=== PATIENT | female | born 1955 | race Caucasian/White ===

== ENCOUNTER 2019-11-25 10:41 | Outpatient (CLI) | payer MEDICARE, SELFPAY ==
--- NOTE | ~2019-11-25 | MR_ITS ---
EXAMINATION: MR lumbar spine wo/w con EXAM DATE: 11/25/2019 12:30 INDICATION: Lumbar fusion hardware. Spinal stenosis, neurogenic claudication. Low back pain. TECHNIQUE: Multi-sequential, multiplanar MR images of the lumbar spine were obtained without contrast . Sagittal T1, T2, T2 fat saturation images. Axial T2 weighted images. Axial T1 weighted sequence. Patient was then injected with 17 mL Multihance intravenous contrast and reimaged. Postcontrast axi al and sagittal T1-weighted fat saturation sequences were obtained. There are no prior studies for co mparison. FINDINGS: There is posterior fusion L2-S1, interbody fusion L5-S1. Moderate to severe disc disease L2 -3, moderate at L1-2, L3-4 and L4-5. Mid lumbar laminectomies. The vertebral bodies are aligned in th e AP dimension. The conus medullaris terminates at the L1/2 level and has normal signal intensity and morphology. There is enhancement in the laminectomy beds. Level by level evaluation: T12-L1: There is a mild diffuse disc bulge. Facet arthropathy: Mild to moderate. Neural foraminal stenosis: No stenosis. Central canal stenosis: Mild. L1-L2: There is a mild to moderate diffuse disc bulge asymmetric to the left Facet arthropathy: Moderate. Neural foraminal stenosis: Mild to moderate left, mild right. Central canal stenosis: Mild to moderate. L2-L3: There is a mild diffuse disc bulge. Facet arthropathy: Poorly visualized. Neural foraminal stenosis: Probably mild bilateral. Central canal stenosis: No stenosis. L3-L4: There is a mild to moderate diffuse disc bulge. Facet arthropathy: Poorly visualized. Neural foraminal stenosis: Probably mild to moderate bilateral. Central canal stenosis: No stenosis. L4-L5: There is a mild diffuse disc bulge. Facet arthropathy: Poorly visualized. Neural foraminal stenosis: Moderate to severe right, mild to moderate left. Central canal stenosis: No stenosis. L5-S1: This level is fused. Facet arthropathy: Mild to moderate. Neural foraminal stenosis: Probably moderate left, mild right. Central canal stenosis: Mild. IMPRESSION: 1. L2-S1 fusion hardware. 2. Disc disease most advanced L2-3. 3. Right L4-5 neural foramina most narrowed on exam. Reviewed, dictated and finalized at location A. 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
[2019-11-25 11:21] LABS: Estimated Glomerular Filt Rate 55
== END 2019-11-25 10:42 | disposition home or self-care (01) ==
LOC: ANHIMG 10:51
PROVIDERS: PCP Internal Medicine; Visit Provider Neurological Surgery
DX: M48.062 Spinal stenosis, lumbar region with neurogenic claudication (principal); Z98.1 Arthrodesis status; M51.36 Other intervertebral disc degeneration, lumbar region
CPT/HCPCS: 36415; 72158; A9577

== ENCOUNTER 2020-01-14 09:23 | Outpatient (CLI) | payer MEDICARE, SELFPAY ==
[2020-01-14 09:58] LABS: Hematocrit 38.7 % (37.0-47.0); Hemoglobin 12.6 g/dL (12.0-15.0)
[2020-01-14 10:16] LABS: Alanine Aminotransferase 58 U/L (4-35); Albumin Level 4.4 g/dL (3.5-5.1); Alkaline Phosphatase 125 U/L (38-126); Aspartate Amino Transferase 59 U/L (14-36); Bilirubin,Total 0.4 mg/dL (0.2-1.3); Blood Urea Nitrogen 19 mg/dL (7-17); Carbon Dioxide 28 mmol/L (22-30); Chloride 106 mmol/L (98-107); Cholesterol 151 mg/dL (0-200); Estimated Glomerular Filt Rate > 60; Glucose 99 mg/dL (65-105); HDL Direct 58 mg/dL; Sodium 143 mmol/L (137-145); Triglycerides 109 mg/dL (<150)
[2020-01-14 10:26] LABS: LDL Cholesterol Direct 71 mg/dL
[2020-01-14 10:52] LABS: Vitamin D 25 Hydroxy 61.8 ng/mL
[2020-01-14 11:08] LABS: Potassium 4.3 mmol/L (3.4-5.0)
== END 2020-01-14 09:24 | disposition home or self-care (01) ==
PROVIDERS: PCP Internal Medicine; Visit Provider Internal Medicine
DX: E78.5 Hyperlipidemia, unspecified (principal); E55.9 Vitamin D deficiency, unspecified; I10 Essential (primary) hypertension; D64.9 Anemia, unspecified; Z79.899 Other long term (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
CPT/HCPCS: 36415; 80053; 80061; 82306; 85014; 85018

== ENCOUNTER 2020-07-20 07:26 | Outpatient (CLI) | payer MEDICARE, SELFPAY ==
[2020-07-20 08:34] LABS: Alanine Aminotransferase 32 U/L (4-35); Alkaline Phosphatase 99 U/L (38-126); Anion Gap 6 mmol/L (8-16); Aspartate Amino Transferase 49 U/L (14-36); Bilirubin,Total 0.6 mg/dL (0.2-1.3); Blood Urea Nitrogen 17 mg/dL (7-17); Calcium 8.8 mg/dL (8.4-10.2); Carbon Dioxide 30 mmol/L (22-30); Chloride 107 mmol/L (98-107); Cholesterol 136 mg/dL (0-200); Estimated Glomerular Filt Rate > 60; Glucose 101 mg/dL (65-105); HDL Direct 41 mg/dL; Potassium 4.1 mmol/L (3.4-5.0); Sodium 143 mmol/L (137-145); Triglycerides 121 mg/dL (<150)
[2020-07-20 08:45] LABS: LDL Cholesterol Direct 70 mg/dL
[2020-07-20 09:51] LABS: Vitamin D 25 Hydroxy 50.2 ng/mL
== END 2020-07-20 07:27 | disposition home or self-care (01) ==
PROVIDERS: PCP Internal Medicine; Visit Provider Internal Medicine
DX: E55.9 Vitamin D deficiency, unspecified (principal); I10 Essential (primary) hypertension; Z79.899 Other long term (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; E78.5 Hyperlipidemia, unspecified
CPT/HCPCS: 36415; 80053; 80061; 82306

== ENCOUNTER 2021-04-26 09:38 | Outpatient (CLI) | payer MEDICARE, SELFPAY ==
--- NOTE | ~2021-04-26 | MR_ITS ---
EXAMINATION: MR thoracic spine wo con DATE: 04/26/2021 11:36 INDICATION: Thoracic back pain. TECHNIQUE: Magnetic resonance imaging (MRI) of the thoracic spine was performed without intravenous c ontrast. Sagittal localizer T1-weighted FSE of the cervical spine was obtained. Thoracic spine sequen jacquelyn included sagittal T2-weighted FSE, sagittal T1-weighted FSE, sagittal STIR FSE, and axial T2-weig hted FSE. COMPARISON: Chest 2 views 10/16/2018 FINDINGS: There is 9 degrees dextrocurvature of thoracic spine. There is kyphosis of thoracic spine. There are changes of anterior fusion procedure in cervical spine and posterior fusion procedure in sally mbar spine. There is mild chronic anterior wedging of T5, T6, T7, T8, and T9 vertebral bodies. There is moderately decreased disc height at T3-T4, mildly decreased disc height at T4-T5, and severely dec reased disc height from T5-T6 through T12-L1 with endplate remodeling. The discs are bulging from T2- T3 through T12-L1 with mild central canal stenosis. There is multilevel facet joint osteoarthritis, s evere at most levels. There is multilevel mild neural foraminal stenosis bilaterally. On the right, t here is moderate neural foraminal stenosis at T3-T4, T4-T5, T5-T6, and T11-T12. On the left, there is moderate neural foraminal stenosis at T10-T11 and T11-T12. The spinal cord signal intensity is garnt l. IMPRESSION: 1. Severe thoracic spondylosis. Reviewed, dictated and finalized at location A.
[2021-04-26 12:49] LABS: Alanine Aminotransferase 79 U/L (4-35); Albumin Level 4.5 g/dL (3.5-5.1); Alkaline Phosphatase 98 U/L (38-126); Anion Gap 7 mmol/L (8-16); Aspartate Amino Transferase 71 U/L (14-36); Bilirubin,Total 0.6 mg/dL (0.2-1.3); Blood Urea Nitrogen 19 mg/dL (7-17); Calcium 9.5 mg/dL (8.4-10.2); Carbon Dioxide 29 mmol/L (22-30); Chloride 105 mmol/L (98-107); Cholesterol 153 mg/dL (0-200); Estimated Glomerular Filt Rate > 60; Glucose 95 mg/dL (65-110); HDL Direct 59 mg/dL; Potassium 4.6 mmol/L (3.4-5.0); Sodium 141 mmol/L (137-145); Triglycerides 113 mg/dL (<150); Uric Acid 5.2 mg/dL (2.5-7.5)
[2021-04-26 13:00] LABS: LDL Cholesterol Direct 61 mg/dL
[2021-04-26 13:44] LABS: Vitamin B12 > 1000.0 pg/mL (239-931)
[2021-04-26 13:59] LABS: Vitamin D 25 Hydroxy 61.5 ng/mL
== END 2021-04-26 09:39 | disposition home or self-care (01) ==
PROVIDERS: PCP Internal Medicine
DX: F32.9 Major depressive disorder, single episode, unspecified (principal); Z13.21 Encounter for screening for nutritional disorder; G47.00 Insomnia, unspecified; E55.9 Vitamin D deficiency, unspecified; E78.5 Hyperlipidemia, unspecified; M47.24 Other spondylosis with radiculopathy, thoracic region; M10.9 Gout, unspecified
CPT/HCPCS: 36415; 72146; 80053; 80061; 82306; 82607; 84443; 84550

== ENCOUNTER 2021-05-01 12:19 | Outpatient (CLI) | payer MEDICARE, SELFPAY ==
[2021-05-01 12:46] LABS: Add Urine Microscopic? YES; Appearance Urine Cloudy (Clear); Bacteria Urine Trace /hpf; Bilirubin Urine Negative (Negative); Blood Urine Negative (Negative); Color Urine Yellow (Yellow); Glucose Urine UA Negative (Negative); Ketones Urine Negative (Negative); Leukocyte Esterase Ur 3+ LEU/UL (Negative); Mucus Urine Rare /lpf; Nitrate Urine Positive (Negative); Protein Urine Negative (Negative); RBC Urine 0-2 /hpf (0-2); Specific Grav Ur 1.018 (1.001-1.035); Squamous Epithelial Cell Urine Rare /hpf (Few); Urobilinogen Urine Negative mg/dL (<2.0); WBC Urine >75 /hpf
== END 2021-05-01 12:20 | disposition home or self-care (01) ==
LOC: ANHLAB 12:22
PROVIDERS: PCP Internal Medicine; Visit Provider Nurse Practitioner
DX: R39.9 Unspecified symptoms and signs involving the genitourinary system (principal)
CPT/HCPCS: 81001; 87077; 87086; 87088; 87186

== ENCOUNTER 2021-06-20 14:23 | Outpatient (CLI) | payer MEDICARE, SELFPAY ==
[2021-06-20 15:14] LABS: Alanine Aminotransferase 36 U/L (4-35); Albumin Level 4.6 g/dL (3.5-5.1); Alkaline Phosphatase 109 U/L (38-126); Aspartate Amino Transferase 58 U/L (14-36); Bilirubin,Total 0.7 mg/dL (0.2-1.3)
== END 2021-06-20 14:24 | disposition home or self-care (01) ==
PROVIDERS: PCP Internal Medicine
DX: R79.89 Other specified abnormal findings of blood chemistry (principal)
CPT/HCPCS: 36415; 80076

== ENCOUNTER 2021-11-06 13:46 | Outpatient (CLI) | payer MEDICARE, SELFPAY ==
[2021-11-06 15:15] LABS: Add Urine Microscopic? NO; Appearance Urine Clear (Clear); Bilirubin Urine Negative (Negative); Blood Urine Negative (Negative); Color Urine Straw (Yellow); Glucose Urine UA Negative (Negative); Ketones Urine Negative (Negative); Leukocyte Esterase Ur Negative LEU/UL (Negative); Nitrate Urine Negative (Negative); Protein Urine Negative (Negative); Specific Grav Ur 1.006 (1.001-1.035); Urobilinogen Urine Negative mg/dL (<2.0)
[2021-11-06 15:17] LABS: Alanine Aminotransferase 41 U/L (4-35); Albumin Level 4.3 g/dL (3.5-5.1); Alkaline Phosphatase 116 U/L (38-126); Anion Gap 7 mmol/L (8-16); Aspartate Amino Transferase 61 U/L (14-36); Bilirubin,Total 0.6 mg/dL (0.2-1.3); Blood Urea Nitrogen 12 mg/dL (7-17); Calcium 9.5 mg/dL (8.4-10.2); Carbon Dioxide 30 mmol/L (22-30); Chloride 104 mmol/L (98-107); Cholesterol 169 mg/dL (0-200); Estimated Glomerular Filt Rate > 60; Glucose 96 mg/dL (65-110); HDL Direct 52 mg/dL; Sodium 141 mmol/L (137-145); Triglycerides 128 mg/dL (<150)
[2021-11-06 15:27] LABS: LDL Cholesterol Direct 80 mg/dL
== END 2021-11-06 13:47 | disposition home or self-care (01) ==
LOC: ANHWCLAB 13:48
PROVIDERS: PCP Internal Medicine; Visit Provider Nurse Practitioner
DX: E78.5 Hyperlipidemia, unspecified (principal); R79.89 Other specified abnormal findings of blood chemistry; R30.0 Dysuria
CPT/HCPCS: 36415; 80053; 80061; 81003; 82248

== ENCOUNTER 2022-02-27 09:14 | Outpatient (CLI) | payer MEDICARE, SELFPAY ==
[2022-02-27 13:30] LABS: Alanine Aminotransferase 24 U/L (6-35); Albumin Level 3.9 g/dL (3.5-5.1); Alkaline Phosphatase 121 U/L (38-126); Anion Gap 7 mmol/L (8-16); Aspartate Amino Transferase 63 U/L (14-36); Basophils Percent Auto 0.5 % (0.2-1.2); Bilirubin,Total 0.5 mg/dL (0.2-1.3); Blood Urea Nitrogen 19 mg/dL (7-17); CRP 2.5 mg/dL (<1.0); Calcium 8.8 mg/dL (8.4-10.2); Carbon Dioxide 29 mmol/L (22-30); Chloride 107 mmol/L (98-107); Eosinophils Absolute Auto 0.3 K/mm3 (0-0.3); Eosinophils Percent Auto 4.9 % (0-4.4); Estimated Glomerular Filt Rate > 60; Glucose 88 mg/dL (65-110); Hematocrit 38.9 % (37.0-47.0); Hemoglobin 12.3 g/dL (12.0-15.0); Immature Granulocyte Absolute 0.01 K/mm3 (0.00-0.031); Immature Granulocyte Percent A 0.2 % (0-0.5); Immature Platelet Fraction Pct 4.3 % (0.9-11.2); Lymphocytes Absolute Auto 1.75 K/mm3 (0.9-3.2); Lymphocytes Percent Auto 27.9 % (18.3-44.2); Mean Corpuscular HGB Conc 31.6 g/dl (32-36); Mean Corpuscular Hemoglobin 29.9 pg (26-34); Mean Corpuscular Volume 94.4 fl (80-100); Mean Platelet Volume 13.9 fl (7.4-10.4); Monocytes Absolute Auto 0.5 K/mm3 (0.1-0.6); Monocytes Percent Auto 7.5 % (2.6-8.5); Neutrophils Absolute Auto 3.7 K/mm3 (1.3-6.7); Platelet Count Result 205 k/mm3 (150-375); Potassium 4.3 mmol/L (3.4-5.0); Red Blood Count 4.12 M/mm3 (4.2-5.4); Red Cell Distribution Width 13.4 % (11.5-14.5); Sodium 143 mmol/L (137-145); White Blood Count 6.3 K/mm3 (4.5-10.0)
[2022-02-27 13:38] LABS: Parathyroid Intact 67.5 pg/mL (7.5-53.5)
[2022-02-27 14:11] LABS: Rheumatoid Factor < 8.6 IU/ML (<12)
[2022-02-27 15:41] LABS: Erythrocyte Sedimentation Rate 73 mm/hr (0-20)
[2022-03-05 07:22] LABS: Anti Nuclear Antibody Pattern Nuclear, Speckled
[2022-03-11 13:59] LABS: Cyclic Citrullinated Peptide <16
== END 2022-02-27 09:15 | disposition home or self-care (01) ==
PROVIDERS: PCP Internal Medicine
DX: M79.10 Myalgia, unspecified site (principal); M25.50 Pain in unspecified joint; R53.83 Other fatigue; G89.4 Chronic pain syndrome
CPT/HCPCS: 36415; 80053; 83970; 85025; 85055; 85652; 86038; 86039; 86140; 86430

== ENCOUNTER 2022-04-04 12:51 | Outpatient (CLI) | payer MEDICARE, SELFPAY ==
[2022-04-04 13:40] LABS: Calcium 8.5 mg/dL (8.4-10.2)
[2022-04-04 14:06] LABS: Vitamin D 25 Hydroxy 64.9 ng/mL
== END 2022-04-04 12:52 | disposition home or self-care (01) ==
LOC: ANHLAB 12:58
PROVIDERS: PCP Internal Medicine
DX: E34.9 Endocrine disorder, unspecified (principal)
CPT/HCPCS: 36415; 82306; 82310; 83970

== ENCOUNTER 2022-05-02 10:53 | Outpatient (CLI) | payer MEDICARE, SELFPAY ==
--- NOTE | ~2022-05-02 | XR_ITS ---
XR sacroiliac joints min 3V DATE: 05/02/2022 11:29 INDICATION: Low back pain. History of fusions 3 years ago. TECHNIQUE: AP and bilateral oblique views COMPARISON: None FINDINGS: The sacroiliac joints are intact, without evidence of fracture, dislocation, erosive change or ankylosis. Extensive postsurgical changes of the lumbar spine including laminectomy, pedicle screws and rods pro viding posterior fusion and anterior surgical fusion at L5-S1. IMPRESSION: Unremarkable sacroiliac joints Extensive postoperative changes of the lumbosacral spine Reviewed, dictated and finalized at Location A. Reviewed, dictated and finalized at location B.
--- NOTE | ~2022-05-02 | XR_ITS ---
XR hand LT min 3V DATE: 05/02/2022 11:29 INDICATION: Polyarthralgia TECHNIQUE: 3 views COMPARISON: None FINDINGS: There is narrowing at the radiocarpal joint. There is osteoarthritic change at the first ca rpometacarpal and multiple interphalangeal joints. No fracture or dislocation, periosteal reaction or bone destruction or erosive change. No chondrocalc inosis. IMPRESSION: Polyarticular osteoarthritis Reviewed, dictated and finalized at location B.
--- NOTE | ~2022-05-02 | XR_ITS ---
XR foot LT min 3V DATE: 05/02/2022 11:29 INDICATION: Polyarthralgia TECHNIQUE: 4 views COMPARISON: None FINDINGS: Mild plantar calcaneal enthesopathy without erosive change or periostitis. Partially incorporated os tibiale externum. Mild osteoarthritis at the first metatarsophalangeal joint. No fracture, dislocation, periosteal reaction or bone destruction. IMPRESSION: Mild plantar calcaneal enthesopathy Mild osteoarthrosis at first metatarsophalangeal Reviewed, dictated and finalized at location B.
--- NOTE | ~2022-05-02 | XR_ITS ---
XR hand RT min 3V DATE: 05/02/2022 11:29 INDICATION: Polyarthralgia TECHNIQUE: 3 views COMPARISON: None FINDINGS: No fracture or dislocation, periosteal reaction or bone destruction. There is osteoarthritis at the first carpometacarpal, first metacarpophalangeal and more prominently at multiple interphalangeal joints. No erosive change. No chondrocalcinosis. IMPRESSION: Polyarticular osteoarthritis Reviewed, dictated and finalized at location B.
--- NOTE | ~2022-05-02 | XR_ITS ---
XR foot RT min 3V DATE: 05/02/2022 11:29 INDICATION: Polyarthralgia TECHNIQUE: 4 views COMPARISON: None FINDINGS: Mild to moderate plantar calcaneal enthesopathy. There is some calcification at the distal Achilles tendon. There is severe osteoarthritic change at the first metatarsophalangeal joint with particularly promin ent dorsal spurring. Osteoarthritic changes are noted at the tarsometatarsal joints. No fracture, dislocation, periosteal reaction or bone destruction or erosive change is noted. IMPRESSION: Severe hypertrophic osteoarthritic change at the first metatarsophalangeal joint with par ticularly prominent dorsal spurring Osteophytic change at the tarsometatarsal joints Plantar calcaneal enthesopathy and distal Achilles tendon calcification Reviewed, dictated and finalized at location B. IMPRESSION: Severe hypertrophic osteoarthritic change at the first metatarsopha langeal joint with particularly prominent dorsal spurring Osteophytic change at the tarsometatarsal joints Plantar calcaneal enthesopathy and distal Achilles tendon calcification
== END 2022-05-02 10:54 | disposition home or self-care (01) ==
LOC: ANHIMG 10:59
PROVIDERS: PCP Internal Medicine
DX: M19.90 Unspecified osteoarthritis, unspecified site (principal); M54.50 Low back pain, unspecified; Z98.1 Arthrodesis status; M77.32 Calcaneal spur, left foot; M77.31 Calcaneal spur, right foot; M19.041 Primary osteoarthritis, right hand; M19.042 Primary osteoarthritis, left hand
CPT/HCPCS: 72202; 73130; 73630

== ENCOUNTER 2022-05-22 12:51 | Outpatient (CLI) | payer MEDICARE, SELFPAY ==
--- NOTE | ~2022-05-22 | XR_ITS ---
EXAM: XR shoulder RT min 2V DATE: 05/22/2022 13:15 HISTORY: ACUTE PAIN OF RIGHT SHOULDER, NKI, pain x10D . COMPARISON: None available. FINDINGS: Normal mineralization. No fracture or dislocation. No lytic or blastic lesion. Moderate os teophytosis at the AC joint and glenohumeral joint. No erosion or periosteal change. Visualized lung parenchyma is clear. IMPRESSION: No acute osseous finding in the right shoulder. Reviewed, dictated and finalized at location K.
== END 2022-05-22 12:52 | disposition home or self-care (01) ==
LOC: ANHIMG 12:55
PROVIDERS: PCP Internal Medicine; Visit Provider Internal Medicine
DX: M25.511 Pain in right shoulder (principal)
CPT/HCPCS: 73030

== ENCOUNTER 2022-07-31 09:31 | Outpatient (CLI) | payer MEDICARE, SELFPAY ==
--- NOTE | ~2022-07-31 | CT_ITS ---
EXAMINATION: CT lumbar spine wo con DATE: 07/31/2022 10:06 INDICATION: Right leg weakness. TECHNIQUE: Computed tomography (CT) of the lumbar spine was performed without intravenous contrast. A utomated exposure control and iterative reconstruction technique were employed. The dose-length produ ct was 1160.15 mGy-cm. COMPARISON: Lumbar spine MRI 11/25/2019 FINDINGS: There is 11 degrees levoscoliosis of thoracolumbar spine. There is 3 mm retrolisthesis of L 2 on L3 and L3 on L4. There is mild chronic anterior wedging of T11-L2 vertebral bodies. There are ch anges of anterior fusion procedure at L5-S1 with interbody device. There are changes of posterior fus ion procedure from L2 to S1 and the iliac bones with pedicle screws. There is severely decreased disc height from T10-T11 through L1-L2 with endplate remodeling. There is severely decreased disc height at L2-L3 with interbody fusion. There is moderately decreased disc height at L3-L4 and L4-L5. The fol lowing disc levels are specifically discussed: L1-L2: The disc is bulging. There is severe bilateral facet joint osteoarthritis. There is mild right and moderate left neural foraminal stenosis. There is mild central canal stenosis. L2-L3: The disc does not extend beyond the endplate margin. There is moderate bilateral facet joint h ypertrophy. There is mild bilateral neural foraminal stenosis. There is mild central canal stenosis w ith posterior decompression. L3-L4: The disc is bulging. There is moderate bilateral facet joint hypertrophy. There is mild bilate ral neural foraminal stenosis. There is mild central canal stenosis with posterior decompression. L4-L5: The disc is bulging. There is moderate bilateral facet joint hypertrophy. There is mild bilate ral neural foraminal stenosis. There is mild central canal stenosis with posterior decompression. L5-S1: There is moderate bilateral facet joint hypertrophy. There is mild bilateral neural foraminal stenosis. There is no central canal stenosis. IMPRESSION: 1. Severe thoracic and lumbar spondylosis. 2. Anterior fusion procedure at L5-S1 and posterior fusion procedure from L2 to S1 and the iliac bone s. Reviewed, dictated and finalized at location A. CAL CSR IMPRESSION: 1. Severe thoracic and lumbar spondylosis. 2. Anterior fusion procedure at L5-S1 and posterior fusion procedure from L2 to S1 and the iliac bones.
--- NOTE | ~2022-07-31 | US_ITS ---
EXAMINATION: US abdomen limited DATE: 07/31/2022 10:18 INDICATION: ELEVATED AST TECHNIQUE: Multiple grayscale and Doppler ultrasound images of limited portions of the abdomen were o btained. COMPARISON: MRI MRCP 03/17/2019. FINDINGS: Exam mildly limited by body habitus and views of the liver that were limited to intercostal windows. The visualized portions of the pancreas are normal. The liver is normal with normal echogen icity and echotexture. No surface nodularity. Normal hepatopetal flow in the main portal vein. Status post cholecystectomy. The common bile duct measures 4 mm. IMPRESSION: Normal limited abdominal ultrasound findings. Reviewed, dictated and finalized at location K. P SHOOTER
== END 2022-07-31 09:32 | disposition home or self-care (01) ==
PROVIDERS: PCP Internal Medicine
DX: R29.898 Other symptoms and signs involving the musculoskeletal system (principal); M47.894 Other spondylosis, thoracic region; M47.26 Other spondylosis with radiculopathy, lumbar region; Z98.1 Arthrodesis status
CPT/HCPCS: 72131; 76705

== ENCOUNTER 2022-08-20 15:13 | Outpatient (CLI) | payer MEDICARE, SELFPAY ==
--- NOTE | ~2022-08-20 | DEXA_ITS ---
Bone Density Report Name: KARYN ROSS Age: 67 Sex: Female Ethnicity: White Date of : 1955 Indication: postmenopausal; screening for osteoporosis; height loss; asthma or emphysema; hysterectomy; Referring Provider: YURI, YUDI Study: Bone densitometry was performed. Exam Date: August 20, 2022 Accession number: [id number] Bone Density: Region BMD T-score Z-score Classification Femoral Neck (Left) 0.722 -1.1 0.6 Osteopenia Total Hip (Left) 0.979 0.3 1.8 Normal Femoral Neck (Right) 0.706 -1.3 0.5 Osteopenia Total Hip (Right) 0.972 0.2 1.7 Normal Total Hip Mean 0.975 0.3 1.8 Normal World Health Organization criteria for BMD impression classify patients as: Normal (T-score at or above -1.0), Osteopenia (T-score between -1.0 and -2.5), or Osteoporosis (T-score at or below -2.5). 10-year Fracture Risk(1): Major Osteoporotic Fracture 8.5% Hip Fracture 1.0% Reported Risk Factors: [place] (), Neck BMD=0.706, BMI=37.6 (1) FRAX(R) Version 3.08. Fracture probability calculated for an untreated patient. Fracture probability may be lower if the patient has received treatment. Clinical Information Provided by Patient: Has used the following medications: Vitamin D, Calcium Has the following medical conditions: Asthma or Emphysema, Hysterectomy Patient maximum height was 62 Menopause Age: 48 Drinks caffeinated beverages Onset of menses at age 11 Number of children 2 Impression: The patient has low bone mass, based on the Right Femoral Neck T-score. The patient has an estimated ten-year risk of hip fracture of 1% and an estimated ten-year risk of major fracture of 8.5%, based on the WHO FRAX algorithm. Discussion: BONE DENSITY IS LOW AT ONE OR MORE SKELETAL SITES. This patient's lowest T-score is low at one or more skeletal sites. It meets the World Health Organization's (WHO) criteria for ?low bone mass? (T-score between -1.0 and -2.5). The patient's 10-year risk of fracture as calculated by FRAX is less than the threshold where pharmacological therapy is recommended by the National Osteoporosis Foundation (NOF). However, all treatment decisions require clinical judgment and consideration of individual patient factors, including patient preferences, comorbidities, previous drug use, risk factors not captured in the FRAX model (e.g., frailty, falls, vitamin D deficiency, increased bone turnover, interval significant decline in bone density) and possible under or overestimation of fracture risk by FRAX. The patient should follow a healthful lifestyle (good nutrition with adequate calcium and vitamin D, and appropriate weight-bearing exercise). Follow-Up: Consider repeating this study in 2 to 3 years to reassess this patient's status, or sooner if there is some new clinical indication
== END 2022-08-20 15:14 | disposition home or self-care (01) ==
LOC: ANHIMG 15:13
PROVIDERS: PCP Internal Medicine; Visit Provider Internal Medicine
DX: Z78.0 Asymptomatic menopausal state (principal); M85.852 Other specified disorders of bone density and structure, left thigh; M85.851 Other specified disorders of bone density and structure, right thigh
CPT/HCPCS: 77080

== ENCOUNTER 2022-11-12 14:47 | Outpatient (CLI) | payer MEDICARE, SELFPAY ==
--- NOTE | ~2022-11-12 | MM_ITS ---
EXAMINATION: MM screening edgar BI w angelo HISTORY: Screening mammogram TECHNIQUE: Craniocaudal and mediolateral oblique 3-D tomosynthesis images were obtained and synthetic 2-D images were generated. CAD analysis was submitted and interpreted. COMPARISON: No prior mammogram is available for comparison at this institution. BREAST PARENCHYMAL COMPOSITION: The breasts are heterogeneously dense, which may obscure small masses . FINDINGS: Scattered bilateral benign calcifications. There is no evidence of suspicious mass, calcifi cation, or architectural distortion to suggest malignancy in either breast. IMPRESSION: 1. No mammographic evidence of malignancy. 2. Recommend routine screening mammography in one year. BI-RADS Category 2: Benign finding(s). Reviewed, dictated and finalized at location A. APPLICATION SUPPORT SPECIALIST
== END 2022-11-12 14:48 | disposition home or self-care (01) ==
LOC: ANHIMG 14:48
PROVIDERS: PCP Internal Medicine; Visit Provider Internal Medicine
DX: Z12.31 Encounter for screening mammogram for malignant neoplasm of breast (principal)
CPT/HCPCS: 77063; 77067

== ENCOUNTER 2023-05-08 11:52 | Outpatient (CLI) | payer MEDICARE, SELFPAY ==
--- NOTE | ~2023-05-08 | XR_ITS ---
EXAMINATION: XR hip LT min 3V w AP pelvis INDICATION: Postlaminectomy syndrome TECHNIQUE: AP view the pelvis and two views of the left hip are obtained. COMPARISON: 05/02/2022 FINDINGS: There are changes of laminectomy and lumbosacral fusion. There is moderate osteoarthritis o f the hips. Bone alignment is normal. There is no fracture. IMPRESSION: 1. Moderate osteoarthritis of the hips. Reviewed, dictated and finalized at location L.
--- NOTE | ~2023-05-08 | XR_ITS ---
EXAM: XR lumbar spine 2-3V DATE: 05/08/2023 12:29 HISTORY: HX OF FALLING;POSTLAMINECTOMY SYNDROME . COMPARISON: CT L-spine 07/31/2022. FINDINGS: Exaggerated lumbar lordosis and thoracic kyphosis. Extensive posterior fusion hardware spa nning L1-S1. Multilevel severe disc space narrowing, marginal osteophytosis including large bridging osteophytes, and vacuum phenomenon at all levels in the lower thoracic spine. Aortic calcifications w ithout evident aneurysm. Anterior fusion hardware at L4-5. Bone graft material overlying the posterio r elements. Cholecystectomy clips. IMPRESSION: Uncomplicated appearing lumbar fusion hardware. No lumbar fracture or traumatic malalignm ent. No dynamic listhesis. Reviewed, dictated and finalized at location K. IMPRESSION: Uncomplicated appearing lumbar fusion hardware. No lumbar fracture or traumatic malalignment. No dynamic listhesis.
== END 2023-05-08 11:53 | disposition home or self-care (01) ==
PROVIDERS: PCP Internal Medicine
DX: Z91.81 History of falling (principal); M99.61 Osseous and subluxation stenosis of intervertebral foramina of cervical region; R10.32 Left lower quadrant pain; Z98.1 Arthrodesis status; M16.12 Unilateral primary osteoarthritis, left hip
CPT/HCPCS: 72100; 73502

== ENCOUNTER 2023-07-11 13:28 | Outpatient (CLI) | payer MEDICARE, SELFPAY ==
--- NOTE | ~2023-07-11 | XR_ITS ---
XR chest 2V DATE: 07/11/2023 13:50 INDICATION: Sjogren's syndrome. Shortness of breath. TECHNIQUE: PA and lateral views COMPARISON: 10/16/2018 2 view chest FINDINGS: Normal heart size. Aortic arch calcification. No hilar or mediastinal enlargement. There is mild elevation of the right leaf of the diaphragm. No pulmonary infiltrate or consolidation, pleural effusion or pulmonary vascular congestion or pneumothorax is detected. Mild dextroscoliosis of the thoracic spine. Degenerative spurring of the thoracic spine. Status post lower anterior cervical spine surgical fusion. Status post lumbar spine posterior surgical fusion. Status post cholecystectomy. Osteopenia. IMPRESSION: No active cardiopulmonary disease or significant change since 10/16/2018 Reviewed, dictated and finalized at location B. IMPRESSION: No active cardiopulmonary disease or significant change since 2018
== END 2023-07-11 13:29 | disposition home or self-care (01) ==
PROVIDERS: PCP Internal Medicine
DX: M35.00 Sjogren syndrome, unspecified (principal)
CPT/HCPCS: 71046

== ENCOUNTER 2023-07-24 13:26 | Outpatient (CLI) | payer MEDICARE, SELFPAY ==
--- NOTE | 2023-07-24 17:05 | WPDPFTINT ---
PFT Procedure Performed PFT Procedure Performed Plethysmography (Lung Vol) Diffusing Cap (DLCO) Flow Vol Loop Spirometry w/o Bronchodil PFT Interpretation This is a pulmonary function test with spirometry, plethysmography and diffusing capacity. The test was performed and results interpreted in accordance with the 2019 and 2005 ATS/ERS Task Force guidelines respectively using the Global Lung Function Initiative-2012 reference equations. Patient demonstrated good effort and cooperation. Reproducibility criteria were met. The quality of the spirometry maneuver was Grade A. Findings: Spirometry: The contour the inspiratory and expiratory flow tracing are normal. The FVC is 1.97 L, 80% predicted. The FEV1 is 1.51 L, 79% predicted. The FEV1: FVC ratio 77%. Plethysmography: The total lung capacity is 3.32 L, 75% predicted. The functional residual capacity is 0.87 L, 35% predicted. The residual volume is 0.85 L, 43% predicted. Diffusing capacity: The diffusing capacity unadjusted for hemoglobin and carboxyhemoglobin is 10.3, 54% predicted. The diffusing capacity adjusted for alveolar volume is 3.44, 77% predicted. Impression: There is a mild restrictive ventilatory abnormality. The spirometry is normal without evidence of an obstructive abnormality. The diffusing capacity unadjusted for hemoglobin and carboxyhemoglobin is moderately decreased and normalizes when adjusted for alveolar volume. There are no prior studies for comparison
== END 2023-07-24 13:27 | disposition home or self-care (01) ==
LOC: ANHPFT 13:27
PROVIDERS: PCP Internal Medicine
DX: M35.00 Sjogren syndrome, unspecified (principal); R94.2 Abnormal results of pulmonary function studies
CPT/HCPCS: 94060; 94726; 94729

== ENCOUNTER 2024-01-12 13:04 | Outpatient (CLI) | payer MEDICARE, SELFPAY ==
--- NOTE | ~2024-01-12 | MM_ITS ---
EXAMINATION: MM screening edgar BI w angelo HISTORY: Screening mammogram TECHNIQUE: Craniocaudal and mediolateral oblique 3-D tomosynthesis images were obtained and synthetic 2-D images were generated. CAD analysis was submitted and interpreted. COMPARISON: November 12, 2022 bilateral screening mammogram BREAST PARENCHYMAL COMPOSITION: The breasts are heterogeneously dense, which may obscure small masses . FINDINGS: Focal asymmetry is suggested in the lower anterior lateral right breast on MLO view; diagno stic right mammogram is recommended, with ultrasound if required. Otherwise there is no evidence of suspicious mass, calcification, or architectural distortion to sugg est malignancy in either breast. There has been no other suspicious interval change. IMPRESSION: 1. Asymmetry, lower anterior lateral right breast on screening MLO view 2. Diagnostic right mammogram is recommended, with ultrasound if required BI-RADS Category 0: Incomplete: Needs additional imaging evaluation. Reviewed, dictated and finalized at location A.
== END 2024-01-12 13:05 | disposition home or self-care (01) ==
LOC: ANHIMG 13:06
PROVIDERS: PCP Internal Medicine; Visit Provider Internal Medicine
DX: Z12.31 Encounter for screening mammogram for malignant neoplasm of breast (principal); R92.8 Other abnormal and inconclusive findings on diagnostic imaging of breast
CPT/HCPCS: 77063; 77067

== ENCOUNTER 2024-01-26 12:55 | Outpatient (CLI) | payer MEDICARE, SELFPAY ==
--- NOTE | ~2024-01-26 | MMUS_ITS ---
EXAMINATION: MM diagnostic edgar RT w angelo, US breast RT limited HISTORY: Mammographic asymmetry reported in the lower right breast on screening January 12, 2024 MLO vi ew TECHNIQUE: Additional 3-D tomosynthesis images of the right breast were performed and synthetic 2-D i mages were generated. CAD analysis was submitted and interpreted. High resolution lower outer and low er inner quadrant right breast ultrasound was performed. COMPARISON: January 10, 2024 and November 12, 2022 bilateral screening mammogram examination FINDINGS: MAMMOGRAPHIC FINDINGS: No suspicious mass or architectural distortion is evident on these supplemental views of the right br east. ULTRASOUND: No suspicious mass or shadowing, cyst or other significant abnormality is detected. IMPRESSION: 1. No mammographic or sonographic evidence of malignancy is detected 2. Routine annual mammographic screening is recommended BI-RADS Category 1: Negative Reviewed, dictated and finalized at location B. IMPRESSION: 1. No mammographic or sonographic evidence of malignancy is detected 2. Routine annual mammographic screening is recommended BI-RADS Category 1: Negative
== END 2024-01-26 12:56 | disposition home or self-care (01) ==
LOC: ANHIMG 12:57
PROVIDERS: PCP Internal Medicine; Visit Provider Internal Medicine
DX: R92.8 Other abnormal and inconclusive findings on diagnostic imaging of breast (principal)
CPT/HCPCS: 76642; 77061; 77065; G0279

== ENCOUNTER 2024-04-30 12:55 | Outpatient (CLI) | payer MEDICARE, SELFPAY ==
--- NOTE | 2024-04-30 | ECHO_ITS ---
Patient Info Name: Edna Linton Age: 69 years : 1955 Gender: Female Ht: 60 in Wt: 187 lbs BSA: 1.94 m2 HR: 72 bpm BP: 180 / 95 mmHg Heart Rhythm: Sinus Rhythm Technical Quality: Good Exam Date: 04/30/2024 1:22 PM Exam Location: Echo Lab Patient Status: Outpatient Admit Date: 04/30/2024 Staff Ordering Physician: Thor*Rishi MD Lean Leader: Gracie Weems RDCS Attending Provider: NormaRishi MD Referring Physician: Paul WILBURN; Exam Type: CA echo doppler color flow Study Info Indications R06.02 - Shortness of breath R60.9 - Edema, unspecified Complete two-dimensional, color flow and Doppler transthoracic echocardiogram is performed. Summary 1. Complete two-dimensional, color flow and Doppler transthoracic echocardiogram is performed. 2. Normal left ventricular size and systolic contractility with grade 1 diastolic noncompliance. 3. Modestly dilated left atrium. 4. Very small amount of tricuspid regurgitation, estimated RV systolic pressure is normal. Left Ventricle Left ventricular chamber dimension is normal. Left ventricular systolic function is normal, estimated at 50-55%. The left ventricular diastolic function is grade I diastolic dysfunction. Right Ventricle Right ventricular chamber dimension is normal. Left Atria Left atrial chamber dimension is mildly enlarged. Right Atria Right atrial chamber dimension is normal. Aortic Valve The aortic valve is normal. Pulmonic Valve The pulmonic valve is normal. Mitral Valve The mitral valve has normal leaflets. Tricuspid Valve The tricuspid valve leaflets are normal. There is mild tricuspid valve regurgitation. No pulmonary hypertension, estimated pulmonary arterial systolic pressure is 34 mmHg. Pericardium/Pleural The pericardium appears normal. Aorta The aortic root size at the sinus of Valsalva is normal. Left Ventricular Outflow Tract Name Value Normal LVOT 2D LVOT Diameter 2.0 cm LVOT Doppler LVOT Peak Gradient 4 mmHg LVOT Mean Gradient 2 mmHg LVOT VTI 23 cm LVOT VTI/AV VTI Ratio 0.8 LVOT Stroke Volume 70 ml LVOT CO 4.8 l/min LVOT CI 2.5 l/min/m2 Pulmonic Valve Name Value Normal RVOT Doppler RVOT Peak Gradient 2 mmHg PV Doppler PV Peak Gradient 3 mmHg Mitral Valve Name Value Normal MV Doppler MV Decel Randolph 549 cm/s2 MV PHT
== END 2024-04-30 12:56 | disposition home or self-care (01) ==
LOC: ANHCARD 12:58
PROVIDERS: PCP Internal Medicine; Visit Provider Internal Medicine Interventional Cardiology
DX: R60.9 Edema, unspecified (principal)
CPT/HCPCS: 93306

== ENCOUNTER 2024-09-07 15:32 | Outpatient (CLI) | payer MEDICARE, SELFPAY ==
--- NOTE | ~2024-09-07 | CT_ITS ---
EXAMINATION: CT cervical spine wo con DATE: 09/07/2024 16:30 INDICATION: Cervical radiculopathy. TECHNIQUE: Computed tomography (CT) of the cervical spine was performed without intravenous contrast. Automated exposure control and iterative reconstruction technique were employed. The dose-length pro duct was 474.86 mGy-cm. COMPARISON: None FINDINGS: There is 4 degrees levocurvature of cervical spine. There are changes of anterior fusion pr ocedure from C4 to C6 with healed interbody bone graft. There is an anterior plate with screws at C5- C6. Vertebral body heights are normal. There is mildly decreased disc height at C3-C4. The following disc levels are specifically discussed: C2-C3: There is mild bilateral uncovertebral joint osteoarthritis. There is severe bilateral facet kaur int osteoarthritis. There is mild bilateral neural foraminal stenosis. There is no central canal sten osis. C3-C4: There is severe right and mild left uncovertebral joint osteoarthritis. There is severe bilate ral facet joint osteoarthritis. There is mild bilateral neural foraminal stenosis. There is mild cent ral canal stenosis. C4-C5: There is mild bilateral uncovertebral joint hypertrophy. There is ankylosis of the facet joint s with mild hypertrophy. There is mild bilateral neural foraminal stenosis. There is no central canal stenosis. C5-C6: There is moderate bilateral uncovertebral joint hypertrophy. There is ankylosis of the facet j oints with moderate hypertrophy. There is moderate right and mild left neural foraminal stenosis. The re is no central canal stenosis. C6-C7: There is no uncovertebral joint osteoarthritis. There is ankylosis of the facet joints with se john hypertrophy. There is moderate right and mild left neural foraminal stenosis. There is no centra l canal stenosis. C7-T1: There is no uncovertebral joint osteoarthritis. There is severe bilateral facet joint osteoart hritis. There is mild bilateral neural foraminal stenosis. There is no central canal stenosis. IMPRESSION: 1. Anterior fusion procedure from C4 to C6. 2. Moderate cervical spondylosis. Reviewed, dictated and finalized at location A. 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
--- NOTE | ~2024-09-07 | XR_ITS ---
EXAMINATION: XR chest 2V 09/07/2024 16:22 INDICATION: Mild intermittent asthma. PROCEDURE: 2 view chest COMPARISON: 07/11/2023 FINDINGS: The lungs are clear. Shallow inspiration with crowding of the pulmonary vessels. The cardio mediastinal silhouette is within normal limits. There are no pleural effusions. There is no pneumot horax suspected. 3 there is evidence for fusion of the right lumbar spine, partially visualized. IMPRESSION: 1: NO ACUTE CARDIOPULMONARY DISEASE. Reviewed, dictated and finalized at location B. 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
== END 2024-09-07 15:33 | disposition home or self-care (01) ==
PROVIDERS: PCP Internal Medicine
DX: J45.20 Mild intermittent asthma, uncomplicated (principal); M54.12 Radiculopathy, cervical region; M96.1 Postlaminectomy syndrome, not elsewhere classified; M47.892 Other spondylosis, cervical region; Z98.1 Arthrodesis status
CPT/HCPCS: 71046; 72125

== ENCOUNTER 2024-09-24 14:46 | Outpatient (CLI) | payer MEDICARE, SELFPAY | END 2024-09-24 14:47 | disposition home or self-care (01) | PROVIDERS: PCP Internal Medicine | DX: J45.20 Mild intermittent asthma, uncomplicated (principal) | CPT/HCPCS: 94375; 94618; 94726; 94729 ==

== ENCOUNTER 2025-01-10 11:05 | Outpatient (CLI) | payer MEDICARE, SELFPAY ==
--- NOTE | ~2025-01-10 | US_ITS ---
Renal-Bladder ultrasound Clinical History: Chronic kidney disease Technique: Real-time sonographic imaging of the kidneys and urinary bladder was performed. Findings: The right kidney measures 11.1 cm in length and the left kidney measures 11.0 cm. There is no hydronephrosis or renal calculus identified. Renal cortical echogenicity is within normal limits. No renal mass lesion is identified. The urinary bladder is moderately distended at the time of this exam. No intraluminal echoes are iden tified. No abnormal wall thickening is seen. Impression: Unremarkable ultrasound of the kidneys and urinary bladder. Reviewed, dictated and finalized at location M. Impression: Unremarkable ultrasound of the kidneys and urinary bladder.
== END 2025-01-10 11:06 | disposition home or self-care (01) ==
LOC: MICIMG 11:06
PROVIDERS: PCP Internal Medicine; Visit Provider Internal Medicine Nephrology
DX: N18.9 Chronic kidney disease, unspecified (principal)
CPT/HCPCS: 76775

== ENCOUNTER 2025-01-12 12:14 | Outpatient (CLI) | payer MEDICARE, SELFPAY ==
--- NOTE | ~2025-01-12 | DEXA_ITS ---
Bone Density Report Name: KARYN ROSS Age: 69 Sex: Female Ethnicity: White Date of : 1955 Indication: postmenopausal; screening for osteoporosis; height loss; asthma or emphysema; hysterectomy; Referring Provider: YURI, YUDI Study: Bone densitometry was performed. Exam Date: January 12, 2025 Accession number: [id number] Bone Density: Region BMD T-score Z-score Classification Femoral Neck (Left) 0.725 -1.1 0.8 Osteopenia Total Hip (Left) 1.013 0.6 2.2 Normal Femoral Neck (Right) 0.633 -1.9 0.0 Osteopenia Total Hip (Right) 0.964 0.2 1.8 Normal Total Hip Mean 0.988 0.4 2.0 Normal World Health Organization criteria for BMD impression classify patients as: Normal (T-score at or above -1.0), Osteopenia (T-score between -1.0 and -2.5), or Osteoporosis (T-score at or below -2.5). 10-year Fracture Risk(1): Major Osteoporotic Fracture 11% Hip Fracture 2.1% Reported Risk Factors: [place] (), Neck BMD=0.633, BMI=36.0 (1) FRAX(R) Version 3.08. Fracture probability calculated for an untreated patient. Fracture probability may be lower if the patient has received treatment. Previous Exams: Region Exam Age BMD T-score BMD Change BMD Change Date g/cm2 vs Baseline vs Previous Total Hip(Left) 01/12/2025 69 1.013 0.6 0.034 (3.5%)* 0.034 (3.5%)* 08/20/2022 67 0.979 0.3 Total Hip(Right) 01/12/2025 69 0.964 0.2 -0.008 (-0.8%) -0.008 (-0.8%) 08/20/2022 67 0.972 0.2 *Denotes significance at 95% confidence level, LSC for Total Hip = 0.027 g/cm2 Clinical Information Provided by Patient: Has used the following medications: Vitamin D, Calcium Has the following medical conditions: Asthma or Emphysema, Hysterectomy Patient maximum height was 62 Menopause Age: 48 Drinks caffeinated beverages Onset of menses at age 11 Number of children 2 Impression: The patient has low bone mass, based on the Right Femoral Neck T-score. The patient has an estimated ten-year risk of hip fracture of 2.1% and an estimated ten-year risk of major fracture of 11%, based on the WHO FRAX algorithm. No significant bone loss was observed. Discussion: BONE DENSITY IS LOW AT ONE OR MORE SKELETAL SITES. This patient's lowest T-score is low at one or more skeletal sites. It meets the World Health Organization's (WHO) criteria for ?low bone mass? (T-score between -1.0 and -2.5). The patient's 10-year risk of fracture as calculated by FRAX is less than the threshold where pharmacological therapy is recommended by the National Osteoporosis Foundation (NOF). However, all treatment decisions require clinical judgment and consideration of individual patient factors, including patient preferences, comorbidities, previous drug use, risk factors not captured in the FRAX model (e.g., frailty, falls, vitamin D deficiency, increased bone turnover, interval significant decline in bone density) and possible under or overestimation of fracture risk by FRAX. The patient should follow a healthful lifestyle (good nutrition with adequate calcium and vitamin D, and appropriate weight-bearing exercise). Follow-Up: Consider repeating this study in 2 to 3 years to reassess this patient's status, or sooner if there is some new clinical indication. Reported by: MARIA ALEJANDRA on 01/12/2025 12:47:00 PM. Reviewed, dictated and finalized at location A.
--- OUTSIDE RECORDS SUMMARY | 2025-01-12 13:53 | XMS_ITS ---
Author Organization [facility] Address [address] [place] [address] [place] [id number] Care Team Providers Care Mica Patcher Name Role Phone Nawaf HANDY, Wilbert Unavailable Unavailable Johanny Snyder Unavailable [phone] Allergies Allergen (clinical drug ingredient) Drug/Non Drug Allergy documented on EMR Reaction Allergy Type Onset Date Status sucralfate Carafate Swelling Drug Allergy Active hydromorphone Dilaudid hives Drug Allergy Act jeff etodolac Lodine anaphylaxis Drug Allergy Activ e nitroprusside Nipride RTU rash Drug Allergy A ctive morphine Morphine hives Drug Allergy Active vancomycin Vancomycin hives Drug Allergy Activ e REASON FOR VISIT meds Medications Medication SIG (Take, Route, Frequency, Duration) Notes Start Date End Date Status Imiquimod 5 % External for 56 Days Active Narcan 4 MG/0.1ML as directed Nasally for 1 days 08/11/2024 Active Sertraline HCl 50 MG Oral for 90 Days Active traZODone HCl 150 MG Oral for 90 Days Active oxyCODONE HCl 5 MG 1 tablet Oral every 6 hrs for 30 days 09/09/2024 Active Lisinopril 20 MG Oral for 100 Days Active Gabapentin 600 MG Oral for 100 Days Active Metoprolol Succinate 100 MG 1 capsule Or ally Once a day for 30 day(s) 05/03/2024 Active Sodium Fluoride 5000 PPM 1.1 % Dental for 24 Days Active Furosemide 40 MG Oral for 100 Days Active Azelastine HCl 137 MCG/SPRAY Nasal for 100 Days Active Ezetimibe 10 MG Oral for 100 Days Active Albuterol Sulfate HFA 108 (9 0 Base) MCG/ACT Inhalation for 100 Days Active Rosuvastatin Calcium 20 MG Oral for 100 Days Active Pantoprazole Sodium 40 MG Oral for 100 Days Active Hydroxychloroquine Sulfate 2 00 MG Oral for 100 Days Active Baclofen 10 MG 1 tablet as needed Oral three times a day for 30 days Active Trelegy Ellipta 200-62.5-25 MCG/ACT Inhalation for 90 Days Activ e Montelukast Sodium 10 MG Oral for 100 Days Active Vital Signs Blood pressure systolic 130 mm Hg 12/09/19 25 Blood pressure diastolic 73 mm Hg 025 Heart Rate 63 /min 12/08/2024 Height 4ft 11in in 12/08/2024 Weight 187 lbs 12/08/2024 BMI 37.77 kg/m2 12/08/2024 Height-cm 149.86 cm 12/08/2024 Weight-kg 84.82 kg 12/08/2024 Encounters Encounter Location Date Provider Diagnosis [facility] [id number] [facility] [address] [place] [address] 12/08/2024 Johanny Snyder Sacroiliitis, not elsewhere classified M46.1 ; Lumbar pain M54.50 ; Left shoulder pain M25.512 ; Post laminectomy syndrome M96.1 ; Other long-term (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 Z79.899 ; Spondylosis without myelopathy or radiculopathy, lumbar region M47.816 ; Thoracic spondylosis M47.814 ; Lumbar spondylosis M47.816 ; Cervicalgia M54.2 ; Cervical spondylosis M47.812 ; Cervical radiculopathy M54.12 ; COPD (chronic obstructive pulmonary disease) J44.9 ; Hypertension I10 ; Sacroiliac joint dysfunction of right side M53.3 ; Sacroiliac joint dysfunction of both sides M53.3 and Sacroiliitis M46.1 Assessments Encounter Date Diagnosis (ICD Code) Assessment Notes Treatment Notes Treatment Clinical Notes Section Notes 12/08/2024 Sacroiliitis, not elsewhere classified (ICD-10 - M46.1) 12/08/2024 Lumbar pain (ICD-10 - M54.50) 12/08/2024 Left shoulder pain (ICD-10 - M25.512) 12/08/2024 Post laminectomy syndrome (ICD-10 - M96.1) 12/08/2024 Other emt intermediate (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 (ICD-10 - Z79.899) 12/08/2024 Spondylosis without myelopathy or radiculopathy, lumbar region (ICD-10 - M47.816) 12/08/2024 Thoracic spondylosis (ICD-10 - M47.814) 12/08/2024 Lumbar spondylosis (ICD-10 - M47.816) 12/08/2024 Cervicalgia (ICD-10 - M54.2) 12/08/2024 Cervical spondylosis (ICD-10 - M47.812) 12/08/2024 Cervical radiculopathy (ICD-10 - M54.12) 12/08/2024 COPD (chronic obstructive pulmonary disease) (ICD-10 - J44.9) 12/08/2024 Hypertension (ICD-10 - I10) 12/08/2024 Sacroiliac joint dysfunction of right side (ICD-10 - M53.3) 12/08/2024 Sacroiliac joint dysfunction of both sides (ICD-10 - M53.3) 12/08/2024 Sacroiliitis (ICD-10 - M46.1) 12/08/2024 Other Body Mass Index : Care Instructions material was published, High Blood Pressure: Care Instructions material was published Plan Of Treatment Medication Medication Name Sig Start Date Stop Date Notes Baclofen 10 MG 1 tablet as needed O ral three times a day for 30 days Treatment Notes Assessment Notes Other Body Mass Index: Car e Instructions material was published, High Blood Pressure: Care Instructions material was published Next Appt Details Provider Name:Jordy Alvarez, 12/23 10:15:00 AM, [id number] [place] [address], [address] [place] [address], [phone], Progress Notes * Edna LINTON MDOB: [birth year] (69 yo F)Acc No.[id number]:12/08/2024 Progress Notes Patient: Jerri Edna ARCE Appointment Provider: Jerri Snyder NP :[id number] A ge:69 Y S ex:Female Supervising Provider:Owen Bojorquez MD Date:12/08/2024 Address:[address] [place], [place] [phone] Subjective: * Chief Complaints: * 1 . Meds. * HPI: * Established Patient: Established Patient Questionnaire: 1 . Are you currently taking a Blood Thinner Medication? N o 2 . Do you have an allergy to I.V. Contrast or Shellfish? N o 3 . List any changes to medical history. (eg; Falls, Test, Scans, Blood Work, and Hospitalizations) B lood Work 4 . Have you been exposed to anyone with COVID in the last 2 weeks? N o 5 . Have you been exposed to anyone with the FLU in the last 72 hours? N o 6 . What is your Pain Level today? (1-10, Scroll and select one) 8 7 . Where is your pain located? L ow Back,Right Glute 8 . After your last visit, what Percentage of improvement did you experience? 0 9 . Are you doing Physical Therapy, Chiropractic, or Massage Therapy? N o 1 0. Are you doing an at home Exercise Program? Y es 1 1. What activities or positions increase your Pain? (Scroll to select one or multiple) S tanding,Walking,Chores 1 2. What activities or positions decrease your Pain? (Scroll to select one or multiple) S tanding,Walking 1 3. How would you describe your Pain? (Scroll to select one or multiple) S tabbing,Burning 1 4. Are you having difficulty sleeping? Y es 1 5. When was the last time you had your blood drawn? (Please enter your best estimate) M arch 2024 1 6. When was your last Mammogram? (Please put N/A if you are male, for Females please put the best Estimate or Never. ) O n file 1 7. When was your last Colonoscopy? (Please put the best Estimate or Never. ) O n file 1 8. Do you need any refills on your medications today? Y es 1 9. Please list ALL changes to Medications or Allergies? L isinopril to 10mg hydroxychlorothiazide to 25mg 2 0. Are you Diabetic? N o 2 1. Do you suffer from Constipation? Y es * ROS: G eneral/Constitutional: Denies Change in appetite, Chills, Fatigue, Fever or Lightheadedness. ENT: Denies Tinnitus or Dysphagia. Ophthalmologic: Denies Blurred vision or change in vision. Neurological: denies gait abnormality, balance difficulty, dizziness, or loss of strength Psychological: denies depressed mood or change in mood Skin: denies skin rash . * Medical History: H ypertension, Asthma, GERD, MMD, Hyperlipidemia, Asthma, Sjogren's syndrome, Edema legs, Anemic, AMBIKA, Insomnia. * Surgical History: C ervical fusion 02/2015, Lumbar Fusion 03/2015, Cataract , hysterectomy , cholecystectomy . * Family History: F ather: , diagnosed with Essential hypertension. M other: , diagnosed with Essential hypertension. * Social History: * Established Patient: S moking D o you smoke? N o Form Scores C ESD-R PMQ-R GPCOG Date 1 10/11/2023 C ESD-R Score 2 C ESD-R Risk L ow Risk (0 - 16) P MQ-R Score 2 1 P MQ-R Risk L ow Risk (0 - 34) G PCOG Score 9 G PCOG Risk N o Risk (9) C ESD-R PMQ-R GPCOG Testing Interval L ow Risk (every 6 months) C ESD-R PMQ-R GPCOG Next Test Due 0 02/08/2025 S OAPP Date 0 12/08/2024 S OAPP-R Score 1 S OAPP-R Risk L ow Risk (0 -9) S OAPP-R Testing Interval L ow Risk (every 6 months) C OMM Date 0 12/08/2024 C OMM Score 0 C OMM Risk N egative (< 9) W e have evaluated the patient using PMQ-R, CESD-R and GPCOG assessments. Based on data collected from the PMQ-R, we are evaluating the risk for abuse, misuse and diversion. Furthermore, we are screening the patient for depression using the CESD-R assessment. Lastly, we are utilizing GPCOG to ensure that the current treatment plan is not impairing cognition. Per assessments today the patient has low risk for depression, low risk for opioid misuse, abuse, and no cognitive impairment. She is low risk per testing today. * Medications: T aking Imiquimod 5 % Cream External , Taking traZODone HCl 150 MG Tablet Oral , Taking Hydroxychloroquine Sulfate 200 MG Tablet Oral , Taking Montelukast Sodium 10 MG Tablet Oral , Taking Trelegy Ellipta 200-62.5-25 MCG/ACT Aerosol Powder Breath Activated Inhalation , Taking Pantoprazole Sodium 40 MG Tablet Delayed Release Oral , Taking Rosuvastatin Calcium 20 MG Tablet Oral , Taking Ezetimibe 10 MG Tablet Oral , Taking Azelastine HCl 137 MCG/SPRAY Solution Nasal , Taking Albuterol Sulfate HFA 108 (90 Base) MCG/ACT Aerosol Solution Inhalation , Taking Furosemide 40 MG Tablet Oral , Taking Gabapentin 600 MG Tablet Oral , Taking Lisinopril 20 MG Tablet Oral , Taking Sodium Fluoride 5000 PPM 1.1 % Paste Dental , Taking Metoprolol Succinate 100 MG Capsule ER 24 Hour Sprinkle 1 capsule Orally Once a day , Taking Baclofen 10 MG Tablet 1 tablet as needed Oral three times a day , Taking Narcan 4 MG/0.1ML Liquid as directed Nasally , Taking oxyCODONE HCl 5 MG Tablet 1 tablet Oral every 6 hrs , Taking Sertraline HCl 50 MG Tablet Oral , Medication List reviewed and reconciled with the patient * Allergies: D ilaudid: hives, Carafate: Swelling, Morphine: hives, Vancomycin: hives, Nipride RTU: rash, Lodine: anaphylaxis. Objective: * Vitals: H t: 4ft 11in, Wt:187lbs, BP:130/73mm Hg, Pain scale:81-10, HR:63/min, BMI:37.77Index, Ht-cm: 149.86 cm, Wt-k.82 kg, Body Surface Area: 1.88. Assessment: * Assessment: 1. S acroiliitis, not elsewhere classified - M46.1 (Primary) 2 . L umbar pain - M54.50 3 . L eft shoulder pain - M25.512 4 . P ost laminectomy syndrome - M96.1 5 . O ther long-term (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 - Z79.899 6. S pondylosis without myelopathy or radiculopathy, lumbar region - M47.816? 7. T horacic spondylosis - M47.814 8 . L umbar spondylosis - M47.816 9 . C ervicalgia - M54.2 1 0. C ervical spondylosis - M47.812 1 1. C ervical radiculopathy - M54.12 1 2. C OPD (chronic obstructive pulmonary disease) - J44.9 1 3. H ypertension - I10 ? 1 4. S acroiliac joint dysfunction of right side - M53.3 1 5. S acroiliac joint dysfunction of both sides - M53.3 1 6. S acroiliitis - M46.1 ? Plan: * Treatment: 2. O thers Notes: Body Mass Index: Care Instructions material was published, High Blood Pressure: Care Instructions material was published * Billing Information: * Visit Code: * Procedure Codes: * Electronic signature of Melodie Bojorquez MD on 01/12/2025 at 01:53 PM CDT Sign off status: Pending * Appointment Provider: Jerri Snyder NP Date: 0 12/08/2024 Generated for Printing/Rapp IT Up/GoTableranOctoplusitting on: 0 01/12/2025 01:53 PM CDT History and Physical Notes * HPI (History of Present Illness) Category Sub-Category Detail Notes Category Not es *Established Patient Established Patient Questionnaire: 1. Are you currently taking a Blood Thinner Medication?: No 2. Do you have an allergy to I.V. Contrast or Shellfish?: No 3. List any changes to medic al history. (eg; Falls, Test, Scans, Blood Work, and Hospitalizations): Blood Work 4. Have you been exposed to anyone with COVID in the last 2 weeks?: No 5. Have you been exposed to anyone with the FLU in the last 72 hours?: No 6. What is your Pain Level t ginny? (1-10, Scroll and select one): 8 7. Where is your pain locate d?: Low Back,Right Glute 8. After your last visit, wh at Percentage of improvement did you experience?: 0 9. Are you doing Physical Th erapy, Chiropractic, or Massage Therapy?: No 10. Are you doing an at home Exercise Program?: Yes 11. What activities or posit ions increase your Pain? (Scroll to select one or multiple): Standing,Walking,Chores 12. What activities or posit ions decrease your Pain? (Scroll to select one or multiple): Standing,Walking 13. How would you describe y our Pain? (Scroll to select one or multiple): Stabbing,Burning 14. Are you having difficult y sleeping?: Yes 15. When was the last time y ou had your blood drawn? (Please enter your best estimate): November 2024 16. When was your last Mammo gram? (Please put N/A if you are male, for Females please put the best Estimate or Never. ): On file 17. When was your last Colon oscopy? (Please put the best Estimate or Never. ): On file 18. Do you need any refills on your medications today?: Yes 19. Please list ALL changes to Medications or Allergies?: Lisinopril to 10mg hydroxychlorothiazide to 25mg 20. Are you Diabetic?: No 21. Do you suffer from Const ipation?: Yes
--- OUTSIDE RECORDS SUMMARY | 2025-01-12 13:54 | XMS_ITS ---
Author Organization [facility] Address [address] [place], [place] [id number] Care Team Providers Care Form Tamper Operator Name Role Phone Amado Cutler Primary Care Provider UnavailPadmini Helm Unavailable [phone] NERY HANDY, OLAYINKA Unavailable Unavailable Nola Barclay Unavailable [phone] ALLERGIES Allergen (clinical drug ingredient) Drug/Non Drug Allergy documented on EMR Reaction Allergy Type Onset Date Status morphine morphine Unknown Drug Allergy Active phenytoin Dilantin Unknown Drug Allergy Active RESULTS Component Value Reference Range Notes Complement C4, Serum Reviewed date:05/28/2024 11:08:37 AM Interpretation: Performing Lab:[facility], [address] [place] [address], Phone - [phone], Director - [facility] Notes/Report: Complement C4, Serum 33 12-38 mg/dL CBC With Differential/Platel et Reviewed date:05/28/2024 11:08:37 AM Interpretation: Performing Lab:[facility], [address] [facility], Phone - [phone], Director - PhDRicjackson [facility] Notes/Report: WBC 7.4 3.4-10.8 x10E3/uL RBC 3.67 3.77-5.28 x10E6/uL Hemoglobin 11.2 11.1-15.9 g/dL Hematocrit 34.9 34.0-46.6 % MCV 95 79-97 fL MCH 30.5 26.6-33.0 pg MCHC 32.1 31.5-35.7 g/dL RDW 12.7 11.7-15.4 % Platelets 198 150-450 x10E3/uL Neutrophils 61 Not Estab. % Lymphs 28 Not Estab. % Monocytes 7 Not Estab. % Eos 4 Not Estab. % Basos 0 Not Estab. % Immature Cells Neutrophils (Absolute) 4.5 1.4-7.0 x10E3/uL Lymphs (Absolute) 2.1 0.7-3.1 x10E3/uL Monocytes(Absolute) 0.5 0.1-0.9 x10E3/uL Eos (Absolute) 0.3 0.0-0.4 x10E3/uL Baso (Absolute) 0.0 0.0-0.2 x10E3/uL Immature Granulocytes 0 Not Estab. % Immature Grans (Abs) 0.0 0.0-0.1 x10E3/uL NRBC Hematology Comments: Complement C3, Serum Reviewed date:05/28/2024 11:08:37 AM Interpretation: Performing Lab:[facility], [address] [facility], Phone - [phone], Director - [facility] Notes/Report: Complement C3, Serum 169 82-167 mg/dL SPEPW/Interpretation w/refle x Reviewed date:05/28/2024 11:08:37 AM Interpretation: Performing Lab:[facility], [address] [facility], Phone - [phone], Director - [facility] Notes/Report: Protein, Total 6.6 6.0-8.5 g/dL Albumin 3.6 2.9-4.4 g/dL Pbzwe-6-Otaqqgov 0.2 0.0-0.4 g/dL Svkgt-4-Ipynjlfo 0.9 0.4-1.0 g/dL Beta Globulin 1.0 0.7-1.3 g/dL Gamma Globulin 0.9 0.4-1.8 g/dL M-Herminio Not Observed Not Observed g/dL Globulin, Total 3.0 2.2-3.9 g/dL A/G Ratio 1.2 0.7-1.7 Please note: Protein electrophoresis scan will follow via computer, mail, or radio operator delivery. Interpretation(See Below) The SPE pattern appears unremarkable. Evidence of monoclonal protein is not apparent. PDF . PDF Report Reviewed date:05/28/2024 11:08:37 AM Interpretation: Performing Lab:[facility], [address] [facility], [place], Phone - [phone], Director - [place] Notes/Report: PDF Report1 [facility] REASON FOR VISIT 11 mo f/u MEDICATIONS Medication SIG (Take, Route, Frequency, Duration) Notes Start Date End Date Status Remeron SolTab 45 mg 1 tab(s) orally onc e a day (at bedtime) Active Epi pen Active traZODone 150 mg as directed orally Active rosuvastatin 20 mg 1 tab(s) orally once a day Active Hydroxychloroquine Sulfate 2 00 mg 1 tab(s) orally twice a day Active Vitamin B-12 500 mcg 1 tab(s) orally onc e a day Active oxyCODONE 5 mg 1 tab(s) orally ever y 6 hours Active Bentyl Active vitamin E 400 intl units 1 cap(s) orally once a day Active colestipol 1 g 2 tab(s) orally 2 times a day Active HYDROcodone Active Letairis 10 mg 1 tab(s) orally once a day Active mirtazapine 45 mg 1 tab(s) orally once a day (at bedtime) Active Azelastine HCI Activ e gabapentin 600 mg 1 tab(s) orally 3 times a day Active albuterol Inhaler Ac tive Vitamin D3 Active Xolair Active loratadine 10 mg 1 tab(s) orally once a day Active Pepcid 40 mg 1 tab(s) orally once a day (at bedtime) Active baclofen 10 mg 1 tab(s) orally 3 times a day Active lisinopril 20 mg 1 tab(s) orally once a day Active Zetia 10 mg 1 tab(s) orally once a day Active pantoprazole 40 mg 1 tab(s) orally once a day Active montelukast 10 mg 1 tab(s) orally once a day Active calcium citrate 250 mg elemental calcium 1 tab(s) orally 2 times a day Active melatonin 5 mg 1 cap(s) orally once a day (at bedtime) Active Vitamin B6 100 mg 1 tab(s) orally once a day Active Trelegy Ellipta 200 mcg-62.5 mcg-25 mcg/inh 1 puff(s) inhaled once a day Active azelastine nasal Act jeff Metoprolol Succinate ER 100 mg 1 tab(s) orally once a day for 30 day(s) Active furosemide 20 mg 1 tab(s) orally once a day Active amLODIPine 5 mg 1 tab(s) orally once a day for 30 day(s) Active VITAL SIGNS BMI 37.56 kg/m2 05/26/2024 Blood pressure systolic 98 mm Hg 05/26/20 24 Blood pressure diastolic 62 mm Hg 024 Heart Rate 72 /min 05/26/2024 Height 59 in 05/26/2024 Weight 186 lbs 05/26/2024 Encounters Encounter Location Date Provider Diagnosis [facility] [address] [place], [place] [id number] 05/26/2024 Nola Barclay Sjogren's syndrome, with unspecified organ involvement M35.00 and Other skilled nursing (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 Z79.899 ASSESSMENTS Encounter Date Diagnosis Assessment Notes Treatment Notes Treatment Clinical Notes 05/26/2024 Sjogren's syndrome, with unspecified organ involvement (ICD-10 - M35.00) 05/26/2024 Other skilled nursing (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 (ICD-10 - Z79.899) PLAN OF TREATMENT Medication Medication Name Sig Start Date Stop Date Notes Remeron SolTab 45 mg 1 tab(s) orally onc e a day (at bedtime) Epi pen traZODone 150 mg as directed orally rosuvastatin 20 mg 1 tab(s) orally once a day Hydroxychloroquine Sulfate 200 mg 1 tab( s) orally twice a day Vitamin B-12 500 mcg 1 tab(s) orally onc e a day oxyCODONE 5 mg 1 tab(s) orally ever y 6 hours Bentyl vitamin E 400 intl units 1 cap(s) orally once a day colestipol 1 g 2 tab(s) orally 2 ti mes a day Azelastine HCI gabapentin 600 mg 1 tab(s) orally 3 ti mes a day Vitamin D3 loratadine 10 mg 1 tab(s) orally once a day Pepcid 40 mg 1 tab(s) orally once a day (at bedtime) Next Appt Details Follow Up: 6 Months, Reason: Provider Name:Nola martinez, 11/22/2025 11:40:00 AM, [address], [place], [place], [id number], Progress Notes * Examination Category Sub-Category Detail Notes Rheumatology Thoracic Spine: kyphosis, scolio sis General Constitutional: No acute distres s HEENT: PERRLA, Neck supple, Normal sclerae and conjunctivae Abdomen: soft, no organomegal y or masses /Rectal: not done Skin: No cutaneous lesions . No subcutaneous nodules noted in the 4 extremities Neurological: No focal neurologica l findings Heme/Lymphatic: No cervical, axillar y, or inguinal adenopathy Psych: Alert, oriented x 3, Normal affect Musculoskeletal: Normal strength. No muscle atrophy Joint Exam Shoulders No swelling. No tenderness. NROM. Elbows No swelling. No tend erness. NROM. Wrists No swelling. No tend erness. NROM. Hips No tenderness, grant l ROM, no instability or deformity Knees No swelling, no tend erness, NROM. No instability or deformity Ankles No swelling, no tend erness, NROM., No instability or deformity. All MCPs No swelling, no tend erness, no deformity unless noted below. All PIPs No swelling, no tend erness, no deformity unless noted below. All DIPs No swelling, no tend erness, no deformity unless noted below. All MTPs No swelling, no tend erness, NROM, no deformity unless noted below. History and Physical Notes * HPI (History of Present Illness) Category Sub-Category Detail Notes Rheumatology Joint pain dry eyes dry mouth rash Back pain Family History of Rheumatic Disease labs positive UMBERTO with ti ter of:1:80 negative RF Physical Examination Category Sub-Category Detail Notes MDHAQ Summary Function (0-10):: 5 Pain (0-10):: 6.5 Patient Global Assessment of Disease Activity (0 -10):: 5 RAPID3 Score (0-30):: 16.5 Physician Global Assessment of Disease Activity (0-10):: 2 Prognosis Good w/tx Erosive Damage No
--- OUTSIDE RECORDS SUMMARY | 2025-01-12 13:54 | XMS_ITS | Clinical Summary ---
Author Organization [facility] Address [address] [place] [address] Care Team Providers Care Software Development Coordinator Name Role Phone Amado Cutler MD Primary Care Provider [phone] Allergies Active Allergy Reactions Criticality Noted Date Comments Adhesive Tape-Silicones Rash,Blisters High Erythromycin Nausea only Low Etodolac Anaphylaxis High 12/07/2017 Hydromorphone Rash Medium 12/07/2017 Midazolam Nausea only Low Morphine Itching,Rash,Hives Medium 11/25/2016 Neomycin Other (See comments),Edema,Visio n changes Medium Mycin eye drops - eyes swell shut Nipride Blisters,Redness High Other Anaphylaxis,Hives High 10/17/2018 dilaudid, hives, lodine, anaphylaxis, nipride rash, mycin eye drops, swelling Polymyxin B Other (See comments),Edema,Visio n changes Medium Mycin eye drops - eyes swell shut Sulfamethoxazole-Trimet hoprim Hives,Rash High 10/17/2018 Vancomycin Other (See comments) Low Red Man Syndrome Medications ezetimibe (ZETIA) 10 mg tabletIndicati ons:hyperlipid emia Take 1 tablet (10 mg total) by mouth nightly Active famotidine (PEPCID) 40 mg tabletIndicati ons:gastroesop hageal reflux disease Take 1 tablet (40 mg total) by mouth every morning 06/27/20 14 Active mirtazapine (REMERON) 45 mg tabletIndicati ons:Fibromyalg ia Take 1 tablet (45 mg total) by mouth nightly 01/28/20 17 Active colestipol (COLESTID) 1 gram tabletIndicati ons:Irritable Bowel Syndrome Take 1 tablet (1 g total) by mouth 3 (three) times a day as needed 1 gram AM Active gabapentin (NEURONTIN) 600 mg tabletIndicati ons:Fibromyalg ia Take 2 tablets (1,200 mg total) by mouth nightly 06/27/20 14 Active cholecalcifero l (VITAMIN D-3) 2,000 unit tabletIndicati ons:Prevention of Vitamin D Deficiency Take 1 tablet (2,000 Units total) by mouth every morning 11/26/19 17 Active dicyclomine (BENTYL) 10 mg capsuleIndicat ions:Irritable Bowel Syndrome Take 1 capsule (10 mg total) by mouth 3 (three) times a day as needed Active cyclobenzaprin e (FLEXERIL) 10 mg tabletIndicati ons:Fibromyalg ia Take 1 tablet (10 mg total) by mouth 3 (three) times a day as needed Active albuterol HFA (PROVENTIL HFA,VENTOLIN HFA,PROAIR HFA) 90 mcg/actuation inhaler Inhale 2 puffs every 6 (six) hours as needed for wheezing Active chlordiazePOXI DE (LIBRIUM) 5 mg capsuleIndicat ions:anxiety Take 1 capsule (5 mg total) by mouth daily as needed for anxiety 1-2 tabs daily as needed for anxiety Active docusate sodium (COLACE) 100 mg capsuleIndicat ions:constipat ion Take 1 capsule (100 mg total) by mouth 2 (two) times a day Active acetaminophen 500 mg capsule Take 2 capsules (1,000 mg total) by mouth every 6 (six) hours. 30 tablet 10/12/19 19 Active aspirin-calciu m carbonate 81 mg-300 mg calcium(777 mg) tablet Take 81 mg by mouth. 10/17/19 19 Active cetirizine (ZyrTEC) 10 mg tablet Take 1 tablet (10 mg total) by mouth 10/27/[address] (VOLTAREN) 75 mg EC tablet 2 (two) times a day 09/06/20 18 Active montelukast (SINGULAIR) 10 mg tablet 10/16/19 19 Active HYDROcodone-ac etaminophen (NORCO) 5-325 mg per tabletIndicati ons:Pain Take 2 tablets by mouth every 4 (four) hours as needed for pain 120 tablet 01/13/20 19 Active Additional Information Patient not taking.Reported on 12/15/2024 amitriptyline (ELAVIL) 10 mg tablet 02/03/20 19 Active tiZANidine (ZANAFLEX) 4 mg tablet TAKE 1/2 TO 1 TABLET THREE TIMES A DAY NEEDED 0 04/14/20 19 Active gabapentin (NEURONTIN) 400 mg capsule Take 1 capsule (400 mg total) by mouth 3 (three) times a day 90 capsule 11 11/12/19 20 Active Additional Information Patient not taking.Reported on 12/15/2024 baclofen (LIORESAL) 10 mg tablet Take 1 tablet (10 mg total) by mouth 3 (three) times a day as needed 10/16/[address] (PROTONIX) 40 mg EC tablet Take 1 tablet (40 mg total) by mouth daily 07/01/20 23 Active calcium citrate (CALCITRATE) 950 mg (200 mg of elemental calcium) tablet daily Active Trelegy Ellipta 200-62.5-25 mcg inhaler daily 07/01/20 22 Active hydroxychloroq uine (PLAQUENIL) 200 mg tablet Take 1 tablet (200 mg total) by mouth 2 (two) times a day Active loratadine (CLARITIN) 10 mg tablet Take 1 tablet (10 mg total) by mouth daily Active omalizumab (Xolair) 150 mg injection as directed subcutaneously every 4 weeks 10/24/19 23 Active azelastine (ASTELIN) 137 mcg (0.1 %) nasal spray Administer 1 spray into affected nostril(s) 2 (two) times a day 01/02/20 24 Active furosemide (LASIX) 40 mg tablet 01/02/20 24 Active EPINEPHrine 0.15 mg/0.15 mL auto-injector Inject 0.15 mg into the muscle as instructed daily as needed Active fluoride, sodium, 1.1 % paste see administration instructions. 12/08/19 24 Active pyridoxine (VITAMIN B-6) 100 mg tablet Take 1 tablet (100 mg total) by mouth daily Active traZODone (DESYREL) 150 mg tablet 12/09/19 24 Active oxyCODONE (ROXICODONE) 5 mg immediate release tablet 01/15/20 24 Active rosuvastatin (CRESTOR) 20 mg tablet 12/09/19 24 Active lisinopriL (PRINIVIL,ZEST RIL) 10 mg tablet 11/25/19 25 Active hydroCHLOROthi azide (HYDRODIURIL) 25 mg tablet Take 1 tablet (25 mg total) by mouth automatic pilot mechanic before breakfast 11/25/19 25 Active metoprolol XL (TOPROL-XL) 100 mg 24 hr tablet 11/25/19 25 Active gabapentin (NEURONTIN) 300 mg capsule Take 1 capsule (300 mg total) by mouth 2 (two) times a day as needed Active sertraline (ZOLOFT) 50 mg tablet Take 1 tablet (50 mg total) by mouth daily 11/25/19 25 Active fluticasone propion-salmet Pablo (ADVAIR DISKUS) 500-50 mcg/dose diskus inhaler Inhale 1 puff 2 (two) times a day Rinse mouth with water after use. Do not swallow. Active multivit-min/f olic acid/vit K1 (MULTI FOR HER 50 PLUS ORAL) Take by mouth Active lidocaine-ment hol 4-1 % adhesive patch,medicate d Apply topically Acti ve cyanocobalamin (Vitamin B-12) 1,000 mcg tabletIndicati ons:Prevention of Vitamin B12 Deficiency Take 1 tablet (1,000 mcg total) by mouth daily Active melatonin 5 mg tablet Active ferrous sulfate 325 mg (65 mg of elemental iron) tablet Take 1 tablet (325 mg total) by mouth daily Active nitroglycerin (NITROSTAT) 0.4 mg SL tablet DISSOLVE 1 TABLET UNDER THE TONGUE EVERY 5 MINUTES NEEDED FOR CHEST PAIN FOR UP TO 3 DOSES 11/30/19 25 Active metoprolol XL (TOPROL-XL) 50 mg extended release tablet 11/25/19 24 025 Discontin ued(Patie nt Reported) lisinopriL (PRINIVIL,ZEST RIL) 20 mg tablet 12/09/19 24 025 Discontin ued(Patie nt Reported) Active Problems Problem Noted Date Diagnosed Date AMBIKA (obstructive sleep apnea) 01/28/2024 Assessment & Plan (12/15/2024 10:26 AM CDT): Patient continue to wear her CPAP at auto titrating range 5-15 cm water pressure while sleeping. Her DME is [facility]. Assessment & Plan (08/06/2024 11:22 AM CASING CLEANER): The patient will resume CPAP therapy when she is able due to facial pain after tooth extraction. The patient's CPAP set at auto titrating range of 5-15 cm water pressure while sleeping. Her DME is [facility]. Assessment & Plan (01/28/2024 10:38 AM CDT): Due to continued symptoms, the patient will continue with CPAP at 5-15 cm water pressure. Denied need for supplies. DME is [facility] Recurrent acute serous otitis media of left ear 10/24/2023 Assessment & Plan (10/24/2023 9:56 AM CASING CLEANER): The patient was recently treated with 7 days of Levaquin for the otitis media and she still has symptoms in the left ear and bilateral fluid behind the TMs. I will give her 7 days of Omnicef. Sjogren's syndrome 10/24/2023 Assessment & Plan (12/15/2024 10:26 AM CDT): The patient continues with Plaquenil. Assessment & Plan (08/06/2024 11:22 AM CASING CLEANER): The patient continues with Plaquenil. I have ordered a PFT and a chest x-ray. The patient does complete this at [facility]. I did ask the patient to call back into the office when she completes the PFT to make sure we get the results. The patient verbalized understanding. Assessment & Plan (01/28/2024 10:37 AM CDT): The patient continues with Plaquenil. We will obtain a chest x-ray and pulmonary function test in 1 year, testing will need ordered at next visit Assessment & Plan (10/24/2023 9:56 AM CASING CLEANER): She continues on Plaquenil. 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 The patient continue with albuterol as needed up to 4 times a day for shortness. Assessment & Plan (08/06/2024 11:21 AM CASING CLEANER): Patient will continue with Trelegy one inhalation once a day. The patient will continue with albuterol as needed up to 4 times a day for shortness of breath. The patient is also receiving Xolair injections Assessment & Plan (01/28/2024 10:39 AM CDT): Due to continued symptoms, the patient will continue with Trelegy. The patient is on Xolair injections. The patient will continue with albuterol on a p.r.n. basis and up to 4 times a day as needed for symptom control. The patient will continue to follow with . Recent PFTs suggest restriction and the DLCO is 54 and the dL/VA corrected to 77. Assessment & Plan (10/24/2023 9:56 AM CASING CLEANER): The patient follows with Dr. Aguilera. She continues on Trelegy 1 puff daily, Xolair injections and albuterol p.r.n.. I will request that she sign a release so that we can get her chest x-ray and PFTs for review. Anemia 10/16/2018 Cough in adult 10/16/2018 UTI symptoms 10/16/2018 Sinus tachycardia 10/09/2018 Shock 10/09/2018 Acute blood loss anemia 10/09/2018 Acute pulmonary insufficiency 10/09/2018 Hypertension 10/09/2018 GERD (gastroesophageal reflux disease) 9 Assessment & Plan (12/15/2024 10:25 AM CDT): The patient continues to follow with Dr. Up. Assessment & Plan (08/06/2024 11:21 AM CASING CLEANER): The patient continues to follow with Dr. Up. Assessment & Plan (01/28/2024 10:37 AM CDT): The patient will continue to follow with GI and continue Protonix Depression 10/09/2018 Anxiety 10/09/2018 Hyperlipidemia 10/09/2018 Thrombocytopenia 10/09/2018 Acute pain 10/09/2018 Chronic pain 10/09/2018 Opioid dependence 10/09/2018 Irritable bowel syndrome with diarrhea 9 Spinal stenosis of lumbar re gion with neurogenic claudication 09/18/2018 Overview (09/18/2018): Added automatically from request for surgery [id number] Diverticulosis of intestine without bleeding 04/2018 Scoliosis of thoracolumbar spine 01/20/2018 Back pain 12/03/2017 History of esophageal stricture 10/17/2017 Palpitation 12/16/2016 Resolved Problems Problem Noted Date Diagnosed Date Resolved Date Snoring 10/24/2023 01/28/2024 Assessment & Plan (10/24/2023 9:55 AM CASING CLEANER): The patient has snoring and daytime hypersomnia and per her request, I will order a home sleep test. Encounters Date Type Department Care Team Description 12/15/2024 10:00 AM CDT Office Visit [facility] Pulmonology [address] [place] [phone] Terri Salamanca, LOVE Mild intermittent asthma without complication (Primary Dx); AMBIKA (obstructive sleep apnea); Sjogren's syndrome, with unspecified organ involvement; Gastroesophageal reflux disease with esophagitis without hemorrhage 10/25/2024 Orders Only [facility] [address] [facility] [address] [place] [phone] Provider, MD John from Last 3 Months Immunizations Immunization Administration Dates Next Due Influenza, Trivalent, High D ose, Split, Preservative Free, Intramuscular 07/05/2018 Influenza, Unspecified 06/22/2019 Pneumococcal Polysaccharide PPV23 06/01/2014 Pneumococcal, Unspecified 06/01/2014 Tdap 03/21/2017,06/19/2013 Tetanus Toxoid, Unspecified 06/19/2013 Tetanus toxoid, adsorbed 06/19/2013 ZOSTER LIVE 02/21/2014 Surgical History Surgery Date Site/Laterality Comments ARTHRODESIS Arthrodesis Cervical - (Added by TW Conv) [place] ARTHRD ANT INTERBODY MIN DSC LUMBAR Lumbar Vertebral Fusion - (Added by TW Conv) [place] CHOLECYSTECTOMY Cholecystectomy - (Added by TW Conv) [place] NEUROPLASTY &/TRANSPOS MEDIAN NRV CARPAL TUNNE Neuroplasty Decompression Median Nerve At Carpal Tunnel - (Added by TW Conv) TOTAL ABDOMINAL HYSTERECTOMY Radical Total Abdominal Hysterectomy - (Added by TW Conv) LUMBAR FUSION 2014, 2015 CERVICAL FUSION 09/22/2014 - 09/21/2015 CHOLECYSTECTOMY 20 years ago CENTRAL LINE PLACEMENT > 5 YEARS 10/07/2018 N/A Medical History Medical History Date Comments Personal history of other di seases of the respiratory system History of asthma - (Added b y TW Conv) Personal history of other me ntal and behavioral disorders History of depression - (Add ed by TW Conv) Personal history of other di seases of the circulatory system History of hypertension - (A dded by TW Conv) Hypertension Hyperlipemia Pulmonary edema flash pulmonary edema Asthma Cataract GERD (gastroesophageal reflux disease) AMBIKA (obstructive sleep apnea) 01/28/2024 Family History Medical History Relation Name Comments Heart disease Other 1 Family history of cardiac disorder - (Added by TW Conv) Hypertension Other 2 Family history of hypertension - (Added by TW Conv) Relation Name Status Comments Other 1 Other 2 Social History Tobacco Use Types Packs/Day Years Used Date Smoking Tobacco: Never Smokeless Tobacco: Never Tobacco Cessation:Counseling Given: Not Answered Alcohol Use Standard Drinks/Week Comments No 0 (1 standard drink = 0.6 oz pur e alcohol) Comments No Sex and Gender Information Value Date Recorded Sex Assigned at Not on file Legal Sex Female 7:47 PM CASING CLEANER Gender Identity Not on file Sexual Orientation Not on file Obstetrics History Last Filed Vital Signs Vital Sign Reading Time Taken Comments Blood Pressure 97/52 12/15/2024 10:02 AM CDT Pulse 54 12/15/2024 10:02 AM CDT Temperature 36.4 C (97.5 F) 08/06/2024 10:50 AM CASING CLEANER Respiratory Rate 18 12/15/2024 10:02 AM CDT Oxygen Saturation 94% 12/15/2024 10:02 AM CDT Inhaled Oxygen Concentration - - Weight 82.1 kg (181 lb) 12/15/2024 10:02 AM CDT Height 149.9 cm (4' 11 ) 12/15/2024 10:02 AM CDT Body Mass Index 36.56 12/15/2024 10:02 AM CDT Plan of Treatment Health Maintenance Due Date Last Done Comments Albumin Creatinine Ratio, Urine 1953 Colon Cancer Screening-Colonoscopy 1953 Depression Screening 1953 Fall Risk Assessment 1953 Hemoglobin A1C 1953 Hepatitis C Screening 1953 eGFR 1953 Dilated Eye Exam 1953 Foot Exam 1953 Hepatitis B Screening 1971 Zoster Vaccine (1 of 2) 04/18/2014 02/21/2014 Pneumococcal vaccine 65+ (2 of 2 - PCV) 06/01/2015 06/01/2014, 06/01/2014, 06/01/2014 Well Visit 65+ 2018 Breast Cancer Screening-Mammogram 05/13/2018 017, 05/13/2017 Covid-19 Vaccine (5 - 2023-2 5 season) 2024 06/25/2024, 07/04/2021, 12/10/2020, Additional history exists Osteoporosis Screening-Bone Density Scan 08/20/2024 08/20/2022 Lipid Panel 11/25/2025 11/25/2024, 0811/2023, 04/26/2021, Additional history exists DTaP/Tdap/Td Vaccine (4 - Td or Tdap) 03/21/2027 03/21/2017, 06/19/2013, 06/19/2013 Influenza Vaccine Completed 07/02/2024, , 06/22/2019, Additional history exists Medical Devices Implanted Type Area Production Machine Shop Supervisor Device Identifier Shelf Expiration Date Model / Serial / Lot [employer] Inc [id number] - [id number] - [id number] Implanted:Qty: 1 on 10/08/2018 by Aaron Marie MD at [facility] Bone N/A: Spine Lumbar [employer] Inc 07/20/2023 [id number] / [id number] / Nuvasive Regenerate Spine Tech [id number] Base Od5 Mm L20 Mm Variable Angle [place] Spinal Titanium Nonsterile - [id number] Implanted:Qty: 3 on 10/08/2018 by Aaron Marie MD at [facility] Screw N/A: Spine Lumbar Nuvasive Creative Spine Tech [id number] / / Core Link [id number] [place] 5.5mm 40mm Spine Pedicle Screw Bone 5500 Series - [id number] Implanted:Qty: 2 on 10/08/2018 by Aaron Marie MD at [facility] N/A: Spine Lumbar Core Link [id number] / / Core Link [id number] [place] 7.5mm 40mm Spine Pedicle Screw Bone 5500 Series - [id number] Implanted:Qty: 6 on 10/08/2018 by Aaron Marie MD at [facility] N/A: Spine Lumbar Core Link [id number] / / 8.5x40mm Screw Implanted:Qty: 1 on 10/08/2018 by Aaron Marie MD at [facility] N/A: Spine Lumbar Core Link 8.5x90 Mm Screw Implanted:Qty: 2 on 10/08/2018 by Aaron Marie MD at [facility] N/A: Spine Lumbar Core Link 9.5x50 Mm Screw Implanted:Qty: 1 on 10/08/2018 by Aaron Marie MD at [facility] N/A: Spine Lumbar Core Link Medtronic Sofamor Danek [id number] Infuse 18mm 26mm Absorbable Sponge Sterile Water Syringe Needle - [id number] Implanted:Qty: 1 on 10/08/2018 by Aaron Marie MD at [facility] N/A: Spine Lumbar Medtronic Sofamor Danek 02/20/2019 [id number] / / [id number] Base Ji Cage 6 X38 X28, 25 Degree Implanted:Qty: 1 on 10/08/2018 by Aaron Marie MD at [facility] N/A: Spine Lumbar Nuvasive Inc Ac[employer] Inc [id number] - [id number] - [id number] Implanted:Qty: 1 on 10/08/2018 by Aaron Marie MD at [facility] N/A: Spine Lumbar [employer] Inc 08/12/2023 [id number] / [id number] / Spinal Graft Tech [id number] Magnifuse 10x2.5cm Posterolateral Graft Bone Demineralized Bone - [id number] - [id number] Implanted:Qty: 1 on 10/08/2018 by Aaron Marie MD at [facility] N/A: Spine Lumbar Spinal Graft Tech 11/24/2019 [id number] / [id number] / Spinal Graft Tech [id number] Magnifuse 10x2.5cm Posterolateral Graft Bone Demineralized Bone - [id number] - [id number] Implanted:Qty: 1 on 10/08/2018 by Aaron Marie MD at [facility] N/A: Spine Lumbar Spinal Graft Tech 11/12/2019 [id number] / [id number] / [facility] [id number] Actifuse Abx Resorbable; Scaffold; Osteostimulative; Granule 1-2 - [id number] Implanted:Qty: 2 on 10/08/2018 by Aaron Marie MD at [facility] N/A: Spine Lumbar [facility] [id number] / / Core Link [id number] [place] 5.5mm 400mm Line Straight Hexagonal [place] Spinal Cocr 5500 - [id number] Implanted:Qty: 1 on 10/08/2018 by Aaron Marie MD at [facility] N/A: Spine Lumbar Core Link [id number] / / Core Link [id number] [place] Screw Set 5500 Series - [id number] Implanted:Qty: 12 on 10/08/2018 by Aaron Marie MD at [facility] N/A: Spine Lumbar Core Link [id number] / / [place] [address] [facility] MEDICARE [facility] Address: [address] [address] [place] [id number] [place] [address] [facility] MEDICARE [facility] Address: [address] [address] [place] [address] [facility] [place] [address] [facility] MEDICARE [facility] Address: [address] [address] [place] [address] [facility] MEDICARE [facility] Address: [address] [address] [place] [address] Advance Directives For more information, please contact: [phone] * Full Code (Latest Code Status on File) Date Activated Date Inactivated Comments 10/08/2018 9:20 PM 10/14/2018 12:48 AM * Full Code Date Activated Date Inactivated Comments 10/07/2018 7:46 AM 10/07/2018 1:58 PM Care Teams Software Development Coordinator Relationship Specialty Start Date End Date Amado Cutler MD [address] [address] PCP - General Internal Medicine 01/28/24
--- OUTSIDE RECORDS SUMMARY | 2025-01-12 13:54 | XMS_ITS | Patient Health Record ---
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 Name Role Phone Wilbert Mccracken MD Unavailable Unavailable Daniela Bojorquez Unavailable [phone] Jordy Alvarez Unavailable [phone] Kymberly Tsang PA-C Unavailable Johanny Snyder Unavailable [phone] Owen Bojorquez Unavailable [phone] Allergies Allergen (clinical drug ingredient) Drug/Non Drug Allergy documented on EMR Reaction Allergy Type Onset Date Status sucralfate Carafate Swelling Drug Allergy Active hydromorphone Dilaudid hives Drug Allergy Act jeff etodolac Lodine anaphylaxis Drug Allergy Activ e nitroprusside Nipride RTU rash Drug Allergy A ctive morphine Morphine hives Drug Allergy Active vancomycin Vancomycin hives Drug Allergy Activ e Results Component Value Reference Range Notes X ray : Spines, lumbar 4 vie ws Reviewed date:08/11/2024 02:44:20 PM Interpretation: Performing Lab: Notes/Report: X ray : Spines, cervical 4 v iews Reviewed date:08/11/2024 02:45:01 PM Interpretation: Performing Lab: Notes/Report: X ray : Thoracic spine 2 vie ws Reviewed date:08/11/2024 02:44:03 PM Interpretation: Performing Lab: Notes/Report: [facility] Reviewed date:07/17/2024 06:21:39 PM Interpretation: Performing Lab:[facility] (CLIA#: [id number]), [address] [place] [address], Director - Nola K JeterMD Notes/Report: Analyzed at [facility] (CLIA#: [id number]) - [address] [place] [address] - Senior Clinical Sas Programmer: Nola Grady These tests were developed and their performance characteristics determined by [facility]. They have not been cleared or approved by the [place] Food and Drug Administration. Certifying Vegetable Buncher: Ajith Serna (Remote [id number]) Gabapentin Ur CMP >500 >=5 mcg/mL COMPLIANT: Test result is consistent and expected with prescribed drug. Baclofen Ur CMP 05024 >=500 ng/mL COMPLIANT: T est result is consistent and expected with prescribed drug. Trazodone Ur CMP 801 >=100 ng/mL COMPLIANT: Test result is consistent and expected with prescribed drug. Oxycodone Ur CMP 2443 >=100 ng/mL COMPLIANT: Test result is consistent and expected with prescribed drug. BioDetect EXPECTED Test result is consistent with routinely analyzed human urine. 6MAM Ur Ql Cfm <10 >=10 ng/mL NONE DETECTED Amphetamines Ur Ql Cfm <100 >=100 ng/mL NONE DETECTED Benzodiaz Ur Ql Cfm <50 >=50 ng/mL NONE DET ECTED Buprenorphine Ur Ql Cfm <1 >=1 ng/mL NONE DETECTED BZE Ur Ql Cfm <50 >=50 ng/mL NONE DETECTED Fentanyl+Norfentanyl Ur Ql Cfm <5 >=5 ng/mL NONE DETECTED Gabapentin Ur Ql >=5 >=5 mcg/mL POSITIVE Gabapentin Ur Cfm-mCnc >500 >=5 mcg/mL POSIT JEFF Carisoprodol+Meprob Ur Ql Scn <200 >=200 ng/mL NONE DETECTED Methadone Ur Ql Cfm <200 >=200 ng/mL NONE DET ECTED Meperidine Ur Ql Cfm <100 >=100 ng/mL NONE DE TECTED Opiates Ur Ql Cfm >=100 >=100 ng/mL POSITIVE Oxymorphone Ur Cfm-mCnc 656 >=100 ng/mL POSI TIVE Noroxycodone Ur Cfm-mCnc 1076 >=100 ng/mL POS ITIVE Oxycodone Ur Cfm-mCnc 710 >=100 ng/mL POSITI VE Pregabalin(Lyrica) Ur Ql Cfm <5 >=5 mcg/mL NONE DETECTED Tramadol Ur Ql Cfm <100 >=100 ng/mL NONE DETE CTED Creat Ur-mCnc 99.7 20 - 370 mg/dL NORMAL Creatinine and pH are performed for specimen validity and not diagnostic purposes. pH Ur 5.28 4.5 - 9.0 NORMAL Creatinine and pH are performed for specimen validity and not diagnostic purposes. Alcohol Metabolites Ur Ql Cfm <200 >=200 ng/mL NONE DETECTED Ethyl sulfate Ur Cfm-mCnc <200 >=200 ng/mL NO NE DETECTED Baclofen Ur Ql Cfm >=500 >=500 ng/mL POSITIVE Baclofen Ur-mCnc 06313 >=500 ng/mL POSITIVE Trazodone Ur Ql >=100 >=100 ng/mL POSITIVE m-CPP Ur Cfm-mCnc 355 >=100 ng/mL POSITIVE Trazodone Ur-mCnc 446 >=100 ng/mL POSITIVE Synthetic Stimulants Ur Ql Cfm <1 >=1 ng/mL NONE DETECTED LOCKSTITCH BINDER Not Otherwise Specified Ur Ql Cfm <1 >=1 ng/mL NONE DETECTED Synthetic Cannabinoids Ur Ql Cfm <1 >=1 ng/m L NONE DETECTED Hallucinogens/Dissociatives Ur Ql Cfm <1 >=1 ng/mL NONE DETECTED Entomology Professor Benzodiazepines Ur Ql Cfm <1 >=1 ng/mL NONE DETECTED Entomology Professor Opioids Ur Ql Cfm <1 >=1 ng/mL N ONE DETECTED THC Ur Ql Scn <20 >=20 ng/mL NONE DETECTED X ray : Shoulder, left Reviewed date:05/03/2024 12:17:27 PM Interpretation: Performing Lab: Notes/Report: Reason For Referral No Information Medications Medication SIG (Take, Route, Frequency, Duration) Notes Start Date End Date Status Trelegy Ellipta 200-62.5-25 MCG/ACT Inhalation for 90 Days Active Narcan 4 MG/0.1ML as directed Nasally for 1 days 08/11/2024 Active Metoprolol Succinate 100 MG 1 capsule Or ally Once a day for 30 day(s) 05/03/2024 Active Rosuvastatin Calcium 20 MG Oral for 100 Days Active oxyCODONE HCl 5 MG 1 tablet Oral every 6 hrs for 30 days Do not fill 12/25/24 12/08/2024 Active Pantoprazole Sodium 40 MG Oral for 100 Days Active Sertraline HCl 50 MG Oral for 90 Days Active Azelastine HCl 137 MCG/SPRAY Nasal for 100 Days Active Ezetimibe 10 MG Oral for 100 Days Active Baclofen 10 MG 1 tablet as needed Oral three times a day for 30 days Active Furosemide 40 MG Oral for 100 Days Active Albuterol Sulfate HFA 108 (90 Base) MCG/ACT Inhalation for 100 Days Active traZODone HCl 150 MG Oral for 90 Days Active Lisinopril 20 MG Oral for 100 Days Active Imiquimod 5 % External for 56 Days Active Gabapentin 600 MG Oral for 100 Days Active Montelukast Sodium 10 MG Oral for 100 Days Active Hydroxychloroquine Sulfate 200 MG Oral for 100 Days Active Sodium Fluoride 5000 PPM 1.1 % Dental for 24 Days Active Problems Problem Type SNOMED Code ICD Code Onset Dates Problem Status W/U Status Risk Notes Problem Solitary sacroiliitis (886009917) Sacroiliitis, not elsewhere classified (M46.1) Active confirmed Problem 152738877 Spondylosis without myelopathy or radiculopathy, lumbar region (M47.816) Active confirmed Problem Cervicalgia (13409445) Cervicalgia (M54.2) Active confirmed Problem Long-term current use of drug therapy (764730431) Other skilled nursing (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 (Z79.899) Active confirmed Problem Cervical spondylosis (976494227) Cervical spondylosis (M47.812) Active confirmed Problem 645025370 Lumbar spondylosis (M47.816) Active confirmed Problem 114771600 Thoracic spondylosis (M47.814) Active confirmed Problem Lumbar pain (826497574) Lumbar pain (M54.50) Active confirmed Problem 99883297 Sacroiliitis (M46.1) Active confirmed Problem Cervical radiculopathy (85068061) Cervical radiculopathy (M54.12) Active confirmed Problem Post-laminectomy syndrome (46471492) Post laminectomy syndrome (M96.1) Active confirmed Problem Hypertension (34132045) Hypertension (I10) 12/22/19 20 Active confirmed Problem 133463465 Sacroiliac joint dysfunction of right side (M53.3) Active confirmed Problem Left shoulder pain (4368007678) Left shoulder pain (M25.512) Active confirmed Problem COPD - Chronic obstructive pulmonary disease (24463110) COPD (chronic obstructive pulmonary disease) (J44.9) Active confirmed Problem Somatic dysfunction of bilateral sacroiliac joints (finding) (4255329741787826 2) Sacroiliac joint dysfunction of both sides (M53.3) Active confirmed Vital Signs Heart Rate 71 /min 01/05/2025 Height-cm 149.86 cm 01/05/2025 Blood pressure diastolic 64 mm Hg 01/05/2025 Weight-kg 84.82 kg 01/05/2025 Height 4ft 11in in 01/05/2025 Blood pressure systolic 104 mm Hg 01/05/2025 Weight 187 lbs 01/05/2025 BMI 37.77 kg/m2 01/05/2025 Encounters Encounter Location Date Provider Diagnosis [facility] [address] [place] [address] [address] [place] [address] 02/04/2024 Johanny Snyder [facility] [address] [place] [address] [address] [place] [address] 03/02/2024 Daniela Bojorquez [facility] [address] [place] [address] [address] [place] [address] 04/05/2024 Johanny Snyder [facility] [address] [place] [address] [address] [place] [address] 12/08/2024 Johanny Snyder Sacroiliitis, not elsewhere classified M46.1 ; Lumbar pain M54.50 ; Left shoulder pain M25.512 ; Post laminectomy syndrome M96.1 ; Other yacht hand (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 Z79.899 ; Spondylosis without myelopathy or radiculopathy, lumbar region M47.816 ; Thoracic spondylosis M47.814 ; Lumbar spondylosis M47.816 ; Cervicalgia M54.2 ; Cervical spondylosis M47.812 ; Cervical radiculopathy M54.12 ; COPD (chronic obstructive pulmonary disease) J44.9 ; Hypertension I10 ; Sacroiliac joint dysfunction of right side M53.3 ; Sacroiliac joint dysfunction of both sides M53.3 and Sacroiliitis M46.1 [facility] [address] [place] [address] [address] [place] [address] 01/05/2025 Jordy Alvarez Sacroiliitis, not elsewhere classified M46.1 ; Lumbar pain M54.50 ; Left shoulder pain M25.512 ; Post laminectomy syndrome M96.1 ; Other yacht hand (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 Z79.899 ; Spondylosis without myelopathy or radiculopathy, lumbar region M47.816 ; Thoracic spondylosis M47.814 ; Lumbar spondylosis M47.816 ; Cervicalgia M54.2 ; Cervical spondylosis M47.812 ; Cervical radiculopathy M54.12 ; COPD (chronic obstructive pulmonary disease) J44.9 ; Hypertension I10 ; Sacroiliac joint dysfunction of right side M53.3 ; Sacroiliac joint dysfunction of both sides M53.3 and Sacroiliitis M46.1 [facility] [address] [place] [address] [address] [place] [address] 05/03/2024 Johanny Claudio Left shoulder pain M25.512 ; Sacroiliitis, not elsewhere classified M46.1 ; 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.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 and Lumbar pain M54.50 [facility] [address] [place] [address] [address] [place] [address] 06/02/2024 Kymberly Jctall Sacroiliitis, not elsewhere classified M46.1 ; Post laminectomy syndrome M96.1 ; Lumbar pain M54.50 ; Left shoulder pain M25.512 and Other skilled nursing (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 Z79.899 [facility] [address] [place] [address] [address] [place] [address] 06/30/2024 Kymberly Marstall Sacroiliitis, not elsewhere classified M46.1 ; Lumbar pain M54.50 ; Left shoulder pain M25.512 ; Post laminectomy syndrome M96.1 and Other yacht hand (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 Z79.899 [facility] [address] [place] [address] [address] [place] [address] 07/07/2024 Jordy Alvarez Thoracic spondylosis M47.814 ; Thoracic spine pain M54.6 ; Lumbar spondylosis M47.816 and Lumbar pain M54.50 [facility] [address] [place] [address] [address] [place] [address] 07/14/2024 Jordy Alvarez Sacroiliitis, not elsewhere classified M46.1 [facility] [address] [place] [address] [address] [place] [address] 08/11/2024 Kymberly Tsang Post laminectomy syndrome M96.1 ; Cervicalgia M54.2 ; Sacroiliitis, not elsewhere classified M46.1 ; Lumbar pain M54.50 ; Left shoulder pain M25.512 ; Other skilled nursing (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 Z79.899 ; Spondylosis without myelopathy or radiculopathy, lumbar region M47.816 ; Thoracic spondylosis M47.814 ; Lumbar spondylosis M47.816 ; Cervical spondylosis M47.812 and Screening for substance abuse Z13.89 [facility] [address] [place] [address] 09/09/2024 Daniela Bojorquez Cervical radiculopathy M54.12 [facility] [address] [place] [address] [address] [place] [address] 10/06/2024 Jordy Alvarez Sacroiliac joint dysfunction of right side M53.3 and Sacroiliitis M46.1 [facility] [address] [place] [address] [address] [place] [address] 11/17/2024 Johanny Claudio Lumbar pain M54.50 ; Sacroiliac joint dysfunction of right side M53.3 ; Post laminectomy syndrome M96.1 ; Other skilled nursing (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 Z79.899 ; Spondylosis without myelopathy or radiculopathy, lumbar region M47.816 and Lumbar spondylosis M47.816 [facility] [address] [place] [address] [address] [place] [address] 05/03/2024 Daniela Bojorquez [facility] [address] [place] [address] 06/02/2024 Jordy Alvarez [facility] [address] [place] [address] [address] [place] [address] 06/30/2024 Jordy Alvarez [facility] [address] [place] [address] [address] [place] [address] 08/11/2024 Jordy Alvarez [facility] [address] [place] [address] [address] [place] [address] 08/30/2024 Kymberly Tsang [facility] [address] [place] [address] [address] [place] [address] 09/09/2024 Daniela Bojorquez [facility] [address] [place], [place] [address] 10/06/2024 Jordy Alvarez [facility] [address] [place], [place] [address] 11/17/2024 Jordy Alvarez [facility] [address] [place] [address] 12/08/2024 Owen Bojorquez Assessments Encounter Date Diagnosis (ICD Code) Assessment Notes Treatment Notes Treatment Clinical Notes Section Notes 05/03/2024 Sacroiliitis, not elsewhere classified (ICD-10 - M46.1) 05/03/2024 Left shoulder pain (ICD-10 - M25.512) 06/02/2024 Sacroiliitis, not elsewhere classified (ICD-10 - M46.1) 06/02/2024 Post laminectomy syndrome (ICD-10 - M96.1) oxycodone rx sent to supervising physician for renewal 06/30/2024 Sacroiliitis, not elsewhere classified (ICD-10 - M46.1) Prescription for controlled substance sent to supervising physician for renewal 07/07/2024 Thoracic spine pain (ICD-10 - M54.6) After discussing the benefit and risk/complication including but not limited bleeding, infection, nerve damage, allergic reaction, spinal fluid leak, paralysis, and of Thoracic & Lumbar Radiofrequency Ablation of the medial branch nerve of bilateral T11 , T12 and L1 levels for T12-L1 and L1-2 facet jointswere discussed with the patient who verbalized understanding and agrees to proceed today , the procedure was performed without any events, patient tolerated the procedure . Patient will be followed as scheduled. -There is severe pain unresponsive to at least six months of conservative medical management. (e.g., pharmacological therapy, physical therapy, exercise). -The patient has pain that is non-radicular, suggesting facet Joint origin supported by physical exam and radiographic evaluation. -No prior spinal fusion at the vertebral level being treated. -Pain is exacerbated by extension and rotation. -Clinical findings and imaging studies suggest no other obvious cause of the pain (e.g., infection, tumor, fracture) and patient has no contraindications for the procedure. -Patient had 2 sets of diagnostic (with local anesthetic only) median branch nerve blocks that provided 80% of pain relief for the durations of the agent used. -Patient will continue with active rehabilitation program, home exercise program, or functional sikhism program. -Policy guidelines regarding number and frequency of the procedure are obeyed. This patient is currently having severe, debilitating pain that necessitates urgent treatment. The patient is highly symptomatic (Tier 3a CMS guidelines). Pain symptoms are interfering with dally activity and quality of life. Treatment options are limited. This procedure was performed based on the following criteria: -The procedure Is considered minimally Invasive. -The procedure requires very limited resources to perform, including limited use of any additional PPE. -The procedure will likely prevent this patient from seeking care at the hospital emergency room or other urgent care facility. This procedure is being performed due to medical necessity and to avoid further visits to the hospital or ER. This injection is being performed after evaluation and minimization of the risk involved in order to avoid unnecessary ER visits and hospital stays as well as to minimize escalations of opiate medications. 07/14/2024 Sacroiliitis, not elsewhere classified (ICD-10 - M46.1) After discussing the benefit and risk/complication including but not limited bleeding, infection, nerve damage, allergic reaction, spinal fluid leak, paralysis, and of right SI joint injection under fluoroscopic guidance were discussed with the patient who verbalized understanding and agrees to proceed today , the procedure was performed without any events, patient tolerated the procedure . Patient will be followed as scheduled. There is severe pain unresponsive to at least six months of conservative medical management. (e.g., pharmacological therapy, physical therapy, exercise). -The patient has pain that is non-radicular, suggesting facet Joint origin supported by physical exam and radiographic evaluation. -No prior spinal fusion at the vertebral level being treated. -Pain is exacerbated by extension and rotation. -Clinical findings and imaging studies suggest no other obvious cause of the pain (e.g., infection, tumor, fracture) and patient has no contraindications for the procedure. -Patient will continue with active rehabilitation program, home exercise program, or functional sikhism program. -Policy guidelines regarding number and frequency of the procedure are obeyed. This patient is currently having severe, debilitating pain that necessitates urgent treatment. The patient is highly symptomatic (Tier 3a CMS guidelines). Pain symptoms are interfering with dally activity and quality of life. Treatment options are limited. This procedure was performed based on the following criteria: -The procedure Is considered minimally Invasive. -The procedure requires very limited resources to perform, including limited use of any additional PPE. The procedure will likely prevent this patient from seeking care at the hospital emergency room or other urgent care facility. This procedure is being performed due to medical necessity and to avoid further visits to the hospital or ER. This injection is being performed after evaluation and minimization of the risk involved in order to avoid unnecessary ER visits and hospital stays as well as to minimize escalations of opiate medications. 07/07/2024 Thoracic spondylosis (ICD-10 - M47.814) After discussing the benefit and risk/complication including but not limited bleeding, infection, nerve damage, allergic reaction, spinal fluid leak, paralysis, and of Thoracic & Lumbar Radiofrequency Ablation of the medial branch nerve of bilateral T11 , T12 and L1 levels for T12-L1 and L1-2 facet jointswere discussed with the patient who verbalized understanding and agrees to proceed today , the procedure was performed without any events, patient tolerated the procedure . Patient will be followed as scheduled. -There is severe pain unresponsive to at least six months of conservative medical management. (e.g., pharmacological therapy, physical therapy, exercise). -The patient has pain that is non-radicular, suggesting facet Joint origin supported by physical exam and radiographic evaluation. -No prior spinal fusion at the vertebral level being treated. -Pain is exacerbated by extension and rotation. -Clinical findings and imaging studies suggest no other obvious cause of the pain (e.g., infection, tumor, fracture) and patient has no contraindications for the procedure. -Patient had 2 sets of diagnostic (with local anesthetic only) median branch nerve blocks that provided 80% of pain relief for the durations of the agent used. -Patient will continue with active rehabilitation program, home exercise program, or functional sikhism program. -Policy guidelines regarding number and frequency of the procedure are obeyed. This patient is currently having severe, debilitating pain that necessitates urgent treatment. The patient is highly symptomatic (Tier 3a CMS guidelines). Pain symptoms are interfering with dally activity and quality of life. Treatment options are limited. This procedure was performed based on the following criteria: -The procedure Is considered minimally Invasive. -The procedure requires very limited resources to perform, including limited use of any additional PPE. -The procedure will likely prevent this patient from seeking care at the hospital emergency room or other urgent care facility. This procedure is being performed due to medical necessity and to avoid further visits to the hospital or ER. This injection is being performed after evaluation and minimization of the risk involved in order to avoid unnecessary ER visits and hospital stays as well as to minimize escalations of opiate medications. 08/11/2024 Cervicalgia (ICD-10 - M54.2) 09/09/2024 Cervical radiculopathy (ICD-10 - M54.12) 10/06/2024 Sacroiliitis (ICD-10 - M46.1) Medication refilled without change Right SI joint intra-articular steroid injection today. 10/06/2024 Sacroiliac joint dysfunction of right side (ICD-10 - M53.3) Medication refilled without change Right SI joint intra-articular steroid injection today. 08/11/2024 Post laminectomy syndrome (ICD-10 - M96.1) Prescription for controlled substance sent to supervising physician for renewal CT w/o contrast faxed to [facility]. r/u with Dr Bojorquez to discuss CT cervical spine. 4v cervical spine: forward head carriage. anterior cervical fusion. loss of disc height/fusion C4/5. 2v thoracic: kyphosis. clips RUQ. no tumor or mass. advanced spondylosis. levoscoliosis thoracolumbar spine. 4v lumbar: extensive posterior hardware L2-S1, anterior L5/S1. extensive spondylosis, endplate changes above fusion, wedging T11, L1,L2. retrolisthesis L2 on L3, L3 on L4. no tumor, mass or fracture. 11/17/2024 Sacroiliac joint dysfunction of right side (ICD-10 - M53.3) Refill for controlled substance sent to supervising physician to be filled Discussed repeating R SIJ when needed (01/04/25 and after) Discussed can repeat TPI and MFR as needed Continue home stretching and at home exercise program as tolerated Follow-up in one month for med check, sooner if needed 12/08/2024 Sacroiliitis, not elsewhere classified (ICD-10 - M46.1) 11/17/2024 Lumbar pain (ICD-10 - M54.50) 01/05/2025 Sacroiliitis, not elsewhere classified (ICD-10 - M46.1) After discussing the benefit and risk/complication including but not limited bleeding, infection, nerve damage, allergic reaction, spinal fluid leak, paralysis, and of right SI joint intra-articular steroid injection under fluoroscopic guidancewere discussed with the patient who verbalized understanding and agrees to proceed today , the procedure was performed without any events, patient tolerated the procedure . Patient will be followed as scheduled. There is severe pain unresponsive to at least six months of conservative medical management. (e.g., ph armacological therapy, physical therapy, exercise). -The patient has pain that is non-radicular, suggesting facet Joint origin supported by physical exam and radiographic evaluation. -No prior spinal fusion at the vertebral level being treated. -Pain is exacerbated by extension and rotation. -Clinical findings and imaging studies suggest no other obvious cause of the pain (e.g., infection, tumor, fracture) and patient has no contraindications for the procedure. -Patient will continue with active rehabilitation program, home exercise program, or functional sikhism program. -Policy guidelines regarding number and frequency of the procedure are obeyed. This patient is currently having severe, debilitating pain that necessitates urgent treatment. The patient is highly symptomatic (Tier 3a CMS guidelines). Pain symptoms are interfering with dally activity and quality of life. Treatment options are limited. This procedure was performed based on the following criteria: -The procedure Is considered minimally Invasive. -The procedure requires very limited resources to perform, including limited use of any additional PPE. The procedure will likely prevent this patient from seeking care at the hospital emergency room or other urgent care facility. This procedure is being performed due to medical necessity and to avoid further visits to the hospital or ER. This injection is being performed after evaluation and minimization of the risk involved in order to avoid unnecessary ER visits and hospital stays as well as to minimize escalations of opiate medications. 01/05/2025 Lumbar pain (ICD-10 - M54.50) After discussing the benefit and risk/complication including but not limited bleeding, infection, nerve damage, allergic reaction, spinal fluid leak, paralysis, and of right SI joint intra-articular steroid injection under fluoroscopic guidancewere discussed with the patient who verbalized understanding and agrees to proceed today , the procedure was performed without any events, patient tolerated the procedure . Patient will be followed as scheduled. There is severe pain unresponsive to at least six months of conservative medical management. (e.g., ph armacological therapy, physical therapy, exercise). -The patient has pain that is non-radicular, suggesting facet Joint origin supported by physical exam and radiographic evaluation. -No prior spinal fusion at the vertebral level being treated. -Pain is exacerbated by extension and rotation. -Clinical findings and imaging studies suggest no other obvious cause of the pain (e.g., infection, tumor, fracture) and patient has no contraindications for the procedure. -Patient will continue with active rehabilitation program, home exercise program, or functional sikhism program. -Policy guidelines regarding number and frequency of the procedure are obeyed. This patient is currently having severe, debilitating pain that necessitates urgent treatment. The patient is highly symptomatic (Tier 3a CMS guidelines). Pain symptoms are interfering with dally activity and quality of life. Treatment options are limited. This procedure was performed based on the following criteria: -The procedure Is considered minimally Invasive. -The procedure requires very limited resources to perform, including limited use of any additional PPE. The procedure will likely prevent this patient from seeking care at the hospital emergency room or other urgent care facility. This procedure is being performed due to medical necessity and to avoid further visits to the hospital or ER. This injection is being performed after evaluation and minimization of the risk involved in order to avoid unnecessary ER visits and hospital stays as well as to minimize escalations of opiate medications. 11/17/2024 Post laminectomy syndrome (ICD-10 - M96.1) 12/08/2024 Lumbar pain (ICD-10 - M54.50) 07/07/2024 Lumbar spondylosis (ICD-10 - M47.816) After discussing the benefit and risk/complication including but not limited bleeding, infection, nerve damage, allergic reaction, spinal fluid leak, paralysis, and of Thoracic & Lumbar Radiofrequency Ablation of the medial branch nerve of bilateral T11 , T12 and L1 levels for T12-L1 and L1-2 facet jointswere discussed with the patient who verbalized understanding and agrees to proceed today , the procedure was performed without any events, patient tolerated the procedure . Patient will be followed as scheduled. -There is severe pain unresponsive to at least six months of conservative medical management. (e.g., pharmacological therapy, physical therapy, exercise). -The patient has pain that is non-radicular, suggesting facet Joint origin supported by physical exam and radiographic evaluation. -No prior spinal fusion at the vertebral level being treated. -Pain is exacerbated by extension and rotation. -Clinical findings and imaging studies suggest no other obvious cause of the pain (e.g., infection, tumor, fracture) and patient has no contraindications for the procedure. -Patient had 2 sets of diagnostic (with local anesthetic only) median branch nerve blocks that provided 80% of pain relief for the durations of the agent used. -Patient will continue with active rehabilitation program, home exercise program, or functional sikhism program. -Policy guidelines regarding number and frequency of the procedure are obeyed. This patient is currently having severe, debilitating pain that necessitates urgent treatment. The patient is highly symptomatic (Tier 3a CMS guidelines). Pain symptoms are interfering with dally activity and quality of life. Treatment options are limited. This procedure was performed based on the following criteria: -The procedure Is considered minimally Invasive. -The procedure requires very limited resources to perform, including limited use of any additional PPE. -The procedure will likely prevent this patient from seeking care at the hospital emergency room or other urgent care facility. This procedure is being performed due to medical necessity and to avoid further visits to the hospital or ER. This injection is being performed after evaluation and minimization of the risk involved in order to avoid unnecessary ER visits and hospital stays as well as to minimize escalations of opiate medications. 08/11/2024 Sacroiliitis, not elsewhere classified (ICD-10 - M46.1) 06/30/2024 Lumbar pain (ICD-10 - M54.50) 06/02/2024 Lumbar pain (ICD-10 - M54.50) 05/03/2024 custodial (current) use of opiate analgesic (ICD-10 - Z79.891) 05/03/2024 Lumbar pain (ICD-10 - M54.50) 06/02/2024 Left shoulder pain (ICD-10 - M25.512) 06/30/2024 Left shoulder pain (ICD-10 - M25.512) 08/11/2024 Lumbar pain (ICD-10 - M54.50) 07/07/2024 Lumbar pain (ICD-10 - M54.50) After discussing the benefit and risk/complication including but not limited bleeding, infection, nerve damage, allergic reaction, spinal fluid leak, paralysis, and of Thoracic & Lumbar Radiofrequency Ablation of the medial branch nerve of bilateral T11 , T12 and L1 levels for T12-L1 and L1-2 facet jointswere discussed with the patient who verbalized understanding and agrees to proceed today , the procedure was performed without any events, patient tolerated the procedure . Patient will be followed as scheduled. -There is severe pain unresponsive to at least six months of conservative medical management. (e.g., pharmacological therapy, physical therapy, exercise). -The patient has pain that is non-radicular, suggesting facet Joint origin supported by physical exam and radiographic evaluation. -No prior spinal fusion at the vertebral level being treated. -Pain is exacerbated by extension and rotation. -Clinical findings and imaging studies suggest no other obvious cause of the pain (e.g., infection, tumor, fracture) and patient has no contraindications for the procedure. -Patient had 2 sets of diagnostic (with local anesthetic only) median branch nerve blocks that provided 80% of pain relief for the durations of the agent used. -Patient will continue with active rehabilitation program, home exercise program, or functional sikhism program. -Policy guidelines regarding number and frequency of the procedure are obeyed. This patient is currently having severe, debilitating pain that necessitates urgent treatment. The patient is highly symptomatic (Tier 3a CMS guidelines). Pain symptoms are interfering with dally activity and quality of life. Treatment options are limited. This procedure was performed based on the following criteria: -The procedure Is considered minimally Invasive. -The procedure requires very limited resources to perform, including limited use of any additional PPE. -The procedure will likely prevent this patient from seeking care at the hospital emergency room or other urgent care facility. This procedure is being performed due to medical necessity and to avoid further visits to the hospital or ER. This injection is being performed after evaluation and minimization of the risk involved in order to avoid unnecessary ER visits and hospital stays as well as to minimize escalations of opiate medications. 11/17/2024 Other skilled nursing (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 (ICD-10 - Z79.899) 12/08/2024 Left shoulder pain (ICD-10 - M25.512) 01/05/2025 Left shoulder pain (ICD-10 - M25.512) After discussing the benefit and risk/complication including but not limited bleeding, infection, nerve damage, allergic reaction, spinal fluid leak, paralysis, and of right SI joint intra-articular steroid injection under fluoroscopic guidancewere discussed with the patient who verbalized understanding and agrees to proceed today , the procedure was performed without any events, patient tolerated the procedure . Patient will be followed as scheduled. There is severe pain unresponsive to at least six months of conservative medical management. (e.g., ph armacological therapy, physical therapy, exercise). -The patient has pain that is non-radicular, suggesting facet Joint origin supported by physical exam and radiographic evaluation. -No prior spinal fusion at the vertebral level being treated. -Pain is exacerbated by extension and rotation. -Clinical findings and imaging studies suggest no other obvious cause of the pain (e.g., infection, tumor, fracture) and patient has no contraindications for the procedure. -Patient will continue with active rehabilitation program, home exercise program, or functional sikhism program. -Policy guidelines regarding number and frequency of the procedure are obeyed. This patient is currently having severe, debilitating pain that necessitates urgent treatment. The patient is highly symptomatic (Tier 3a CMS guidelines). Pain symptoms are interfering with dally activity and quality of life. Treatment options are limited. This procedure was performed based on the following criteria: -The procedure Is considered minimally Invasive. -The procedure requires very limited resources to perform, including limited use of any additional PPE. The procedure will likely prevent this patient from seeking care at the hospital emergency room or other urgent care facility. This procedure is being performed due to medical necessity and to avoid further visits to the hospital or ER. This injection is being performed after evaluation and minimization of the risk involved in order to avoid unnecessary ER visits and hospital stays as well as to minimize escalations of opiate medications. 01/05/2025 Post laminectomy syndrome (ICD-10 - M96.1) After discussing the benefit and risk/complication including but not limited bleeding, infection, nerve damage, allergic reaction, spinal fluid leak, paralysis, and of right SI joint intra-articular steroid injection under fluoroscopic guidancewere discussed with the patient who verbalized understanding and agrees to proceed today , the procedure was performed without any events, patient tolerated the procedure . Patient will be followed as scheduled. There is severe pain unresponsive to at least six months of conservative medical management. (e.g., ph armacological therapy, physical therapy, exercise). -The patient has pain that is non-radicular, suggesting facet Joint origin supported by physical exam and radiographic evaluation. -No prior spinal fusion at the vertebral level being treated. -Pain is exacerbated by extension and rotation. -Clinical findings and imaging studies suggest no other obvious cause of the pain (e.g., infection, tumor, fracture) and patient has no contraindications for the procedure. -Patient will continue with active rehabilitation program, home exercise program, or functional sikhism program. -Policy guidelines regarding number and frequency of the procedure are obeyed. This patient is currently having severe, debilitating pain that necessitates urgent treatment. The patient is highly symptomatic (Tier 3a CMS guidelines). Pain symptoms are interfering with dally activity and quality of life. Treatment options are limited. This procedure was performed based on the following criteria: -The procedure Is considered minimally Invasive. -The procedure requires very limited resources to perform, including limited use of any additional PPE. The procedure will likely prevent this patient from seeking care at the hospital emergency room or other urgent care facility. This procedure is being performed due to medical necessity and to avoid further visits to the hospital or ER. This injection is being performed after evaluation and minimization of the risk involved in order to avoid unnecessary ER visits and hospital stays as well as to minimize escalations of opiate medications. 12/08/2024 Post laminectomy syndrome (ICD-10 - M96.1) 08/11/2024 Left shoulder pain (ICD-10 - M25.512) 11/17/2024 Spondylosis without myelopathy or radiculopathy, lumbar region (ICD-10 - M47.816) 06/30/2024 Post laminectomy syndrome (ICD-10 - M96.1) 06/02/2024 Other yacht hand (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 (ICD-10 - Z79.899) 06/30/2024 Other yacht hand (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 (ICD-10 - Z79.899) 11/17/2024 Lumbar spondylosis (ICD-10 - M47.816) 08/11/2024 Other skilled nursing (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 (ICD-10 - Z79.899) 12/08/2024 Other yacht hand (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 (ICD-10 - Z79.899) 01/05/2025 Other skilled nursing (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 (ICD-10 - Z79.899) After discussing the benefit and risk/complication including but not limited bleeding, infection, nerve damage, allergic reaction, spinal fluid leak, paralysis, and of right SI joint intra-articular steroid injection under fluoroscopic guidancewere discussed with the patient who verbalized understanding and agrees to proceed today , the procedure was performed without any events, patient tolerated the procedure . Patient will be followed as scheduled. There is severe pain unresponsive to at least six months of conservative medical management. (e.g., ph armacological therapy, physical therapy, exercise). -The patient has pain that is non-radicular, suggesting facet Joint origin supported by physical exam and radiographic evaluation. -No prior spinal fusion at the vertebral level being treated. -Pain is exacerbated by extension and rotation. -Clinical findings and imaging studies suggest no other obvious cause of the pain (e.g., infection, tumor, fracture) and patient has no contraindications for the procedure. -Patient will continue with active rehabilitation program, home exercise program, or functional sikhism program. -Policy guidelines regarding number and frequency of the procedure are obeyed. This patient is currently having severe, debilitating pain that necessitates urgent treatment. The patient is highly symptomatic (Tier 3a CMS guidelines). Pain symptoms are interfering with dally activity and quality of life. Treatment options are limited. This procedure was performed based on the following criteria: -The procedure Is considered minimally Invasive. -The procedure requires very limited resources to perform, including limited use of any additional PPE. The procedure will likely prevent this patient from seeking care at the hospital emergency room or other urgent care facility. This procedure is being performed due to medical necessity and to avoid further visits to the hospital or ER. This injection is being performed after evaluation and minimization of the risk involved in order to avoid unnecessary ER visits and hospital stays as well as to minimize escalations of opiate medications. 01/05/2025 Spondylosis without myelopathy or radiculopathy, lumbar region (ICD-10 - M47.816) After discussing the benefit and risk/complication including but not limited bleeding, infection, nerve damage, allergic reaction, spinal fluid leak, paralysis, and of right SI joint intra-articular steroid injection under fluoroscopic guidancewere discussed with the patient who verbalized understanding and agrees to proceed today , the procedure was performed without any events, patient tolerated the procedure . Patient will be followed as scheduled. There is severe pain unresponsive to at least six months of conservative medical management. (e.g., ph armacological therapy, physical therapy, exercise). -The patient has pain that is non-radicular, suggesting facet Joint origin supported by physical exam and radiographic evaluation. -No prior spinal fusion at the vertebral level being treated. -Pain is exacerbated by extension and rotation. -Clinical findings and imaging studies suggest no other obvious cause of the pain (e.g., infection, tumor, fracture) and patient has no contraindications for the procedure. -Patient will continue with active rehabilitation program, home exercise program, or functional sikhism program. -Policy guidelines regarding number and frequency of the procedure are obeyed. This patient is currently having severe, debilitating pain that necessitates urgent treatment. The patient is highly symptomatic (Tier 3a CMS guidelines). Pain symptoms are interfering with dally activity and quality of life. Treatment options are limited. This procedure was performed based on the following criteria: -The procedure Is considered minimally Invasive. -The procedure requires very limited resources to perform, including limited use of any additional PPE. The procedure will likely prevent this patient from seeking care at the hospital emergency room or other urgent care facility. This procedure is being performed due to medical necessity and to avoid further visits to the hospital or ER. This injection is being performed after evaluation and minimization of the risk involved in order to avoid unnecessary ER visits and hospital stays as well as to minimize escalations of opiate medications. 12/08/2024 Spondylosis without myelopathy or radiculopathy, lumbar region (ICD-10 - M47.816) 08/11/2024 Spondylosis without myelopathy or radiculopathy, lumbar region (ICD-10 - M47.816) 08/11/2024 Thoracic spondylosis (ICD-10 - M47.814) 12/08/2024 Thoracic spondylosis (ICD-10 - M47.814) 01/05/2025 Thoracic spondylosis (ICD-10 - M47.814) After discussing the benefit and risk/complication including but not limited bleeding, infection, nerve damage, allergic reaction, spinal fluid leak, paralysis, and of right SI joint intra-articular steroid injection under fluoroscopic guidancewere discussed with the patient who verbalized understanding and agrees to proceed today , the procedure was performed without any events, patient tolerated the procedure . Patient will be followed as scheduled. There is severe pain unresponsive to at least six months of conservative medical management. (e.g., armacological therapy, physical therapy, exercise). -The patient has pain that is non-radicular, suggesting facet Joint origin supported by physical exam and radiographic evaluation. -No prior spinal fusion at the vertebral level being treated. -Pain is exacerbated by extension and rotation. -Clinical findings and imaging studies suggest no other obvious cause of the pain (e.g., infection, tumor, fracture) and patient has no contraindications for the procedure. -Patient will continue with active rehabilitation program, home exercise program, or functional sikhism program. -Policy guidelines regarding number and frequency of the procedure are obeyed. This patient is currently having severe, debilitating pain that necessitates urgent treatment. The patient is highly symptomatic (Tier 3a CMS guidelines). Pain symptoms are interfering with dally activity and quality of life. Treatment options are limited. This procedure was performed based on the following criteria: -The procedure Is considered minimally Invasive. -The procedure requires very limited resources to perform, including limited use of any additional PPE. The procedure will likely prevent this patient from seeking care at the hospital emergency room or other urgent care facility. This procedure is being performed due to medical necessity and to avoid further visits to the hospital or ER. This injection is being performed after evaluation and minimization of the risk involved in order to avoid unnecessary ER visits and hospital stays as well as to minimize escalations of opiate medications. 01/05/2025 Lumbar spondylosis (ICD-10 - M47.816) After discussing the benefit and risk/complication including but not limited bleeding, infection, nerve damage, allergic reaction, spinal fluid leak, paralysis, and of right SI joint intra-articular steroid injection under fluoroscopic guidancewere discussed with the patient who verbalized understanding and agrees to proceed today , the procedure was performed without any events, patient tolerated the procedure . Patient will be followed as scheduled. There is severe pain unresponsive to at least six months of conservative medical management. (e.g., armacological therapy, physical therapy, exercise). -The patient has pain that is non-radicular, suggesting facet Joint origin supported by physical exam and radiographic evaluation. -No prior spinal fusion at the vertebral level being treated. -Pain is exacerbated by extension and rotation. -Clinical findings and imaging studies suggest no other obvious cause of the pain (e.g., infection, tumor, fracture) and patient has no contraindications for the procedure. -Patient will continue with active rehabilitation program, home exercise program, or functional sikhism program. -Policy guidelines regarding number and frequency of the procedure are obeyed. This patient is currently having severe, debilitating pain that necessitates urgent treatment. The patient is highly symptomatic (Tier 3a CMS guidelines). Pain symptoms are interfering with dally activity and quality of life. Treatment options are limited. This procedure was performed based on the following criteria: -The procedure Is considered minimally Invasive. -The procedure requires very limited resources to perform, including limited use of any additional PPE. The procedure will likely prevent this patient from seeking care at the hospital emergency room or other urgent care facility. This procedure is being performed due to medical necessity and to avoid further visits to the hospital or ER. This injection is being performed after evaluation and minimization of the risk involved in order to avoid unnecessary ER visits and hospital stays as well as to minimize escalations of opiate medications. 12/08/2024 Lumbar spondylosis (ICD-10 - M47.816) 08/11/2024 Lumbar spondylosis (ICD-10 - M47.816) 08/11/2024 Cervical spondylosis (ICD-10 - M47.812) 12/08/2024 Cervicalgia (ICD-10 - M54.2) 01/05/2025 Cervicalgia (ICD-10 - M54.2) After discussing the benefit and risk/complication including but not limited bleeding, infection, nerve damage, allergic reaction, spinal fluid leak, paralysis, and of right SI joint intra-articular steroid injection under fluoroscopic guidancewere discussed with the patient who verbalized understanding and agrees to proceed today , the procedure was performed without any events, patient tolerated the procedure . Patient will be followed as scheduled. There is severe pain unresponsive to at least six months of conservative medical management. (e.g., ph armacological therapy, physical therapy, exercise). -The patient has pain that is non-radicular, suggesting facet Joint origin supported by physical exam and radiographic evaluation. -No prior spinal fusion at the vertebral level being treated. -Pain is exacerbated by extension and rotation. -Clinical findings and imaging studies suggest no other obvious cause of the pain (e.g., infection, tumor, fracture) and patient has no contraindications for the procedure. -Patient will continue with active rehabilitation program, home exercise program, or functional sikhism program. -Policy guidelines regarding number and frequency of the procedure are obeyed. This patient is currently having severe, debilitating pain that necessitates urgent treatment. The patient is highly symptomatic (Tier 3a CMS guidelines). Pain symptoms are interfering with dally activity and quality of life. Treatment options are limited. This procedure was performed based on the following criteria: -The procedure Is considered minimally Invasive. -The procedure requires very limited resources to perform, including limited use of any additional PPE. The procedure will likely prevent this patient from seeking care at the hospital emergency room or other urgent care facility. This procedure is being performed due to medical necessity and to avoid further visits to the hospital or ER. This injection is being performed after evaluation and minimization of the risk involved in order to avoid unnecessary ER visits and hospital stays as well as to minimize escalations of opiate medications. 01/05/2025 Cervical spondylosis (ICD-10 - M47.812) After discussing the benefit and risk/complication including but not limited bleeding, infection, nerve damage, allergic reaction, spinal fluid leak, paralysis, and of right SI joint intra-articular steroid injection under fluoroscopic guidancewere discussed with the patient who verbalized understanding and agrees to proceed today , the procedure was performed without any events, patient tolerated the procedure . Patient will be followed as scheduled. There is severe pain unresponsive to at least six months of conservative medical management. (e.g., ph armacological therapy, physical therapy, exercise). -The patient has pain that is non-radicular, suggesting facet Joint origin supported by physical exam and radiographic evaluation. -No prior spinal fusion at the vertebral level being treated. -Pain is exacerbated by extension and rotation. -Clinical findings and imaging studies suggest no other obvious cause of the pain (e.g., infection, tumor, fracture) and patient has no contraindications for the procedure. -Patient will continue with active rehabilitation program, home exercise program, or functional sikhism program. -Policy guidelines regarding number and frequency of the procedure are obeyed. This patient is currently having severe, debilitating pain that necessitates urgent treatment. The patient is highly symptomatic (Tier 3a CMS guidelines). Pain symptoms are interfering with dally activity and quality of life. Treatment options are limited. This procedure was performed based on the following criteria: -The procedure Is considered minimally Invasive. -The procedure requires very limited resources to perform, including limited use of any additional PPE. The procedure will likely prevent this patient from seeking care at the hospital emergency room or other urgent care facility. This procedure is being performed due to medical necessity and to avoid further visits to the hospital or ER. This injection is being performed after evaluation and minimization of the risk involved in order to avoid unnecessary ER visits and hospital stays as well as to minimize escalations of opiate medications. 12/08/2024 Cervical spondylosis (ICD-10 - M47.812) 08/11/2024 Screening for substance abuse (ICD-10 - Z13.89) 12/08/2024 Cervical radiculopathy (ICD-10 - M54.12) 01/05/2025 Cervical radiculopathy (ICD-10 - M54.12) After discussing the benefit and risk/complication including but not limited bleeding, infection, nerve damage, allergic reaction, spinal fluid leak, paralysis, and of right SI joint intra-articular steroid injection under fluoroscopic guidancewere discussed with the patient who verbalized understanding and agrees to proceed today , the procedure was performed without any events, patient tolerated the procedure . Patient will be followed as scheduled. There is severe pain unresponsive to at least six months of conservative medical management. (e.g., ph armacological therapy, physical therapy, exercise). -The patient has pain that is non-radicular, suggesting facet Joint origin supported by physical exam and radiographic evaluation. -No prior spinal fusion at the vertebral level being treated. -Pain is exacerbated by extension and rotation. -Clinical findings and imaging studies suggest no other obvious cause of the pain (e.g., infection, tumor, fracture) and patient has no contraindications for the procedure. -Patient will continue with active rehabilitation program, home exercise program, or functional sikhism program. -Policy guidelines regarding number and frequency of the procedure are obeyed. This patient is currently having severe, debilitating pain that necessitates urgent treatment. The patient is highly symptomatic (Tier 3a CMS guidelines). Pain symptoms are interfering with dally activity and quality of life. Treatment options are limited. This procedure was performed based on the following criteria: -The procedure Is considered minimally Invasive. -The procedure requires very limited resources to perform, including limited use of any additional PPE. The procedure will likely prevent this patient from seeking care at the hospital emergency room or other urgent care facility. This procedure is being performed due to medical necessity and to avoid further visits to the hospital or ER. This injection is being performed after evaluation and minimization of the risk involved in order to avoid unnecessary ER visits and hospital stays as well as to minimize escalations of opiate medications. 01/05/2025 COPD (chronic obstructive pulmonary disease) (ICD-10 - J44.9) After discussing the benefit and risk/complication including but not limited bleeding, infection, nerve damage, allergic reaction, spinal fluid leak, paralysis, and of right SI joint intra-articular steroid injection under fluoroscopic guidancewere discussed with the patient who verbalized understanding and agrees to proceed today , the procedure was performed without any events, patient tolerated the procedure . Patient will be followed as scheduled. There is severe pain unresponsive to at least six months of conservative medical management. (e.g., ph armacological therapy, physical therapy, exercise). -The patient has pain that is non-radicular, suggesting facet Joint origin supported by physical exam and radiographic evaluation. -No prior spinal fusion at the vertebral level being treated. -Pain is exacerbated by extension and rotation. -Clinical findings and imaging studies suggest no other obvious cause of the pain (e.g., infection, tumor, fracture) and patient has no contraindications for the procedure. -Patient will continue with active rehabilitation program, home exercise program, or functional sikhism program. -Policy guidelines regarding number and frequency of the procedure are obeyed. This patient is currently having severe, debilitating pain that necessitates urgent treatment. The patient is highly symptomatic (Tier 3a CMS guidelines). Pain symptoms are interfering with dally activity and quality of life. Treatment options are limited. This procedure was performed based on the following criteria: -The procedure Is considered minimally Invasive. -The procedure requires very limited resources to perform, including limited use of any additional PPE. The procedure will likely prevent this patient from seeking care at the hospital emergency room or other urgent care facility. This procedure is being performed due to medical necessity and to avoid further visits to the hospital or ER. This injection is being performed after evaluation and minimization of the risk involved in order to avoid unnecessary ER visits and hospital stays as well as to minimize escalations of opiate medications. 12/08/2024 COPD (chronic obstructive pulmonary disease) (ICD-10 - J44.9) 12/08/2024 Hypertension (ICD-10 - I10) 01/05/2025 Hypertension (ICD-10 - I10) After discussing the benefit and risk/complication including but not limited bleeding, infection, nerve damage, allergic reaction, spinal fluid leak, paralysis, and of right SI joint intra-articular steroid injection under fluoroscopic guidancewere discussed with the patient who verbalized understanding and agrees to proceed today , the procedure was performed without any events, patient tolerated the procedure . Patient will be followed as scheduled. There is severe pain unresponsive to at least six months of conservative medical management. (e.g., ph armacological therapy, physical therapy, exercise). -The patient has pain that is non-radicular, suggesting facet Joint origin supported by physical exam and radiographic evaluation. -No prior spinal fusion at the vertebral level being treated. -Pain is exacerbated by extension and rotation. -Clinical findings and imaging studies suggest no other obvious cause of the pain (e.g., infection, tumor, fracture) and patient has no contraindications for the procedure. -Patient will continue with active rehabilitation program, home exercise program, or functional sikhism program. -Policy guidelines regarding number and frequency of the procedure are obeyed. This patient is currently having severe, debilitating pain that necessitates urgent treatment. The patient is highly symptomatic (Tier 3a CMS guidelines). Pain symptoms are interfering with dally activity and quality of life. Treatment options are limited. This procedure was performed based on the following criteria: -The procedure Is considered minimally Invasive. -The procedure requires very limited resources to perform, including limited use of any additional PPE. The procedure will likely prevent this patient from seeking care at the hospital emergency room or other urgent care facility. This procedure is being performed due to medical necessity and to avoid further visits to the hospital or ER. This injection is being performed after evaluation and minimization of the risk involved in order to avoid unnecessary ER visits and hospital stays as well as to minimize escalations of opiate medications. 01/05/2025 Sacroiliac joint dysfunction of right side (ICD-10 - M53.3) After discussing the benefit and risk/complication including but not limited bleeding, infection, nerve damage, allergic reaction, spinal fluid leak, paralysis, and of right SI joint intra-articular steroid injection under fluoroscopic guidancewere discussed with the patient who verbalized understanding and agrees to proceed today , the procedure was performed without any events, patient tolerated the procedure . Patient will be followed as scheduled. There is severe pain unresponsive to at least six months of conservative medical management. (e.g., ph armacological therapy, physical therapy, exercise). -The patient has pain that is non-radicular, suggesting facet Joint origin supported by physical exam and radiographic evaluation. -No prior spinal fusion at the vertebral level being treated. -Pain is exacerbated by extension and rotation. -Clinical findings and imaging studies suggest no other obvious cause of the pain (e.g., infection, tumor, fracture) and patient has no contraindications for the procedure. -Patient will continue with active rehabilitation program, home exercise program, or functional sikhism program. -Policy guidelines regarding number and frequency of the procedure are obeyed. This patient is currently having severe, debilitating pain that necessitates urgent treatment. The patient is highly symptomatic (Tier 3a CMS guidelines). Pain symptoms are interfering with dally activity and quality of life. Treatment options are limited. This procedure was performed based on the following criteria: -The procedure Is considered minimally Invasive. -The procedure requires very limited resources to perform, including limited use of any additional PPE. The procedure will likely prevent this patient from seeking care at the hospital emergency room or other urgent care facility. This procedure is being performed due to medical necessity and to avoid further visits to the hospital or ER. This injection is being performed after evaluation and minimization of the risk involved in order to avoid unnecessary ER visits and hospital stays as well as to minimize escalations of opiate medications. 12/08/2024 Sacroiliac joint dysfunction of right side (ICD-10 - M53.3) 12/08/2024 Sacroiliac joint dysfunction of both sides (ICD-10 - M53.3) 01/05/2025 Sacroiliac joint dysfunction of both sides (ICD-10 - M53.3) After discussing the benefit and risk/complication including but not limited bleeding, infection, nerve damage, allergic reaction, spinal fluid leak, paralysis, and of right SI joint intra-articular steroid injection under fluoroscopic guidancewere discussed with the patient who verbalized understanding and agrees to proceed today , the procedure was performed without any events, patient tolerated the procedure . Patient will be followed as scheduled. There is severe pain unresponsive to at least six months of conservative medical management. (e.g., ph armacological therapy, physical therapy, exercise). -The patient has pain that is non-radicular, suggesting facet Joint origin supported by physical exam and radiographic evaluation. -No prior spinal fusion at the vertebral level being treated. -Pain is exacerbated by extension and rotation. -Clinical findings and imaging studies suggest no other obvious cause of the pain (e.g., infection, tumor, fracture) and patient has no contraindications for the procedure. -Patient will continue with active rehabilitation program, home exercise program, or functional sikhism program. -Policy guidelines regarding number and frequency of the procedure are obeyed. This patient is currently having severe, debilitating pain that necessitates urgent treatment. The patient is highly symptomatic (Tier 3a CMS guidelines). Pain symptoms are interfering with dally activity and quality of life. Treatment options are limited. This procedure was performed based on the following criteria: -The procedure Is considered minimally Invasive. -The procedure requires very limited resources to perform, including limited use of any additional PPE. The procedure will likely prevent this patient from seeking care at the hospital emergency room or other urgent care facility. This procedure is being performed due to medical necessity and to avoid further visits to the hospital or ER. This injection is being performed after evaluation and minimization of the risk involved in order to avoid unnecessary ER visits and hospital stays as well as to minimize escalations of opiate medications. 01/05/2025 Sacroiliitis (ICD-10 - M46.1) After discussing the benefit and risk/complication including but not limited bleeding, infection, nerve damage, allergic reaction, spinal fluid leak, paralysis, and of right SI joint intra-articular steroid injection under fluoroscopic guidancewere discussed with the patient who verbalized understanding and agrees to proceed today , the procedure was performed without any events, patient tolerated the procedure . Patient will be followed as scheduled. There is severe pain unresponsive to at least six months of conservative medical management. (e.g., ph armacological therapy, physical therapy, exercise). -The patient has pain that is non-radicular, suggesting facet Joint origin supported by physical exam and radiographic evaluation. -No prior spinal fusion at the vertebral level being treated. -Pain is exacerbated by extension and rotation. -Clinical findings and imaging studies suggest no other obvious cause of the pain (e.g., infection, tumor, fracture) and patient has no contraindications for the procedure. -Patient will continue with active rehabilitation program, home exercise program, or functional sikhism program. -Policy guidelines regarding number and frequency of the procedure are obeyed. This patient is currently having severe, debilitating pain that necessitates urgent treatment. The patient is highly symptomatic (Tier 3a CMS guidelines). Pain symptoms are interfering with dally activity and quality of life. Treatment options are limited. This procedure was performed based on the following criteria: -The procedure Is considered minimally Invasive. -The procedure requires very limited resources to perform, including limited use of any additional PPE. The procedure will likely prevent this patient from seeking care at the hospital emergency room or other urgent care facility. This procedure is being performed due to medical necessity and to avoid further visits to the hospital or ER. This injection is being performed after evaluation and minimization of the risk involved in order to avoid unnecessary ER visits and hospital stays as well as to minimize escalations of opiate medications. 12/08/2024 Sacroiliitis (ICD-10 - M46.1) 12/08/2024 Other Body Mass Index : Care Instructions material was published, High Blood Pressure: Care Instructions material was published 01/05/2025 Other Body Mass Index : Care Instructions material was published After discussing the benefit and risk/complication including but not limited bleeding, infection, nerve damage, allergic reaction, spinal fluid leak, paralysis, and of right SI joint intra-articular steroid injection under fluoroscopic guidancewere discussed with the patient who verbalized understanding and agrees to proceed today , the procedure was performed without any events, patient tolerated the procedure . Patient will be followed as scheduled. There is severe pain unresponsive to at least six months of conservative medical management. (e.g., ph armacological therapy, physical therapy, exercise). -The patient has pain that is non-radicular, suggesting facet Joint origin supported by physical exam and radiographic evaluation. -No prior spinal fusion at the vertebral level being treated. -Pain is exacerbated by extension and rotation. -Clinical findings and imaging studies suggest no other obvious cause of the pain (e.g., infection, tumor, fracture) and patient has no contraindications for the procedure. -Patient will continue with active rehabilitation program, home exercise program, or functional sikhism program. -Policy guidelines regarding number and frequency of the procedure are obeyed. This patient is currently having severe, debilitating pain that necessitates urgent treatment. The patient is highly symptomatic (Tier 3a CMS guidelines). Pain symptoms are interfering with dally activity and quality of life. Treatment options are limited. This procedure was performed based on the following criteria: -The procedure Is considered minimally Invasive. -The procedure requires very limited resources to perform, including limited use of any additional PPE. The procedure will likely prevent this patient from seeking care at the hospital emergency room or other urgent care facility. This procedure is being performed due to medical necessity and to avoid further visits to the hospital or ER. This injection is being performed after evaluation and minimization of the risk involved in order to avoid unnecessary ER visits and hospital stays as well as to minimize escalations of opiate medications. 05/03/2024 Other Body Mass Index: Care Instructions material was published, High Blood Pressure: Care Instructions material was published 3 view left shoulder x-rays are reviewed there are no obvious tumors metastases or fractures seen. There is some minimal degenerative narrowing of the left acromioclavicular joint. There appears to be a a possible dislocation at the glenohumeral joint. This could represent possible labral tear. Recommendation for left shoulder MRI scan. Reviewed (Owen Bojorquez MD). 06/02/2024 Other Body Mass Index : Care Instructions material was published 06/30/2024 Other Body Mass Index : Care Instructions material was published, High Blood Pressure: Care Instructions material was published 07/07/2024 Other Body Mass Index : Care Instructions material was published After discussing the benefit and risk/complication including but not limited bleeding, infection, nerve damage, allergic reaction, spinal fluid leak, paralysis, and of Thoracic & Lumbar Radiofrequency Ablation of the medial branch nerve of bilateral T11 , T12 and L1 levels for T12-L1 and L1-2 facet jointswere discussed with the patient who verbalized understanding and agrees to proceed today , the procedure was performed without any events, patient tolerated the procedure . Patient will be followed as scheduled. -There is severe pain unresponsive to at least six months of conservative medical management. (e.g., pharmacological therapy, physical therapy, exercise). -The patient has pain that is non-radicular, suggesting facet Joint origin supported by physical exam and radiographic evaluation. -No prior spinal fusion at the vertebral level being treated. -Pain is exacerbated by extension and rotation. -Clinical findings and imaging studies suggest no other obvious cause of the pain (e.g., infection, tumor, fracture) and patient has no contraindications for the procedure. -Patient had 2 sets of diagnostic (with local anesthetic only) median branch nerve blocks that provided 80% of pain relief for the durations of the agent used. -Patient will continue with active rehabilitation program, home exercise program, or functional sikhism program. -Policy guidelines regarding number and frequency of the procedure are obeyed. This patient is currently having severe, debilitating pain that necessitates urgent treatment. The patient is highly symptomatic (Tier 3a CMS guidelines). Pain symptoms are interfering with dally activity and quality of life. Treatment options are limited. This procedure was performed based on the following criteria: -The procedure Is considered minimally Invasive. -The procedure requires very limited resources to perform, including limited use of any additional PPE. -The procedure will likely prevent this patient from seeking care at the hospital emergency room or other urgent care facility. This procedure is being performed due to medical necessity and to avoid further visits to the hospital or ER. This injection is being performed after evaluation and minimization of the risk involved in order to avoid unnecessary ER visits and hospital stays as well as to minimize escalations of opiate medications. 07/14/2024 Other Body Mass Index : Care Instructions material was published, High Blood Pressure: Care Instructions material was published After discussing the benefit and risk/complication including but not limited bleeding, infection, nerve damage, allergic reaction, spinal fluid leak, paralysis, and of right SI joint injection under fluoroscopic guidance were discussed with the patient who verbalized understanding and agrees to proceed today , the procedure was performed without any events, patient tolerated the procedure . Patient will be followed as scheduled. There is severe pain unresponsive to at least six months of conservative medical management. (e.g., pharmacological therapy, physical therapy, exercise). -The patient has pain that is non-radicular, suggesting facet Joint origin supported by physical exam and radiographic evaluation. -No prior spinal fusion at the vertebral level being treated. -Pain is exacerbated by extension and rotation. -Clinical findings and imaging studies suggest no other obvious cause of the pain (e.g., infection, tumor, fracture) and patient has no contraindications for the procedure. -Patient will continue with active rehabilitation program, home exercise program, or functional sikhism program. -Policy guidelines regarding number and frequency of the procedure are obeyed. This patient is currently having severe, debilitating pain that necessitates urgent treatment. The patient is highly symptomatic (Tier 3a CMS guidelines). Pain symptoms are interfering with dally activity and quality of life. Treatment options are limited. This procedure was performed based on the following criteria: -The procedure Is considered minimally Invasive. -The procedure requires very limited resources to perform, including limited use of any additional PPE. The procedure will likely prevent this patient from seeking care at the hospital emergency room or other urgent care facility. This procedure is being performed due to medical necessity and to avoid further visits to the hospital or ER. This injection is being performed after evaluation and minimization of the risk involved in order to avoid unnecessary ER visits and hospital stays as well as to minimize escalations of opiate medications. 08/11/2024 Other Body Mass Index : Care Instructions material was published 09/09/2024 Other Body Mass Index : Care Instructions material was published 10/06/2024 Other Body Mass Index : Care Instructions material was published, High Blood Pressure: Care Instructions material was published Medication refilled without change Right SI joint intra-articular steroid injection today. 11/17/2024 Other High Blood Pressure: Care Instructions material was published, Body Mass Index: Care Instructions material was published Plan Of Treatment Pending Test Test Name Order Date EtS (Alcohol Metabolite) - Urine 024 QMP Plus D/L - Urine 07/14/2024 Synthetic Stimulants 07/14/2024 Entomology Professor Benzodiazepines 07/14/2024 Synthetic Cannabinoids 07/14/2024 Entomology Professor Opioids 07/14/2024 Hallucinogens/Dissociatives 07/14/2024 LOCKSTITCH BINDER Other 07/14/2024 Marijuana - Urine 07/14/2024 PainComp Medication Compliance - Urine 1 [employer]egis Required Information 07/14/2024 Next Appt Details Provider Name:Jordy Alvarez 12/23 10:15:00 AM, [address] [place] [address], [address], [address], Insurance Providers Payer Name Payer Address Payer Phone Subscriber Number Group Number Insured Name Patient Relationship to Insured Coverage Start Date Coverage End Date [facility] [address] [address] [place] [address] [id number] Edna Linton Self - patient is the insured Medications Administered Medication Instructions Date of Administration Dosage Notes Cerv / Thor Interlaminar Epidural 09/09/2024 C7-T1 OZ Cerv / Thor Radiofreq Ablation 1st Level 07/07/2024 BILATERAL T11 ,12,L1 MBNB RFA Lumbar Radiofreq Ablation 1st Level 07/07/2024 Sacroiliac Joint Injection 07/14/2024 RIGHT SIJ Sacroiliac Joint Injection 10/06/2024 RIGHT SIJ Sacroiliac Joint Injection 01/05/2025 RIGHT SIJ Medical (General) History Medical History History ICD Code hypertension Asthma GERD MMD hyperlipidemia Asthma Sjogren's syndrome edema legs anemic AMBIKA insomnia Surgical History Surgery Date(Month/Year) Cervical fusion 02/2015 Lumbar Fusion 03/2015 Cataract hysterectomy cholecystectomy Hospitalization History Reason Date(Month/Year) no hospitalization since last visit
--- OUTSIDE RECORDS SUMMARY | 2025-01-12 13:54 | XMS_ITS | Referral Summary ---
Author Organization [facility] Address [address] [place] [address] Care Team Providers Care Edging Supervisor Name Role Phone Amado Cutler MD Primary Care Provider [phone] Encounters Date Type Department Care Team Description 12/15/2024 10:00 AM CDT Office Visit [facility] Pulmonology [address] [place] [address] [address] [place] [phone] Terri Salamanca NP Mild intermittent asthma without complication (Primary Dx); AMBIKA (obstructive sleep apnea); Sjogren's syndrome, with unspecified organ involvement; Gastroesophageal reflux disease with esophagitis without hemorrhage 10/25/2024 Orders Only [facility] Pulmonology [address] [place] [address] [address] [place] [phone] Provider, MD John from Last 3 Months Allergies Active Allergy Reactions Criticality Noted Date [...] 1 tablet (25 mg total) by mouth 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 Assessment & Plan (08/06/2024 11:22 AM OPTICAL STORE MANAGER): The patient will resume CPAP therapy when [...] 10/24/2023 Assessment & Plan (10/24/2023 9:56 AM OPTICAL STORE MANAGER): The patient was recently treated with 7 days of Levaquin for the otitis media and she still has symptoms in the left ear and bilateral fluid behind the TMs. I will give her 7 days of Omnicef. Sjogren's syndrome 10/24/2023 Assessment & Plan (12/15/2024 10:26 AM CDT): The patient continues with Plaquenil. Assessment & Plan (08/06/2024 11:22 AM OPTICAL STORE MANAGER): The patient continues with Plaquenil. I have ordered a PFT and a chest x-ray. The patient does complete this at [facility]. I did ask the patient to call [...] visit Assessment & Plan (10/24/2023 9:56 AM OPTICAL STORE MANAGER): She continues on Plaquenil. Chronic diarrhea of unknown origin 07/16/2021 Chronic low back pain 07/16/2021 Diabetes mellitus 07/16/2021 Dyslipidemia 07/16/2021 Encounter for screening mamm ogram for malignant neoplasm of breast 07/16/2021 Hx of migraines 07/16/2021 On jail drug therapy 07/16/2021 Pulse irregularity 07/16/2021 Pure [...] shortness. Assessment & Plan (08/06/2024 11:21 AM OPTICAL STORE MANAGER): Patient will continue with Trelegy one inhalation [...] 77. Assessment & Plan (10/24/2023 9:56 AM OPTICAL STORE MANAGER): The patient follows with Dr. Aguilera. She [...] Up. Assessment & Plan (08/06/2024 11:21 AM OPTICAL STORE MANAGER): The patient continues to follow with Dr. [...] (09/18/2018): Added automatically from request for surgery [id number] Diverticulosis of intestine without bleeding 04/2018 Scoliosis of thoracolumbar spine 01/20/2018 Back pain 12/03/2017 History of esophageal stricture 10/17/2017 Palpitation 12/16/2016 Resolved Problems Problem Noted Date Diagnosed Date Resolved Date Snoring 10/24/2023 01/28/2024 Assessment & Plan (10/24/2023 9:55 AM OPTICAL STORE MANAGER): The patient has snoring and daytime hypersomnia and per her request, I will order a home sleep test. Immunizations Immunization Administration Dates Next Due Influenza, Trivalent, High D ose, Split, Preservative Free, Intramuscular 07/05/2018 Influenza, Unspecified 06/22/2019 Pneumococcal Polysaccharide PPV23 06/01/2014 Pneumococcal, Unspecified 06/01/2014 Tdap 03/21/2017,06/19/2013 Tetanus Toxoid, Unspecified 06/19/2013 Tetanus toxoid, adsorbed 06/19/2013 ZOSTER LIVE 02/21/2014 Social History Tobacco Use Types Packs/Day Years Used Date Smoking Tobacco: Never Smokeless Tobacco: Never Tobacco Cessation:Counseling Given: Not Answered Alcohol Use Standard Drinks/Week Comments No 0 (1 standard drink = 0.6 oz pur e alcohol) Comments No Sex and Gender Information Value Date Recorded Sex Assigned at Not on file Legal Sex Female 7:47 PM OPTICAL STORE MANAGER Gender Identity Not on file Sexual Orientation Not on file Last Filed Vital Signs Vital Sign Reading Time Taken Comments Blood Pressure 97/52 12/15/2024 10:02 AM CDT Pulse 54 12/15/2024 10:02 AM CDT Temperature 36.4 C (97.5 F) 08/06/2024 10:50 AM OPTICAL STORE MANAGER Respiratory Rate 18 12/15/2024 10:02 AM CDT Oxygen Saturation 94% 12/15/2024 10:02 AM CDT Inhaled Oxygen Concentration - - Weight 82.1 kg (181 lb) 12/15/2024 10:02 AM CDT Height 149.9 cm (4' 11 ) 12/15/2024 10:02 AM CDT Body Mass Index 36.56 12/15/2024 10:02 AM CDT Plan of Treatment Not on file Medical Devices Implanted Type Area Bridges And Buildings Supervisor Device Identifier Shelf Expiration Date Model / Serial / Lot [employer] [id number] - [id number] - [id number] Implanted:Qty: 1 on 10/08/2018 by Aaron aMrie MD at [facility] Bone N/A: Spine Lumbar [employer] 07/20/2023 [id number] / [id number] / Nuvasive Creative Spine Tech [id number] Base Od5 Mm L20 Mm Variable Angle [place] Spinal Titanium Nonsterile - [id number] Implanted:Qty: 3 on 10/08/2018 by Aaron Marie MD at [facility] Screw N/A: Spine Lumbar Nuvasive [employer] Spine [employer] [id number] / / Core Link [id number] [place] 5.5mm 40mm Spine Pedicle Screw Bone 5500 Series - [id number] Implanted:Qty: 2 on 10/08/2018 by Aaron Marie MD at [facility] N/A: Spine Lumbar Core Link [id number] / / Core Link [id number] [place] 7.5mm 40mm Spine Pedicle Screw Bone 5500 Series - [id number] Implanted:Qty: 6 on 10/08/2018 by Aaron Marie MD at [facility] N/A: Spine Lumbar Core Link [id number] / / 8.5x40mm Screw Implanted:Qty: 1 on 10/08/2018 by Aaron Marie MD at [facility] N/A: Spine Lumbar Core Link 8.5x90 Mm Screw Implanted:Qty: 2 on 10/08/2018 by Aaron Marie MD at [facility] N/A: Spine Lumbar Core Link 9.5x50 Mm Screw Implanted:Qty: 1 on 10/08/2018 by Aaron Marie MD at [facility] N/A: Spine Lumbar Core Link Medtronic Sofamor [place] [id number] Infuse 18mm 26mm Absorbable Sponge Sterile Water Syringe Needle - [id number] Implanted:Qty: 1 on 10/08/2018 by Aaron Marie MD at [facility] N/A: Spine Lumbar Medtronic Sofamor [place]k 02/20/2019 [id number] / / [id number] Base Ji Cage 6 X38 X28, 25 Degree Implanted:Qty: 1 on 10/08/2018 by Aaron Marie MD at [facility] N/A: Spine Lumbar Nuvasive Inc Ac[employer] Inc [id number] - [id number] - [id number] Implanted:Qty: 1 on 10/08/2018 by Aaron Marie MD at [facility] N/A: Spine Lumbar [employer] 08/12/2023 [id number] / [id number] / Spinal Graft Tech [id number] Magnifuse 10x2.5cm Posterolateral Graft Bone Demineralized Bone - [id number] - [id number] Implanted:Qty: 1 on 10/08/2018 by Aaron Marie MD at [facility] N/A: Spine Lumbar Spinal Graft Tech 11/24/2019 [id number] / [id number] / Spinal Graft Tech [id number] Magnifuse 10x2.5cm Posterolateral Graft Bone Demineralized Bone - [id number] - [id number] Implanted:Qty: 1 on 10/08/2018 by Aaron Marie MD at [facility] N/A: Spine Lumbar Spinal Graft Tech 11/12/2019 [id number] / [id number] / [facility] [id number] Actifuse Abx Resorbable; Scaffold; Osteostimulative; Granule 1-2 - [id number] Implanted:Qty: 2 on 10/08/2018 by Aaron Marie MD at [facility] N/A: Spine Lumbar [facility] [id number] / / Core Link [id number] [place] 5.5mm 400mm Line Straight Hexagonal [place] Spinal Cocr 5500 - [id number] Implanted:Qty: 1 on 10/08/2018 by Aaron Marie MD at [facility] N/A: Spine Lumbar Core Link [id number] / / Core Link [id number] [place] Screw Set 5500 Series - [id number] Implanted:Qty: 12 on 10/08/2018 by Aaron Marie MD at [facility] N/A: Spine Lumbar Core Link [id number] / / Insurance [facility] MEDICARE ADVANTAGE MEDICARE ADVANTAGE [address] MEDICARE ADVANTAGE Advance Directives For more information, please contact: [phone] * Full Code (Latest Code Status on File) Date Activated Date Inactivated Comments 10/08/2018 9:20 PM 10/14/2018 12:48 AM * Full Code Date Activated Date Inactivated Comments 10/07/2018 7:46 AM 10/07/2018 1:58 PM Care Teams Edging Supervisor Relationship Specialty Start Date End Date Amado Cutler MD [address] [address] PCP - General Internal Medicine 01/28/24
--- OUTSIDE RECORDS SUMMARY | 2025-01-12 13:54 | XMS_ITS ---
Author Organization [facility] Address [address] [place] [address] [place] [id number] Care Team Providers Care Telegraph And Teletype Operator Name Role Phone Nawaf HANDY, Wilbert Todd Unavailable Jordy Alvarez Unavailable [phone] Allergies Allergen (clinical drug ingredient) Drug/Non Drug Allergy documented on EMR Reaction Allergy Type Onset Date Status sucralfate Carafate Swelling Drug Allergy Active hydromorphone Dilaudid hives Drug Allergy Act jeff etodolac Lodine anaphylaxis Drug Allergy Activ e nitroprusside Nipride RTU rash Drug Allergy A ctive morphine Morphine hives Drug Allergy Active vancomycin Vancomycin hives Drug Allergy Activ e REASON FOR VISIT R SIJ Medications Medication SIG (Take, Route, Frequency, Duration) Notes Start Date End Date Status Narcan 4 MG/0.1ML as directed Nasally for 1 days 08/11/2024 Active Metoprolol Succinate 100 MG 1 capsule Or ally Once a day for 30 day(s) 05/03/2024 Active oxyCODONE HCl 5 MG 1 tablet Oral every 6 hrs for 30 days Do not fill 12/25/24 12/08/2024 Active Sertraline HCl 50 MG Oral for 90 Days Active Baclofen 10 MG 1 tablet as needed Oral three times a day for 30 days Active Furosemide 40 MG Oral for 100 Days Active Albuterol Sulfate HFA 108 (90 Base) MCG/ACT Inhalation for 100 Days Active Lisinopril 20 MG Oral for 100 Days Active Gabapentin 600 MG Oral for 100 Days Active Sodium Fluoride 5000 PPM 1.1 % Dental for 24 Days Active Trelegy Ellipta 200-62.5-25 MCG/ACT Inhalation for 90 Days Active Rosuvastatin Calcium 20 MG Oral for 100 Days Active Pantoprazole Sodium 40 MG Oral for 100 Days Active Azelastine HCl 137 MCG/SPRAY Nasal for 100 Days Active Ezetimibe 10 MG Oral for 100 Days Active traZODone HCl 150 MG Oral for 90 Days Active Imiquimod 5 % External for 56 Days Active Montelukast Sodium 10 MG Oral for 100 Days Active Hydroxychloroquine Sulfate 200 MG Oral for 100 Days Active Vital Signs Blood pressure systolic 104 mm Hg 01/06/20 25 Blood pressure diastolic 64 mm Hg 025 Heart Rate 71 /min 01/05/2025 Height 4ft 11in in 01/05/2025 Weight 187 lbs 01/05/2025 BMI 37.77 kg/m2 01/05/2025 Height-cm 149.86 cm 01/05/2025 Weight-kg 84.82 kg 01/05/2025 Encounters Encounter Location Date Provider Diagnosis [facility] [address] [facility] [address] [place] [address] 01/05/2025 Jordy Alvarez Sacroiliitis, not elsewhere classified M46.1 ; Lumbar pain M54.50 ; Left shoulder pain M25.512 ; Post laminectomy syndrome M96.1 ; Other half-way (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 Z79.899 ; Spondylosis without [...] Treatment Notes Treatment Clinical Notes Section Notes 01/05/2025 Sacroiliitis, not elsewhere classified (ICD-10 - [...] rehabilitation program, home exercise program, or functional lutheran program. -Policy guidelines regarding number and frequency [...] rehabilitation program, home exercise program, or functional lutheran program. -Policy guidelines regarding number and frequency [...] to minimize escalations of opiate medications. 01/05/2025 Left shoulder pain (ICD-10 - M25.512) [...] rehabilitation program, home exercise program, or functional lutheran program. -Policy guidelines regarding number and frequency [...] rehabilitation program, home exercise program, or functional lutheran program. -Policy guidelines regarding number and frequency [...] to minimize escalations of opiate medications. 01/05/2025 Other bed worker (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 (ICD-10 - Z79.899) After [...] rehabilitation program, home exercise program, or functional lutheran program. -Policy guidelines regarding number and frequency [...] rehabilitation program, home exercise program, or functional lutheran program. -Policy guidelines regarding number and frequency [...] to minimize escalations of opiate medications. 01/05/2025 Thoracic spondylosis (ICD-10 - M47.814) After [...] rehabilitation program, home exercise program, or functional lutheran program. -Policy guidelines regarding number and frequency [...] rehabilitation program, home exercise program, or functional lutheran program. -Policy guidelines regarding number and frequency [...] to minimize escalations of opiate medications. 01/05/2025 Cervicalgia (ICD-10 - M54.2) After discussing [...] rehabilitation program, home exercise program, or functional lutheran program. -Policy guidelines regarding number and frequency [...] rehabilitation program, home exercise program, or functional lutheran program. -Policy guidelines regarding number and frequency [...] minimize escalations of opiate medications. 01/05/2025 Cervical radiculopathy (ICD-10 - M54.12) After [...] rehabilitation program, home exercise program, or functional lutheran program. -Policy guidelines regarding number and frequency [...] rehabilitation program, home exercise program, or functional lutheran program. -Policy guidelines regarding number and frequency [...] to minimize escalations of opiate medications. 01/05/2025 Hypertension (ICD-10 - I10) After discussing [...] rehabilitation program, home exercise program, or functional lutheran program. -Policy guidelines regarding number and frequency [...] rehabilitation program, home exercise program, or functional lutheran program. -Policy guidelines regarding number and frequency [...] opiate medications. 01/05/2025 Sacroiliac joint dysfunction of both sides [...] rehabilitation program, home exercise program, or functional lutheran program. -Policy guidelines regarding number and frequency [...] rehabilitation program, home exercise program, or functional lutheran program. -Policy guidelines regarding number and frequency [...] to minimize escalations of opiate medications. 01/05/2025 Other Body Mass Index: Care Instructions material was published After discussing [...] rehabilitation program, home exercise program, or functional lutheran program. -Policy guidelines regarding number and frequency [...] as to minimize escalations of opiate medications. Plan Of Treatment Treatment Notes Assessment Notes Other Body Mass Index: Car e Instructions material was published Next Appt Details Provider Name:Jordy Alvarez 12/23 10:15:00 AM, [address] [place] [address], [address], [address], Medications Administered Medication Instructions Date of Administration Dosage Notes Sacroiliac Joint Injection 01/05/2025 RIGHT SIJ Progress Notes * Edna LINTON MDOB: [birth year] (69 yo F)Acc No.[id number]:01/05/2025 Patient: Jerri Edna ARCE Provider: Angelo Alvarez MD :1955 A ge:69 Y S ex:Female Date:01/05/2025 Address:[address] [place] [address] [facility] Subjective: * Chief Complaints: * 1 . R SIJ. * HPI: * Established Patient: Patient is here for interventional treatment as scheduled. Patient rates current pain VAS 8/10 , pain is impairing ADLs , which has limited response to conservative treatment including medication/therapy/exercise P atient is not taking blood thinner Patient denies allergic history of IVP dye/ shellfish Patient denies antibiotics use. Established Patient Questionnaire: 1 . Are you currently taking a Blood Thinner Medication? N o 2 . Do you have an allergy to I.V. Contrast or Shellfish? N o 3 . List any changes to medical history. (eg; Falls, Test, Scans, Blood Work, and Hospitalizations) N one 4 . Have you been exposed to anyone with COVID in the last 2 weeks? N o 5 . Have you been exposed to anyone with the FLU in the last 72 hours? N o 6 . What is your Pain Level today? (1-10, Scroll and select one) 8 7 . Where is your pain located? L eft Glute,Right Glute 8 . After your last visit, [...] (Scroll to select one or multiple) S itting 1 3. How would you describe your Pain? (Scroll to select one or multiple) S tabbing,Burning 1 4. Are you having difficulty sleeping? Y es 1 5. When was the last time you had your blood drawn? (Please enter your best estimate) M arch 1 6. When was your last Mammogram? (Please put N/A if you are male, for Females please put the best Estimate or Never. ) 2 024 1 7. When was your last Colonoscopy? (Please put the best Estimate or Never. ) O n file 1 8. Do you need any refills on your medications today? Y es 1 9. Please list ALL changes to Medications or Allergies? N one 2 0. Are you Diabetic? N o 2 1. Do you suffer from Constipation? Y es Procedure Consent I nformed Consent obtained on 0 01/05/2025 * ROS: G eneral/Constitutional: Denies Change appetite. Denies Chills. Denies Fatigue. Denies Fever. Denies Lightheadedness. ENT: Denies Tinnitus. Denies Dysphagia. Ophthalmologic: Denies Blurred vision. * Medical History: H ypertension, Asthma, GERD, MMD, Hyperlipidemia, Asthma, Sjogren's syndrome, Edema legs, Anemic, AMBIKA, Insomnia. * Surgical History: C ervical fusion 02/2015, Lumbar Fusion 03/2015, Cataract , hysterectomy , cholecystectomy . * Social History: * Established Patient: S [...] capsule Orally Once a day , Taking Narcan 4 MG/0.1ML Liquid as directed Nasally , Taking Sertraline HCl 50 MG Tablet Oral , Taking oxyCODONE HCl 5 MG Tablet 1 tablet Oral every 6 hrs , Notes to Pharmacist: Do not fill 12/25/24, Taking Baclofen 10 MG Tablet 1 tablet as needed Oral three times a day , Medication List reviewed and reconciled with the patient * Allergies: D ilaudid: hives, Carafate: Swelling, Morphine: hives, Vancomycin: hives, Nipride RTU: rash, Lodine: anaphylaxis. Objective: * Vitals: H t: 4ft 11in, Wt:187lbs, BP:104/64mm Hg, Pain scale:81-10, HR:71/min, BMI:37.77Index, Ht-cm: 149.86 cm, Wt-k.82 kg, Body Surface Area: 1.88. * Examination: G eneral Examination: P atient is alert and oriented to time, place, and person. No appeal distress. Vital signs are stable. Patient is afebrile. Respiration is nonlabored. No slurred speech, sitting comfortably on the chair, obesity, well-healed surgical scar tissue in the low back, difficulty transfer, difficulty lying on prone position, SI joint tenderness, James test positive , thigh thrust test positive , SI compression test positive, Gaenslen test positive on right , straight leg raising test negative bilaterally. Assessment: * Assessment: 1. S acroiliitis, not elsewhere classified - M46.1 (Primary) 2 . L umbar pain - M54.50 3 . L eft shoulder pain - M25.512 4 . P ost laminectomy syndrome - M96.1 5 . O ther bed worker (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 - Z79.899 6. S [...] 1 6. S acroiliitis - M46.1 ? After discussing the benefit and risk/complication including [...] rehabilitation program, home exercise program, or functional lutheran program. -Policy guidelines regarding number and frequency [...] as to minimize escalations of opiate medications. Plan: * Treatment: * Procedures: R ight Sacroiliac Joint intra-articular steroid Injection with Fluoroscopy A fter obtaining informed consent, the patient was positioned prone. The operative site was then prepped and draped in the standard sterile fashion using chloraprep. Using fluoroscopy in AP view, the right sacroiliac joint was identified. Then, using slight medial tilt, the anterior and posterior joint line was aligned. The inferior joint space was identified as the target. The skin overlying the target was anesthetized with 1% lidocaine through a 25 G needle. Then, using coaxial views, a 25G 3.5 inch spinal needle was advanced toward the target and walked into the joint space. After negative aspiration of blood, a total solution of 2 ml 0.25% PF bupivacaine and 1 ml PF 40mg/ml Depo-Medrol was injected incrementally with intermittent negative aspiration The needle was then restyletted and removed. The patient tolerated the procedure well without any immediate complication.? The back was cleansed and a band-aid was placed over the puncture site. The patient was returned to the supine without difficulty. Post Procedure Note: Patient tolerated procedure well Discharge Order: May discharge patient when stable Discharge Status: Patient discharged with responsible adult. * Therapeutic Injections: Sacroiliac Joint Injection given by Jordy Alvarez MD * Procedure Codes: 2 7096 INJECT SACROILIAC JOINT * Billing Information: * Visit Code: * Procedure Codes: 66322 INJECT SACROILIAC JOINT. * Electronic signature of Jordy Alvarez MD on 01/12/2025 at 01:54 PM CDT Sign off status: Pending * Provider: Angelo Alvarez MD Date: 01/05/2025 Generated for Sage carlos/Andrez/Adamitting on: 01/12/2025 01:54 PM CDT History and Physical Notes * HPI (History of Present Illness) Category Sub-Category Detail Notes Category Not es *Established Patient Established Patient Questionnaire: 1. Are you currently taking a Blood Thinner Medication?: No 2. Do you have an allergy to I.V. Contra st or Shellfish?: No 3. List any changes to medic al history. (eg; Falls, Test, Scans, Blood Work, and Hospitalizations): None 4. Have you been exposed to anyone with COVID in the last 2 weeks?: No 5. Have you been exposed to anyone with the FLU in the last 72 hours?: No 6. What is your Pain Level today? (1-10, Scroll and select one): 8 7. Where is your pain located?: Left Glu te,Right Glute 8. After your last visit, wh at Percentage of improvement did you experience?: 0 9. Are you doing Physical Therapy, Chiro practic, or Massage Therapy?: No 10. Are you doing an at home Exercise Pr ogram?: Yes 11. What activities or posit ions increase your Pain? (Scroll to select one or multiple): Standing,Walking,Chores 12. What activities or posit ions decrease your Pain? (Scroll to select one or multiple): Sitting 13. How would you describe y our Pain? (Scroll to select one or multiple): Stabbing,Burning 14. Are you having difficulty sleeping?: Yes 15. When was the last time y ou had your blood drawn? (Please enter your best estimate): November 16. When was your last Mammo gram? (Please put N/A if you are male, for Females please put the best Estimate or Never. ): 2023 17. When was your last Colon oscopy? (Please put the best Estimate or Never. ): On file 18. Do you need any refills on your medi cations today?: Yes 19. Please list ALL changes to Medicatio ns or Allergies?: None 20. Are you Diabetic?: No 21. Do you suffer from Constipation?: Ye s Procedure Consent Informed Consent obtained on: 01/05/2025 Examination Category Sub-Category Detail Notes Category Not es General Examination Patient is alert and oriented to time, place, and person. No appeal distress. Vital signs are stable. Patient is afebrile. Respiration is nonlabored. No slurred speech, sitting comfortably on the chair, obesity, well-healed surgical scar tissue in the low back, difficulty transfer, difficulty lying on prone position, SI joint tenderness, James test positive , thigh thrust test positive , SI compression test positive, Gaenslen test positive on right , straight leg raising test negative bilaterally
--- OUTSIDE RECORDS SUMMARY | 2025-01-12 13:55 | XMS_ITS ---
Author Organization [facility] Address [address] [place], [place] [address] Care Team Providers Care It Lead Name Role Phone Amado Cutler Primary Care Provider UnavailPadmini Helm Unavailable [phone] OLAYINKA GABRIEL MD Unavailable Unavailable Nola Barclay Unavailable [phone] ALLERGIES Allergen (clinical drug ingredient) Drug/Non Drug Allergy documented on EMR Reaction Allergy Type Onset Date Status morphine morphine Unknown Drug Allergy Active phenytoin Dilantin Unknown Drug Allergy Active REASON FOR VISIT 6 mo f/u MEDICATIONS Medication SIG (Take, Route, Frequency, Duration) Notes Start Date End Date Status traZODone 150 mg as directed orally Active ferrous sulfate 325 mg 1 tab(s) orally o nce a day Active Protonix Active Singulair 10 mg 1 tab(s) orally once a day Active ezetimibe 10 mg 1 tab(s) orally once a day Active baclofen 10 mg 1 tab(s) orally 3 times a day Active lidocaine patches Ac tive melatonin 5 mg 1 cap(s) orally once a day (at bedtime) Active Vitamin D3 Active Vitamin B12 1000 mcg 1 tab(s) orally onc e a day Active oxyCODONE 5 mg 1 tab(s) orally ever y 6 hours Active albuterol Inhaler Ac tive lisinopril 10 mg 1 tab(s) orally once a day Active Docusate Sodium (obsolete) Active Calcium /Vitamin D A ctive azelastine nasal Act jeff Metoprolol Succinate ER 100 mg 1 tab(s) orally once a day Active rosuvastatin 20 mg 1 tab(s) orally once a day Active multivitamin Active hydroCHLOROthiazide 25 mg 1 tab(s) orall y once a day Active gabapentin 600 mg 1 tab(s) orally 3 times a day Active hydroxychloroquine 200 mg 1 tab(s) orall y 2 times a day Active Advair HFA Active loratadine 10 mg 1 tab(s) orally once a day Active VITAL SIGNS BMI 36.15 kg/m2 12/28/2024 Blood pressure systolic 107 mm Hg 12/29/19 25 Blood pressure diastolic 58 mm Hg 025 Heart Rate 68 /min 12/28/2024 Height 59 in 12/28/2024 Weight 179 lbs 12/28/2024 Encounters Encounter Location Date Provider Diagnosis [facility] [address] [facility], [address] [place], [place] [id number] 12/28/2024 Nola Barclay Sjogren's syndrome, with unspecified organ involvement M35.00 ASSESSMENTS Encounter Date Diagnosis Assessment Notes Treatment Notes Treatment Clinical Notes 12/28/2024 Sjogren's syndrome, with unspecified organ involvement (ICD-10 - M35.00) PLAN OF TREATMENT Medication Medication Name Sig Start Date Stop Date Notes traZODone 150 mg as directed orally ferrous sulfate 325 mg 1 tab(s) orally once a day Protonix Singulair 10 mg 1 tab(s) orally once a day ezetimibe 10 mg 1 tab(s) orally once a day baclofen 10 mg 1 tab(s) orally 3 ti mes a day lidocaine patches Vitamin D3 Vitamin B12 1000 mcg 1 tab(s) orally once a day oxyCODONE 5 mg 1 tab(s) orally ever y 6 hours lisinopril 10 mg 1 tab(s) orally once a day Docusate Sodium (obsolete) Calcium /Vitamin D Metoprolol Succinate ER 100 mg 1 tab(s) orally once a day rosuvastatin 20 mg 1 tab(s) orally once a day hydroCHLOROthiazide 25 mg 1 tab(s) orally once a day gabapentin 600 mg 1 tab(s) orally 3 ti mes a day hydroxychloroquine 200 mg 1 tab(s) orall y 2 times a day Next Appt Details Follow Up: 6 Months, Reason: Provider Name:Nola martinez, 11/22/2025 11:40:00 AM, [address] [facility], [address], [place], [place], [id number], Progress Notes * Examination Category Sub-Category Detail [...] Sub-Category Detail Notes MDHAQ Summary Function (0-10):: PATIENT DID NO T COMPLETE Pain (0-10):: PATIENT DID NOT COMPLETE Patient Global Assessment of Disease Activity (0-10):: PATIENT DID NOT COMPLETE RAPID3 Score (0-30):: COULD NOT SCORE PATIENT DID NOT COMPLETE ALL CATEGORIES Physician Global Assessment of Disease Activity (0-10):: 2 Prognosis Good w/tx Erosive Damage No
--- OUTSIDE RECORDS SUMMARY | 2025-01-12 13:55 | XMS_ITS | Encounter Summary ---
Author Organization [facility] Address [address] [place] [address] Care Team Providers Care School Photographs Detailer Name Role Phone Rishi Miller MD Unavailable Nicolette Nunez MD Unavailable Amado Cutler MD Primary Care Provider [phone] Encounter Details Date Type Department Care Team (Latest Contact Info) Description 01/07/2025 Results Follow-Up [facility] [place] [address] [place] [address] [address] [place] [address] [place] [address] [place] [address] [address] [place] [address] CORONAVIRUS (COVID-19) INFLUENZA A & B ANTIGEN IA PANEL, STREP A RAPID, CULTURE STREP A Social History Tobacco Use Types Packs/Day Years Used Date Smoking Tobacco: Never Smokeless Tobacco: Never Comments:counseled by Dr Amanda jones Alcohol Use Standard Drinks/Week Comments Not Currently 0 (1 standard drink = 0.6 oz pur e alcohol) Occasionally PHQ-2 Answer Date Recorded Patient Health Questionnaire-2 Score 0 11/24/2024 Comments No Sex and Gender Information Value Date Recorded Sex Assigned at Female 11/19/2024 1:20 PM [employer] Legal Sex Female 9:43 PM CDT Gender Identity Female 11/19/2024 1:20 PM [employer] Sexual Orientation Not on file 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 [place] [address] documented as of this encounter Visit Diagnoses Not on filedocumented in this encounter Additional Health Concerns Infection Onset Date Last Indicated Resolved Time Respiratory Rule-Out 01/07/2025 01/07/2025 025 11:20 AM CDT Assessment Noted Time PHQ-9 Depression Total Score: 2 11/25/19 25 2:42 PM [employer] documented as of this encounter Care Teams School Photographs Detailer Relationship Specialty Start Date End Date Amado Cutler MD [address] [address] PCP - General INTERNAL MEDICINE 05/20/22 Rishi Miller MD [address] [place] [address] [place] [employer] CARDIOVASCULAR DISEASE 02/21/16 Nicolette Nunez MD [address] [address] [place] [address] [employer] CARDIOVASCULAR DISEASE 01/21/17 documented as of this encounter
--- OUTSIDE RECORDS SUMMARY | 2025-01-12 13:55 | XMS_ITS | Encounter Summary ---
Author Organization [facility] Address [address] [place] [address] Care Team Providers Care Dish Technician Name Role Phone Rishi Miller MD Unavailable Nicolette Nunez MD Unavailable Amado Cutler MD Primary Care Provider [phone] Reason for Visit * Reason Onset Date Comments Medication Problem 01/10/2025 Encounter Details Date Type Department Care Team (Late st Contact Info) Description 01/10/2025 Telephone [facility]pecialty Care - [place] [address] [address] [place] [address] [place] [address] [place] [address] [address] [place], [place] [id number] Medication Problem Social History Tobacco Use Types Packs/Day Years [...] Sex Assigned at Female 11/19/2024 1:20 PM SMASH HAND Legal Sex Female 9:43 PM CDT Gender Identity Female 11/19/2024 1:20 PM SMASH HAND Sexual Orientation Not on file 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 documented in this encounter Plan of Treatment Upcoming Encounters Date Type Department Care Team (Late st Contact Info) Description 02/28/2025 2:20 PM CDT Office Visit [facility]ty Care [place] [address] [address] [place] [address] Amado Cutler MD [address] [place] [address] 06/07/2025 1:45 PM CDT Office Visit [facility], [facility] [place] [address] [place] [address] Rishi Miller MD [facility] [place] [address] [place], [place] [id number] documented as of this encounter Visit Diagnoses Not on filedocumented in this encounter Additional Health Concerns Assessment Noted Time PHQ-9 Depression Total Score: 2 11/25/19 25 2:42 PM SMASH HAND documented as of this encounter Care Teams Dish Technician Relationship Specialty Start [place] [address] [place] [address] PCP - General INTERNAL MEDICINE 05/20/22 Rishi Miller MD [facility]. [place] [address] [place] [address] [place] Entry Level Sales Representative CARDIOVASCULAR DISEASE 02/21/16 Nicolette [facility]unez [facility] [place] [address] [place] [address] EP Entry Level Sales Representative CARDIOVASCULAR DISEASE 01/21/17 documented as of this encounter
--- OUTSIDE RECORDS SUMMARY | 2025-01-12 13:56 | XMS_ITS | Clinical Summary ---
Author Organization [facility] Address [address] [place] [address] Phone Care Team Providers Care Bag Inspector Name Role Phone Unavailable Primary Care Provider Unavailabl e Allergies Active Allergy Reactions Criticality Noted Date Comments Amlodipine Angioedema 01/23/2023 Bacitracin Rash,blisters Low 01/23/2023 Erythromycin Swelling 01/23/2023 Etodolac Anaphylaxis High 01/23/2023 Hydromorphone Rash Low 01/23/2023 Midazolam nausea 01/23/2023 Morphine Itching,Rash Low 01/23/2023 Neomycin Angioedema 01/23/2023 Nitroprusside Dermatitis 01/23/2023 Phenytoin Hives 01/23/2023 Polymyxin B Other (see comments),Angioedema 01/23/2023 Blurred vision Sulfamethoxazole-Trimet hoprim Hives,Rash Low 01/23/2023 Vancomycin Other (see comments) 01/23/2023 Redmans syndrome Medications albuterol HFA (PROVENTIL HFA) 108 (90 Base) MCG/ACT inhaler Inhale 2 puffs every 6 (six) hours if needed for wheezing Active azelastine (ASTELIN) 0.1 % nasal spray Administer 1 spray into each nostril in the morning and 1 spray in the evening. Use in each nostril as directed. Active baclofen (LIORESAL) 10 MG tablet Take 10 mg by mouth 3 (three) times a day if needed Active cholecalcifero l (VITAMIN D-3) 50 MCG (1999 UT) tablet Take 2,000 Units by mouth 1 (one) time each day Active ezetimibe (ZETIA) 10 MG tablet Take 10 mg by mouth 1 (one) time each day Active gabapentin (NEURONTIN) 600 MG tablet Take by mouth Patient takes 300mg in the am and 300 in the pm 600mg at HS Active hydroxychloroq uine (PLAQUENIL) 200 MG tablet Take 200 mg by mouth in the morning and 200 mg in the evening. Active loratadine (CLARITIN) 10 MG tablet Take 10 mg by mouth 1 (one) time each day Active metoprolol succinate XL (TOPROL-XL) 100 MG 24 hr tablet Take 100 mg by mouth 1 (one) time each day Active montelukast (SINGULAIR) 10 MG tablet Take 10 mg by mouth every night Active oxyCODONE (ROXICODONE) 5 MG immediate release tablet Take 5 mg by mouth every 6 (six) hours if needed for moderate pain Active pantoprazole (PROTONIX) 40 MG EC tablet Take 40 mg by mouth 1 (one) time each day before breakfast Active rosuvastatin (CRESTOR) 20 MG tablet Take 20 mg by mouth 1 (one) time each day Active traZODone (DESYREL) 150 MG tablet Take 150 mg by mouth every night Active Cyanocobalamin (Vitamin B 12) 500 MCG tablet Take 1,000 mcg by mouth in the morning and 1,000 mcg in the evening. Active Melatonin 5 MG tablet Take 5 mg by mouth at bed time Active Multiple Vitamin (multivitamin) tablet Take 1 tablet by mouth 1 (one) time each day Active lidocaine (LIDODERM) 5 % patch Apply 1 patch topically if needed for mild pain Remove & discard patch within 12 hours or as directed by MD. Active ferrous sulfate 325 (65 Fe) MG tablet Take 325 mg by mouth every night Active docusate sodium (COLACE) 100 MG capsule Take 100 mg by mouth at bed time Active nitroglycerin (NITROSTAT) 0.[address] 0.4 mg under the tongue every 5 (five) minutes if needed for chest pain Active lisinopril (PRINIVIL) 10 MG tablet Take 10 mg by mouth 1 (one) time each day Active hydroCHLOROthi azide (HYDRODIURIL) 25 MG tablet Take 25 mg by mouth 1 (one) time each day Active sertraline (ZOLOFT) 50 MG tablet Take 50 mg by mouth 1 (one) time each day Active Fluticasone-Sa lmeterol (Advair Diskus) 500-50 MCG/ACT aerosol powder Inhale in the morning and in the evening. Active Calcium-Vitami n D-Vitamin K 500-100-40 MG-UNT-MCG chewable tablet Chew 1 tablet in the morning and 1 tablet in the evening. Active colestipol (COLESTID) 1 g tablet Take 1 g by mouth 3 (three) times a day if needed 025 Discontinued furosemide (LASIX) 20 MG tablet Take 40 mg by mouth 1 (one) time each day if needed 025 Discontinued mirtazapine (REMERON) 45 MG tablet Take 45 mg by mouth every night 025 Discontinued Fluticasone-Um eclidin-Vilant (Trelegy Ellipta) 200-62.5-25 MCG/ACT aerosol powder Inhale daily 025 Discontinued calcium citrate (CALCITRATE) 950 (200 Ca) MG tablet 1 (one) time each day 300/150mg 025 Discontinued pyridoxine (B-6) 100 MG tablet Take 100 mg by mouth 1 (one) time each day 025 Discontinued EPINEPHrine (AUVI-Q) 0.15 mg/0.15 mL IJ solution auto-injector injection Inject 0.15 mg into the shoulder, thigh, or buttocks 1 (one) time if needed for other 025 Discontinued lisinopril (PRINIVIL) 20 MG tablet TAKE 1 TABLET BY MOUTH DAILY 30 tablet 06/09/20 23 025 Discontinued dicyclomine (BENTYL) 10 MG capsule Take 10 mg by mouth 3 (three) times a day if needed 025 Discontinued Ascorbic Acid (vitamin C) 500 MG tablet Take 500 mg by mouth 1 (one) time each day 025 Discontinued omalizumab (Xolair) 150 MG injection Inject under the skin every 28 (twenty-eight) days 025 Discontinued busPIRone (BUSPAR) 5 MG tablet Take 5 mg by mouth in the morning and 5 mg in the evening and 5 mg before bedtime. 025 Discontinued hydroCHLOROthi azide 12.5 MG tablet Take 1 tablet (12.5 mg total) by mouth 1 (one) time each day 30 tablet 05/19/20 24 025 Discontinued Active Problems Problem Noted Date Diagnosed Date Edema of lower extremity 05/19/2024 Abnormal renal function 04/11/2023 Essential hypertension 01/23/2023 Resolved Problems Problem Noted Date Diagnosed Date Resolved Date Orthostatic intolerance 04/16/2023 08/2 03/2024 Hyperlipidemia 01/23/2023 04/11/2023 Acute cystitis without hematuria 01/23/2023 04/11/2023 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 Encounters Date Type Department Care Team Description 12/29/2024 1:20 PM CDT Office Visit [facility] [address] [place] [address] Butch Leahy MD Chronic kidney disease, not otherwise specified (Primary Dx); Edema of lower extremity; Essential hypertension 10/27/2024 Orders Only [facility] [address] [place] [address] Butch Leahy MD from Last 3 Months Family History Medical History Relation Comments Heart disease Brother Heart disease Father Stroke Maternal Grandmother Heart disease Mother Relation Status Comments Brother Father Maternal Grandmother Alive Mother Social History Tobacco Use Types Packs/Day Years Used Date Smoking Tobacco: Never Smokeless Tobacco: Never Tobacco Cessation:Counseling Given: Not Answered Alcohol Use Standard Drinks/Week Comments Not Currently 0 (1 standard drink = 0.6 oz pur e alcohol) Comments Unknown Sex and Gender Information Value Date Recorded Sex Assigned at Not on file Legal Sex Female 12:55 PM MDT Gender Identity Not on file Sexual Orientation Not on file Last Filed Vital Signs Vital Sign Reading Time Taken Comments Blood Pressure 128/70 12/29/2024 1:00 PM CDT Pulse 68 12/29/2024 1:00 PM CDT Temperature - - Respiratory Rate - - Oxygen Saturation 98% 04/16/2023 3:04 PM CDT Inhaled Oxygen Concentration - - Weight 80.3 kg (177 lb) 12/29/2024 1:00 PM CDT Height 149.9 cm (4' 11 ) 12/29/2024 1:00 PM CDT Body Mass Index 35.75 12/29/2024 1:00 PM CDT Plan of Treatment Upcoming Encounters Date Type Department Care Team (Late st Contact Info) Description 02/02/2025 12:40 PM CDT Office Visit [facility] [address] [place] [address] [address] [place] [address] Butch Leahy MD [address] [facility] [address] [place] [address] Health Maintenance Due Date Last Done Comments Diabetic Foot Exam 1965 Ophthalmology Exam 1965 Pneumococcal PPSV23/PCV13 65 + Years / High and Highest Risk (2 of 5 - PCV) 06/01/2015 06/01/2014 COVID-19 Vaccine ( - 2023-2 5 season) 2024 06/25/2024, 07/04/2021, 12/10/2020, Additional history exists Influenza Vaccine Completed 07/02/2024, , 06/22/2019, Additional history exists Procedures Procedure Name Priority Date/Time Associated Diagnosis Comments PTH, INTACT Routine 10/27/2024 1:20 PM DESKTOP SUPPORT ENGINEER CBC (INCLUDES PLATELETS / NO DIFFERENTIAL) Routine 10/27/2024 1:20 PM DESKTOP SUPPORT ENGINEER from Last 3 Months Results * PTH, Intact (10/27/2024 1:20 PM DESKTOP SUPPORT ENGINEER) Pathologist [facility] PTH, Intact, Serum/Plasma 30 15 - 65 pg/mL [facility] 1 10/27/2024 1:20 PM DESKTOP SUPPORT ENGINEER 10/26/2024 11:00 PM DESKTOP SUPPORT ENGINEER Narrative [facility] - 10/28/2024 10:10 AM DESKTOP SUPPORT ENGINEER Performed at: 01 - [facility] [id number] Dip Dyer: Conor Gibson PhD, Phone: [phone] us Butch Leahy MD LAB BLOOD ORDERABLES Final Resul t [facility] * (ABNORMAL) CBC (includes Platelets / NO Differential) (10/27/2024 1:20 PM DESKTOP SUPPORT ENGINEER) Leukocytes, Blood 5.9 3.4 - 10.8 x10E3/uL [facility] 1 Erythrocytes (RBC) 3.27(L) 3.77 - 5.28 x10E6/uL [facility] 1 Hemoglobin (HGB) 10.6(L) 11.1 - 15.9 g/dL [facility] 1 Hematocrit (HCT) 31.3(L) 34.0 - 46.6 % [facility] 1 MCV 96 79 - 97 fL [facility] 1 MCH 32.4 26.6 - 33.0 pg [facility] 1 MCHC 33.9 31.5 - 35.7 g/dL [facility] 1 Erythrocyte Distribution Width (RDW) 12.2 11.7 - 15.4 % [facility] 1 Platelets, Blood 181 150 - 450 x10E3/uL [facility] 1 10/27/2024 1:20 PM DESKTOP SUPPORT ENGINEER 10/26/2024 11:00 PM DESKTOP SUPPORT ENGINEER Narrative [facility] - 10/28/2024 10:10 AM DESKTOP SUPPORT ENGINEER Performed at: 01 - [facility] [address] [id number] Dip Dyer: Conor Gibson PhD, Phone: [phone] Specimen Comment: A courtesy copy of this report has been sent to [facility] MG Fam / Inter Med Specimen Comment: Edw, , us Butch Leahy MD LAB BLOOD ORDERABLES Final Resul t [facility] 1 from Last [address] [address] MEDICARE
--- OUTSIDE RECORDS SUMMARY | 2025-01-12 13:56 | XMS_ITS | Encounter Summary ---
Author Organization [facility] Address [address] [place] [address] Care Team Providers Care Overhead Worker Name Role Phone Luís Burciaga MD Primary Care Provider [phone] Rishi Miller MD Unavailable Nicolette Nunez MD Unavailable Mark García DO Primary Care Provider [phone] Amado Cutler MD Primary Care Provider [phone] Encounter Details Date Type Department Care Team (Late st Contact Info) Description 12/17/2016 Abstract [facility] AT [address] [address] Gisell Bah MA Social History Tobacco Use Types Packs/Day Years Used Date Smoking Tobacco: Never Smokeless Tobacco: Never Alcohol Use Standard Drinks/Week Comments Yes 0 (1 standard drink = 0.6 oz pur e alcohol) Occasionally Comments Unknown Sex and Gender Information Value Date Recorded Sex Assigned at Female 11/19/2024 1:20 PM ELECTRIC MULE OPERATOR Legal Sex Female 9:43 PM CDT Gender Identity Female 11/19/2024 1:20 PM ELECTRIC MULE OPERATOR Sexual Orientation Not on file 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 [place] [address] [place], [place] [id number] documented as of this encounter Procedures Procedure Name Priority Date/Time Associated Diagnosis Comments COMPREHENSIVE METABOLIC PANEL Routine 11/13/2016 LIPID PANEL Routine 11/13/2016 VITAMIN D, 25 OH Routine 11/13/2016 documented in this encounter Results * VITAMIN D, 25 OH (11/13/2016) VITAMIN D 25 HYDROXY S/P/B 38 11/13/2016 us Doc [facility] Final Result * LIPID PANEL (11/13/2016) CHOLESTEROL 194 HDL 66 TRIGLYCERIDES 205 NON HDL CHOLESTEROL 128 LDL (CALCULATED) 87 11/13/2016 us Doc [facility] Final Result * COMPREHENSIVE METABOLIC PANEL (11/13/2016) SODIUM S/P/B 140 POTASSIUM S/P/B 4.2 CO2 32 CHLORIDE S/P/B 99 GLUCOSE 93 CALCIUM S/P/B 9.2 BUN 14 CREATININE S/P/B 0.7 0.5 - 1.0 EGFR AFR. AMER. >60 <=90 EGFR NON-AFR. AMER. >60 <=90 ALKALINE PHOSPHATASE S/P/B 115 ALT 23 AST 20 BILIRUBIN TOTAL S/P/B 0.4 ALBUMIN S/P/B 4.1 3.5 - 5.0 TOTAL PROTEIN S/P/B 6.9 GLOBULIN 2.8 11/13/2016 us Doc [facility] Final Result documented in this encounter Visit Diagnoses Not on filedocumented in this encounter Additional Health Concerns Infection Onset Date Last Indicated Resolved Time Respiratory Rule-Out 01/07/2025 01/07/2025 025 11:20 AM CDT documented as of this encounter Care Teams Overhead Worker Relationship Specialty Start Date End Date Luís Burciaga MD PCP - General INTERNAL MEDICINE 02/21/16 03/21/19 Mark García DO [address] [facility] [address] [place], [place] [id number] PCP - General INTERNAL MEDICINE 03/22/19 05/19/22 Amado Cutler MD [address] [facility] [address] [place], [place] [phone] PCP - General INTERNAL MEDICINE 05/20/22 Rishi Miller MD [address] [facility] [address] [place], [place] [id number] [place] Fixture Relamper CARDIOVASCULAR DISEASE 02/21/16 Nicolette Nunez MD [address] [facility] [address] [place], [place] [id number] Fixture Rel[employer]per CARDIOVASCULAR DISEASE 01/21/17 documented as of this encounter
--- OUTSIDE RECORDS SUMMARY | 2025-01-12 13:56 | XMS_ITS | Clinical Summary ---
Author Organization [facility] Address [address] [place] [address] Care Team Providers Care Aerial Photograph Interpreter Name Role Phone Mark García DO Primary Care Provider [phone] Source Comments [facility] [employer],non-owned Affiliates and Associated Physician Practices is amultiple site organization consisting of ambulatory clinics and hospital sitesin [place], [place], [place] and [place]. This disclosure is being madepursuant to the Care Everywhere program and may not contain all information available regarding this patient. Last updated 18.[facility] [employer] Social History Tobacco Use Types Packs/Day Years Used Date Smoking Tobacco: Never Assessed Comments Unknown Sex and Gender Information Value Date Recorded Sex Assigned at Not on file Legal Sex Female 2:18 PM CDT Gender Identity Not on file Sexual Orientation Not on file Plan of Treatment Health Maintenance Due Date Last Done Comments BONE DENSITY TESTING 1955 COLOGUARD (AGES 45-75) - COL ON CA SCREENING 1955 COLON MONITORING 1953 COLONOSCOPY - COLON CA SCREENING 1953 CT COLONOGRAPHY - COLON CA SCREENING 1955 Colorectal Cancer Screening 1955 FIT - COLON CA SCREENING 1953 FLEX SIG - COLON CA SCREENING 1953 LIPID TESTING 1953 MAMMOGRAM 1953 HEPATITIS C SCREENING 02/28/1971 DTAP/TDAP/TD VACCINES (1 - Tdap) 1972 PNEUMOCOCCAL VACCINE 50+ (1 of 1 - PCV) 2003 ZOSTER VACCINE (1 of 2) 2003 COVID-19 VACCINE ( - 2023-2 5 season) 2024 DEPRESSION SCREENING 09/22/2024 MEDICARE AWV CALENDAR YEAR 2024 INFLUENZA VACCINE (Season Ended) 2025 Respiratory Syncytial Virus (RSV) Vaccine Pt: or over 60 yrs (1 - 1-dose 75+ series) 2028 HEPATITIS B VACCINE Aged Out No longe r eligible based on patient's age to complete this topic HIB VACCINE Aged Out No longer eligi ble based on patient's age to complete this topic HPV VACCINE Aged Out No longer eligi ble based on patient's age to complete this topic MENINGOCOCCAL (Group B) VACC INE SHARED DECISION-MAKING Aged Out No longer eligibl e based on patient's age to complete this topic MENINGOCOCCAL GROUPS A/C/Y/W VACCINE Aged Out No longer eligible b ased on patient's age to complete this topic Insurance [place], [place] [id number] [employer] MANAGED MEDICARE ADV Care Teams Aerial Photograph Interpreter Relationship Specialty Start Date End Date Mark García DO [address] [place] [address] PCP - General 01/23/22
--- OUTSIDE RECORDS SUMMARY | 2025-01-12 13:56 | XMS_ITS | Encounter Summary ---
Author Organization [facility] Address [address] [place] [address] Care Team Providers Care Brakeshoe Repairer Name Role Phone Luís Burciaga MD Primary Care Provider [phone] Rishi Miller MD Unavailable Nicolette Nunez MD Unavailable Mark García DO Primary Care Provider [phone] Amado Cutler MD Primary Care Provider [phone] Encounter Details Date Type Department Care Team (Late st Contact Info) Description 10/24/2017 [facility] at [address] [address] Gisell Bah MA Social History Tobacco Use Types Packs/Day Years Used Date Smoking Tobacco: Never Smokeless Tobacco: Never Alcohol Use Standard Drinks/Week Comments Yes 0 (1 standard drink = 0.6 oz pur e alcohol) Occasionally Comments Unknown Sex and Gender Information Value Date Recorded Sex Assigned at Female 11/19/2024 1:20 PM RESIDENT CARE COORDINATOR Legal Sex Female 9:43 PM CDT Gender Identity Female 11/19/2024 1:20 PM RESIDENT CARE COORDINATOR Sexual Orientation Not on file 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 [place] [address] documented as of this encounter Procedures Procedure Name Priority Date/Time Associated Diagnosis Comments NT-PRO BNP VISTA Routine 04/12/2024 TSH (OUTSIDE LAB) Routine 04/12/2024 CBC (OUTSIDE LAB) Routine 04/12/2024 BASIC METABOLIC PANEL Routine 04/12/2024 THYROXINE, FREE (FT4) Routine 04/12/2024 HEPATIC FUNCTION PANEL Routine 06/20/2021 VITAMIN B-12 Routine 04/26/2021 COMPREHENSIVE METABOLIC PANEL Routine 04/26/2021 LIPID PANEL Routine 04/26/2021 THYROID STIM HORMONE TSH Routine 04/26/2021 COMPREHENSIVE METABOLIC PANEL Routine 01/14/2020 LIPID PANEL Routine 01/14/2020 HEMOGLOBIN Routine 01/14/2020 HEMATOCRIT Routine 01/14/2020 VITAMIN D, 25 OH Routine 01/14/2020 BASIC METABOLIC PANEL Routine 10/17/2017 LIPID PANEL Routine 10/17/2017 documented in this encounter Results * Nt-Pro Bnp [place] (04/12/2024) PRO-BRAIN NATRIURETIC PEPTIDE 232 04/12/2024 [facility] History Genericprovider GENERAL SUPPLY & EQUIPMENT ORDERABLES Edited Result - Final * CBC (OUTSIDE LAB) (04/12/2024) Pathologist [facility] WBC 5.3 HGB 11.0 HCT 34.3 PLT 179 04/12/2024 Default History Genericprovider LAB-OUTSIDE/ABST RACTED Final Result * (ABNORMAL) BASIC METABOLIC PANEL (04/12/2024) SODIUM S/P/B 143 POTASSIUM S/P/B 4.7 CO2 26 CHLORIDE S/P/B 104 GLUCOSE 90 mg/dL CALCIUM S/P/B 9.0 BUN 16 CREATININE S/P/B 1.29(A) 0.5 - 1.0 GFR ESTIMATE 44 04/12/2024 Default History Genericprovider LABORATORY Final Result * THYROXINE, FREE (FT4) (04/12/2024) Pathologist [facility] FREE T4 1.19 04/12/2024 Default History Genericprovider LABORATORY Final Result * TSH (OUTSIDE LAB) (04/12/2024) TSH 0.744 04/12/2024 Default History Genericprovider LAB-OUTSIDE/ABST RACTED Final Result * HEPATIC FUNCTION PANEL (06/20/2021) Pathologist [facility] ALBUMIN S/P/B 4.6 3.5 - 5.0 ALKALINE PHOSPHATASE S/P/B 109 ALT 36 AST 58 BILIRUBIN TOTAL S/P/B 0.7 TOTAL PROTEIN S/P/B 8.0 06/20/2021 us [facility] LABORATORY Final Result * VITAMIN B-12 (04/26/2021) Pathologist [facility] VITAMIN B12 S/P/B >1,000 04/26/2021 us Doc [facility] Edited Resul t - Final * THYROID STIM HORMONE, TSH (04/26/2021) Pathologist [facility] TSH 1.300 04/26/2021 us Doc [facility] Final Result * LIPID PANEL (04/26/2021) Pathologist [facility] CHOLESTEROL 153 HDL 59 TRIGLYCERIDES 113 DIRECT LDL 61 04/26/2021 us Doc [facility] Final Result * COMPREHENSIVE METABOLIC PANEL (04/26/2021) Pathologist [facility] SODIUM S/P/B 141 POTASSIUM S/P/B 4.6 CO2 29 CHLORIDE S/P/B 105 GLUCOSE 95 mg/dL CALCIUM S/P/B 9.5 BUN 19 CREATININE S/P/B 0.80 0.5 - 1.0 EGFR NON-AFR. AMER. >60 <=90 ALKALINE PHOSPHATASE S/P/B 98 ALT 79 AST 71 BILIRUBIN TOTAL S/P/B 0.6 ALBUMIN S/P/B 4.5 3.5 - 5.0 TOTAL PROTEIN S/P/B 8.0 URIC ACID 5.2 04/26/2021 us Doc [facility] Final Result * VITAMIN D, 25 OH (01/14/2020) VITAMIN D 25 HYDROXY S/P/B 61.8 01/14/2020 us Doc [facility] Final Result * HEMATOCRIT (01/14/2020) HCT 38.7 37.0 - 47.0 01/14/2020 us Doc [facility] Final Result * Hemoglobin (01/14/2020) HGB 12.6 12.0 - 15.0 01/14/2020 Doc [facility] Final Result * LIPID PANEL (01/14/2020) CHOLESTEROL 151 0 - 200 HDL 58 >35 TRIGLYCERIDES 109 <150 DIRECT LDL 71 <130 01/14/2020 us [facility] Final Result * COMPREHENSIVE METABOLIC PANEL (01/14/2020) SODIUM S/P/B 143 POTASSIUM S/P/B 4.3 CO2 28 CHLORIDE S/P/B 106 GLUCOSE 99 mg/dL CALCIUM S/P/B 9.0 BUN 19 CREATININE S/P/B 0.90 0.5 - 1.0 EGFR NON-AFR. AMER. >60 <=90 ALT 58 AST 59 BILIRUBIN TOTAL S/P/B 0.4 ALBUMIN S/P/B 4.4 3.5 - 5.0 TOTAL PROTEIN S/P/B 8.0 ALKALINE PHOSPHATASE S/P/B 125 01/14/2020 us [facility] Edited Resul t - Final * LIPID PANEL (10/17/2017) CHOLESTEROL 184 HDL 63 TRIGLYCERIDES 171 LDL (CALCULATED) 92 10/17/2017 us Doc [facility] Final Result * BASIC METABOLIC PANEL (10/17/2017) SODIUM S/P/B 142 POTASSIUM S/P/B 4.5 CO2 27 CHLORIDE S/P/B 108 GLUCOSE 93 mg/dL CALCIUM S/P/B 9.6 BUN 20 CREATININE S/P/B 0.70 0.5 - 1.0 EGFR NON-AFR. AMER. >60 <=90 10/17/2017 us Doc [facility] Final Result documented in this encounter Visit Diagnoses Not on filedocumented in this encounter Additional Health Concerns Infection Onset Date Last Indicated Resolved Time Respiratory Rule-Out 01/07/2025 01/07/2025 025 11:20 AM CDT documented as of this encounter Care Teams Brakeshoe Repairer Relationship Specialty Start Date End Date Luís Burciaga MD PCP - General INTERNAL MEDICINE 02/21/16 03/21/19 Mark García DO [address] [facility] [address] [place] [address] PCP - General INTERNAL MEDICINE 03/22/19 05/19/22 Amado Cutler MD [address] [facility] [address] [place] [address] PCP - General INTERNAL MEDICINE 05/20/22 Rishi Miller MD [facility] [address] [place] [address] [place] [employer] CARDIOVASCULAR DISEASE 02/21/16 Nicolette Nunez MD [facility]. [facility] [address] [place] [address] [employer] CARDIOVASCULAR DISEASE 01/21/17 documented as of this encounter
--- OUTSIDE RECORDS SUMMARY | 2025-01-12 13:56 | XMS_ITS | Encounter Summary ---
Author Organization [facility] Address [address] [facility] [place] [address] Care Team Providers Care Professor Of Environmental Science Name Role Phone Mark García DO Primary Care Provider [phone] Encounter Details Date Type Department Care Team (Late st Contact Info) Description 01/23/2022 Lab Requisition [facility] [address] [place] [id number] Gideon Chaparro MD [address] [place] [address] Social History Tobacco Use Types Packs/Day Years Used Date Smoking Tobacco: Never Assessed Comments Unknown Sex and Gender Information Value Date Recorded Sex Assigned at Not on file Legal Sex Female 2:18 PM CDT Gender Identity Not on file Sexual Orientation Not on file documented as of this encounter Plan of Treatment Not on file documented as of this encounter Procedures Procedure Name Priority Date/Time Associated Diagnosis Comments DERMATOPATHOLOGY Routine 01/22/2022 12:0 0 AM CDT documented in this encounter Results * DERMATOPATHOLOGY (01/22/2022 12:00 AM CDT) Case Report Dermatopathology Report Case: [id number] Authorizing Provider: Gideon Chaparro MD Collected: 01/22/2022 12:00 AM Ordering Location: [facility] Received: 01/23/2022 02:30 PM Pathologist: Wendy Hilton MD Specimen: Skin, right max 2 2:20 PM CDT DERMATOPATHOLOGY LABORATORY Amended Report Change Date of Collection for Site A. 2 2:20 PM CDT DERMATOPATHOLOGY LABORATORY Final Diagnosis Specimen A. SKIN, right max: TELANGIECTASES (I78.1) (see microscopic description and comment) 2 2:20 PM CDT DERMATOPATHOLOGY LABORATORY Amendment electronically signed by Wendy Hilton MD on 02/07/2022 at 2:20 PM Clinical History R/O Neoplasm vs. Hemangioma 2 2:20 PM CDT DERMATOPATHOLOGY LABORATORY Gross Description Specimen A: Received is one formalin filled container labeled with the patient's name and designated right max. The specimen consists of a shave biopsy measuring [id number]. There is an additional piece of tissue measuring [id number]. Jar 0. 2 2:20 PM CDT DERMATOPATHOLOGY LABORATORY Microscopic Description Specimen A. SKIN, right max: Crush and fragmentation artifact are present, somewhat limiting evaluation. Epidermis and superficial portions of papillary dermis are present for evaluation. Within the dermis there are dilated thin-walled vessels lined by a single layer of endothelium, highlighted by ERG immunostain. Additional deeper sections were obtained and reviewed. COMMENT: In the correct clinical setting, these histologic features can be seen in the superficial aspect of a hemangioma. However, given the superficial nature of the biopsy, an underlying process cannot be excluded. 2 2:20 PM CDT DERMATOPATHOLOGY LABORATORY Disclaimer An external and internal positive and negative controls are appropriate for the histochemical, immunohistochemical and immunofluorescence stain(s) in this case (if any), except where stated explicitly. The performance characteristics of the stain(s) cited in this report were developed and its performance characteristic determined by the Dermatopathology Laboratory at [facility], directed by Dr. Elsy Thompson. These tests need not be, and therefore are not, approved by the [place] Food and Drug Administration. The tests are used for clinical purposes. Billing Codes Specimen Charges Stain Charges 98644 1 29398 1 2 2:20 PM CDT DERMATOPATHOLOGY LABORATORY Embedded Images 2 2:20 PM CDT DERMATOPATHOLOGY LABORATORY Pathology/Cytolog y TISSUE SPECIMEN FROM SKIN / Unknown 01/22/2022 01/23/2022 2:30 PM CDT us Gideon Chaparro MD LAB - PATHOLOGY/CYTOLOGY ORDERAB LES Edited Result - Final DERMATOPATHOLOGY LABORATORY [facility] - Department of Dermatology [facility] [address] [place] [address], [address] [phone] documented in this encounter Visit Diagnoses Not on filedocumented in this encounter Care Teams Professor Of Environmental Science Relationship Specialty Start Date End Date Mark García DO [address] [place] [address] PCP - General 01/23/22 documented as of this encounter
--- OUTSIDE RECORDS SUMMARY | 2025-01-12 13:56 | XMS_ITS | Patient Health Record ---
Author Organization [facility] Address [address] [place], [place] [address] Care Team Providers Care Watch And Clock Maker And Repairer Name Role Phone Amado Cutler Primary Care Provider UnavailPadmini Helm Unavailable [phone] OLAYINKA GABRIEL MD Unavailable Unavailable Nola Barclay Unavailable [phone] ALLERGIES Allergen (clinical drug ingredient) Drug/Non Drug Allergy documented on EMR Reaction Allergy Type Onset Date Status morphine morphine Unknown Drug Allergy Active phenytoin Dilantin Unknown Drug Allergy Active RESULTS Component Value Reference Range Notes Complement C4, Serum Reviewed date:05/28/2024 11:08:37 AM Interpretation: Performing Lab:[facility], [address] [facility] [place], Phone - [phone], Director - [facility] Notes/Report: Complement C4, Serum 33 12-38 mg/dL CBC With Differential/Platel et Reviewed date:05/28/2024 11:08:37 AM Interpretation: Performing Lab:[facility], [address] [facility] [place], Phone - [phone], Director - PhDRicchiuti Notes/Report: WBC 7.4 3.4-10.8 x10E3/uL RBC 3.67 [...] Serum Reviewed date:05/28/2024 11:08:37 AM Interpretation: Performing Lab:[facility] [place], [address] [facility], Phone - [phone], [facility] Notes/Report: Complement C3, Serum 169 82-167 mg/dL SPEPW/Interpretation w/refle x Reviewed date:05/28/2024 11:08:37 AM Interpretation: Performing Lab:[facility] [place], [address] [facility], Phone - [phone], Director [facility] Notes/Report: Protein, Total 6.6 6.0-8.5 g/dL Albumin 3.6 2.9-4.4 g/dL Cvpan-3-Drqmetzq 0.2 0.0-0.4 g/dL Ehnik-0-Snmzqevz 0.9 0.4-1.0 g/dL Beta Globulin 1.0 0.7-1.3 g/dL Gamma Globulin 0.9 0.4-1.8 g/dL M-Herminio Not Observed Not Observed g/dL Globulin, Total 3.0 2.2-3.9 g/dL A/G Ratio 1.2 0.7-1.7 Please note: Protein electrophoresis scan will follow via computer, mail, or shank cementer hand delivery. Interpretation(See Below) The SPE pattern appears unremarkable. Evidence of monoclonal protein is not apparent. PDF . PDF Report Reviewed date:05/28/2024 11:08:37 AM Interpretation: Performing Lab:[facility] [place], [address] [facility], [place], Phone - [phone], Director - Baldo Notes/Report: PDF Report1 LCLS REASON FOR REFERRAL No Information MEDICATIONS Medication SIG (Take, Route, Frequency, Duration) Notes Start Date End Date Status lisinopril 10 mg 1 tab(s) orally once a day Active Protonix Active hydroCHLOROthiazide 25 mg 1 tab(s) orall y once a day Active Singulair 10 mg 1 tab(s) orally once a day Active Docusate Sodium (obsolete) Active Calcium /Vitamin D A ctive ezetimibe 10 mg 1 tab(s) orally once a day Active oxyCODONE 5 mg 1 tab(s) orally ever y 6 hours Active baclofen 10 mg 1 tab(s) orally 3 times a day Active lidocaine patches Ac tive melatonin 5 mg 1 cap(s) orally once a day (at bedtime) Active gabapentin 600 mg 1 tab(s) orally 3 times a day Active Vitamin D3 Active azelastine nasal Act jeff hydroxychloroquine 200 mg 1 tab(s) orall y 2 times a day Active Vitamin B12 1000 mcg 1 tab(s) orally onc e a day Active Advair HFA Active Metoprolol Succinate ER 100 mg 1 tab(s) orally once a day Active traZODone 150 mg as directed orally Active albuterol Inhaler Ac tive rosuvastatin 20 mg 1 tab(s) orally once a day Active ferrous sulfate 325 mg 1 tab(s) orally o nce a day Active multivitamin Active loratadine 10 mg 1 tab(s) orally once a day Active SOCIAL HISTORY Sex Assigned At : Social History Observation Description Sex Assigned At Unknown PROBLEMS Problem Type ICD Code Onset Dates Problem Status W/U Status Risk SNOMED Code Notes Problem UMBERTO positive (R76.8) Active confirmed 178333990 Problem Polyarthralgia (M25.50) Active confirmed 49604929 Problem Low back pain at multiple sites (M54.50) Active confirmed 182630843 Problem Sjogren's syndrome, with unspecified organ involvement (M35.00) Active confirmed 99000266 VITAL SIGNS Heart Rate 68 /min 12/28/2024 Blood pressure diastolic 58 mm Hg 12/28/2024 Height 59 in 12/28/2024 Blood pressure systolic 107 mm Hg 12/28/2024 Weight 179 lbs 12/28/2024 BMI 36.15 kg/m2 12/28/2024 Encounters Encounter Location Date Provider Diagnosis [facility], [address], [address] [place], [place] [id number] 05/26/2024 Nola Barclay Sjogren's syndrome, with unspecified organ involvement M35.00 and Other group home (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 Z79.899 [facility], [address], [address] [place], [place] [id number] 12/28/2024 Nola Barclay Sjogren's syndrome, with unspecified organ involvement M35.00 ASSESSMENTS Encounter Date Diagnosis Assessment Notes Treatment Notes Treatment Clinical Notes 05/26/2024 Other group home (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 (ICD-10 - Z79.899) 05/26/2024 Sjogren's syndrome, with unspecified organ involvement (ICD-10 - M35.00) 12/28/2024 Sjogren's syndrome, with unspecified organ involvement (ICD-10 - M35.00) PLAN OF TREATMENT Pending Test Test Name Order Date Pulmonary Function Test (PFT) w/DLCO 12/2022 X ray : Hand left- outside order X ray : Hand right- outside order 2021 X ray : SI joints- outside order Eye exam - Plaquenil 05/28/2022 X ray : Foot Left- outside order X ray : Foot Right- outside order 2021 X ray : Chest, PA Lateral- outside order 06/25/2023 Next Appt Details Provider Name:Nola martinez, 11/22/2025 11:40:00 AM, [address], [address], [place], [place], [id number], Insurance Providers Payer Name Payer Address Payer Phone Subscriber Number Group Number Insured Name Patient Relationship to Insured Coverage Start Date Coverage End Date [facility] Medicare Advantage PPO [address] [address] [place] [id number] Edna Linton Self - patient is the insured MEDICARE [address] [address] [place] [phone] [id number] Edna Linton Self - patient is the insured 3 MEDICAL (GENERAL) HISTORY Medical History History ICD Code cataracts loss of hearing hayfever hoarseness depression Ringing in ears sinus problems difficulty breathing anxiety Surgical History Surgery Date(Month/Year) hysterectomy laparoscopy cervical fusion lumber disc removed fusion
--- OUTSIDE RECORDS SUMMARY | 2025-01-12 13:56 | XMS_ITS | Patient Health Record ---
Author Organization [facility] [employer] [facility] [place] ([address]) Address [address] [address] Care Team Providers Care Dry Clipper Tender Name Role Phone Amado Cutler Primary Care Provider UnavailSandra Schmidt Unavailable [phone] James Aguilera Unavailable [phone] [facility], Provider Unavailable Unavailab le Allergies Allergen (clinical drug ingredient) Drug/Non Drug Allergy documented on EMR Reaction Allergy Type Onset Date Status sucralfate Carafate angioedema Drug Allergy Activ e hydromorphone Dilaudid rash Drug Allergy Act jeff etodolac Lodine anaphylaxis Drug Allergy Activ e Neosporin blisters/rash Drug Allergy Act jeff morphine Morphine rash Drug Allergy Active vancomycin Vancomycin red man's syndrome Drug Allergy Active Reason For Referral No Information Medications Medication SIG (Take, Route, Frequency, Duration) Notes Start Date End Date Status SINGULAIR 10 mg 1 tab(s) orally once a day Active TRELEGY ELLIPTA 200 mcg-62.5 mcg-25 mcg/inh 1 puff(s) inhaled once a day Active LORATADINE 10 mg 1 tab(s) orally once a day Active EPINEPHRINE AUTO-INJECTOR 0.3 mg as directed intramuscularly once for 30 day(s) Active PEPCID 40 mg 1 tab(s) orally once a day (at bedtime) Active AZELASTINE HYDROCHLORIDE NASAL 137 mcg/inh 1 spray intranasally 2 times a day Active Colace 100 MG 1 capsule as needed Orally Once a day Active Ferrous Sulfate 325 (65 Fe) MG 1 tablet Orally Three times a Week Active ALBUTEROL (EQV-PROAIR HFA) 90 mcg/inh 2 puff(s) inhaled every 6 hours Active XOLAIR 150 mg as directed subcutaneously every 4 weeks Active Trelegy Ellipta 200 MCG-62.5 MCG-25 MCG/INH 1 PUFF(S) INHALED ONCE A DAY for 90 DAYS 90 day max *Please review and pick correct strength-formula tion from XVionicsspan options. If intended option is not shown, discontinue and re-order from Quick Search* Not-Taking TRELEGY ELLIPTA 200 mcg-62.5 mcg-25 mcg/inh 1 puff(s) inhaled once a day for 90 days 90 day max Not-Taking Metoprolol Succinate ER 100 MG 1 tab(s) orally once a day Not-Taking PROTONIX 40 mg 1 tab(s) orally once a day for 30 day(s) Active PLAQUENIL 200 mg 1 tab(s) orally once a day for 30 day(s) Active TRAZODONE 150 mg 1 by mouth at bedtime 100 mg Active XOLAIR 150 mg as directed subcutaneously every 4 weeks Not-Taking Narcan 4 MG/0.1ML as directed Nasally Active Bentyl 10 MG/ML as directed intramuscularly every 6 hours Not-Taking Lisinopril 10 MG 1 tab(s) orally once a day Not-Taking oxyCODONE HCl 5 MG 1 tab(s) orally every 6 hours Not-Taking Zetia 10 MG 1 tab(s) orally once a day Not-Taking Mirtazapine 45 MG 1 tab(s) orally once a day (at bedtime) Not-Taking METOPROLOL SUCCINATE ER 100 mg 1 tab(s) orally once a day Active Baclofen 10 MG 1 tab(s) orally 3 times a day Not-Taking LISINOPRIL 10 mg 1 tab(s) orally once a day Active Rosuvastatin Calcium 20 MG 1 tab(s) orally once a day Not-Taking Colestipol HCl 1 GM 2 tab(s) orally 2 times a day Not-Taking BACLOFEN 10 mg 1 tab(s) orally 3 times a day Active ROSUVASTATIN 20 mg 1 tab(s) orally once a day Active BENTYL 10 mg/mL as directed intramuscularly every 6 hours Active COLESTIPOL 1 g 2 tab(s) orally 2 times a day Active OXYCODONE 5 mg 1 tab(s) orally every 6 hours Active Protonix 40 MG 1 tab(s) orally once a day for 30 day(s) Not-Taking Plaquenil 200 MG 1 tab(s) orally once a day for 30 day(s) Not-Taking LASIX 20 mg 1 tab(s) orally once a day Active Xolair 150 MG as directed subcutaneously every 4 weeks Not-Taking traZODone HCl 150 MG 1 by mouth at bedtime 100 mg Not-Taking TRAZADONE 50mg 1 by mouth at bedtime 100 mg Active Singulair 10 MG 1 tab(s) orally once a day Not-Taking GABAPENTIN 600 mg 1 tab(s) orally 3 times a day Active Trelegy Ellipta 200 MCG-62.5 MCG-25 MCG/INH 1 PUFF(S) INHALED ONCE A DAY *Please review and pick correct strength-formula tion from Liquiteria options. If intended option is not shown, discontinue and re-order from Quick Search* Not-Taking ZETIA 10 mg 1 tab(s) orally once a day Active MIRTAZAPINE 45 mg 1 tab(s) orally once a day (at bedtime) Active Loratadine 10 MG 1 tab(s) orally once a day Not-Taking Pepcid 40 MG 1 tab(s) orally once a day (at bedtime) Not-Taking Azelastine HCl 137 MCG/SPRAY 1 spray intranasally 2 times a day Not-Taking Gabapentin 600 MG 1 tab(s) orally 3 times a day Not-Taking Lasix 20 MG 1 tab(s) orally once a day Not-Taking Immunizations Vaccine Route Administration Date Status Comme nts Covid 19 (Pfizer) Unknown 11/19/2020 Administered Covid 19 (Pfizer) Unknown 12/10/2020 Administered Covid 19 (Pfizer) Unknown 07/04/2021 Administered Fluad Unknown 07/04/2021 Administered Social History Tobacco Use: Social History Observation Description Date Details (start date - stop date) Never Smoker NA - NA Tobacco Control (Standard) Question Answer Notes Tobacco use: Nonsmoker Problems Problem Type SNOMED Code ICD Code Onset Dates Problem Status W/U Status Risk Notes Problem Essential hypertension (03730455) Essential (primary) hypertension (I10) Active confirmed Problem Allergic rhinitis caused by animal hair and dander (928334617033031) Allergic rhinitis due to animal (cat) (dog) hair and dander (J30.81) Active confirmed Problem Uncomplicated moderate persistent asthma (346937086) Moderate persistent asthma, uncomplicated (J45.40) Active confirmed Problem Uncomplicated severe persistent asthma (484886771) Severe persistent asthma, uncomplicated (J45.50) Active confirmed Problem Asthma (994599143) Other asthma (J45.998) Active confirmed Problem Gastro-esophageal reflux disease without esophagitis (929715409) Gastro-esophageal reflux disease without esophagitis (K21.9) Active confirmed Problem Non-steroidal anti-inflammatory drug adverse reaction (671164122) Adverse effect of other nonsteroidal anti-inflammatory drugs [NSAID], initial encounter (T39.395A) Active confirmed Problem Wheezing (43797222) Wheezing (R06.2) Active confirmed Vital Signs Respiratory Rate 17 /min 06/17/2024 Oximetry 97 % 10/07/2024 Blood pressure diastolic 60 mm Hg 10/07/2024 Height 59.5 in 10/07/2024 Blood pressure systolic 102 mm Hg 10/07/2024 Weight 186 lbs 06/17/2024 BMI 36.93 kg/m2 06/17/2024 Encounters Encounter Location Date Provider Diagnosis [address] [address] 03/06/2024 Provider [facility]Migration Severe persistent asthma, uncomplicated J45.50 ; Allergic rhinitis due to animal (cat) (dog) hair and dander J30.81 and Essential (primary) hypertension I10 [facility] [address] [place] [address] 01/29/2024 James Aguilera Severe persistent asthma, uncomplicated J45.50 [facility] [address] [place] [address] 02/26/2024 Sandra Hendrix Severe persistent asthma, uncomplicated J45.50 ; Allergic rhinitis due to animal (cat) (dog) hair and dander J30.81 ; Wheezing R06.2 ; Adverse effect of other nonsteroidal anti-inflammatory drugs [NSAID], subsequent encounter T39.395D and Essential (primary) hypertension I10 [address] [address] 04/15/2024 James Aguilera Severe persistent asthma, uncomplicated J45.50 [facility] [address] [place] [phone] 05/13/2024 James Aguilera Severe persistent asthma, uncomplicated J45.[address] [address] 06/17/2024 Sandra Hendrix Severe persistent asthma, uncomplicated J45.50 ; Allergic rhinitis due to animal (cat) (dog) hair and dander J30.81 ; Wheezing R06.2 ; Adverse effect of other nonsteroidal anti-inflammatory drugs [NSAID], subsequent encounter T39.395D and Essential (primary) hypertension I10 [facility] [address] [place] [address] 07/15/2024 James Aguilera Severe persistent asthma, uncomplicated J45.[address] [address] 08/26/2024 James Aguilera Severe persistent asthma, uncomplicated J45.[address] [address] 10/07/2024 James Aguilera Severe persistent asthma, uncomplicated J45.[address] [address] 06/17/2024 Sandra Hendrix [address] [address] 11/17/2024 Sandra Hendrix Assessments Encounter Date Diagnosis (ICD Code) Assessment Notes Treatment Notes Treatment Clinical Notes Section Notes 01/29/2024 Severe persistent asthma, uncomplicated (ICD-10 - J45.50) 02/26/2024 Severe persistent asthma, uncomplicated (ICD-10 - J45.50) Edna returns doing better. Recently finished Cefdinir and is doing better. Continue Trelegy + PRN MARIANNA. Fortunately no steroids, ER visits, or hospitalizations and she feels she is getting better on Xolair. Previous spirometry with clear + BD challenge of 17% change in FEV1 c/w persistent asthma by ATS criteria. Continue Trelegy given spirometry showed over a 27% improvement in FEV1. Despite increased symptoms she feels better controlled on XOLAIR without issues. - Continue Trelegy daily. -Doing better this month after URI, no interval cough. Ear stilll bothering her - continue Astelin - Seen by Dr. Benitez, no change in plan. S/P Sleep study now has CPA - AAP was previously updated and training with inhaler was done. - Continue Singulair QD - QnX=841 and GCD=817. - Received Xolair dose today and doing well. No adverse effects noted. Patient states despite recent increased symptoms she feels her asthma has improved since starting Xolair - Follow-up in 4 weeks for XOLAIR, E&M, repeat spirometry 03/06/2024 Severe persistent asthma, uncomplicated (ICD-10 - J45.50) 04/15/2024 Severe persistent asthma, uncomplicated (ICD-10 - J45.50) 05/13/2024 Severe persistent asthma, uncomplicated (ICD-10 - J45.50) 06/17/2024 Severe persistent asthma, uncomplicated (ICD-10 - J45.50) Edna returns doing well. She continue Trelegy + PRN MARIANNA. Fortunately no steroids, ER visits, or hospitalizations and she feels she is getting better on Xolair. Previous spirometry with clear + BD challenge of 17% change in FEV1 c/w persistent asthma by ATS criteria. Continue Trelegy given spirometry showed over a 27% improvement in FEV1. Despite increased symptoms she feels better controlled on XOLAIR without issues. - She refused spirometry today as she recently had a PFT with Pulmonary. Will obtain a copy of Pulmonary records. - Continue Trelegy daily. - AAP was previously updated and training with inhaler was done. - Continue Singulair QD - AoC=773 and QGM=787. - Received Xolair dose today and doing well. No adverse effects noted. Patient states despite recent increased symptoms she feels her asthma has improved since starting Xolair - Follow-up in 4 weeks for XOLAIR, E&M, repeat spirometry 07/15/2024 Severe persistent asthma, uncomplicated (ICD-10 - J45.50) 08/26/2024 Severe persistent asthma, uncomplicated (ICD-10 - J45.50) 10/07/2024 Severe persistent asthma, uncomplicated (ICD-10 - J45.50) 03/06/2024 Allergic rhinitis due to animal (cat) (dog) hair and dander (ICD-10 - J30.81) 06/17/2024 Allergic rhinitis due to animal (cat) (dog) hair and dander (ICD-10 - J30.81) Given history, aeroallergen skin testing has been recommended in the past. Edna is possibly interested in immunotherapy later, but would like to continue Xolair as a first step to better control. - Limited panel of perennial allergens was done showing dog allergy. She previously had SPT decades ago showing significant atopy including animals and dust mite sensitivity. She had a steroid injection into her back a week prior to testing which may have blunted response. IDs were offered but wants to hold off as she is eligible for Xolair based on her total IgE, high dose ICS/LABA/LAMA, and persistent asthma symptoms - unable to hold Trazadone she is interested in checking an allergy panel 02/26/2024 Allergic rhinitis due to animal (cat) (dog) hair and dander (ICD-10 - J30.81) Given history, aeroallergen skin testing has been recommended in the past. Edna is possibly interested in immunotherapy later, but would like to continue Xolair as a first step to better control. - Limited panel of perennial allergens was done showing dog allergy. She previously had SPT decades ago showing significant atopy including animals and dust mite sensitivity. She had a steroid injection into her back a week prior to testing which may have blunted response. IDs were offered but wants to hold off as she is eligible for Xolair based on her total IgE, high dose ICS/LABA/LAMA, and persistent asthma symptoms - unable to hold Trazadone she is interested in checking an allergy panel 02/26/2024 Wheezing (ICD-10 - R06.2) - See plan above. Continues albuterol per AAP with spacer 06/17/2024 Wheezing (ICD-10 - R06.2) - See plan above. Continues albuterol per AAP with spacer 06/17/2024 Adverse effect of other nonsteroidal anti-inflammatory drugs [NSAID], subsequent encounter (ICD-10 - T39.395D) Prior reaction to NSAIDs, watch for recurrence. No work-up necessary. Class effect and not IgE-mediated. 02/26/2024 Adverse effect of other nonsteroidal anti-inflammatory drugs [NSAID], subsequent encounter (ICD-10 - T39.395D) Prior reaction to NSAIDs, watch for recurrence. No work-up necessary. Class effect and not IgE-mediated. 02/26/2024 Essential (primary) hypertension (ICD-10 - I10) BP normal today in office, she reports her PCP has been changing her hypertension medication regimen due to episodes of dizziness. - Continue serial checks - f/u with PCP -slated to see Cardiology for leg swelling 06/17/2024 Essential (primary) hypertension (ICD-10 - I10) BP normal today in office, she reports her PCP has been changing her hypertension medication regimen due to episodes of dizziness. - Continue serial checks - f/u with PCP -slated to see Cardiology for leg swelling 03/06/2024 Essential (primary) hypertension (ICD-10 - I10) 01/29/2024 Other 04/15/2024 Other 05/13/2024 Other 07/15/2024 Other 08/26/2024 Other 10/07/2024 Other Plan Of Treatment Pending Test Test Name Order Date Spirometry 06/17/2024 -Respiratory Allergens w/Total IgE Area 8 11/06/2023 Insurance Providers Payer Name Payer Address Payer Phone Subscriber Number Group Number Insured Name Patient Relationship to Insured Coverage Start Date Coverage End Date [employer] Medicare [address] [address] [place] [address] [id number] Edna Linton Self - patient is the insured Medical (General) History Medical History History ICD Code Cough, unspecified R05.9 Gastro-esophageal reflux disease without esophagitis K21.9 Essential (primary) hypertension I10 Spinal stenosis, lumbar region without n eurogenic claudication M48.061 Surgical History Surgery Date(Month/Year) sinus surgery 1979 lumbar fusion neck fusion cholecystectomy hysterectomy carpal tunnel
--- OUTSIDE RECORDS SUMMARY | 2025-01-12 13:57 | XMS_ITS | Encounter Summary ---
Author Organization [facility] Address [address] [place] [address] Care Team Providers Care Trans Router Name Role Phone Rishi Miller MD Unavailable Nicolette Nunez MD Unavailable Amado Cutler MD Primary Care Provider [phone] Encounter Details Date Type Department Care Team (Late st Contact Info) Description 09/02/2022 [employer] Message Enc [facility] - [address] [place], [place] [address] [facility], [facility] Provider medication Social History Tobacco Use Types Packs/Day Years Used Date Smoking Tobacco: Never Smokeless Tobacco: Never Comments:counseled by Dr Amanda jones Alcohol Use Standard Drinks/Week Comments Not Currently 0 (1 standard drink = 0.6 oz pur e alcohol) Occasionally PHQ-2 Answer Date Recorded PHQ-2 Score - If the patient scores above 3, please move on to questions 3-9 0 05/20/2022 Comments No Sex and Gender Information Value Date Recorded Sex Assigned at Female 11/19/2024 1:20 PM AUDIO VISUAL AIDE Legal Sex Female 9:43 PM CDT Gender Identity Female 11/19/2024 1:20 PM AUDIO VISUAL AIDE Sexual Orientation Not on file 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 No / Unsure 08/09/2022 8:58 AM AUDIO VISUAL AIDE documented as of this encounter Plan of Treatment Upcoming Encounters Date Type Department Care Team (Late st Contact Info) Description 02/28/2025 2:20 PM CDT Office Visit [facility] - [place] [address] [address] [place] [address] Amado Cutler MD [address] [address] 06/07/2025 1:45 PM CDT Office Visit [facility] [address] [facility] [address] [place], [place] [phone] Rishi Miller MD [address] [facility] [place], [place] [phone] documented as of this encounter Visit Diagnoses Not on filedocumented in this encounter Additional Health Concerns Infection Onset Date Last Indicated Resolved Time Respiratory Rule-Out 01/07/2025 01/07/2025 025 11:20 AM CDT documented as of this encounter Care Teams Trans Router Relationship Specialty Start Date End Date Amado Cutler MD [address] [place] [address] PCP - General INTERNAL MEDICINE 05/20/22 Rishi Miller MD [address] [place], [place] [address] [place] Service Inspector CARDIOVASCULAR DISEASE 02/21/16 Nicolette Nunez MD [address] [place], [place] [id number] EP Service Inspector CARDIOVASCULAR DISEASE 01/21/17 documented as of this encounter
--- OUTSIDE RECORDS SUMMARY | 2025-01-12 13:57 | XMS_ITS ---
Author Organization [facility] Address [address] [place] [address] [address] [place] [address] Care Team Providers Care Service Technician Name Role Phone Nawaf HANDY, Owen Law Unavailable [phone] Medications Medication SIG (Take, Route, Frequency, Duration) Notes Start Date End Date Status oxyCODONE HCl 5 MG 1 tablet Oral every 6 hrs for 30 days Do not fill 12/25/24 12/08/2024 Active Encounters Encounter Location Date Provider Diagnosis [facility] [address] [place] [address] [address] [place] [address] 12/08/2024 Owen Bojorquez Plan Of Treatment Medication Medication Name Sig Start Date Stop Date Notes oxyCODONE HCl 5 MG 1 tablet Oral every 6 hrs for 30 days 12/08/2024 Do not fill 12/25/24 Next Appt Details Provider Name:Jordy Alvarez, 12/23 10:15:00 AM, [address] [place] [address], [address], [place], [address], Progress Notes * Edna LINTON MDOB: [birth year] (69 yo F)Acc No.[id number]:12/08/2024 Patient: Jerri AVENDANOEdna ALVAREZ :1955 A ge:69 Y S ex:Female Address:[address] , [place], [address] * Refills Refill oxyCODONE HCl Tablet, 5 MG, Oral, 120 Tablet, 1 tablet, every 6 hrs, 30 days, Refills=0 * true * Date: Generated for Sage carlos/Andrez/Adamitting on: 0 01/12/2025 01:56 PM CDT
--- OUTSIDE RECORDS SUMMARY | 2025-01-12 13:57 | XMS_ITS | Encounter Summary ---
Author Organization [facility] Address [address] [place] [address] Phone Care Team Providers Care Fisheries Biologist Name Role Phone Unavailable Primary Care Provider Unavailabl e Reason for Visit * Reason Comments Med Refill Encounter Details Date Type Department Care Team ([facility] Contact Info) Description 02/27/2023 Refill [facility] [address], [facility] [address] [place], [place] [phone] Butch Leahy MD [address] [phone] Social History Tobacco Use Types Packs/Day Years Used Date Smoking Tobacco: Never Smokeless Tobacco: Never Alcohol Use Standard Drinks/Week Comments Not Currently [...] Encounters Date Type Department Care Team (Late Contact Info) Description 02/02/2025 12:40 PM CDT Office Visit [facility] [address] [facility] [address] [place] [address] Butch Leahy MD [address] [address] documented as of this encounter Visit Diagnoses Not on filedocumented in this encounter
--- OUTSIDE RECORDS SUMMARY | 2025-01-12 13:57 | XMS_ITS ---
Author Organization [facility] Address [address] [place], [place] [phone] Care Team Providers Care Finish Carpenter Name Role Phone Amado Cutler Primary Care Provider UnavailPadmini Helm Unavailable [phone] NERY HANDY, OLAYINKA Unavailable Unavailable Encounters Encounter Location Date Provider Diagnosis [facility] [address], [address] [place], [place] [phone] 08/06/2023 Padmini Lewis PLAN OF TREATMENT Next Appt Details Provider Name:Nola martinez, 11/22/2025 11:40:00 AM, [address], [address], [place], [place], [phone],
--- OUTSIDE RECORDS SUMMARY | 2025-01-12 13:57 | XMS_ITS | Clinical Summary ---
Author Organization [facility] Address [address] [place] [address] Phone Care Team Providers Care Mapping Analyst Name Role Phone Luís Burciaga MD Primary Care Provider [phone] Allergies Active Allergy Reactions Criticality Noted Date Comments Morphine Hives Medium 10/17/2018 Other Hives,Anaphylaxis 10/17/2018 dilaudid, hives, lodine, anaphylaxis, nipride rash, mycin eye drops, swelling Sulfamethoxazole-Trime thoprim Rash,Hives High 10/17/2018 Medications diclofenac (VOLTAREN) 75 MG Tablet Delayed Response Take 75 mg by mouth 2 times daily. on hoild 9 Active Aspirin 81 MG Tablet Take 81 mg by mouth daily. 9 Active ezetimibe (ZETIA) 10 MG Tablet Take 10 mg by mouth daily. 9 Active famotidine (PEPCID) 40 MG Tablet Take 40 mg by mouth 2 times daily. 9 Active Metoprolol Succinate 25 MG Capsule ER 24 Hour Sprinkle Take 25 mg by mouth daily. 9 Active rosuvastatin (CRESTOR) 40 MG Tablet Take 40 mg by mouth nightly. 9 Active Mirtazapine 45 MG Tablet Take 45 mg by mouth nightly. 9 Active colestipol (COLESTID) 1 GM Tablet Take 1 g by mouth 3 times daily as needed (IBS symptoms). 9 Active furosemide (LASIX) 20 MG Tablet Take 20 mg by mouth daily. 9 Active gabapentin (NEURONTIN) 600 MG Tablet Take 600 mg by mouth daily. 2 tabs at bedtime 9 Active Cholecalciferol (VITAMIN D3) 2000 UNIT Capsule Take 2,000 Units by mouth daily. Active dicyclomine (BENTYL) 10 MG Tablet Take 10 mg by mouth 3 times daily as needed (IBS symptoms). Active chlordiazePOXID E (LIBRIUM) 5 MG Capsule Take 5 mg by mouth 2 times daily as needed for Anxiety. Active cyclobenzaprine (FLEXERIL) 10 MG Tablet Take 5 mg by mouth 3 times daily as needed for Muscle spasms. Active albuterol (PROVENTIL, VENTOLIN) (2.5 MG/3ML) 0.083% Nebulizer Soln 2.5 mg by Nebulization route every 4 hours as needed for Shortness of Breath or Wheezing. Active HYDROcodone-laine taminophen (NORCO) 5-325 MG Tablet Take 2 Tabs by mouth every 4 hours as needed for Mild or more severe pain. Active montelukast (SINGULAIR) 10 MG Tablet Take 10 mg by mouth daily. Active Social History Tobacco Use Types Packs/Day Years Used Date Smoking Tobacco: Never Assessed Comments Unknown Sex and Gender Information Value Date Recorded Sex Assigned at Not on file Legal Sex Female 10:43 AM SNACK STEWARD Gender Identity Not on file Sexual Orientation Not on file Last Filed Vital Signs Vital Sign Reading Time Taken Comments Blood Pressure 140/90 11/10/2018 3:08 PM SNACK STEWARD Pulse 98 11/10/2018 3:08 PM SNACK STEWARD Temperature 36.9 C (98.4 F) 11/05/2018 3:14 PM SNACK STEWARD Respiratory Rate 20 11/10/2018 3:08 PM SNACK STEWARD Oxygen Saturation 96% 11/10/2018 3:08 PM SNACK STEWARD Inhaled Oxygen Concentration - - Weight 94.8 kg (209 lb) 10/17/2018 12:15 PM SNACK STEWARD Height 147.3 cm (4' 10 ) 10/17/2018 12:15 PM SNACK STEWARD Body Mass Index 43.68 10/17/2018 12:15 PM SNACK STEWARD Plan of Treatment Not on file Advance Directives * Full Code (Latest Code Status on File) Date Activated Date Inactivated Comments 10/22/2018 1:49 PM Care Teams Mapping Analyst Relationship Specialty Start Date End Date Luís Burciaga MD PCP - General Internal Medicine 10/14/18
--- OUTSIDE RECORDS SUMMARY | 2025-01-12 13:57 | XMS_ITS | Encounter Summary ---
Author Organization [facility] Address [address] [place] [address] Care Team Providers Care Presser Automatic Name Role Phone Rishi Miller MD Unavailable Nicolette Nunez MD Unavailable Amado Cutler MD Primary Care Provider [phone] Encounter Details Date Type Department Care Team (Latest Contact Info) Description 01/02/2024 Evozym Biologicst Message Enc [facility] Multispecialty Care - [address] [address] [address] [place] [address] [place] [address] [place] [address] [address] [place] [address] Change dose of lisinopril and schedule for nurse visit for BP recheck Social History Tobacco Use Types Packs/Day Years Used Date Smoking Tobacco: Never Smokeless Tobacco: Never Comments:counseled by Dr Amanda jones Alcohol Use Standard Drinks/Week Comments Not Currently 0 (1 standard drink = 0.6 oz pur e alcohol) Occasionally PHQ-2 Answer Date Recorded Patient Health Questionnaire-2 Score 0 01/02/2024 Comments No Sex and Gender Information Value Date Recorded Sex Assigned at Female 11/19/2024 1:20 PM TRUST AND ESTATES ATTORNEY Legal Sex Female 9:43 PM CDT Gender Identity Female 11/19/2024 1:20 PM TRUST AND ESTATES ATTORNEY Sexual Orientation Not on file 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 Question Answer Date of Assessment Author Status Little interest or pleasure in doing things Not at all 01/02/2024 2:54 PM CDT Rabia Stevenson MA Active Feeling down, depressed, or hopeless Not at all 01/02/2024 2:54 PM CDT Denisse Stevenson MA Active Patient Health Questionnaire-2 Score 0 01/02/2024 2:54 PM CDT Lien Stevenson MA Active * If you checked off any problems on this questionnaire so far, Question Answer Date of Assessment Author Status How difficult have these problems made it for you to do your work, take care of things at home, or get along with other people? Not difficult at all 01/02/2024 2:54 PM CDT Rabia Stevenson MA Active * Over the last 2 weeks, how often have you been bothered by any of the following problems? Question Answer Date of Assessment Author Status Feeling nervous, anxious, or on edge 0 01/02/2024 2:54 PM CDT Rabia Stevenson MA Ac tihema Not being able to stop or control worrying 0 01/02/2024 2:54 PM CDT Rabia Stevenson MA A ctive Worrying too much about different things 0 01/02/2024 2:54 PM CDT Rabia Stevenson MA A ctive Trouble relaxing 0 01/02/2024 2:54 PM CDT Rabia Kamara MA Active Being so restless that it is hard to sit still 0 01/02/2024 2:54 PM CDT Rabia Stevenson MA Active Becoming easily annoyed or irritable 0 01/02/2024 2:54 PM CDT Rabia Stevenson MA Ac tive Feeling afraid as if something awful might happen 0 01/02/2024 2:54 PM CDT Rabia Stevenson MA Ac tive DAISY-7 Total Score 0 01/02/2024 2:54 PM CDT Rabia Warren MA Active documented as of this encounter Plan of Treatment Upcoming Encounters Date Type Department Care Team (Late st Contact Info) Description 02/28/2025 2:20 PM CDT Office Visit [facility] Medical [facility] Multispecialty Care - [place] [address] [address] [address] [place] [address] Amado Cutler MD [address] [address] 06/07/2025 1:45 PM CDT Office Visit [facility] [address] [place] [address] Rishi Miller MD Three [facility] [address] [place], [place] [id number] documented as of this encounter Visit Diagnoses Not on filedocumented in this encounter Additional Health Concerns Infection Onset Date Last Indicated Resolved Time Respiratory Rule-Out 01/07/2025 01/07/2025 025 11:20 AM CDT Assessment Noted Time PHQ-9 Depression Total Score: 2 07/01/20 23 10:55 AM CDT documented as of this encounter Care Teams Presser Automatic Relationship Specialty Start Date End Date Amado Cutler MD [address] [place] [address] PCP - General INTERNAL MEDICINE 05/20/22 Rishi Miller [facility] [address] [address] [place] [address] [place] Daycare Director CARDIOVASCULAR DISEASE 02/21/16 Nicolette [facility]unez MD [facility] [address] [address] [place] [address] EP Daycare Director CARDIOVASCULAR DISEASE 01/21/17 documented as of this encounter
--- OUTSIDE RECORDS SUMMARY | 2025-01-12 13:57 | XMS_ITS | Encounter Summary ---
Author Organization [facility] Address [address] [place] [address] Care Team Providers Care Window Air Conditioner Installer Name Role Phone Rishi Miller MD Unavailable Nicolette Nunez MD Unavailable Amado Cutler MD Primary Care Provider [phone] Encounter Details Date Type Department Care Team (Late st Contact Info) Description 11/17/2022 MyChart Message Enc [facility] Multispecialty Care - [address] [address] [address] [place] [address] [place] [address] [place] [address] [address] [place] [address] mammogram Social History Tobacco Use Types Packs/Day Years [...] Sex Assigned at Female 11/19/2024 1:20 PM REALTY LOAN SPECIALIST Legal Sex Female 9:43 PM CDT Gender Identity Female 11/19/2024 1:20 PM REALTY LOAN SPECIALIST Sexual Orientation Not on file 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 No / Unsure 11/04/2022 11:17 AM REALTY LOAN SPECIALIST documented as of this encounter Plan of Treatment Upcoming Encounters Date Type Department Care Team (Late st Contact Info) Description 02/28/2025 2:20 PM CDT [facility] Mult[facility] Care - [address] [address] [address] [place] [address] Amado Cutler MD [facility] [address] [address] 06/07/2025 1:45 PM CDT Office Visit [facility] [address] [place], [place] [id number] Rishi Miller MD [facility] [address] [place], [place] [id number] documented as of this encounter Visit Diagnoses Not on filedocumented in this encounter Additional Health Concerns Infection Onset Date Last Indicated Resolved Time Respiratory Rule-Out 01/07/2025 01/07/2025 025 11:20 AM CDT documented as of this encounter Care Teams Window Air Conditioner Installer Relationship Specialty Start Date End Date Amado Cutler MD [address] [place] [address] PCP - General INTERNAL MEDICINE 05/20/22 Rishi [facility] [address] [address] [place], [place] [phone] [place] Property Inspector CARDIOVASCULAR DISEASE 02/21/16 Nicolette Nunez MD [facility] [address] [address] [place], [place] [id number] EP Property Inspector CARDIOVASCULAR DISEASE 01/21/17 documented as of this encounter
--- OUTSIDE RECORDS SUMMARY | 2025-01-12 13:57 | XMS_ITS | Encounter Summary ---
Author Organization [facility] Address [address] [place] [address] Care Team Providers Care Executive Advisor Name Role Phone Rishi Miller MD Unavailable Nicolette Nunez MD Unavailable Amado Cutler MD Primary Care Provider [phone] Encounter Details Date Type Department Care Team (Late Contact Info) Description 03/19/[address] 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 - [address] [place] [address] Amado Cutler MD [address] [address] 06/07/2025 1:45 PM CDT Office Visit [facility], [address] [place], [place] [address] Rishi Miller MD Three [facility] [address] [place] [address] documented as of this encounter Visit Diagnoses Not on filedocumented in this encounter Additional Health Concerns Infection Onset Date Last Indicated Resolved Time Respiratory Rule-Out 01/07/2025 01/07/2025 025 11:20 AM CDT documented as of this encounter Care Teams Executive Advisor Relationship Specialty Start Date End Date Amado Cutler MD [address] [address] PCP - General INTERNAL MEDICINE 05/20/22 Rishi Miller MD Three [facility] [address] [place] [address] [place] Lining Stitcher CARDIOVASCULAR DISEASE 02/21/16 Nicolette Nunez MD Three [facility]. [address] [place], [place] [address] EP Lining Stitcher CARDIOVASCULAR DISEASE 01/21/17 documented as of this encounter
--- OUTSIDE RECORDS SUMMARY | 2025-01-12 13:57 | XMS_ITS | Clinical Summary ---
Author Organization [facility] Address [address] [place] [id number] Care Team Providers Care Plate Stacker Name Role Phone Rishi Miller MD Unavailable Nicolette Nunez MD Unavailable Amado Welch MD Primary Care Provider [phone] Allergies Active Allergy Reactions Criticality Noted Date Comments Amlodipine Angioedema 11/04/2022 States she does not recall this being an allergy Bacitracin Rash Low 01/23/2023 Bacitracin-Polymyxin B Rash Low 08/22/2022 Other reaction(s): blisters/rash Buspirone Other (see comment) 06/14/2024 Excessive sleepiness and grogginess Sucralfate Other (see comment) 01/02/2024 edema Erythromycin Swelling 11/25/2016 Etodolac Anaphylaxis High 11/25/2016 Other reaction(s): anaphylaxis Hydromorphone Rash Low 11/25/2016 Midazolam Nausea Only Low 05/13/2022 Morphine Itching,Rash,Unknown Low 11/25/2016 Neomycin Angioedema,Other (see comment),Blurred vision Medium 05/13/2022 Mycin eye drops - eyes swell shut Nitroprusside Contact Dermatitis 11/25/2016 Phenytoin Hives,Unknown 05/28/2022 Polymyxin B Angioedema,Other (see comment),Blurred vision Medium 05/13/2022 Mycin eye drops - eyes swell shut Sulfamethoxazole-Trime thoprim Hives,Rash High 10/17/2018 Tape Contact Dermatitis,Rash High 05/13/2022 Vancomycin 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 Remove & Discard patch within 12 hours or as directed by 11/26/19 17 Active dicyclomine 10 MG capsule Take 1 capsule (10 mg total) by mouth as needed. 06/25/20 18 Active colestipol 1 g tablet Take 1 tablet (1 g total) by mouth 3 (three) times daily as needed. 10/17/19 19 Active cetirizine 10 MG tablet Take 1 tablet (10 mg total) by mouth daily. 10/27/19 19 Active Cyanocobalamin (VITAMIN B-12) [address] 1 tablet under the tongue daily. Active baclofen 10 MG tablet Take 1 tablet (10 mg total) by mouth 3 (three) times daily as needed. 02/21/20 21 Active loratadine (CLARITIN) 10 MG tablet Take 1 tablet (10 mg total) by mouth daily. Active oxyCODONE immediate release (ROXICODONE) 5 MG immediate release tablet TAKE 1 TABLET BY MOUTH EVERY 6 HOURS NEEDED. DO NOT FILL UNTIL 05/12/22 05/12/20 22 Active hydroxychloroqu ine (PLAQUENIL) 200 MG tablet Take 1 tablet (200 mg total) by mouth 2 (two) times daily. Active melatonin 5 MG tablet Take 1 tablet (5 mg total) by mouth daily. Active calcium citrate 950 (200 CA) MG Tab tablet daily. Active EPINEPHrine 0.3 MG/0.3ML injection as directed intramuscularly once for 30 day(s) Active famotidine (PEPCID) 40 MG tablet PRN Active SODIUM FLUORIDE 5000 PPM 1.1 % Paste see administration instructions. 12/08/19 24 Active pimecrolimus (ELIDEL) 1 % creamIndication s:Flexural eczema Apply topically 2 (two) times daily. 100 g 01/09/20 24 Active ferrous sulfate, 65 mg elemental, 325 (65 FE) MG tablet Take 1 tablet (325 mg total) by mouth daily with breakfast. Active Cholecalciferol (VITAMIN D-3) 25 MCG (1000 UT) Cap Active Pyridoxine 100 MG tablet daily. Active vitamin E 400 UNIT capsule daily. Active hydroCHLOROthia zide (HYDRODIURIL) 25 MG tabletIndicatio ns:Drug therapy Take 1 tablet (25 mg total) by mouth every morning. 90 tablet 1 11/25/19 25 Active Additional Information Patient not taking.Reported on 01/07/2025 fluticasone-tiny meterol (ADVAIR DISKUS) 500-50 MCG/ACT inhalerIndicati ons:Mild intermittent asthma without complication (HHS/HCC) Inhale 1 puff into the lungs 2 (two) times daily. 60 each 5 11/25/19 25 Active traZODone (DESYREL) 150 MG tabletIndicatio ns:Primary insomnia Take 1 tablet (150 mg total) by mouth nightly at bedtime. at bedtime 90 tablet 1 11/25/19 25 Active rosuvastatin (CRESTOR) 20 MG tabletIndicatio ns:Dyslipidemia Take 1 tablet (20 mg total) by mouth daily. 100 tablet 1 11/25/19 25 Active sertraline (ZOLOFT) 50 MG tabletIndicatio ns:DAISY (generalized anxiety disorder) Take 1 tablet (50 mg total) by mouth daily. 90 tablet 1 11/25/19 25 Active pantoprazole EC (PROTONIX) 40 MG tabletIndicatio ns:Gastroesopha geal reflux disease without esophagitis Take 1 tablet (40 mg total) by mouth daily. 100 tablet 1 11/25/19 25 Active montelukast (SINGULAIR) 10 MG tabletIndicatio ns:Environmenta l allergies Take 1 tablet (10 mg total) by mouth daily. 90 tablet 1 11/25/19 25 Active lisinopril (PRINIVIL) 10 MG tabletIndicatio ns:Essential hypertension Take 1 tablet (10 mg total) by mouth daily. 90 tablet 1 11/25/19 25 Active Additional Information Patient not taking.Reported on 01/07/2025 metoprolol succinate ER (TOPROL-XL) 100 MG 24 hr tabletIndicatio ns:Essential hypertension Take 1 tablet (100 mg total) by mouth daily. 90 tablet 1 11/25/19 25 Active gabapentin (NEURONTIN) 600 MG tabletIndicatio ns:Chronic neck pain,Chronic midline low back pain without sciatica TAKE ONE-HALF TABLET BY MOUTH IN THE MORNING ONE-HALF TABLET BY MOUTH IN THE AFTERNOON AND 1 TABLET BY MOUTH AT BEDTIME 200 tablet 2 11/25/19 25 Active ezetimibe (ZETIA) 10 MG tabletIndicatio ns:Dyslipidemia Take 1 tablet (10 mg total) by mouth daily. 90 tablet 3 11/25/19 25 Active azelastine (ASTELIN) 0.1 % nasal sprayIndication s:Environmental allergies 1 spray by Nasal route 2 (two) times daily. Use in each nostril as directed 30 mL 11 11/25/19 25 Active albuterol sulfate HFA 108 (90 Base) MCG/ACT inhalerIndicati ons:Environment al allergies Inhale 2 puffs into the lungs every 6 (six) hours as needed. 18 g 5 11/25/19 25 Active nitroglycerin (NITROSTAT) 0.[address] 1 tablet (0.4 mg total) under the tongue every 5 (five) minutes as needed for Chest Pain. Maximum of 3 tabs, then call 911 25 tablet 1 11/30/19 25 Active methylPREDNISol one, DANNY, (MEDROL DOSEPAK) 4 MG tabletIndicatio ns:Upper respiratory tract infection, unspecified type 6 TABLETS ON DAY ONE, 5 TABLETS DAY TWO, 4 TABLETS DAY THREE, 3 TABLETS DAY FOUR, 2 TABLETS DAY FIVE, AND 1 TABLET DAY SIX 1 each 01/08/20 25 Active cephALEXin (KEFLEX) 250 MG capsuleIndicati ons:Upper respiratory tract infection, unspecified type Take 1 capsule (250 mg total) by mouth 2 (two) times daily for 7 days. 14 capsule 01/11/20 25 025 Active amoxicillin-cla vulanate (AUGMENTIN) 875-125 MG tabletIndicatio ns:Upper respiratory tract infection, unspecified type Take 1 tablet (875 mg total) by mouth 2 (two) times daily for 7 days. 14 tablet 01/08/20 25 025 Discontin ued(Other - Please enter comment in Notes field) Active Problems Problem Noted Date Diagnosed Date Chronic kidney disease, stage IV (severe) 2024 Leg swelling 11/19/2024 Overview (11/22/2024): 11/19/2024: She reports she has been having swelling in both legs on and off over the last several months. She reports it is worsened over the last week. She reports her PCP started her on sertraline 50 mg once daily at the beginning of October and she has been taking daily. She is concerned that sertraline may be contributing to leg swelling. She reports she follows with cardiology Dr. Miller and she last saw him 1 year ago and he added Lasix 40 mg oral to take as needed for lower extremity swelling. She reports she has not been taking this medication as she was afraid to combine it with her hydrochlorothiazide 12.5 mg daily which was prescribed by her risk and insurance manager. She reports she has upcoming appointments with both of these providers in December 14. She reports over the last week she has had an small increase in shortness of breath. She denies any redness or significant pain of both legs or drainage. She reports she cannot wear shoes other than her UGG slippers. She reports one day she took 2, hydrochlorothiazide 12.5 mg tablets to see if that would help her swelling and it did not. 11/22/2024: She reports she has been taking Lasix 40 mg daily over the weekend. She reports her shortness of breath has improved however she is unsure if it is related to the fluid. She also reports leg swelling has improved not all the way back to normal but has improved to where she can wear more regular shoes at this time. Assessment & Plan (11/22/2024 1:05 PM MUSIC VIDEO PRODUCER): Patient's weight has decreased 3 pounds over the weekend almost back to perceived baseline. Counseled patient to discontinue daily Lasix at this time and can take as needed. I would like her to discuss this with her PCP and her financial services officer. I suspect fluid is related to diastolic dysfunction. Assessment & Plan (11/19/2024 2:40 PM MUSIC VIDEO PRODUCER): Leg swelling could be related to initiation of sertraline however I suspect that is more so related to chronic kidney dysfunction and suspected underlying heart failure with preserved ejection fraction as she has grade 1 diastolic dysfunction that was seen on echocardiogram and underlying hypertension. Her weight is also up 5 pounds from last visit 10/25/2024 which I think is related to clinical volume overload. Discussed with patient that she is relatively stable and I would like to have her diurese over the weekend with Lasix 40 mg once daily and monitor her weight at home and keep log and return on Friday and we will reevaluate her weight and condition as well as repeat metabolic panel to evaluate electrolytes. If she acutely worsens over the weekend, she is instructed to go to ED. She demonstrated verbal understanding. Grade I diastolic dysfunction 11/19/2024 Overview (11/19/2024): 11/19/2024: Echocardiogram 04/30/2024 Normal left ventricular size and systolic contractility with grade 1 diastolic noncompliance, grade 1 diastolic dysfunction Modestly dilated left atrium Very small amount of tricuspid regurgitation, estimated RV systolic pressure is normal Normocytic anemia 11/19/2024 Overview (11/19/2024): 11/19/2024: CBC 10/27/2024 Hemoglobin 10.6 MCV within normal limits at 95 Assessment & Plan (11/19/2024 2:35 PM MUSIC VIDEO PRODUCER): Suspect anemia of chronic disease such as anemia of chronic kidney disease. Also could be mixed anemia including iron deficiency and or vitamin B12 and folate. Patient structured to withhold supplementation for 72 hours over the weekend and we check levels. BMI 38.0-38.9,adult 11/19/2024 AMBIKA (obstructive sleep apnea) 01/28/2024 Overview (11/19/2024): 11/19/2024: Patient reports she wears CPAP nightly Body mass index (BMI) 50.0-59.9, adult Essential hypertension 01/23/2023 Assessment & Plan (11/19/2024 2:33 PM MUSIC VIDEO PRODUCER): Blood pressure is elevated in office today. The patient reports blood pressure is elevated when she comes to provider office. She reports blood pressure measurements at home have been systolic blood pressure 95-124. Continue taking blood pressure medications as prescribed and start Lasix. See under leg swelling. Will repeat blood pressure at next visit. 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 01/04/2023 Sjogren's syndrome (HHS/HCC) 11/04/2022 Gastro-esophageal reflux disease without esophag itis 10/04/2022 Hypertrophy of nasal turbinates 10/04/2022 Uncomplicated severe persistent asthma ([facility]/HCC [facility]) 10/04/2022 Osteopenia of neck of femur 08/25/2022 Elevated antinuclear antibody (UMBERTO) level 2021 Low back pain at multiple sites 07/02/2022 Polyarthralgia 07/02/2022 Sjogren's syndrome ([facility]) 07/02/2022 PVC (premature ventricular contraction) 07/16/20 Dyspnea on exertion 05/02/2020 Palpitation 12/16/2016 Dyslipidemia Resolved Problems Problem Noted Date Diagnosed Date Resolved Date CAD (coronary artery disease) 11/25/2016 Pure hypercholesterolemia Chest pain, unspecified 02/2017 Chest pain, unspecified 11/21 Encounters Date Type Department Care Team Description 01/10/2025 Telephone [address] [place] [address] Amado Welch MD Medication 01/10/2025 Telephone [address] [place] [address] Amado Welch MD Medication Problem 01/07/2025 10:00 AM CDT Office Visit [address] [place] [address] Amado Welch MD Sore Throat; Fatigue; Cough (Symptoms started Friday ); Congestion; Decreased Appetite 01/07/2025 Results Follow-Up [address] [place] [address] Amado Welch MD CORONAVIRUS (COVID-19) INFLUENZA A & B ANTIGEN IA PANEL, STREP A RAPID, CULTURE STREP A 01/07/2025 Travel 12/29/2024 Scan [employer] INFO SRVCS Scanned, [facility] 12/03/2024 Telephone [address] [place] [address] Amado Welch MD Lab Results 12/02/2024 1:30 PM CDT [facility] [place] [address] [place] [address] Amado Welch MD 12/02/2024 Travel 12/02/2024 Telephone [facility], [facility] [address] [place] [address] Jessica Monae Schedule Test 11/29/2024 12:00 PM CDT Office Visit [facility], [facility] [address] [place] [address] Lolis Sims, [facility]- Chest Pain 11/29/2024 Travel 11/25/2024 10:35 AM MUSIC VIDEO PRODUCER Allied Health/Nurse Visit [place] [address] [place] [address] Amado Welch MD Allied Health Visit (Labs ) 11/25/2024 Orders Only [place] [address] [facility] [address] [place] [address] Randa Higginbotham MA 11/24/2024 2:00 PM MUSIC VIDEO PRODUCER Office Visit [place] [address] [place] [address] Amado Welch MD Follow Up (Chronic medical issues); Edema; Anxiety; Back Pain; Hypertension; Hyperlipidemia; Obstructive Sleep Apnea ; Sleep Problem 11/24/2024 Travel 11/22/2024 12:40 PM MUSIC VIDEO PRODUCER Office Visit [place] [address] [place] [address] Valerie Baxter DO Edema (1 week follow up legs swelling. /Pt states she is able to wear regular shoes now. /Pt states her SOB has improved. //) 11/22/2024 [facility] [address] [place] [address] Dary Zapien MA 11/22/2024 Travel 11/19/2024 1:40 PM MUSIC VIDEO PRODUCER Office Visit [place] [address] [place] [address] Valerie Baxter, Edema (Pt states she's had edema off and on several months and its gotten worse over the last week. /Bi lat feet and legs. //States she seen He Bey the beginning of October and she didn't say much about the matter. /) 11/19/2024 Travel 11/17/2024 Telephone [place] [address] [address] Amado Welch MD Concerns 11/15/2024 Telephone [place] [address] [address] Amado Welch MD Medication Information 11/12/2024 Telephone [place] [address] [address] Amado Welch MD Error 10/27/2024 Scan [employer] HE[facility] INFO SRVCS Scanned, [facility] Lab (SCAN) 10/25/2024 1:40 PM MUSIC VIDEO PRODUCER Office Visit [place] [address] [address] Amado Welch MD Follow Up; Anxiety; Earache (Pt states It started 10/21/2024 left ear) 10/25/2024 Travel from Last 3 Months Immunizations Immunization Administration Dates Next Due Arexvy Respiratory Syncytial Virus (RSV, adjuvanted) 0.5 mL, PF 06/25/2024 Fluzone High Dose - >Age 65 (Prefilled Syringe) 06/17/2022 Influenza (Generic) 06/22/2019 Influenza Adult (Generic) 07/02/2024,07/04/2021, 07/04/2018 MODERNA COVID-19 BIVALENT (1 2+), MRNA, LNP-S, PF 05/31/2022 PFIZER COVID-19 (ORIGINAL FORMULATION, PURPLE CAP) mRNA, LNP-S, PF, 30 MCG/0.3 ML DOSE 06/25/2024,07/04/2021,12/10/2020,2020 Pneumococcal (Generic) 06/01/2014 Pneumococcal (Prevnar 20) 06/17/2022 Rotavirus (Generic) 06/25/2023 Td (Decavac) 06/19/2013 Tdap (Generic) 03/21/2017,06/19/2013 Tetanus Toxoid Inj 06/19/2013,06/19/2013 Zoster (Zostavax) 09985 Unt/0.65Ml 02/21/2014 Family History Medical History Relation Comments Heart Disease Brother Liver cirrhosis CABG Father Heart Disease Father Stroke Maternal Grandmother Heart Disease Mother Alzheimer s Relation Status Comments Brother Father (Age 89) Maternal Grandmother Mother Social History Tobacco Use Types Packs/Day Years Used Date Smoking Tobacco: Never Smokeless Tobacco: Never Tobacco Cessation:Counseling Given: Yes Comments:counseled by Dr Welch Alcohol Use Standard Drinks/Week Comments Not Currently 0 (1 standard drink = 0.6 oz pur e alcohol) Occasionally PHQ-2 Answer Date Recorded Patient Health Questionnaire-2 Score 0 11/24/2024 Comments No Sex and Gender Information Value Date Recorded Sex Assigned at Female 11/19/2024 1:20 PM MUSIC VIDEO PRODUCER Legal Sex Female 9:43 PM CDT Gender Identity Female 11/19/2024 1:20 PM MUSIC VIDEO PRODUCER Sexual Orientation Not on file 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 Not on file Not on file Last Filed Vital Signs Vital Sign Reading Time Taken Comments Blood Pressure 128/79 01/07/2025 10:15 AM CDT Pulse 65 01/07/2025 10:15 AM CDT Temperature 36.2 C (97.2 F) 01/07/2025 10:15 AM CDT Respiratory Rate 14 01/07/2025 10:15 AM CDT Oxygen Saturation 98% 01/07/2025 10:15 AM CDT Inhaled Oxygen Concentration - - Weight 79.2 kg (174 lb 9.6 oz) 01/07/2025 10:15 AM CDT Height 149.9 cm (4' 11 ) 01/07/2025 10:15 AM CDT Body Mass Index 35.26 01/07/2025 10:15 AM CDT Plan of Treatment Upcoming Encounters Date Type Department Care Team (Late st Contact Info) Description 02/28/2025 2:20 PM CDT Office Visit [facility] [place] [address] [place] [address] Amado Welch MD [address] [place] [address] 06/07/2025 1:45 PM CDT Office Visit [facility] [facility], [place] [address] [place], [place] [id number] Rishi Miller MD [facility]. [facility] [address] [place], [place] [id number] Health Maintenance Due Date Last Done Comments Zoster Vaccines (1 of 2) 04/18/2014 02/21/2014 Annual Medicare Wellness Visit 2018 COVID-19 Vaccine ( season) 2024 06/25/2024, 05/31/2022, 07/04/2021, Additional history exists Mammogram Screening 01/25/2026 01/26/2024, 01/12/2024, 11/12/2022, Additional history exists DTaP, Tdap and Td Vaccines (3 - Td or Tdap) 03/21/2027 03/21/2017, 06/19/2013, 06/19/2013, Additional history exists Colorectal Cancer Screening Colonoscopy (10 Years) 08/19/2033 08/19/2023, 05/21/2017 Hepatitis C Completed 05/20/2022 Pneumococcal Vaccine: 50+ Years Completed 06/17/2022 Dexa Scan (General) Completed 08/20/2022, RSV Immunization or 60+ Years Completed 06/25/2024 PHQ-2 (Physician [place]) Completed 11/24/2024 Meningococcal B Vaccine Aged Out No l onger eligible based on patient's age to complete this topic Meningococcal Vaccine Aged Out No ceasar carmita eligible based on patient's age to complete this topic RSV Immunizations Under 20 Months Aged Out No longer eligible based on patient's age to complete this topic Procedures Procedure Name Priority Date/Time Associated Diagnosis Comments CULTURE STREP A Routine 01/07/2025 11:42 AM CDT Upper respiratory tract infection, unspecified type STREP A RAPID Routine 01/07/2025 Upper respiratory tract infection, unspecified type CORONAVIRUS (COVID-19) INFLUENZA A & B ANTIGEN IA PANEL Routine 01/07/2025 Upper respiratory tract infection, unspecified type BASIC METABOLIC PANEL Routine 12/02/2024 1:45 PM CDT Chronic kidney disease, stage IV (severe) (CMS/HCC) COLLECTION VENOUS BLOOD VENIPUNCTURE Routine 12/02/2024 1:44 PM CDT Chronic kidney disease, stage IV (severe) (CMS/HCC) COLLECTION VENOUS BLOOD VENIPUNCTURE Routine 11/25/2024 10:31 AM MUSIC VIDEO PRODUCER Drug therapy HEMOGLOBIN, GLYCOSYLATED Routine 025 10:31 AM MUSIC VIDEO PRODUCER Drug therapy TSH W/REFLEX Routine 11/25/2024 10:31 AM MUSIC VIDEO PRODUCER Drug therapy LIPID PANEL Routine 11/25/2024 10:31 AM MUSIC VIDEO PRODUCER Drug therapy CBC W/DIFF AUTOMATED Routine 11/25/2024 10:31 AM MUSIC VIDEO PRODUCER Drug therapy HEPATIC FUNCTION PANEL Routine 10:31 AM MUSIC VIDEO PRODUCER Drug therapy BASIC METABOLIC PANEL Routine 11/25/2024 10:10 AM MUSIC VIDEO PRODUCER Drug therapy ELECTROCARDIOGRAM (NON MIDMARK ACQUIRED) Routine 11/24/2024 2:58 PM MUSIC VIDEO PRODUCER Other chest pain COLLECTION VENOUS BLOOD VENIPUNCTURE Routine 11/24/2024 2:24 PM MUSIC VIDEO PRODUCER Drug therapy COLLECTION VENOUS BLOOD VENIPUNCTURE Routine 11/24/2024 2:24 PM MUSIC VIDEO PRODUCER Drug therapy TSH W/REFLEX Routine 11/22/2024 1:11 PM MUSIC VIDEO PRODUCER Hypertensive heart and chronic kidney disease without heart failure, unspecified CKD stage FOLIC ACID SERUM Routine 11/22/2024 1:11 PM MUSIC VIDEO PRODUCER Normocytic anemia VITAMIN B-12 Routine 11/22/2024 1:11 PM MUSIC VIDEO PRODUCER Normocytic anemia IRON SAT PANEL (IRON,IBC,%SAT) Routine 11/22/2024 1:11 PM MUSIC VIDEO PRODUCER Normocytic anemia BASIC METABOLIC PANEL Routine 11/22/2024 1:11 PM MUSIC VIDEO PRODUCER Leg swelling OUTSIDE LAB (SCAN ORDER) 10/27/2024 MG DIAGNOSTIC RT DIGI Routine 01/26/2024 12:00 AM CDT Abnormal mammogram of right breast COLONOSCOPY/EGD GENERIC (SCAN ORDER) 08/19/2023 BONE DENSITY GENERIC (SCAN ORDER) 08/20/2022 HEPATITIS C ANTIBODY Routine 05/20/2022 2:57 PM CDT Annual physical exam Encounter for medical examination to establish care General medical exam Encounter for hepatitis C screening test for low risk patient from Last 3 Months or Most Recently Relevant to Health Maintenance Results * CULTURE STREP A (01/07/2025 11:42 AM CDT) THROAT CULTURE STREP A ONLY Negative for Group A Streptococci Negative for Group A Streptococci 01/08/2025 7:28 PM CDT [facility] STRUCTURE OF ANTERIOR PORTION OF NECK / Unknown 01/07/2025 11:42 AM CDT us Amado Welch MD MICROBIOLOGY - GENERAL ORDERABLE S Final Result [facility] [address] [facility] [place] [address], * CORONAVIRUS (COVID-19) INFLUENZA A & B ANTIGEN IA PANEL (01/07/2025) Pathologist [facility] CORONAVIRUS ANTIGEN IA NEGATIVE NEGATIVE [address], [place] INFLUENZA A NEGATIVE NEGATIVE [address], [place] INFLUENZA B NEGATIVE NEGATIVE [address], [place] Internal Control: VALID VALID [address], [place] NASAL STRUCTURE / Unknown 01/07/2025 us Amado Welch MD MICROBIOLOGY - GENERAL ORDERABLE S Final Result [address], [place] [address] [facility] [address] [place] [address], * STREP A RAPID (01/07/2025) Pathologist [facility] RAPID STREP TEST NEGATIVE NEGATIVE [address], [place] Internal Control: VALID VALID [address], [place] STRUCTURE OF ANTERIOR PORTION OF NECK / Unknown 01/07/2025 us Amado Welch MD MICROBIOLOGY - GENERAL ORDERABLE S Final Result [address], [facility] [address] [place] [address], [place] [phone] * (ABNORMAL) BASIC METABOLIC PANEL (12/02/2024 1:45 PM CDT) Only the most recent of3 resultswithin the time period is included. SODIUM S/P/B 145 136 - 145 MMOL/L 12/02/2024 8:20 PM CDT [facility] POTASSIUM S/P/B 4.3 3.5 - 5.1 MMOL/L 12/02/2024 8:20 PM CDT [facility] CHLORIDE S/P/B 106 98 - 107 MMOL/L 12/02/2024 8:20 PM CDT [facility] CO2 32.0 21 - 32 MMOL/L 12/02/2024 8:20 PM T [facility] GLUCOSE 95 70 - 99 MG/DL 12/02/2024 8:20 PM [facility] BUN 20(H) 7 - 18 MG/DL 12/02/2024 8:20 PM T [facility] CREATININE S/P/B 1.26(H) 0.55 - 1.02 MG/DL 12/02/2024 8:20 PM T [facility] CALCIUM S/P/B 9.4 8.4 - 10.5 MG/DL 12/02/2024 8:20 PM T [facility] ANION GAP 7.0 5 - 15 MMOL/L 12/02/2024 8:20 PM T [facility] Comment:REFERENCE RANGE NOT ESTABLISHED OSMOLALITY (CALC) 302 MOSM/KG 025 8:20 PM T [facility] Comment:REFERENCE RANGE NOT ESTABLISHED GFR ESTIMATE 46(L) >90 ML/MIN/1. 73 M2 12/02/2024 8:20 PM T [facility] GFR NOTES GFR REFERENCE S: 12/02/2024 8:20 PM [facility] Comment: THE ESTIMATED GFR IS CALCULATED USING THE 2020 CKD-EPI EQUATION. THE FOLLOWING CATEGORIES FOR GRADING RENAL FUNCTION ARE RECOMMENDED BY THE INTERNATIONAL SOCIETY OF NEPHROLOGY (KDIGO 2012 CLINICAL PRACTICE GUIDELINE). G1,NORMAL OR HIGH: >89 ml/min/1.73 m2 G2,MILDLY DECREASED: 60-89 ml/min/1.73 m2 G3A,MILDLY TO MODERATELY DECREASED: 45-59 ml/min/1.73 m2 G3B,MODERATELY TO SEVERELY DECREASED: 30-44 ml/min/1.73 m2 G4,SEVERELY DECREASED: 15-29 ml/min/1.73 m2 G5,KIDNEY FAILURE: <15 ml/min/1.73 m2 12/02/2024 1:45 PM CDT Amado Welch MD LABORATORY Final Result Performing Organization Address [facility] Co de Phone Number [facility] [address] [place] [address], * TSH W/REFLEX (11/25/2024 10:31 AM MUSIC VIDEO PRODUCER) Only the most recent of2 resultswithin the time period is included. TSH 1.427 0.358 - 3.740 uIU/ML 11/25/2024 3:53 PM MUSIC VIDEO PRODUCER [facility] 11/25/2024 10:3 1 AM MUSIC VIDEO PRODUCER Amado Welch MD LABORATORY Final Result Performing Organization Address [facility] de Phone Number [address] [phone], * (ABNORMAL) HEMOGLOBIN, GLYCOSYLATED (11/25/2024 10:31 AM MUSIC VIDEO PRODUCER) HGB A1C 5.5 4.5 - 6.2 % 11/25/2024 5:29 PM MUSIC VIDEO PRODUCER [facility] ESTIMATED AVG GLUCOSE 111(H) 74 - 106 MG/DL 11/25/2024 5:29 PM MUSIC VIDEO PRODUCER [facility] 11/25/2024 10:3 1 AM MUSIC VIDEO PRODUCER Amado Welch MD LABORATORY Final Result Performing Organization Address [facility] Co de Phone Number [facility] [address] [place] [address], * LIPID PANEL (11/25/2024 10:31 AM MUSIC VIDEO PRODUCER) CHOLESTEROL 125 <200 MG/DL 11/25/2024 3:53 PM MUSIC VIDEO PRODUCER [facility] TRIGLYCERIDES 97 <150 MG/DL 11/25/2024 3:53 PM MUSIC VIDEO PRODUCER [facility] HDL 53 >40 MG/DL 11/25/2024 3:53 PM MUSIC VIDEO PRODUCER [facility] LDL-C 53 <100 MG/DL 11/25/2024 3:53 PM [facility] VLDL CALCULATION 19 5 - 28 MG/DL 11/25/2024 3:53 PM MUSIC VIDEO PRODUCER [facility] CHOL/HDL RATIO 2.4 0.0 - 4.0 11/25/2024 3:53 PM [facility] LDL/HDL 1.0 0.41 - 2.13 11/25/2024 3:53 PM [facility] NON HDL CHOLESTEROL 72 <140 MG/DL 11/25/2024 3:53 PM [facility] 11/25/2024 10:3 1 AM MUSIC VIDEO PRODUCER Amado Welch MD LABORATORY Final Result [facility] [address] [place] [address], * (ABNORMAL) HEPATIC FUNCTION PANEL (11/25/2024 10:31 AM MUSIC VIDEO PRODUCER) BILIRUBIN TOTAL S/P/B 0.3 0.2 - 1.0 MG/DL 11/25/2024 3:53 PM [facility] BILIRUBIN DIRECT S/P/B 0.1 0.0 - 0.2 MG/DL 11/25/2024 3:53 PM [facility] ALKALINE PHOSPHATASE S/P/B 82 55 - 142 U/L 11/25/2024 3:53 PM [facility] AST 26 15 - 37 U/L 11/25/2024 3:53 PM [facility] ALT 25 14 - 59 U/L 11/25/2024 3:53 PM [facility] TOTAL PROTEIN S/P/B 6.2(L) 6.4 - 8.2 G/DL 11/25/2024 3:53 PM MUSIC VIDEO PRODUCER [facility] ALBUMIN S/P/B 3.4 3.4 - 5.0 G/DL 11/25/2024 3:53 PM MUSIC VIDEO PRODUCER [facility] 11/25/2024 10:3 1 AM MUSIC VIDEO PRODUCER Amado Welch MD LABORATORY Final Result [facility] [address] [place] [address], * (ABNORMAL) CBC W/DIFF AUTOMATED (11/25/2024 10:31 AM MUSIC VIDEO PRODUCER) WBC 5.00 4.00 - 10.80 x10'3/uL 11/25/2024 2:18 PM MUSIC VIDEO PRODUCER [facility] RBC 3.23(L) 4.10 - 5.40 x10'6/uL 11/25/2024 2:18 PM [facility] HGB 10.3(L) 12.0 - 16.0 G/DL 11/25/2024 2:18 PM [facility] HCT 31.3(L) 36.0 - 47.0 % 11/25/2024 2:18 PM [facility] MCV 96.9 78.0 - 100.0 FL 11/25/2024 2:18 PM [facility] MCH 31.9(H) 27.0 - 31.0 PG 11/25/2024 2:18 PM [facility] MCHC 32.9(L) 33.0 - 36.0 G/DL 11/25/2024 2:18 PM [facility] RDW 12.4 11.5 - 14.5 % 11/25/2024 2:18 PM [facility] PLT 189 150 - 350 x10'3/uL 11/25/2024 2:18 PM [facility] MPV 12.5(H) 7.4 - 10.4 FL 11/25/2024 2:18 PM [facility] DIFFERENTIAL TYPE AUTOMATED DIFFERENTIAL 11/25/2024 2:18 PM [facility] NEUTROPHILS % 51.6 % 11/25/2024 2:18 PM [facility] LYMPHOCYTES % 32.0 % 11/25/2024 2:18 PM [facility] MONOCYTES % 9.6 % 11/25/2024 2:18 PM [facility] EOSINOPHILS % 6.4 % 11/25/2024 2:18 PM [facility] BASOPHILS % 0.4 % 11/25/2024 2:18 PM [facility] IMMATURE GRANS % 0.0 % 11/25/2024 2:18 PM [facility] ABS. NEUTROPHILS 2.58 1.60 - 8.30 x10'3/uL 11/25/2024 2:18 PM [facility] ABS. LYMPHOCYTES 1.60 0.80 - 4.70 x10'3/uL 11/25/2024 2:18 PM [facility] ABS. MONOCYTES 0.48 0.00 - 1.50 x10'3/uL 11/25/2024 2:18 PM [facility] ABS. EOSINOPHILS 0.32 0.00 - 0.40 x10'3/uL 11/25/2024 2:18 PM [facility] ABS. BASOPHILS 0.02 0.00 - 0.20 x10'3/uL 11/25/2024 2:18 PM [facility] ABS. IMMATURE GRANULOCYTES 0.00 0.00 - 0.03 x10'3/uL 11/25/2024 2:18 PM MUSIC VIDEO PRODUCER -[facility] 11/25/2024 10:3 1 AM MUSIC VIDEO PRODUCER Amado Welch MD LABORATORY Final Result [facility] [address] [facility] [place] [address], * EKG WELCHALLEN ACQUIRED (11/24/2024 2:58 PM MUSIC VIDEO PRODUCER) 11/24/2024 2:58 PM MUSIC VIDEO PRODUCER Narrative [facility] - 12/17/2024 7:24 PM CDT [facility] [place] [address] 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: : 1955 Requested By: AMADO WELCH Order Number: [id number] Reading : Amado Welch Measurements Intervals Warren Rate: 61 P: 59 LA: 170 QRS: -9 QRSD: 105 T: 4 QT: 464 QTc: 468 Interpretive Statements SINUS RHYTHM Amado Welch MD PROCEDURES-ORDERABLE NO CHARGE F inal Result [facility] * (ABNORMAL) IRON SAT PANEL (IRON,IBC,%SAT) (11/22/2024 1:11 PM MUSIC VIDEO PRODUCER) Pathologist [facility] IRON 65 50 - 170 MCG/DL 11/23/2024 12:53 PM MUSIC VIDEO PRODUCER [facility] IRON BINDING CAPACITY 238(L) 250 - 450 MCG/DL 11/23/2024 12:53 PM MUSIC VIDEO PRODUCER [facility] IRON SATURATION 27 % 12:53 PM MUSIC VIDEO PRODUCER [facility] Comment:REFERENCE RANGE NOT ESTABLISHED 11/22/2024 1:11 PM MUSIC VIDEO PRODUCER Valerie Baxter DO LABORATORY Final Result Performing Organization Address [facility] Co de Phone Number [facility] [address] [place] [address], [place] [phone] * (ABNORMAL) VITAMIN B-12 (11/22/2024 1:11 PM MUSIC VIDEO PRODUCER) [facility] VITAMIN B12 S/P/B 2,666(H) 193 - 986 PG/ML 11/23/2024 12:53 PM MUSIC VIDEO PRODUCER [facility] 11/22/2024 1:11 PM MUSIC VIDEO PRODUCER Valerie Baxter DO LABORATORY Final Result Performing Organization Address [facility] Co de Phone Number [facility] [address] [place] [address], [place] [phone] * FOLIC ACID SERUM (11/22/2024 1:11 PM MUSIC VIDEO PRODUCER) [facility] FOLATE >20.0 8.6 - 58.9 NG/ML 11/23/2024 12:08 PM MUSIC VIDEO PRODUCER [facility] 11/22/2024 1:11 PM MUSIC VIDEO PRODUCER Valerie Baxter DO LABORATORY Final Result [facility] [address] [place] [address], [place] [phone] * OUTSIDE LAB (SCAN ORDER) (10/27/2024) 10/27/2024 [facility] Scanned SCANNING Final Resu lt * MG DIAGNOSTIC RT DIGI (01/26/2024 12:00 AM CDT) Anatomical Region Laterality Modality Breast Right Mammography 01/26/2024 Amado Welch MD MAMMO Final Result * COLONOSCOPY/EGD GENERIC (SCAN ORDER) (08/19/2023) 08/19/2023 [facility] Scanned SCANNING Final Resu lt * BONE DENSITY GENERIC (08/20/2022) Anatomical Region Laterality Modality Other 08/20/2022 [facility] Scanned SCANNING Final Resu lt * HEPATITIS C ANTIBODY (05/20/2022 2:57 PM CDT) HEPATITIS C AB NON-REACTI VE NON-REACT PETRA 05/20/2022 9:43 PM CDT [facility] Comment: ANTIBODIES TO HCV NOT DETECTED. DOES NOT EXCLUDE THE POSSIBILITY OF EXPOSURE TO HCV. 05/20/2022 2:57 PM CDT Amado Welch MD LABORATORY Final Result [facility] [address] [place] [address], [id number] from Last 3 Months or Most Recently Relevant to [place] [address] [facility] [place] [address] Care Teams Plate Stacker Relationship Specialty Start Date End Date Amado Welch MD [address] [facility] [address] [place] [id number] PCP - General INTERNAL MEDICINE 05/20/22 Rishi Miller MD [address] [place], [place] [phone] [place] Receivable Manager CARDIOVASCULAR DISEASE 02/21/16 Nicolette Nunez MD [address] [place], [place] [phone] EP Receivable Manager CARDIOVASCULAR DISEASE 01/21/17
--- OUTSIDE RECORDS SUMMARY | 2025-01-12 13:57 | XMS_ITS | Encounter Summary ---
Author Organization [facility] Address [address] [place] [address] Care Team Providers Care Statistical Reporting Analyst Name Role Phone Rishi Miller MD Unavailable Nicolette Nunez MD Unavailable Amado Cutler MD Primary Care Provider [phone] Encounter Details Date Type Department Care Team (Latest Contact Info) Description 01/10/2024 MyChart Message Enc [facility] Multispecialty Care - [address] [address] [address] [place] [address] [place] [address] [place] [address] [address] [place] [address] Latest blood pressure reading Social History Tobacco Use Types Packs/Day Years [...] Sex Assigned at Female 11/19/2024 1:20 PM ADULT PSYCHIATRIST Legal Sex Female 9:43 PM CDT Gender Identity Female 11/19/2024 1:20 PM ADULT PSYCHIATRIST Sexual Orientation Not on file 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 [place], [place] [address] documented as of this encounter Visit Diagnoses Not on filedocumented in this encounter Additional Health Concerns Infection Onset Date Last Indicated Resolved Time Respiratory Rule-Out 01/07/2025 01/07/2025 025 11:20 AM CDT Assessment Noted Time PHQ-9 Depression Total Score: 2 07/01/20 23 10:55 AM CDT documented as of this encounter Care Teams Statistical Reporting Analyst Relationship Specialty Start Date End Date Amado Cutler MD [address] [place] [address] PCP - General INTERNAL MEDICINE 05/20/22 Rishi Miller MD [address] [place] [address] [place] Child Support Case Officer CARDIOVASCULAR DISEASE 02/21/16 Nicolette Nunez MD [address] [place] [address] EP Child Support Case Officer CARDIOVASCULAR DISEASE 01/21/17 documented as of this encounter
--- OUTSIDE RECORDS SUMMARY | 2025-01-12 13:58 | XMS_ITS ---
Author Organization [facility] ([address]) Address [address] [address] Care Team Providers Care Underwriting Support Specialist Name Role Phone Amado Cutler Primary Care Provider Sandra Mallory Unavailable [phone] James Aguilera Unavailable [phone] REASON FOR VISIT Atopic asthma w/o mention of status asthmaticus or acute exacerbation follow-up, Xolair administration scheduled today, Needs evaluation for pre-Xolair health questionaire to assess health status andmedication review Medications Medication SIG (Take, Route, Frequency, Duration) Notes Start Date End Date Status Trelegy Ellipta 200 MCG-62.5 MCG-25 MCG/INH 1 PUFF(S) INHALED ONCE A DAY for 90 DAYS 90 day max *Please review and pick correct strength-formula tion from [employer] options. If intended option is not shown, discontinue and re-order from Quick Search* Not-Taking Protonix 40 MG 1 tab(s) orally once a day for 30 day(s) Not-Taking Plaquenil 200 MG 1 tab(s) orally once a day for 30 day(s) Not-Taking Xolair 150 MG as directed subcutaneously every 4 weeks Not-Taking traZODone HCl 150 MG 1 by mouth at bedtime 100 mg Not-Taking Loratadine 10 MG 1 tab(s) orally once a day Not-Taking Pepcid 40 MG 1 tab(s) orally once a day (at bedtime) Not-Taking Azelastine HCl 137 MCG/SPRAY 1 spray intranasally 2 times a day Not-Taking Singulair 10 MG 1 tab(s) orally once a day Not-Taking Trelegy Ellipta 200 MCG-62.5 MCG-25 MCG/INH 1 PUFF(S) INHALED ONCE A DAY *Please review and pick correct strength-formula tion from Medispan options. If intended option is not shown, discontinue and re-order from Quick Search* Not-Taking Gabapentin 600 MG 1 tab(s) orally 3 times a day Not-Taking Lasix 20 MG 1 tab(s) orally once a day Not-Taking Zetia 10 MG 1 tab(s) orally once a day Not-Taking Mirtazapine 45 MG 1 tab(s) orally once a day (at bedtime) Not-Taking Rosuvastatin Calcium 20 MG 1 tab(s) orally once a day Not-Taking Baclofen 10 MG 1 tab(s) orally 3 times a day Not-Taking Bentyl 10 MG/ML as directed intramuscularly every 6 hours Not-Taking Colestipol HCl 1 GM 2 tab(s) orally 2 times a day Not-Taking Lisinopril 10 MG 1 tab(s) orally once a day Not-Taking oxyCODONE HCl 5 MG 1 tab(s) orally every 6 hours Not-Taking TRELEGY ELLIPTA 200 mcg-62.5 mcg-25 mcg/inh 1 puff(s) inhaled once a day for 90 days 90 day max Not-Taking Metoprolol Succinate ER 100 MG 1 tab(s) orally once a day Not-Taking PROTONIX 40 mg 1 tab(s) orally once a day for 30 day(s) Active PLAQUENIL 200 mg 1 tab(s) orally once a day for 30 day(s) Active XOLAIR 150 mg as directed subcutaneously every 4 weeks Not-Taking TRAZODONE 150 mg 1 by mouth at bedtime 100 mg Active Narcan 4 MG/0.1ML as directed Nasally Active Colace 100 MG 1 capsule as needed Orally Once a day Active Ferrous Sulfate 325 (65 Fe) MG 1 tablet Orally Three times a Week Active XOLAIR 150 mg as directed subcutaneously every 4 weeks Active SINGULAIR 10 mg 1 tab(s) orally once a day Active TRELEGY ELLIPTA 200 mcg-62.5 mcg-25 mcg/inh 1 puff(s) inhaled once a day Active LORATADINE 10 mg 1 tab(s) orally once a day Active EPINEPHRINE AUTO-INJECTOR 0.3 mg as directed intramuscularly once for 30 day(s) Active ALBUTEROL (EQV-PROAIR HFA) 90 mcg/inh 2 puff(s) inhaled every 6 hours Active PEPCID 40 mg 1 tab(s) orally once a day (at bedtime) Active AZELASTINE HYDROCHLORIDE NASAL 137 mcg/inh 1 spray intranasally 2 times a day Active LASIX 20 mg 1 tab(s) orally once a day Active TRAZADONE 50mg 1 by mouth at bedtime 100 mg Active GABAPENTIN 600 mg 1 tab(s) orally 3 times a day Active BACLOFEN 10 mg 1 tab(s) orally 3 times a day Active ROSUVASTATIN 20 mg 1 tab(s) orally once a day Active COLESTIPOL 1 g 2 tab(s) orally 2 times a day Active ZETIA 10 mg 1 tab(s) orally once a day Active MIRTAZAPINE 45 mg 1 tab(s) orally once a day (at bedtime) Active BENTYL 10 mg/mL as directed intramuscularly every 6 hours Active OXYCODONE 5 mg 1 tab(s) orally every 6 hours Active METOPROLOL SUCCINATE ER 100 mg 1 tab(s) orally once a day Active LISINOPRIL 10 mg 1 tab(s) orally once a day Active Vital Signs Blood pressure systolic 102 mm Hg 10/07/19 25 Blood pressure diastolic 60 mm Hg 025 Height 59.5 in 10/07/2024 Oximetry 97 % 10/07/2024 Encounters Encounter Location Date Provider Diagnosis [facility] [address] [place] [address] 10/07/2024 James Aguilera Severe persistent asthma, uncomplicated J45.50 Assessments Encounter Date Diagnosis (ICD Code) Assessment Notes Treatment Notes Treatment Clinical Notes Section Notes 10/07/2024 Severe persistent asthma, uncomplicated (ICD-10 - J45.50) 10/07/2024 Other Plan Of Treatment Next Appt Details Follow Up: As scheduled for Xolair, Reason: Procedure Notes * Category Sub-Category Detail Notes XOLAIR (omalizumab) Administration Dosing Time / Vitals Angie Soto 10/07/2024 10:42:59 AM [employer] >, Time of administration, See initial vitals Dosage 300 mg (60 units) Location [place], [place] Reaction None Frequency q 4 weeks AIE (epinephrine) on patient? yes Lot Number / Expiration Lot Number(s): [id number] , , Expiration Date: 08/2025 Post-procedural check-out: Fior Soto 10/07/2024 11:18:49 AM [employer] >, Vital signs taken 30 minutes after dosing administration: BP: 105/57 HR: 71 SPO2: 95 Medication Source XOLAIR Source: Free Drug Source Verification:: Who pulled drug (p lease type staff name in notes)? SHAN Progress Notes * Edna LINTONDOB: 3 (69 yo F)Acc No.[id number]:10/07/2024 Xolair Only Patient: Edna JETER Provider: Nacho Aguilera MD :1955 A ge:69 Y S ex:Female Date:10/07/2024 Address:[address] [place] [address] [facility] Pcp:Amado Culter Subjective: * Chief Complaints: * A topic asthma w/o mention of status asthmaticus or acute exacerbation follow-up, Xolair administration scheduled todayNeeds evaluation for pre-Xolair health questionaire to assess health status and medication review * HPI: * Introduction: The patient is here for scheduled immunotherapy with Xolair. Please see the attached specialty form regarding the specifics of the administration of this medication. As per our protocol, they must undergo a screening health questionnaire (medication changes, reaction(s) to last immunotherapy dose(s), current health status, ACT (if appropriate), self-injectable epinephrine on patient(?) and peak flow (if appropriate)). Also, the patient must wait in our office under direct observation of physician and staff for 2 hours after the first 3 doses, then 30 minutes after receiving this medication thereafter. Furthermore, every patient must have an epinephrine pen (self-injectable) with them at all times given boxed warning of Xolair. * ROS: A LLERGY: Positive p er the HPI and history, otherwise unremarkable.? S PECIAL SENSES: Positve for p er the HPI and history, otherwise unremarkable. C ONSTITUTIONAL: Positive for p er the HPI and history, otherwise unremakable. E NT: Positive p er the HPI and history, otherwise unremarkable.? R ESPIRATORY: Positive for p er the HPI and history, otherwise unremarkable. O PHTHALMOLOGY: Positive for p er the HPI and history, othewise unremarkable. E NDOCRINOLOGY: Positive for n one. C ARDIOLOGY: Positive for n one. G ASTROENTEROLOGY: Positive for p er the HPI and history, otherwise unremarkable. U ROLOGY: Positive for n one. D ERMATOLOGY: Positive for p er the HPI and history, otherwise unremarkable. N EUROLOGY: Positive for n one. H EMATOLOGY/LYMPH: Positive for n one. M USCULOSKELETAL: Positive for n one. P SYCHOLOGY: Positive for n one. A ll other review of systems per the HPI and history, othwise unremarkable. * Medical History: * Surgical History: * Hospitalization/Major Diagno stic Procedure: * Medications: T akingMETOPROLOL SUCCINATE ER 100 mg tablet, extended release 1 tab(s) orally once a day LISINOPRIL 10 mg tablet 1 tab(s) orally once a day OXYCODONE 5 mg tablet 1 tab(s) orally every 6 hours BENTYL 10 mg/mL solution as directed intramuscularly every 6 hours COLESTIPOL 1 g tablet 2 tab(s) orally 2 times a day BACLOFEN 10 mg tablet 1 tab(s) orally 3 times a day ROSUVASTATIN 20 mg tablet 1 tab(s) orally once a day ZETIA 10 mg tablet 1 tab(s) orally once a day MIRTAZAPINE 45 mg tablet 1 tab(s) orally once a day (at bedtime) TRAZADONE 50mg 1 by mouth at bedtime , Notes to Pharmacist: 100 mgGABAPENTIN 600 mg tablet 1 tab(s) orally 3 times a day LASIX 20 mg tablet 1 tab(s) orally once a day PEPCID 40 mg tablet 1 tab(s) orally once a day (at bedtime) AZELASTINE HYDROCHLORIDE NASAL 137 mcg/inh spray 1 spray intranasally 2 times a day LORATADINE 10 mg tablet 1 tab(s) orally once a day EPINEPHRINE AUTO-INJECTOR 0.3 mg kit as directed intramuscularly once SINGULAIR 10 mg tablet 1 tab(s) orally once a day TRELEGY ELLIPTA 200 mcg-62.5 mcg-25 mcg/inh powder 1 puff(s) inhaled once a day ALBUTEROL (EQV-PROAIR HFA) 90 mcg/inh aerosol 2 puff(s) inhaled every 6 hours XOLAIR 150 mg powder for injection as directed subcutaneously every 4 weeks Colace 100 MG Capsule 1 capsule as needed Orally Once a day Ferrous Sulfate 325 (65 Fe) MG Tablet 1 tablet Orally Three times a Week Narcan 4 MG/0.1ML Liquid as directed Nasally TRAZODONE 150 mg tablet 1 by mouth at bedtime , Notes to Pharmacist: 100 mgPROTONIX 40 mg delayed release tablet 1 tab(s) orally once a day PLAQUENIL 200 mg tablet 1 tab(s) orally once a day Taking METOPROLOL SUCCINATE ER 100 mg tablet, extended release 1 tab(s) orally once a day Taking LISINOPRIL 10 mg tablet 1 tab(s) orally once a day Taking OXYCODONE 5 mg tablet 1 tab(s) orally every 6 hours Taking BENTYL 10 mg/mL solution as directed intramuscularly every 6 hours Taking COLESTIPOL 1 g tablet 2 tab(s) orally 2 times a day Taking BACLOFEN 10 mg tablet 1 tab(s) orally 3 times a day Taking ROSUVASTATIN 20 mg tablet 1 tab(s) orally once a day Taking ZETIA 10 mg tablet 1 tab(s) orally once a day Taking MIRTAZAPINE 45 mg tablet 1 tab(s) orally once a day (at bedtime) Taking TRAZADONE 50mg 1 by mouth at bedtime , Notes to Pharmacist: 100 mgTaking GABAPENTIN 600 mg tablet 1 tab(s) orally 3 times a day Taking LASIX 20 mg tablet 1 tab(s) orally once a day Taking PEPCID 40 mg tablet 1 tab(s) orally once a day (at bedtime) Taking AZELASTINE HYDROCHLORIDE NASAL 137 mcg/inh spray 1 spray intranasally 2 times a day Taking LORATADINE 10 mg tablet 1 tab(s) orally once a day Taking EPINEPHRINE AUTO-INJECTOR 0.3 mg kit as directed intramuscularly once Taking SINGULAIR 10 mg tablet 1 tab(s) orally once a day Taking TRELEGY ELLIPTA 200 mcg-62.5 mcg-25 mcg/inh powder 1 puff(s) inhaled once a day Taking ALBUTEROL (EQV-PROAIR HFA) 90 mcg/inh aerosol 2 puff(s) inhaled every 6 hours Taking XOLAIR 150 mg powder for injection as directed subcutaneously every 4 weeks Taking Colace 100 MG Capsule 1 capsule as needed Orally Once a day Taking Ferrous Sulfate 325 (65 Fe) MG Tablet 1 tablet Orally Three times a Week Taking Narcan 4 MG/0.1ML Liquid as directed Nasally Taking TRAZODONE 150 mg tablet 1 by mouth at bedtime , Notes to Pharmacist: 100 mgTaking PROTONIX 40 mg delayed release tablet 1 tab(s) orally once a day Taking PLAQUENIL 200 mg tablet 1 tab(s) orally once a day Not-Taking/PRNXOLAIR 150 mg powder for injection as directed subcutaneously every 4 weeks TRELEGY ELLIPTA 200 mcg-62.5 mcg-25 mcg/inh powder 1 puff(s) inhaled once a day , Notes to Pharmacist: 90 day maxMetoprolol Succinate ER 100 MG Tablet Extended Release 24 Hour 1 tab(s) orally once a day Lisinopril 10 MG Tablet 1 tab(s) orally once a day oxyCODONE HCl 5 MG Tablet 1 tab(s) orally every 6 hours Bentyl 10 MG/ML Solution as directed intramuscularly every 6 hours Colestipol HCl 1 GM Tablet 2 tab(s) orally 2 times a day Baclofen 10 MG Tablet 1 tab(s) orally 3 times a day Rosuvastatin Calcium 20 MG Tablet 1 tab(s) orally once a day Zetia 10 MG Tablet 1 tab(s) orally once a day Mirtazapine 45 MG Tablet 1 tab(s) orally once a day (at bedtime) Gabapentin 600 MG Tablet 1 tab(s) orally 3 times a day Lasix 20 MG Tablet 1 tab(s) orally once a day Pepcid 40 MG Tablet 1 tab(s) orally once a day (at bedtime) Azelastine HCl 137 MCG/SPRAY Solution 1 spray intranasally 2 times a day Loratadine 10 MG Tablet 1 tab(s) orally once a day Singulair 10 MG Tablet 1 tab(s) orally once a day Trelegy Ellipta 200 MCG-62.5 MCG-25 MCG/INH POWDER 1 PUFF(S) INHALED ONCE A DAY , Notes to Pharmacist: *Please review and pick correct strength-formulation from Medispan options. If intended option is not shown, discontinue and re-order from Quick Search*Xolair 150 MG Solution Reconstituted as directed subcutaneously every 4 weeks traZODone HCl 150 MG Tablet 1 by mouth at bedtime , Notes to Pharmacist: 100 mgProtonix 40 MG Tablet Delayed Release 1 tab(s) orally once a day Plaquenil 200 MG Tablet 1 tab(s) orally once a day Trelegy Ellipta 200 MCG-62.5 MCG-25 MCG/INH POWDER 1 PUFF(S) INHALED ONCE A DAY , Notes to Pharmacist: 90 day max *Please review and pick correct strength-formulation from [employer] options. If intended option is not shown, discontinue and re-order from Quick Search*Not-Taking/PRN XOLAIR 150 mg powder for injection as directed subcutaneously every 4 weeks Not-Taking/PRN TRELEGY ELLIPTA 200 mcg-62.5 mcg-25 mcg/inh powder 1 puff(s) inhaled once a day , Notes to Pharmacist: 90 day maxNot-Taking/PRN Metoprolol Succinate ER 100 MG Tablet Extended Release 24 Hour 1 tab(s) orally once a day Not-Taking/PRN Lisinopril 10 MG Tablet 1 tab(s) orally once a day Not-Taking/PRN oxyCODONE HCl 5 MG Tablet 1 tab(s) orally every 6 hours Not-Taking/PRN Bentyl 10 MG/ML Solution as directed intramuscularly every 6 hours Not-Taking/PRN Colestipol HCl 1 GM Tablet 2 tab(s) orally 2 times a day Not-Taking/PRN Baclofen 10 MG Tablet 1 tab(s) orally 3 times a day Not- Taking/PRN Rosuvastatin Calcium 20 MG Tablet 1 tab(s) orally once a day Not-Taking/PRN Zetia 10 MG Tablet 1 tab(s) orally once a day Not-Taking/PRN Mirtazapine 45 MG Tablet 1 tab(s) orally once a day (at bedtime) Not-Taking/PRN Gabapentin 600 MG Tablet 1 tab(s) orally 3 times a day Not-Taking/PRN Lasix 20 MG Tablet 1 tab(s) orally once a day Not-Taking/PRN Pepcid 40 MG Tablet 1 tab(s) orally once a day (at bedtime) Not-Taking/PRN Azelastine HCl 137 MCG/SPRAY Solution 1 spray intranasally 2 times a day Not-Taking/PRN Loratadine 10 MG Tablet 1 tab(s) orally once a day Not- Taking/PRN Singulair 10 MG Tablet 1 tab(s) orally once a day Not-Taking/PRN Trelegy Ellipta 200 MCG-62.5 MCG-25 MCG/INH POWDER 1 PUFF(S) INHALED ONCE A DAY , Notes to Pharmacist: *Please review and pick correct strength-formulation from [employer] options. If intended option is not shown, discontinue and re-order from Quick Search*Not-Taking/PRN Xolair 150 MG Solution Reconstituted as directed subcutaneously every 4 weeks Not-Taking/PRN traZODone HCl 150 MG Tablet 1 by mouth at bedtime , Notes to Pharmacist: 100 mgNot-Taking/PRN Protonix 40 MG Tablet Delayed Release 1 tab(s) orally once a day Not-Taking/PRN Plaquenil 200 MG Tablet 1 tab(s) orally once a day Not-Taking/PRN Trelegy Ellipta 200 MCG-62.5 MCG-25 MCG/INH POWDER 1 PUFF(S) INHALED ONCE A DAY , Notes to Pharmacist: 90 day max *Please review and pick correct strength-formulation from [employer] options. If intended option is not shown, discontinue and re-order from Quick Search* Objective: * Vitals: B P:102/60mm Hg, HR:71/min, Pulse Oximetry:97%, ACT:18, Ht: 59.5 in. Assessment: * Assessment: 1. S evere persistent asthma, uncomplicated - J45.50 (Primary) Plan: * Treatment: * Procedures: X OLAIR (omalizumab) Administration: Dosing Time / Vitals Angie Mcknight 10/07/2024 10:42:59 AM [employer] >, Time of administration, See initial vitals. Dosage 3 00 mg (60 units). Location [facility], [place]. Reaction N one. Frequency q 4 weeks. AIE (epinephrine) on patient? y es. Lot Number / Expiration L ot Number(s): [id number] , , Expiration Date: 08/2025. Post-procedural check-out: Angie Mcknight 10/07/2024 11:18:49 AM [employer] >, Vital signs taken 30 minutes after dosing administration: BP: 105/57 HR: 71 SPO2: 95. Medication Source X OLAIR Source F ree Drug S ource Verification: W gisell pulled drug (please type staff name in notes)? SHAN * Procedure Codes: 9 6372 THER/PROPH/DIAG INJ, SC/IM, Units: 2.00 , Modifiers: 76 24160 PT-FOCUSED HLTH RISK ASSMT * Preventive Medicine: R bartolo boxed warning on prescribed medication: Xolair: anaphylaxis, CV disease, malignancy. After discussing risks/benefits/alternatives, patient has agreed to start/continue Xolair therapy. No new symptoms of cardiac disease, malignancy and no symptoms of anaphylaxis. * Follow Up: A s scheduled for Xolair * Billing Information: * Visit Code: * Procedure Codes: 69855 THER/PROPH/DIAG INJ, SC/IM. Units: 2.00. Modifiers: 76 17479 PT-FOCUSED HLTH RISK ASSMT. * [employer] Electronically co-signed by James Aguilera MD, [facility] on 10/31/2024 at 08:15 PM [employer] Sign off status: Completed true * Provider: Nacho Aguilera MD Date: 0 10/07/2024 Generated for Printi terrance/Anderz/eTransmitting on: 0 01/12/2025 01:57 PM CDT History and Physical Notes * HPI (History of Present Illness) Category Sub-Category Detail Notes Category Not es *Introduction The patient is here for scheduled immunotherapy with Xolair. Please see the attached specialty form regarding the specifics of the administration of this medication. As per our protocol, they must undergo a screening health questionnaire (medication changes, reaction(s) to last immunotherapy dose(s), current health status, ACT (if appropriate), self-injectable epinephrine on patient(?) and peak flow (if appropriate)). Also, the patient must wait in our office under direct observation of physician and staff for 2 hours after the first 3 doses, then 30 minutes after receiving this medication thereafter. Furthermore, every patient must have an epinephrine pen (self-injectable) with them at all times given boxed warning of Xolair.
--- OUTSIDE RECORDS SUMMARY | 2025-01-12 13:58 | XMS_ITS | Encounter Summary ---
Author Organization [facility] Address [address] [place] [address] Care Team Providers Care Linseed Oil Order Filler Name Role Phone Rishi Miller MD Unavailable Nicolette Nunez MD Unavailable Amado Cutler MD Primary Care Provider [phone] Encounter Details Date Type Department Care Team (Late st Contact Info) Description 05/23/2022 [employer] Message Enc [facility] - [address] [place], [place] [id number] [employer] [place] Provider xray result Social History Tobacco Use Types Packs/Day Years [...] Sex Assigned at Female 11/19/2024 1:20 PM [employer]INDING [employer] Legal Sex Female 9:43 PM CDT Gender Identity Female 11/19/2024 1:20 PM [employer] Sexual Orientation Not on file 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 No / Unsure 05/20/2022 12:39 PM CDT documented as of this encounter Plan of Treatment Upcoming Encounters Date Type Department Care Team (Late st Contact Info) Description 02/28/2025 2:20 PM CDT Office Visit [facility] - [place] [address] [address] [place] [address] Amado Cutler MD [address] [facility] [address] [place] [address] 06/07/2025 1:45 PM CDT Office Visit [facility] [address] [place], [place] [phone] Rishi Miller MD [address] [place], [place] [id number] documented as of this encounter Visit Diagnoses Not on filedocumented in this encounter Additional Health Concerns Infection Onset Date Last Indicated Resolved Time Respiratory Rule-Out 01/07/2025 01/07/2025 025 11:20 AM CDT documented as of this encounter Care Teams Linseed Oil Order Filler Relationship Specialty Start Date End Date Amado Cutler MD [address] [address] PCP - General INTERNAL MEDICINE 05/20/22 Rishi Miller MD [address] [place], [place] [address] [place] [employer] CARDIOVASCULAR DISEASE 02/21/16 Nicolette Nunez MD [address] [place], [place] [phone] [employer] Social Science Teacher CARDIOVASCULAR DISEASE 01/21/17 documented as of this encounter
== END 2025-01-12 12:15 | disposition home or self-care (01) ==
LOC: ANHIMG 12:15
PROVIDERS: PCP Internal Medicine; Visit Provider Internal Medicine
DX: Z78.0 Asymptomatic menopausal state (principal); M85.852 Other specified disorders of bone density and structure, left thigh; M85.851 Other specified disorders of bone density and structure, right thigh
CPT/HCPCS: 77080

== ENCOUNTER 2025-03-08 14:59 | Outpatient (CLI) | payer MEDICARE, SELFPAY ==
--- NOTE | ~2025-03-08 | MM_ITS ---
EXAMINATION: MM screening edgar BI w angelo HISTORY: Screening TECHNIQUE: Craniocaudal and mediolateral oblique 3-D tomosynthesis images were obtained and synthetic 2-D images were generated. CAD analysis was submitted and interpreted. COMPARISON: Comparison to multiple prior studies sequentially, with oldest reviewed study dated 11/12. BREAST PARENCHYMAL COMPOSITION: Dense: The breasts are heterogeneously dense, which may obscure small masses FINDINGS: There is no evidence of suspicious mass, calcification, or architectural distortion to sugg est malignancy in either breast. There has been no suspicious interval change. IMPRESSION: 1. No mammographic evidence of malignancy. 2. Recommend routine screening mammography in one year. BI-RADS Category 1: Negative Reviewed, dictated and finalized at location A.
--- OUTSIDE RECORDS SUMMARY | 2025-03-08 16:00 | XMS_ITS ---
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 Name Role Phone Amado Cutler Primary Care Provider Sandra Mallory Unavailable [phone] James Aguilera [phone] REASON FOR VISIT XOLAIR Only Encounters Encounter Location Date Provider Diagnosis [facility] [address] [place] [address] 09/30/2024 James Aguilera Plan Of Treatment No Information Progress Notes * Edna ROSSDOB: [birth year] (70 yo F)Acc No.[id number]:09/30/2024 Xolair Only Patient: Edna JETER Provider: Nacho Aguilera MD :1955 A ge:69 Y S ex:Female Date:09/30/2024 [facility] [address] [facility] Pcp:Amado Cutler Subjective: * Chief Complaints: * 1 . XOLAIR Only. * Medical History: Objective: * Vitals: Assessment: Plan: * Treatment: * Billing Information: * Visit Code: * Procedure Codes: * Electronic signature of Renae Aguilera MD, FAAAAI on 03/08/2025 at 04:00 PM CDT Sign off status: Pending * Provider: Nacho Aguilera MD Date: 0 09/30/2024 Generated for Sage carlos/Andrez/Curly on: 0 03/08/2025 04:00 PM ALT
--- OUTSIDE RECORDS SUMMARY | 2025-03-08 16:01 | XMS_ITS | Patient Health Record ---
Author Organization [facility] Address [address] [place] [address] Care Team Providers Care Inspector [employer] Name Role Phone Wilbert Mccracken MD Unavailable Unavailable Daniela Bojorquez Unavailable [phone] Jordy Alvarez Unavailable [phone] Kymberly Tsang PA-C Unavailable Johanny Snyder Unavailable [phone] Owen Bojorquez Unavailable [phone] Allergies Allergen (clinical drug ingredient) Drug/Non Drug [...] e Results Component Value Reference Range Notes [facility] Profil e Reviewed date:02/17/2025 02:45:20 PM Interpretation: Performing Lab:[facility] (CLIA#: [id number]), [address] [place] [address], Director - Nola Zaldivar Notes/Report: Analyzed at [facility] (CLIA#: [id number]) - [address] [place] [address] - Grocery Clerk Selling: Nola Grady Certifying Access Service Representative: Aristides Plaza (Remote [id number]) These tests were developed and their performance characteristics determined by [facility]. They have not been cleared or approved by the [place] Food and Drug Administration. Baclofen Ur CMP 09193 >=500 ng/mL COMPLIANT: T est result is consistent and expected with prescribed drug. Gabapentin Ur CMP >500 >=5 mcg/mL COMPLIANT: Test result is consistent and expected with prescribed drug. Hydroxyzine Ur CMP <2 >=2 ng/mL PRN - NOT PRESENT: Test result is consistent and expected with prescribed drug. Oxycodone Ur CMP >4610 >=100 ng/mL COMPLIANT: Test result is consistent and expected with prescribed drug. Sertraline Ur CMP 565 >=50 ng/mL COMPLIANT: Test result is consistent and expected with prescribed drug. Trazodone Ur CMP 634 >=100 ng/mL COMPLIANT: Test result is consistent [...] >=100 >=100 ng/mL POSITIVE Oxymorphone Ur Cfm-mCnc 792 >=100 ng/mL POSI TIVE Noroxycodone Ur Cfm-mCnc >3000 >=100 ng/mL POS ITIVE Oxycodone Ur Cfm-mCnc 818 >=100 ng/mL POSITI VE Pregabalin(Lyrica) Ur Ql Cfm <5 >=5 mcg/mL NONE DETECTED Tramadol Ur Ql Cfm <100 >=100 ng/mL NONE DETE CTED Creat Ur-mCnc 166.8 20 - 370 mg/dL NORMAL Creatinine and pH are performed for specimen validity and not diagnostic purposes. pH Ur 6.38 4.5 - 9.0 NORMAL Creatinine and pH are performed for specimen validity and not diagnostic purposes. Alcohol Metabolites Ur Ql Cfm <200 >=200 ng/mL NONE DETECTED Ethyl sulfate Ur Cfm-mCnc <200 >=200 ng/mL NO NE DETECTED Baclofen Ur Ql Cfm >=500 >=500 ng/mL POSITIVE Baclofen Ur-mCnc 58275 >=500 ng/mL POSITIVE Hydroxyzine Ur Ql Cfm <2 >=2 ng/mL NONE D ETECTED SSRI Profile Ur Ql Cfm >=50 >=50 ng/mL POSIT JEFF Sertraline Ur-mCnc 284 >=50 ng/mL POSITIVE Norsertraline Ur-mCnc 281 >=50 ng/mL POSITI VE Trazodone Ur Ql >=100 >=100 ng/mL POSITIVE m-CPP Ur Cfm-mCnc 513 >=100 ng/mL POSITIVE Trazodone Ur-mCnc 121 >=100 ng/mL POSITIVE Synthetic Stimulants Ur Ql Cfm <1 >=1 ng/mL NONE DETECTED COATINGS INSPECTOR Not Otherwise Specified Ur Ql Cfm <1 >=1 ng/mL NONE DETECTED Synthetic Cannabinoids Ur Ql Cfm <1 >=1 ng/m L NONE DETECTED Hallucinogens/Dissociatives Ur Ql Cfm <1 >=1 ng/mL NONE DETECTED Head Stock Transfer Clerk Benzodiazepines Ur Ql Cfm <1 >=1 ng/mL NONE DETECTED Head Stock Transfer Clerk Opioids Ur Ql Cfm <1 >=1 ng/mL N ONE DETECTED THC Ur Ql Scn <20 >=20 ng/mL NONE DETECTED X ray : Shoulder, left Reviewed date:05/03/2024 12:17:27 PM Interpretation: Performing Lab: Notes/Report: [employer] Profil e Reviewed date:07/17/2024 06:21:39 PM Interpretation: Performing Lab:[facility] (CLIA#: [id number]), [address] [place] [address], Director - Nola Zaldivar Notes/Report: Analyzed at [facility] (CLIA#: [id number]) - [address] [place] [address] - Grocery Clerk Selling: Nola Grady These tests were developed and their performance characteristics determined by [facility]. They have not been cleared or approved by the [place] Food and Drug Administration. Certifying Access Service Representative: Ajith Serna (Remote [phone]) Gabapentin Ur CMP >500 >=5 mcg/mL COMPLIANT: Test result is consistent and expected with prescribed drug. Baclofen Ur CMP 75116 >=500 ng/mL COMPLIANT: T est result is [...] Cfm >=500 >=500 ng/mL POSITIVE Baclofen Ur-mCnc 05287 >=500 ng/mL POSITIVE Trazodone Ur Ql >=100 >=100 ng/mL POSITIVE m-CPP Ur Cfm-mCnc 355 >=100 ng/mL POSITIVE Trazodone Ur-mCnc 446 >=100 ng/mL POSITIVE Synthetic Stimulants Ur Ql Cfm <1 >=1 ng/mL NONE DETECTED COATINGS INSPECTOR Not Otherwise Specified Ur Ql Cfm <1 >=1 ng/mL NONE DETECTED Synthetic Cannabinoids Ur Ql Cfm <1 >=1 ng/m L NONE DETECTED Hallucinogens/Dissociatives Ur Ql Cfm <1 >=1 ng/mL NONE DETECTED Head Stock Transfer Clerk Benzodiazepines Ur Ql Cfm <1 >=1 ng/mL NONE DETECTED Head Stock Transfer Clerk Opioids Ur Ql Cfm <1 >=1 ng/mL N ONE DETECTED THC Ur Ql Scn <20 >=20 ng/mL NONE DETECTED X ray : Thoracic spine 2 vie Reviewed date:08/11/2024 02:44:03 PM Interpretation: Performing Lab: Notes/Report: X ray : Spines, cervical 4 v iews Reviewed date:08/11/2024 02:45:01 PM Interpretation: Performing Lab: Notes/Report: X ray : Spines, lumbar 4 vie Reviewed date:08/11/2024 02:44:20 PM Interpretation: Performing Lab: Notes/Report: Reason For Referral No Information Medications Medication SIG (Take, Route, Frequency, Duration) Notes Start Date End Date Status Montelukast Sodium 10 MG Oral for 100 Days Active Trelegy Ellipta 200-62.5-25 MCG/ACT Inhalation for 90 Days Active Hydroxychloroquine Sulfate 200 MG Oral for 100 Days Active Sodium Fluoride 5000 PPM 1.1 % Dental for 24 Days Active Metoprolol Succinate 100 MG 1 capsule Or ally Once a day for 30 day(s) 05/03/2024 Active Narcan 4 MG/0.1ML as directed Nasally for 1 days 08/11/2024 Active Sertraline HCl 50 MG Oral for 90 Days Active oxyCODONE HCl 5 MG 1 tablet Oral every 6 hrs for 30 days Do not fill 02/23/25 02/15/2025 Active Baclofen 10 MG 1 tablet as needed Oral three times a day for 30 days Active hydrOXYzine HCl 10 MG 1 tablet as needed Orally Once a day for 30 day(s) 02/15/2025 Active Pantoprazole Sodium 40 MG Oral for 100 Days Active Rosuvastatin Calcium 20 MG Oral for 100 Days Active Ezetimibe 10 MG Oral for 100 Days Active Azelastine HCl 137 MCG/SPRAY Nasal for 100 Days Active Albuterol Sulfate HFA 108 (90 Base) MCG/ACT Inhalation for 100 Days Active Furosemide 40 MG Oral for 100 Days Active Imiquimod 5 % External for 56 Days Active Gabapentin 600 MG Oral for 100 Days Active traZODone HCl 150 MG Oral for 90 Days Active Lisinopril 20 MG Oral for 100 Days Active Problems Problem Type SNOMED Code ICD Code Onset Dates Problem Status W/U Status Risk Notes Problem Solitary sacroiliitis (090210422) Sacroiliitis, not elsewhere classified (M46.1) Active confirmed Problem 194887488 Spondylosis without myelopathy or radiculopathy, lumbar region (M47.816) Active confirmed Problem Cervicalgia (08849571) Cervicalgia (M54.2) Active confirmed Problem Long-term current use of drug therapy (514616291) 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) Active confirmed Problem Cervical spondylosis (405520391) Cervical spondylosis (M47.812) Active confirmed Problem 626225340 Lumbar spondylosis (M47.816) Active confirmed Problem 239979298 Thoracic spondylosis (M47.814) Active confirmed Problem 074677649453906 Primary osteoarthritis of left hip (M16.12) Active confirmed Problem Lumbar pain (062577699) Lumbar pain (M54.50) Active confirmed Problem 12892368 Sacroiliitis (M46.1) Active confirmed Problem Cervical radiculopathy (59570700) Cervical radiculopathy (M54.12) Active confirmed Problem Post-laminectomy syndrome (21344624) Post laminectomy syndrome (M96.1) Active confirmed Problem Hypertension (67041218) Hypertension (I10) 12/22/19 Active confirmed Problem 823205506 Sacroiliac joint dysfunction of right side (M53.3) Active confirmed Problem Left shoulder pain (7994120810) Left shoulder pain (M25.512) Active confirmed Problem COPD - Chronic obstructive pulmonary disease (40414507) COPD (chronic obstructive pulmonary disease) (J44.9) Active confirmed Problem Somatic dysfunction of bilateral sacroiliac joints (finding) (29135386565203069 ) Sacroiliac joint dysfunction of both sides (M53.3) Active confirmed Vital Signs Heart Rate 63 /min 02/15/2025 Height-cm 149.86 cm 02/15/2025 Blood pressure diastolic 75 mm Hg 02/15/2025 Weight-kg 84.82 kg 02/15/2025 Height 4ft 11in in 02/15/2025 Blood pressure systolic 149 mm Hg 02/15/2025 Weight 187 lbs 02/15/2025 BMI 37.77 kg/m2 02/15/2025 Encounters Encounter Location Date Provider Diagnosis [facility] [address] [place] [phone] 04/05/2024 Johanny Snyder [facility] [address] [place] [address] 02/15/2025 Johanny Snyder Sacroiliitis, not elsewhere classified M46.1 ; Lumbar pain M54.50 ; Left shoulder pain M25.512 ; Post laminectomy syndrome M96.1 ; 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 Z79.899 ; Spondylosis without myelopathy or radiculopathy, lumbar region M47.816 ; Thoracic spondylosis M47.814 ; Lumbar spondylosis M47.816 ; Cervicalgia M54.2 ; Cervical spondylosis M47.812 ; Cervical radiculopathy M54.12 ; COPD (chronic obstructive pulmonary disease) J44.9 ; Hypertension I10 ; Sacroiliac joint dysfunction of right side M53.3 ; Sacroiliac joint dysfunction of both sides M53.3 ; Sacroiliitis M46.1 and Primary osteoarthritis of left hip M16.12 [facility] [address] [place] [address] [address] [place] [address] 05/03/2024 Johanny Snyder Left shoulder pain M25.512 ; Sacroiliitis, not elsewhere classified M46.1 ; 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 Z79.891 and Lumbar pain M54.50 [facility] [address] [place] [phone] 06/02/2024 Kymberly Marstall Sacroiliitis, not elsewhere classified M46.1 ; Post laminectomy syndrome M96.1 ; Lumbar pain M54.50 ; Left shoulder pain M25.512 and 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 Z79.899 [facility] [address] [place] [address] [address] [place] [address] 06/30/2024 Kymberly Marstall Sacroiliitis, not elsewhere classified M46.1 ; Lumbar pain M54.50 ; Left shoulder pain M25.512 ; Post laminectomy syndrome M96.1 and 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 Z79.899 [facility] [address] [place] [address] [address] [place] [address] 07/07/2024 Jordy Alvarez Thoracic spondylosis M47.814 ; Thoracic spine pain M54.6 ; Lumbar spondylosis M47.816 and Lumbar pain M54.50 [facility] [address] [place] [address] [address] [place] [address] 07/14/2024 Jordy Alvarez Sacroiliitis, not elsewhere classified M46.1 [facility] [address] [place] [address] [address] [place] [address] 08/11/2024 Kymberly Marstall Post laminectomy syndrome M96.1 ; Cervicalgia M54.2 ; Sacroiliitis, not elsewhere classified M46.1 ; Lumbar pain M54.50 ; Left shoulder pain M25.512 ; 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 Z79.899 ; Spondylosis without myelopathy or radiculopathy, lumbar region M47.816 ; Thoracic spondylosis M47.814 ; Lumbar spondylosis M47.816 ; Cervical spondylosis M47.812 and Screening for substance abuse Z13.89 [facility] [address] [place] [address] [address] [place] [address] 09/09/2024 Daniela Bojorquez Cervical radiculopathy M54.12 [facility] [address] [place] [address] [address] [place] [address] 10/06/2024 Jordy Alvarez Sacroiliac joint dysfunction of right side M53.3 and Sacroiliitis M46.1 [facility] [address] [place] [address] [address] [place] [address] 11/17/2024 Johanny Snyder Lumbar pain M54.50 ; Sacroiliac joint dysfunction of right side M53.3 ; Post laminectomy syndrome M96.1 ; 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 Z79.899 ; Spondylosis without myelopathy or radiculopathy, lumbar region M47.816 and Lumbar spondylosis M47.816 [facility] [address] [place] [address] [address] [place] [address] 12/08/2024 Johanny Snyder Sacroiliitis, not elsewhere classified M46.1 ; Lumbar pain M54.50 ; Left shoulder pain M25.512 ; Post laminectomy syndrome M96.1 ; 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 Z79.899 ; Spondylosis without myelopathy or radiculopathy, lumbar region M47.816 and Hypertension I10 [facility] [address] [place] [address] [address] [place] [address] 01/05/2025 Jordy Alvarez Sacroiliitis, not elsewhere classified M46.1 ; Lumbar pain M54.50 ; Left shoulder pain M25.512 ; Post laminectomy syndrome M96.1 ; 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 Z79.899 ; Spondylosis without myelopathy or radiculopathy, lumbar region M47.816 ; Thoracic spondylosis M47.814 ; Lumbar spondylosis M47.816 ; Cervicalgia M54.2 ; Cervical spondylosis M47.812 ; Cervical radiculopathy M54.12 ; COPD (chronic obstructive pulmonary disease) J44.9 ; Hypertension I10 ; Sacroiliac joint dysfunction of right side M53.3 ; Sacroiliac joint dysfunction of both sides M53.3 and Sacroiliitis M46.1 [facility] [address] [place] [address] [address] [place] [address] 01/19/2025 Jordy Alvarez Sacroiliitis, not elsewhere classified M46.1 ; Primary osteoarthritis of left hip M16.12 ; Lumbar pain M54.50 ; Left shoulder pain M25.512 ; Post laminectomy syndrome M96.1 ; 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 Z79.899 ; Spondylosis without myelopathy or radiculopathy, lumbar region M47.816 ; Thoracic spondylosis M47.814 ; Lumbar spondylosis M47.816 ; Cervicalgia M54.2 ; Cervical spondylosis M47.812 ; Cervical radiculopathy M54.12 ; COPD (chronic obstructive pulmonary disease) J44.9 and Hypertension I10 [facility] [address] [place] [address] 05/03/2024 Daniela Bojorquez [facility] [address] [place] [address] 06/02/2024 Jordy Alvarez [facility] [address] [place] [address] 06/30/2024 Jordy Alvarez [facility] [address] [place] [address] 08/11/2024 Jordy Alvarez [facility] [address] [place] [address] 08/30/2024 Kymberly Tsang [facility] [address] [place] [address] 09/09/2024 Daniela Bojorquez [facility] [address] [place] [address] 10/06/2024 Jordy Alvarez [facility] [address] [place] [address] 11/17/2024 Jordy Alvarez [facility] [address] [place] [address] 12/08/2024 Owen Bojorquez [facility] [address] [place] [address] 01/19/2025 Jordy Alvarez Sacroiliitis, not elsewhere classified M46.1 [facility] [address] [place] [address] 02/15/2025 Daniela Bojorquez Assessments Encounter Date Diagnosis (ICD Code) [...] - M54.6) After discussing the benefit and risk/complicatio n including but not limited bleeding, infection, nerve [...] infection, tumor, fracture) and patient has no contraindication s for the procedure. -Patient had 2 sets of diagnostic (with local anesthetic only) median branch nerve blocks that provided 80% of pain relief for the durations of the agent used. -Patient will continue with active rehabilitation program, home exercise program, or functional denominational program. -Policy guidelines regarding number and frequency [...] - M46.1) After discussing the benefit and risk/complicatio n including but not limited bleeding, infection, nerve [...] infection, tumor, fracture) and patient has no contraindication s for the procedure. -Patient will continue with active rehabilitation program, home exercise program, or functional denominational program. -Policy guidelines regarding number and frequency [...] - M47.814) After discussing the benefit and risk/complicatio n including but not limited bleeding, infection, nerve [...] infection, tumor, fracture) and patient has no contraindication s for the procedure. -Patient had 2 sets of diagnostic (with local anesthetic only) median branch nerve blocks that provided 80% of pain relief for the durations of the agent used. -Patient will continue with active rehabilitation program, home exercise program, or functional denominational program. -Policy guidelines regarding number and frequency [...] for renewal CT w/o contrast faxed to [facility]. r/u with Dr Bojorquez to discuss CT [...] L4. no tumor, mass or fracture. 11/17/2024 Lumbar pain (ICD-10 - M54.50) 11/17/2024 Sacroiliac joint dysfunction of right side [...] Sacroiliitis, not elsewhere classified (ICD-10 - M46.1) Refill for controlled substance sent to supervising physician to be filled Refill of Baclofen sent to pharmacy Can repeat SIJ injection anytime after 01/04/25 Continue home stretching and at home exercise program as tolerated Follow-up in one month for med check, sooner if needed 12/08/2024 Lumbar pain (ICD-10 - M54.50) 01/05/2025 Sacroiliitis, not elsewhere classified (ICD-10 - M46.1) After discussing the benefit and risk/complicatio n including but not limited bleeding, infection, nerve [...] infection, tumor, fracture) and patient has no contraindication s for the procedure. -Patient will continue with active rehabilitation program, home exercise program, or functional denominational program. -Policy guidelines regarding number and frequency [...] as to minimize escalations of opiate medications. 01/19/2025 Sacroiliitis, not elsewhere classified (ICD-10 - M46.1) After discussing the benefit and risk/complicatio n including but not limited bleeding, infection, nerve damage, allergic reaction, spinal fluid leak, paralysis, and of left hip intra-articular steroid injection under fluoroscopic guidance were discussed with the patient who verbalized understanding and agrees to proceed today , the procedure was performed without any events, patient tolerated the procedure . Patient will be followed as scheduled. medication refilled without change 01/19/2025 Primary osteoarthritis of left hip (ICD-10 - M16.12) After discussing the benefit and risk/complicatio n including but not limited bleeding, infection, nerve damage, allergic reaction, spinal fluid leak, paralysis, and of left hip intra-articular steroid injection under fluoroscopic guidance were discussed with the patient who verbalized understanding and agrees to proceed today , the procedure was performed without any events, patient tolerated the procedure . Patient will be followed as scheduled. medication refilled without change 01/19/2025 Sacroiliitis, not elsewhere classified (ICD-10 - M46.1) 02/15/2025 Sacroiliitis, not elsewhere classified (ICD-10 - M46.1) 02/15/2025 Lumbar pain (ICD-10 - M54.50) 01/19/2025 Lumbar pain (ICD-10 - M54.50) After discussing the benefit and risk/complicatio n including but not limited bleeding, infection, nerve damage, allergic reaction, spinal fluid leak, paralysis, and of left hip intra-articular steroid injection under fluoroscopic guidance were discussed with the patient who verbalized understanding and agrees to proceed today , the procedure was performed without any events, patient tolerated the procedure . Patient will be followed as scheduled. medication refilled without change 01/05/2025 Lumbar pain (ICD-10 - M54.50) After discussing the benefit and risk/complicatio n including but not limited bleeding, infection, nerve [...] infection, tumor, fracture) and patient has no contraindication s for the procedure. -Patient will continue with active rehabilitation program, home exercise program, or functional denominational program. -Policy guidelines regarding number and frequency [...] to minimize escalations of opiate medications. 12/08/2024 Left shoulder pain (ICD-10 - M25.512) 11/17/2024 Post laminectomy syndrome (ICD-10 - M96.1) 07/07/2024 Lumbar spondylosis (ICD-10 - M47.816) After discussing the benefit and risk/complicatio n including but not limited bleeding, infection, nerve [...] infection, tumor, fracture) and patient has no contraindication s for the procedure. -Patient had 2 sets of diagnostic (with local anesthetic only) median branch nerve blocks that provided 80% of pain relief for the durations of the agent used. -Patient will continue with active rehabilitation program, home exercise program, or functional denominational program. 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 -Patient had 2 sets of diagnostic (with local anesthetic only) median branch nerve blocks that provided 80% of pain relief for the durations of the agent used. -Patient will continue with active rehabilitation program, home exercise program, or functional denominational program. -Policy guidelines regarding number and frequency [...] minimize escalations of opiate medications. 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 Patient will be followed as scheduled. medication refilled without change 01/05/2025 Left shoulder pain (ICD-10 - M25.512) After discussing the benefit and risk/complicatio n including but not limited bleeding, infection, nerve [...] infection, tumor, fracture) and patient has no contraindication s for the procedure. -Patient will continue with active rehabilitation program, home exercise program, or functional denominational program. -Policy guidelines regarding number and frequency [...] as to minimize escalations of opiate medications. 02/15/2025 Left shoulder pain (ICD-10 - M25.512) 02/15/2025 Post laminectomy syndrome (ICD-10 - M96.1) 01/05/2025 Post laminectomy syndrome (ICD-10 - M96.1) After discussing the benefit and risk/complicatio n including but not limited bleeding, infection, nerve [...] infection, tumor, fracture) and patient has no contraindication s for the procedure. -Patient will continue with active rehabilitation program, home exercise program, or functional denominational program. -Policy guidelines regarding number and frequency [...] as to minimize escalations of opiate medications. 01/19/2025 Post laminectomy syndrome (ICD-10 - M96.1) After discussing the benefit and risk/complicatio n including but not limited bleeding, infection, nerve damage, allergic reaction, spinal fluid leak, paralysis, and of left hip intra-articular steroid injection under fluoroscopic guidance were discussed with the patient who verbalized understanding and agrees to proceed today , the procedure was performed without any events, patient tolerated the procedure . Patient will be followed as scheduled. 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 -Patient will continue with active rehabilitation program, home exercise program, or functional denominational program. -Policy guidelines regarding number and frequency [...] as to minimize escalations of opiate medications. 01/19/2025 Other correction (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 (ICD-10 - Z79.899) After discussing the benefit and risk/complicatio n including but not limited bleeding, infection, nerve damage, allergic reaction, spinal fluid leak, paralysis, and of left hip intra-articular steroid injection under fluoroscopic guidance were discussed with the patient who verbalized understanding and agrees to proceed today , the procedure was performed without any events, patient tolerated the procedure . Patient will be followed as scheduled. medication refilled without change 02/15/2025 Other correction (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 (ICD-10 - Z79.899) 02/15/2025 Spondylosis without myelopathy or radiculopathy, lumbar region (ICD-10 - M47.816) 01/19/2025 Spondylosis without myelopathy or radiculopathy, lumbar region (ICD-10 - M47.816) After discussing the benefit and risk/complicatio n including but not limited bleeding, infection, nerve damage, allergic reaction, spinal fluid leak, paralysis, and of left hip intra-articular steroid injection under fluoroscopic guidance were discussed with the patient who verbalized understanding and agrees to proceed today , the procedure was performed without any events, patient tolerated the procedure . Patient will be followed as scheduled. medication refilled without change 01/05/2025 Spondylosis without myelopathy or radiculopathy, lumbar region (ICD-10 - M47.816) After discussing the benefit and risk/complicatio n including but not limited bleeding, infection, nerve [...] infection, tumor, fracture) and patient has no contraindication s for the procedure. -Patient will continue with active rehabilitation program, home exercise program, or functional denominational program. -Policy guidelines regarding number and frequency [...] to minimize escalations of opiate medications. 12/08/2024 Hypertension (ICD-10 - I10) 08/11/2024 Spondylosis without myelopathy or radiculopathy, lumbar region (ICD-10 - M47.816) 08/11/2024 Thoracic spondylosis (ICD-10 - M47.814) 01/05/2025 Thoracic spondylosis (ICD-10 - M47.814) After discussing the benefit and risk/complicatio n including but not limited bleeding, infection, nerve [...] infection, tumor, fracture) and patient has no contraindication s for the procedure. -Patient will continue with active rehabilitation program, home exercise program, or functional denominational program. -Policy guidelines regarding number and frequency [...] as to minimize escalations of opiate medications. 01/19/2025 Thoracic spondylosis (ICD-10 - M47.814) After discussing the benefit and risk/complicatio n including but not limited bleeding, infection, nerve damage, allergic reaction, spinal fluid leak, paralysis, and of left hip intra-articular steroid injection under fluoroscopic guidance were discussed with the patient who verbalized understanding and agrees to proceed today , the procedure was performed without any events, patient tolerated the procedure . Patient will be followed as scheduled. medication refilled without change 02/15/2025 Thoracic spondylosis (ICD-10 - M47.814) 02/15/2025 Lumbar spondylosis (ICD-10 - M47.816) 01/05/2025 Lumbar spondylosis (ICD-10 - M47.816) After discussing the benefit and risk/complicatio n including but not limited bleeding, infection, nerve [...] infection, tumor, fracture) and patient has no contraindication s for the procedure. -Patient will continue with active rehabilitation program, home exercise program, or functional denominational program. -Policy guidelines regarding number and frequency [...] as to minimize escalations of opiate medications. 01/19/2025 Lumbar spondylosis (ICD-10 - M47.816) After discussing the benefit and risk/complicatio n including but not limited bleeding, infection, nerve damage, allergic reaction, spinal fluid leak, paralysis, and of left hip intra-articular steroid injection under fluoroscopic guidance were discussed with the patient who verbalized understanding and agrees to proceed today , the procedure was performed without any events, patient tolerated the procedure . Patient will be followed as scheduled. medication refilled without change 08/11/2024 Lumbar spondylosis (ICD-10 - M47.816) 08/11/2024 Cervical spondylosis (ICD-10 - M47.812) 01/19/2025 Cervicalgia (ICD-10 - M54.2) After discussing the benefit and risk/complicatio n including but not limited bleeding, infection, nerve damage, allergic reaction, spinal fluid leak, paralysis, and of left hip intra-articular steroid injection under fluoroscopic guidance were discussed with the patient who verbalized understanding and agrees to proceed today , the procedure was performed without any events, patient tolerated the procedure . Patient will be followed as scheduled. medication refilled without change 01/05/2025 Cervicalgia (ICD-10 - M54.2) After discussing the benefit and risk/complicatio n including but not limited bleeding, infection, nerve [...] infection, tumor, fracture) and patient has no contraindication s for the procedure. -Patient will continue with active rehabilitation program, home exercise program, or functional denominational program. -Policy guidelines regarding number and frequency [...] as to minimize escalations of opiate medications. 02/15/2025 Cervicalgia (ICD-10 - M54.2) 02/15/2025 Cervical spondylosis (ICD-10 - M47.812) 01/05/2025 Cervical spondylosis (ICD-10 - M47.812) After discussing the benefit and risk/complicatio n including but not limited bleeding, infection, nerve [...] infection, tumor, fracture) and patient has no contraindication s for the procedure. -Patient will continue with active rehabilitation program, home exercise program, or functional denominational program. -Policy guidelines regarding number and frequency [...] as to minimize escalations of opiate medications. 01/19/2025 Cervical spondylosis (ICD-10 - M47.812) After discussing the benefit and risk/complicatio n including but not limited bleeding, infection, nerve damage, allergic reaction, spinal fluid leak, paralysis, and of left hip intra-articular steroid injection under fluoroscopic guidance were discussed with the patient who verbalized understanding and agrees to proceed today , the procedure was performed without any events, patient tolerated the procedure . Patient will be followed as scheduled. medication refilled without change 08/11/2024 Screening for substance abuse (ICD-10 - Z13.89) 01/05/2025 Cervical radiculopathy (ICD-10 - M54.12) After discussing the benefit and risk/complicatio n including but not limited bleeding, infection, nerve [...] infection, tumor, fracture) and patient has no contraindication s for the procedure. -Patient will continue with active rehabilitation program, home exercise program, or functional denominational program. -Policy guidelines regarding number and frequency [...] as to minimize escalations of opiate medications. 01/19/2025 Cervical radiculopathy (ICD-10 - M54.12) After discussing the benefit and risk/complicatio n including but not limited bleeding, infection, nerve damage, allergic reaction, spinal fluid leak, paralysis, and of left hip intra-articular steroid injection under fluoroscopic guidance were discussed with the patient who verbalized understanding and agrees to proceed today , the procedure was performed without any events, patient tolerated the procedure . Patient will be followed as scheduled. medication refilled without change 02/15/2025 Cervical radiculopathy (ICD-10 - M54.12) 02/15/2025 COPD (chronic obstructive pulmonary disease) (ICD-10 - J44.9) 01/19/2025 COPD (chronic obstructive pulmonary disease) (ICD-10 - J44.9) After discussing the benefit and risk/complicatio n including but not limited bleeding, infection, nerve damage, allergic reaction, spinal fluid leak, paralysis, and of left hip intra-articular steroid injection under fluoroscopic guidance were discussed with the patient who verbalized understanding and agrees to proceed today , the procedure was performed without any events, patient tolerated the procedure . Patient will be followed as scheduled. medication refilled without change 01/05/2025 COPD (chronic obstructive pulmonary disease) (ICD-10 - J44.9) After discussing the benefit and risk/complicatio n including but not limited bleeding, infection, nerve [...] infection, tumor, fracture) and patient has no contraindication s for the procedure. -Patient will continue with active rehabilitation program, home exercise program, or functional denominational program. -Policy guidelines regarding number and frequency [...] - I10) After discussing the benefit and risk/complicatio n including but not limited bleeding, infection, nerve [...] infection, tumor, fracture) and patient has no contraindication s for the procedure. -Patient will continue with active rehabilitation program, home exercise program, or functional denominational program. -Policy guidelines regarding number and frequency [...] as to minimize escalations of opiate medications. 01/19/2025 Hypertension (ICD-10 - I10) After discussing the benefit and risk/complicatio n including but not limited bleeding, infection, nerve damage, allergic reaction, spinal fluid leak, paralysis, and of left hip intra-articular steroid injection under fluoroscopic guidance were discussed with the patient who verbalized understanding and agrees to proceed today , the procedure was performed without any events, patient tolerated the procedure . Patient will be followed as scheduled. medication refilled without change 02/15/2025 Hypertension (ICD-10 - I10) 02/15/2025 Sacroiliac joint dysfunction of right side (ICD-10 - M53.3) 01/05/2025 Sacroiliac joint dysfunction of right side (ICD-10 - M53.3) After discussing the benefit and risk/complicatio n including but not limited bleeding, infection, nerve [...] infection, tumor, fracture) and patient has no contraindication s for the procedure. -Patient will continue with active rehabilitation program, home exercise program, or functional denominational program. -Policy guidelines regarding number and frequency [...] - M53.3) After discussing the benefit and risk/complicatio n including but not limited bleeding, infection, nerve [...] infection, tumor, fracture) and patient has no contraindication s for the procedure. -Patient will continue with active rehabilitation program, home exercise program, or functional denominational program. -Policy guidelines regarding number and frequency [...] as to minimize escalations of opiate medications. 02/15/2025 Sacroiliac joint dysfunction of both sides (ICD-10 - M53.3) 02/15/2025 Sacroiliitis (ICD-10 - M46.1) 01/05/2025 Sacroiliitis (ICD-10 - M46.1) After discussing the benefit and risk/complicatio n including but not limited bleeding, infection, nerve [...] infection, tumor, fracture) and patient has no contraindication s for the procedure. -Patient will continue with active rehabilitation program, home exercise program, or functional denominational program. -Policy guidelines regarding number and frequency [...] as to minimize escalations of opiate medications. 02/15/2025 Primary osteoarthritis of left hip (ICD-10 - M16.12) 02/15/2025 Other High Blood Pressure: Care Instructions material was published, Body Mass Index: Care Instructions material was published 05/03/2024 Other Body Mass Index: Care Instructions [...] was published After discussing the benefit and risk/complicatio n including but not limited bleeding, infection, nerve [...] infection, tumor, fracture) and patient has no contraindication s for the procedure. -Patient had 2 sets of diagnostic (with local anesthetic only) median branch nerve blocks that provided 80% of pain relief for the durations of the agent used. -Patient will continue with active rehabilitation program, home exercise program, or functional denominational program. -Policy guidelines regarding number and frequency [...] was published After discussing the benefit and risk/complicatio n including but not limited bleeding, infection, nerve [...] infection, tumor, fracture) and patient has no contraindication s for the procedure. -Patient will continue with active rehabilitation program, home exercise program, or functional denominational program. -Policy guidelines regarding number and frequency [...] Mass Index: Care Instructions material was published 12/08/2024 Other Body Mass Index : Care Instructions material was published, High Blood Pressure: Care Instructions material was published 01/05/2025 Other Body Mass Index : Care Instructions material was published After discussing the benefit and risk/complicatio n including but not limited bleeding, infection, nerve [...] infection, tumor, fracture) and patient has no contraindication s for the procedure. -Patient will continue with active rehabilitation program, home exercise program, or functional denominational program. -Policy guidelines regarding number and frequency [...] as to minimize escalations of opiate medications. 01/19/2025 Other Learning About High Blood Pressure material was published, Body Mass Index: Care Instructions material was published, Learning About How to Have a Healthy Back material was published, Learning About High Blood Pressure material was published, Body Mass Index: Care Instructions material was published, Learning About How to Have a Healthy Back material was published After discussing the benefit and risk/complicatio n including but not limited bleeding, infection, nerve damage, allergic reaction, spinal fluid leak, paralysis, and of left hip intra-articular steroid injection under fluoroscopic guidance were discussed with the patient who verbalized understanding and agrees to proceed today , the procedure was performed without any events, patient tolerated the procedure . Patient will be followed as scheduled. medication refilled without change Plan Of Treatment Pending Test Test Name Order Date EtS (Alcohol Metabolite) - Urine 025 EtS (Alcohol Metabolite) - Urine 024 QMP Plus D/L - Urine 07/14/2024 QMP Plus D/L - Urine 02/15/2025 Synthetic Stimulants 07/14/2024 Synthetic Stimulants 02/15/2025 Head Stock Transfer Clerk Benzodiazepines 02/15/2025 Head Stock Transfer Clerk Benzodiazepines 07/14/2024 Synthetic Cannabinoids 07/14/2024 Synthetic Cannabinoids 02/15/2025 Head Stock Transfer Clerk Opioids 02/15/2025 Head Stock Transfer Clerk Opioids 07/14/2024 Hallucinogens/Dissociatives 02/15/2025 Hallucinogens/Dissociatives 07/14/2024 COATINGS INSPECTOR Other 07/14/2024 COATINGS INSPECTOR Other 02/15/2025 Marijuana - Urine 02/15/2025 Marijuana - Urine 07/14/2024 PainComp Medication Compliance - Urine 0 02/15/2025 PainComp Medication Compliance - Urine 1 [facility] Required Information 07/14/2024 [facility] Required Information 02/15/2025 Next Appt Details Provider Name:Johanny Nakia de león, 03/15/2025 11:00:00 AM, [address] [place] [address], [facility] [address], [place], [address], Insurance Providers Payer Name Payer Address Payer Phone Subscriber Number Group Number Insured Name Patient Relationship to Insured Coverage Start Date Coverage End Date [facility] [address] [place], [place] [id number] Edna Linton Self - patient is the insured 3 Medications Administered Medication Instructions Date of Administration Dosage Notes Cerv / Thor Interlaminar Epidural 09/09/2024 C7-T1 OZ Cerv / Thor Radiofreq Ablation 1st Level 07/07/2024 BILATERAL T11 ,12,L1 MBNB RFA Hip Inj Intra-articular 01/19/2025 L EFT HIP INJ Lumbar Radiofreq Ablation 1st Level 07/07/2024 Sacroiliac [...]
--- OUTSIDE RECORDS SUMMARY | 2025-03-08 16:01 | XMS_ITS ---
Author Organization [facility] Address [address] [place], [place] [address] Care Team Providers Care Slide Forming Machine Tender Name Role Phone Amado Cutler Primary Care Provider UnavailPadmini Helm Unavailable [phone] OLAYINKA GABRIEL MD Unavailable Unavailable Nola Barclay Unavailable [phone] ALLERGIES Allergen (clinical drug ingredient) Drug/Non Drug [...] Encounter Location Date Provider Diagnosis [facility] [address] [place], [place] [id number] 12/28/2024 Nola Barclay Sjogren's syndrome, with unspecified organ involvement M35.00 ASSESSMENTS Encounter Date Diagnosis Assessment Notes Treatment Notes Treatment Clinical Notes Section Notes 12/28/2024 Sjogren's syndrome, with unspecified organ involvement (ICD-10 - M35.00) Sjogren's disease-manag ing well with HCQ. Continue current therapy and eye exams.Seeing Pulm. No evidence for ILD. Following renal for anemia and CKD. On diuretics. Have labs to be done faxed over. Continue OTC remedies for dryness. Low back pain-seeing pain mgmt. On Narcotics. F/u scheduled PLAN OF TREATMENT Medication Medication Name Sig [...] Follow Up: 6 Months, Reason: Provider Name:Nola Morales , 11/22/2025 11:40:00 AM, [address] [facility], [address], [place], [place], [id number], Progress Notes * Examination Category Sub-Category Detail Notes Category Not es Rheumatology Thoracic Spine: kyphosis, scoliosis General Constitutional: No acute distress HEENT: PERRLA, Neck supple, Normal sclerae and [...] Exam Shoulders No swelling. No tenderness. NROM. Heberden's and Yury's nodes, but no active synovitis. Elbows No swelling. No tend erness. NROM. [...] Category Sub-Category Detail Notes Category Not es Rheumatology Joint pain Mrs. Linton returns today for follow up and treatment for Sjogren's. Doing about the same. No issues with HCQ and she is up to date with eye exam. Dryness manageable with OTC remedies. She tells me that her teeth are breaking. Following dentist regularly. Planning on implants. Seeing Renal and Pulm. She reports that there is no evidence for ILD. She remains on Gabapentin and Oxycodone per pain mgmt. Also, recevies SI injections. Did have RFN procedure. dry eyes dry mouth rash Back pain Family History of Rheumatic Disease labs positive UMBERTO with ti ter of:1:80 negative RF Physical Examination Category Sub-Category Detail Notes Section Note s MDHAQ Summary Function (0-10):: PATIENT DID NOT COMPLE TE Pain (0-10):: PATIENT DID NOT COMPLETE Patient Global Assessment of Disease Activity (0-10):: PATIENT DID NOT COMPLETE RAPID3 Score (0-30):: COULD NOT SCORE PATIENT DID NOT COMPLETE ALL CATEGORIES Physician Global Assessment of Disease Activity (0-10):: 2 Prognosis Good w/tx Erosive Damage No
--- OUTSIDE RECORDS SUMMARY | 2025-03-08 16:01 | XMS_ITS | Encounter Summary ---
Author Organization [facility] Address [address] [facility] [place] [address] Care Team Providers Care Biostatistics Manager Name Role Phone Mark García DO Primary Care Provider [phone] Encounter Details Date Type Department Care Team (Late st Contact Info) Description 01/23/2022 Lab Requisition [facility] [address] [place] [id number] Gideon Chaparro MD [address] [place] [address] Social History Tobacco Use Types [...] AM CDT) Case Report Dermatopathology Report Case: [id number] Authorizing Provider: Gideon Chaparro MD Collected: 01/22/2022 12:00 AM Ordering Location: [facility] Received: 01/23/2022 02:30 PM Pathologist: [...] by Wendy Hilton MD on 02/07/2022 at 1420 CDT at 1059 CDT Clinical History R/O Neoplasm vs. Hemangioma 2 2:20 PM CDT DERMATOPATHOLOGY LABORATORY Gross Description Specimen A: Received is one formalin filled container labeled with the patient's name and designated right max. The specimen consists of a shave biopsy measuring [id number]. There is an additional piece of tissue measuring [id number]. Jar 0. 2 2:20 PM CDT DERMATOPATHOLOGY [...] characteristic determined by the Dermatopathology Laboratory at [facility], directed by Dr. Elsy Thompson. These tests need not be, and therefore are not, approved by the [place] Food and Drug Administration. The tests are used for clinical purposes. Billing Codes Specimen Charges Stain Charges 97563 1 [id number] 1 2 2:20 PM CDT DERMATOPATHOLOGY LABORATORY Embedded Images 2 2:20 PM CDT DERMATOPATHOLOGY LABORATORY Pathology/Cytolog y TISSUE SPECIMEN FROM SKIN / Unknown 01/22/2022 01/23/2022 2:30 PM CDT us Gideon Chaparro MD LAB - PATHOLOGY/CYTOLOGY ORDERAB LES Edited Result - Final DERMATOPATHOLOGY LABORATORY [facility] - Department of Dermatology [facility] [address] [place] [address], [address] [phone] documented in this encounter Visit Diagnoses Not on filedocumented in this encounter Care Teams Biostatistics Manager Relationship Specialty Start Date End Date Mark García DO [address] [place] [address] PCP - General 01/23/22 documented as of this encounter
--- OUTSIDE RECORDS SUMMARY | 2025-03-08 16:01 | XMS_ITS | Referral Summary ---
Author Organization [facility] Address [address] [place] [address] Care Team Providers Care Retail Shift Supervisor Name Role Phone Amado Cutler MD Primary Care Provider Encounters Date Type Department Care Team Description 12/15/2024 10:00 AM CDT Office Visit [facility] Pulmonology [address] [place] [address] [address] [place] [address] Terri Salamanca NP Mild intermittent asthma without complication (Primary Dx); AMBIKA (obstructive sleep apnea); Sjogren's syndrome, with unspecified organ involvement; Gastroesophageal reflux disease with esophagitis without hemorrhage from Last 3 Months Allergies Active Allergy [...] (40 mg total) by mouth every morning 4 Active mirtazapine (REMERON) 45 mg tabletIndicati ons:Fibromyalg ia Take 1 tablet (45 mg total) by mouth nightly 7 Active colestipol (COLESTID) 1 gram tabletIndicati ons:Irritable Bowel Syndrome Take 1 tablet (1 g total) by mouth 3 (three) times a day as needed 1 gram AM Active gabapentin (NEURONTIN) 600 mg tabletIndicati ons:Fibromyalg ia Take 2 tablets (1,200 mg total) by mouth nightly 4 Active cholecalcifero l (VITAMIN D-3) 2,000 unit tabletIndicati ons:Prevention of Vitamin D Deficiency Take 1 tablet (2,000 Units total) by mouth every morning 7 Active dicyclomine (BENTYL) 10 mg capsuleIndicat ions:Irritable [...] mouth every 6 (six) hours. 30 tablet 9 Active aspirin-calciu m carbonate 81 mg-300 mg calcium(777 mg) tablet Take 81 mg by mouth. 9 Active cetirizine (ZyrTEC) 10 mg tablet Take 1 tablet (10 mg total) by mouth [address] (VOLTAREN) 75 mg EC tablet 2 (two) times a day 8 Active montelukast (SINGULAIR) 10 mg tablet 9 Active HYDROcodone-ac etaminophen (NORCO) 5-325 mg per tabletIndicati ons:Pain Take 2 tablets by mouth every 4 (four) hours as needed for pain 120 tablet 9 Active Additional Information Patient not taking.Reported on 12/15/2024 amitriptyline (ELAVIL) 10 mg tablet 9 Active tiZANidine (ZANAFLEX) 4 mg tablet TAKE 1/2 TO 1 TABLET THREE TIMES A DAY NEEDED 0 9 Active gabapentin (NEURONTIN) 400 mg capsule Take 1 capsule (400 mg total) by mouth 3 (three) times a day 90 capsule 11 0 Active Additional Information Patient not taking.Reported on 12/15/2024 baclofen (LIORESAL) 10 mg tablet Take 1 tablet (10 mg total) by mouth 3 (three) times a day as needed [address] (PROTONIX) 40 mg EC tablet Take 1 tablet (40 mg total) by mouth daily 3 Active calcium citrate (CALCITRATE) 950 mg (200 mg of elemental calcium) tablet daily Active Trelegy Ellipta 200-62.5-25 mcg inhaler daily 2 Active hydroxychloroq uine (PLAQUENIL) 200 mg tablet Take 1 tablet (200 mg total) by mouth 2 (two) times a day Active loratadine (CLARITIN) 10 mg tablet Take 1 tablet (10 mg total) by mouth daily Active omalizumab (Xolair) 150 mg injection as directed subcutaneously every 4 weeks 3 Active azelastine (ASTELIN) 137 mcg (0.1 %) nasal spray Administer 1 spray into affected nostril(s) 2 (two) times a day 4 Active furosemide (LASIX) 40 mg tablet 4 Active EPINEPHrine 0.15 mg/0.15 mL auto-injector Inject 0.15 mg into the muscle as instructed daily as needed Active fluoride, sodium, 1.1 % paste see administration instructions. 4 Active pyridoxine (VITAMIN B-6) 100 mg tablet Take 1 tablet (100 mg total) by mouth daily Active traZODone (DESYREL) 150 mg tablet 4 Active oxyCODONE (ROXICODONE) 5 mg immediate release tablet 4 Active rosuvastatin (CRESTOR) 20 mg tablet 4 Active lisinopriL (PRINIVIL,ZEST RIL) 10 mg tablet 5 Active hydroCHLOROthi azide (HYDRODIURIL) 25 mg tablet Take 1 tablet (25 mg total) by mouth sql ssrs developer before breakfast 5 Active metoprolol XL (TOPROL-XL) 100 mg 24 hr tablet 5 Active gabapentin (NEURONTIN) 300 mg capsule Take 1 capsule (300 mg total) by mouth 2 (two) times a day as needed Active sertraline (ZOLOFT) 50 mg tablet Take 1 tablet (50 mg total) by mouth daily 5 Active fluticasone propion-salmet Pablo (ADVAIR DISKUS) 500-50 [...] CHEST PAIN FOR UP TO 3 DOSES 5 Active Active Problems Problem Noted Date Diagnosed Date AMBIKA (obstructive sleep apnea) 01/28/2024 Assessment & Plan (12/15/2024 10:26 AM CDT): Patient continue to wear her CPAP at auto titrating range 5-15 cm water pressure while sleeping. Her DME is [facility]. Assessment & Plan (08/06/2024 11:22 AM STAPLER MACHINE): The patient will resume CPAP therapy when [...] 10/24/2023 Assessment & Plan (10/24/2023 9:56 AM STAPLER MACHINE): The patient was recently treated with 7 days of Levaquin for the otitis media and she still has symptoms in the left ear and bilateral fluid behind the TMs. I will give her 7 days of Omnicef. Sjogren's syndrome 10/24/2023 Assessment & Plan (12/15/2024 10:26 AM CDT): The patient continues with Plaquenil. Assessment & Plan (08/06/2024 11:22 AM STAPLER MACHINE): The patient continues with Plaquenil. I have ordered a PFT and a chest x-ray. The patient does complete this at [facility]. I did ask the patient to call [...] visit Assessment & Plan (10/24/2023 9:56 AM STAPLER MACHINE): She continues on Plaquenil. Chronic diarrhea of unknown origin 07/16/2021 Chronic low back pain 07/16/2021 Diabetes mellitus 07/16/2021 Dyslipidemia 07/16/2021 Encounter for screening mamm ogram for malignant neoplasm of breast 07/16/2021 Hx of migraines 07/16/2021 On ore crusher drug therapy 07/16/2021 Pulse irregularity 07/16/2021 Pure hypercholesterolemia 07/16/2021 PVC (premature ventricular contraction) 07/16/20 Vitamin D deficiency 07/16/2021 Bilateral carpal tunnel [...] shortness. Assessment & Plan (08/06/2024 11:21 AM STAPLER MACHINE): Patient will continue with Trelegy one inhalation [...] 77. Assessment & Plan (10/24/2023 9:56 AM STAPLER MACHINE): The patient follows with Dr. Aguilera. She [...] Up. Assessment & Plan (08/06/2024 11:21 AM STAPLER MACHINE): The patient continues to follow with Dr. [...] (09/18/2018): Added automatically from request for surgery [id number] Diverticulosis of intestine without bleeding 04/2018 Scoliosis of thoracolumbar spine 01/20/2018 Back pain 12/03/2017 History of esophageal stricture 10/17/2017 Palpitation 12/16/2016 Resolved Problems Problem Noted Date Diagnosed Date Resolved Date Snoring 10/24/2023 01/28/2024 Assessment & Plan (10/24/2023 9:55 AM STAPLER MACHINE): The patient has snoring and daytime hypersomnia [...] on file Legal Sex Female 7:47 PM STAPLER MACHINE Gender Identity Not on file Sexual Orientation Not on file Last Filed Vital Signs Vital Sign Reading Time Taken Comments Blood Pressure 97/52 12/15/2024 10:02 AM CDT Pulse 54 12/15/2024 10:02 AM CDT Temperature 36.4 C (97.5 F) 08/06/2024 10:50 AM STAPLER MACHINE Respiratory Rate 18 12/15/2024 10:02 AM CDT Oxygen Saturation 94% 12/15/2024 10:02 AM CDT Inhaled Oxygen Concentration - - Weight 82.1 kg (181 lb) 12/15/2024 10:02 AM CDT Height 149.9 cm (4' 11) 12/15/2024 10:02 AM CDT Body Mass Index 36.56 12/15/2024 10:02 AM CDT Plan of Treatment Not on file Medical Devices Implanted Type Area Oiling Machine Operator Device Identifier Shelf Expiration Date Model / Serial / Lot Acuity [employer] Inc [id number] - [id number] - [id number] Implanted:Qty: 1 on 10/08/2018 by Aaron Marie MD at [facility] Bone N/A: Spine Lumbar Acuity Surgical Inc 07/20/2023 [id number] / [id number] / Nuvasive deCarta Spine Tech [id number] Base Od5 Mm L20 Mm Variable Angle [place] Spinal Titanium Nonsterile - [id number] Implanted:Qty: 3 on 10/08/2018 by Aaron Marie MD at [facility] Screw N/A: Spine Lumbar Nuvasive Creative Spine Tech [id number] / / Core Link [id number] [place] 5.5mm 40mm Spine Pedicle Screw Bone 5500 Series - [id number] Implanted:Qty: 2 on 10/08/2018 by Aaron Marie MD at [facility] N/A: Spine Lumbar Core Link [id number] / / Core Link [id number] [place] 7.5mm 40mm Spine Pedicle Screw Bone 5500 Series - [id number] Implanted:Qty: 6 on 10/08/2018 by Aaron Marie MD at [facility] N/A: Spine Lumbar Core Link [id number] / / 8.5x40mm Screw Implanted:Qty: 1 on 10/08/2018 by Aaron Marie MD at [facility] N/A: Spine Lumbar Core Link 8.5x90 Mm Screw Implanted:Qty: 2 on 10/08/2018 by Aaron Marie MD at [facility] N/A: Spine Lumbar Core Link 9.5x50 Mm Screw Implanted:Qty: 1 on 10/08/2018 by Aaron Marie MD at [facility] N/A: Spine Lumbar Core Link Medtronic Sofamor Danek [id number] Infuse 18mm 26mm Absorbable Sponge Sterile Water Syringe Needle - [id number] Implanted:Qty: 1 on 10/08/2018 by Aaron Marie MD at [facility] N/A: Spine Lumbar Medtronic Sofamor Danek 02/20/2019 [id number] / / [id number] Base Ji Cage 6 X38 X28, 25 Degree Implanted:Qty: 1 on 10/08/2018 by Aaron Marie MD at [facility] N/A: Spine Lumbar Nuvasive Inc Acuity Surgical Inc [id number] - [id number] - [id number] Implanted:Qty: 1 on 10/08/2018 by Aaron Marie MD at [facility] N/A: Spine Lumbar Acuity Surgical Inc 08/12/2023 [id number] / [id number] / Spinal Graft Tech [id number] Magnifuse 10x2.5cm Posterolateral Graft Bone Demineralized Bone - [id number] - [id number] Implanted:Qty: 1 on 10/08/2018 by Aaron Marie MD at [facility] N/A: Spine Lumbar Spinal Graft Tech 11/24/2019 [id number] / [id number] / Spinal Graft Tech [id number] Magnifuse 10x2.5cm Posterolateral Graft Bone Demineralized Bone - [id number] - [id number] Implanted:Qty: 1 on 10/08/2018 by Aaron Marie MD at [facility] N/A: Spine Lumbar Spinal Graft Tech 11/12/2019 [id number] / [id number] / Formerly [facility] [id number] Actifuse Abx Resorbable; Scaffold; Osteostimulative; Granule 1-2 - [id number] Implanted:Qty: 2 on 10/08/2018 by Aaron Marie MD at [facility] N/A: Spine Lumbar [facility] [id number] / / Core Link [id number] [place] 5.5mm 400mm Line Straight Hexagonal Shalom Spinal Cocr 5500 - [id number] Implanted:Qty: 1 on 10/08/2018 by Aaron Marie MD at [facility] N/A: Spine Lumbar Core Link [id number] / / Core Link [id number] [place] Screw Set 5500 Series - [id number] Implanted:Qty: 12 on 10/08/2018 by Aaron Marie MD at [facility] N/A: Spine Lumbar Core Link [id number] / / Insurance [facility] Address: [address] [address] [facility]ICARE [facility] Address: [address] [place] [id number] [facility]ICARE [facility] Address: [address] [place], [place] [id number] [facility]ICARE [facility] Address: [address] [address] [place] [address] Advance Directives For more information, please contact: [phone] * Full Code (Latest Code Status on File) Date Activated Date Inactivated Comments 10/08/2018 9:20 PM 10/14/2018 12:48 AM * Full Code Date Activated Date Inactivated Comments 10/07/2018 7:46 AM 10/07/2018 1:58 PM Care Teams Retail Shift Supervisor Relationship Specialty Start Date End Date Amado Cutler MD [address] [address] PCP - General Internal Medicine 01/28/24
--- OUTSIDE RECORDS SUMMARY | 2025-03-08 16:01 | XMS_ITS | Clinical Summary ---
Author Organization [facility] Address [address] [place] [address] Care Team Providers Care Search Coordinator Name Role Phone Mark García DO Primary Care Provider [phone] Source Comments [facility] [employer],non-owned Affiliates and Associated Physician Practices is amultiple site organization consisting of ambulatory clinics and hospital sitesin [place], [place], [place]. This disclosure is being madepursuant to the Care Everywhere program and may not contain all information available regarding this patient. Last updated 18.[facility] [employer] Social History Tobacco Use Types Packs/Day Years [...] 2023-2 5 season) 2024 DEPRESSION SCREENING 09/22/2024 INFLUENZA VACCINE (Season Ended) 2025 Respiratory Syncytial [...] patient's age to complete this topic Insurance Care Teams Search Coordinator Relationship Specialty Start Date End Date Mark García DO [address] [place] [address] PCP - General 01/23/22
--- OUTSIDE RECORDS SUMMARY | 2025-03-08 16:01 | XMS_ITS | Clinical Summary ---
Author Organization [facility] Address [address] [place] [address] Care Team Providers Care Charger Tester Name Role Phone Amado Cutler MD Primary Care Provider [phone] Allergies Active Allergy Reactions Criticality Noted Date [...] 1 tablet (25 mg total) by mouth rubber stamps and dies supervisor before breakfast 5 Active metoprolol XL (TOPROL-XL) [...] [employer]. Assessment & Plan (08/06/2024 11:22 AM TRACTOR TRAILER DRIVER): The patient will resume CPAP therapy when [...] 10/24/2023 Assessment & Plan (10/24/2023 9:56 AM TRACTOR TRAILER DRIVER): The patient was recently treated with 7 days of Levaquin for the otitis media and she still has symptoms in the left ear and bilateral fluid behind the TMs. I will give her 7 days of Omnicef. Sjogren's syndrome 10/24/2023 Assessment & Plan (12/15/2024 10:26 AM CDT): The patient continues with Plaquenil. Assessment & Plan (08/06/2024 11:22 AM TRACTOR TRAILER DRIVER): The patient continues with Plaquenil. I have ordered a PFT and a chest x-ray. The patient does complete this at [facility]. I did ask the patient to call [...] visit Assessment & Plan (10/24/2023 9:56 AM TRACTOR TRAILER DRIVER): She continues on Plaquenil. Chronic diarrhea of unknown origin 07/16/2021 Chronic low back pain 07/16/2021 Diabetes mellitus 07/16/2021 Dyslipidemia 07/16/2021 Encounter for screening mamm ogram for malignant neoplasm of breast 07/16/2021 Hx of migraines 07/16/2021 On chcf drug therapy 07/16/2021 Pulse irregularity 07/16/2021 Pure [...] shortness. Assessment & Plan (08/06/2024 11:21 AM TRACTOR TRAILER DRIVER): Patient will continue with Trelegy one inhalation [...] 77. Assessment & Plan (10/24/2023 9:56 AM TRACTOR TRAILER DRIVER): The patient follows with Dr. Aguilera. She [...] Up. Assessment & Plan (08/06/2024 11:21 AM TRACTOR TRAILER DRIVER): The patient continues to follow with Dr. [...] (09/18/2018): Added automatically from request for surgery [id number] Diverticulosis of intestine without bleeding 04/2018 Scoliosis of thoracolumbar spine 01/20/2018 Back pain 12/03/2017 History of esophageal stricture 10/17/2017 Palpitation 12/16/2016 Resolved Problems Problem Noted Date Diagnosed Date Resolved Date Snoring 10/24/2023 01/28/2024 Assessment & Plan (10/24/2023 9:55 AM TRACTOR TRAILER DRIVER): The patient has snoring and daytime hypersomnia and per her request, I will order a home sleep test. Encounters Date Type Department Care Team Description 12/15/2024 10:00 AM CDT Office Visit [facility] Group Pulmonology [address] [place] [phone] Terri Salamanca, LOVE Mild intermittent asthma without complication (Primary Dx); AMBIKA (obstructive sleep apnea); Sjogren's syndrome, with unspecified organ involvement; Gastroesophageal reflux disease with esophagitis without hemorrhage from Last 3 Months Immunizations Immunization Administration Dates Next Due Influenza, Trivalent, High D ose, Split, Preservative Free, Intramuscular 07/05/2018 Influenza, Unspecified 06/22/2019 Pneumococcal Polysaccharide PPV23 06/01/2014 Pneumococcal, Unspecified 06/01/2014 Tdap 03/21/2017,06/19/2013 Tetanus Toxoid, Unspecified 06/19/2013 Tetanus toxoid, adsorbed 06/19/2013 ZOSTER LIVE 02/21/2014 Surgical History Surgery Date Site/Laterality Comments ARTHRODESIS Arthrodesis Cervical - (Added by TW Conv) MD ARTHRD ANT INTERBODY MIN DSC LUMBAR Lumbar Vertebral Fusion - (Added by TW Conv) MD CHOLECYSTECTOMY Cholecystectomy - (Added by TW Conv) MD NEUROPLASTY &/TRANSPOS MEDIAN NRV CARPAL TUNNE Neuroplasty [...] on file Legal Sex Female 7:47 PM TRACTOR TRAILER DRIVER Gender Identity Not on file Sexual Orientation Not on file Obstetrics History Last Filed Vital Signs Vital Sign Reading Time Taken Comments Blood Pressure 97/52 12/15/2024 10:02 AM CDT Pulse 54 12/15/2024 10:02 AM CDT Temperature 36.4 C (97.5 F) 08/06/2024 10:50 AM TRACTOR TRAILER DRIVER Respiratory Rate 18 12/15/2024 10:02 AM CDT [...] Cancer Screening-Mammogram 05/13/2018 017, 05/13/2017 Covid-19 Vaccine (2023-2 5 season) 2024 06/25/2024, 07/04/2021, 12/10/2020, Additional history exists Osteoporosis Screening-Bone Density Scan 08/20/2024 08/20/2022 Lipid Panel 11/25/2025 11/25/2024, 04/23, 04/26/2021, Additional history exists DTaP/Tdap/Td Vaccine (4 - Td or Tdap) 03/21/2027 03/21/2017, 06/19/2013, 06/19/2013 Influenza Vaccine Completed 07/02/2024, , 06/22/2019, Additional history exists Medical Devices Implanted Type Area Extrusion Machine Operator Device Identifier Shelf Expiration Date Model / Serial / Lot Acuity Surgical Inc [id number] - [id number] - [id number] Implanted:Qty: 1 on 10/08/2018 by Aaron Marie MD at [facility] Bone N/A: Spine Lumbar Acuity [employer] Inc 07/20/2023 [id number] / [id number] / Nuvasive Creative Spine Tech [id number] Base Od5 Mm L20 Mm Variable Angle [place] Spinal Titanium Nonsterile - [id number] Implanted:Qty: 3 on 10/08/2018 by Aaron Marie MD at [facility] Screw N/A: Spine Lumbar Nuvasive Creative Spine Tech [id number] / / Core Link [id number] [employer] 5.5mm 40mm Spine Pedicle Screw Bone 5500 Series - [id number] Implanted:Qty: 2 on 10/08/2018 by Aaron Marie MD at [facility] N/A: Spine Lumbar Core Link [id number] / / Core Link [id number] [employer] 7.5mm 40mm Spine Pedicle Screw Bone 5500 Series - [id number] Implanted:Qty: 6 on 10/08/2018 by Aaron Marie MD at [facility] N/A: Spine Lumbar Core Link [id number] / / 8.5x40mm Screw Implanted:Qty: 1 on 10/08/2018 by Aaron Marie MD at [facility] N/A: Spine Lumbar Core Link 8.5x90 Mm Screw Implanted:Qty: 2 on 10/08/2018 by Aaron Marie MD at [facility] N/A: Spine Lumbar Core Link 9.5x50 Mm Screw Implanted:Qty: 1 on 10/08/2018 by Aaron Marie MD at [facility] N/A: Spine Lumbar Core Link Medtronic Sofamor Danek [id number] Infuse 18mm 26mm Absorbable Sponge Sterile Water Syringe Needle - [id number] Implanted:Qty: 1 on 10/08/2018 by Aaron Marie MD at [facility] N/A: Spine Lumbar Medtronic Sofamor Danek 02/20/2019 [id number] / / [id number] Base Ji Cage 6 X38 X28, 25 Degree Implanted:Qty: 1 on 10/08/2018 by Aaron Marie MD at [facility] N/A: Spine Lumbar Nuvasive Inc Acuity Surgical Inc [id number] - [id number] - [id number] Implanted:Qty: 1 on 10/08/2018 by Aaron Marie MD at [facility] N/A: Spine Lumbar Ac[employer] Inc 08/12/2023 [id number] / [id number] / Spinal Graft Tech [id number] Magnifuse 10x2.5cm Posterolateral Graft Bone Demineralized Bone - [id number] - [id number] Implanted:Qty: 1 on 10/08/2018 by Aaron Marie MD at [facility] N/A: Spine Lumbar Spinal Graft Tech 11/24/2019 [id number] / [id number] / Spinal Graft Tech [id number] Magnifuse 10x2.5cm Posterolateral Graft Bone Demineralized Bone - [id number] - [id number] Implanted:Qty: 1 on 10/08/2018 by Aaron Marie MD at [facility] N/A: Spine Lumbar Spinal Graft Tech 11/12/2019 [id number] / [id number] / Pending Sale To [facility] [id number] Actifuse Abx Resorbable; Scaffold; Osteostimulative; Granule 1-2 - [id number] Implanted:Qty: 2 on 10/08/2018 by Aaron Marie MD at [facility] N/A: Spine Lumbar Pending Sale To [facility] [id number] / / Core Link [id number] [employer] 5.5mm 400mm Line Straight Hexagonal Shalom Spinal Cocr 5500 - [id number] Implanted:Qty: 1 on 10/08/2018 by Aaron Marie MD at [facility] N/A: Spine Lumbar Core Link [id number] / / Core Link [id number] [employer] Screw Set 5500 Series - [id number] Implanted:Qty: 12 on 10/08/2018 by Aaron Marie MD at [facility] N/A: Spine Lumbar Core Link [id number] / / Insurance [facility] MEDICARE ADVANTAGE [place] [id number] MEDICARE ADVANTAGE [place] [phone] MEDICARE ADVANTAGE Advance Directives For more information, please contact: [phone] * Full Code (Latest Code Status on File) Date Activated Date Inactivated Comments 10/08/2018 9:20 PM 10/14/2018 12:48 AM * Full Code Date Activated Date Inactivated Comments 10/07/2018 7:46 AM 10/07/2018 1:58 PM Care Teams Charger Tester Relationship Specialty Start Date End Date Amado Cutler MD [address] [address] PCP - General Internal Medicine 01/28/24
--- OUTSIDE RECORDS SUMMARY | 2025-03-08 16:01 | XMS_ITS ---
Author Organization [facility] [employer] Address [address] [place], [place] [address] Care Team Providers Care Central Supply Technician Supervisor Name Role Phone Amado Cutler Primary Care Provider UnavailPadmini Helm Unavailable [phone] NERY HANDY, OLAYINKA Unavailable Unavailable Nola Barclay Unavailable [phone] ALLERGIES Allergen (clinical drug ingredient) Drug/Non Drug Allergy documented on EMR Reaction Allergy Type Onset Date Status morphine morphine Unknown Drug Allergy Active phenytoin Dilantin Unknown Drug Allergy Active RESULTS Component Value Reference Range Notes Complement C4, Serum Reviewed date:05/28/2024 11:08:37 AM Interpretation: Performing Lab:[facility] [place], [address] [place] [address], Phone - [phone], Director - [facility] Notes/Report: Complement C4, Serum 33 12-38 mg/dL CBC With Differential/Platel et Reviewed date:05/28/2024 11:08:37 AM Interpretation: Performing Lab:[facility], [address] [facility], Phone - [phone], Director - PhDRicsaint joseph bereadennisi Notes/Report: WBC 7.4 3.4-10.8 x10E3/uL RBC 3.67 [...] Serum Reviewed date:05/28/2024 11:08:37 AM Interpretation: Performing Lab:[facility] [place], [address] [facility], Phone - [phone], Director - [facility] Notes/Report: Complement C3, Serum 169 82-167 mg/dL SPEPW/Interpretation w/refle x Reviewed date:05/28/2024 11:08:37 AM Interpretation: Performing Lab:[facility] [place], [address] [facility], Phone - [phone], Director - [facility] Notes/Report: Protein, Total 6.6 6.0-8.5 g/dL Albumin 3.6 2.9-4.4 g/dL Wfszp-1-Lwvxszvs 0.2 0.0-0.4 g/dL Fhiwx-8-Rogecgce 0.9 0.4-1.0 g/dL Beta Globulin 1.0 0.7-1.3 g/dL Gamma Globulin 0.9 0.4-1.8 g/dL M-Herminio Not Observed Not Observed g/dL Globulin, Total 3.0 2.2-3.9 g/dL A/G Ratio 1.2 0.7-1.7 Please note: Protein electrophoresis scan will follow via computer, mail, or welding machine assembler delivery. Interpretation(See Below) The SPE pattern appears unremarkable. Evidence of monoclonal protein is not apparent. PDF . PDF Report Reviewed date:05/28/2024 11:08:37 AM Interpretation: Performing Lab:[facility] [place], [address] [facility], [place], Phone - [phone], Director - Baldo Notes/Report: PDF Report1 [facility] REASON FOR VISIT 11 mo f/u [...] Location Date Provider Diagnosis [facility] [address] [place], [place] [id number] 05/26/2024 Nola Barclay Sjogren's syndrome, with unspecified organ involvement M35.00 and Other fci (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 Z79.899 ASSESSMENTS Encounter Date Diagnosis Assessment Notes Treatment Notes Treatment Clinical Notes Section Notes 05/26/2024 Sjogren's syndrome, with unspecified organ involvement (ICD-10 - M35.00) Sjogren's syndrome-fair ly stable with HCQ. Continue current therapy and eye exams.Seeing Pulm. No evidence for ILD. Following renal for anemia and CKD. On diuretics. Check labs today. Continue OTC remedies for dryness. Continue OTC remedies for dryness. Low back pain-seeing pain mgmt. On Narcotics. F/u scheduled 05/26/2024 Other fci (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 (ICD-10 - Z79.899) Sjogren's syndrome-fair ly stable with HCQ. Continue current therapy and eye exams.Seeing Pulm. No evidence for ILD. Following renal for anemia and CKD. On diuretics. Check labs today. Continue OTC remedies for dryness. Continue OTC remedies for dryness. Low back [...] Name:Nola martinez, 11/22/2025 11:40:00 AM, [address] [facility], [address], [place], [place], [id number], Progress Notes * Examination Category Sub-Category Detail [...] for follow up and treatment for Sjogren's. She has continued on HCQ and is tolerating well. She remains up to date with eye exam. Dryness manageable. Using OTC remedies. Dealing with LE edema and BP fluctuations. CaCB was stopped and she is now on HCTZ, GREYSON and Furosemide. Seeing Renal and Pulm. She reports that there is no evidence for ILD. She remains on Gabapentin and Oxycodone per pain mgmt. She is seeing Dr. Amado Cutler PCP dry eyes dry mouth rash Back pain Family History of Rheumatic Disease labs positive UMBERTO with ti ter of:1:80 negative RF Physical Examination Category Sub-Category Detail Notes Section Note s MDHAQ Summary Function (0-10):: 5 Pain (0-10):: 6.5 Patient Global Assessment of Disease Activity (0 -10):: 5 RAPID3 Score (0-30):: 16.5 Physician Global Assessment of Disease Activity (0-10):: 2 Prognosis Good w/tx Erosive Damage No
--- OUTSIDE RECORDS SUMMARY | 2025-03-08 16:02 | XMS_ITS | Clinical Summary ---
Author Organization [facility] Sudha venegas Address [address] [place] [address] Phone Care Team Providers Care Psychiatric Mental Health Nurse Name Role Phone Unavailable Primary Care Provider [...] minutes if needed for chest pain Active sertraline (ZOLOFT) 50 MG tablet Take 50 mg by mouth 1 (one) time each day Active Fluticasone-Sa lmeterol (Advair Diskus) 500-50 MCG/ACT aerosol powder Inhale in the morning and in the evening. Active Calcium-Vitami n D-Vitamin K 500-100-40 MG-UNT-MCG chewable tablet Chew 1 tablet in the morning and 1 tablet in the evening. Active hydroCHLOROthi azide 12.5 MG tablet Take 12.5 mg by mouth 1 (one) time each day Active hydroCHLOROthi azide (HYDRODIURIL) 25 MG tablet Take 25 mg by mouth 1 (one) time each day 02/08/20 25 Discontinu ed(Dose adjustment ) Active Problems Problem Noted Date Diagnosed Date Chronic kidney disease 01/26/2025 Edema of lower extremity 05/19/2024 Essential hypertension 01/23/2023 Resolved Problems Problem Noted Date Diagnosed Date Resolved Date Orthostatic intolerance 04/16/2023 08/2 03/2024 Abnormal renal function 04/11/2023 05/0 03/2025 Hyperlipidemia 01/23/2023 04/11/2023 Acute cystitis without hematuria 01/23/2023 04/11/2023 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 Encounters Date Type Department Care Team Description 02/02/2025 12:40 PM CDT Office Visit [facility] [address] [place] [phone] Butch Leahy MD Anti-nuclear factor detected (Primary Dx); Chronic kidney disease, not otherwise specified; Edema of lower extremity; Essential hypertension 01/27/2025 Orders Only [facility] [address] [place] [address] Butch Leahy MD 12/29/2024 1:20 PM CDT Office Visit [facility] [address] [place] [phone] Butch Leahy MD Chronic kidney disease, not otherwise specified (Primary Dx); Edema of lower extremity; Essential hypertension from Last 3 Months Family History Medical [...] Sign Reading Time Taken Comments Blood Pressure 134/65 02/02/2025 12:28 PM CDT Pulse 69 02/02/2025 12:28 PM CDT Temperature - - Respiratory Rate - - Oxygen Saturation 98% 04/16/2023 3:04 PM CDT Inhaled Oxygen Concentration - - Weight 80.3 kg (177 lb) 02/02/2025 12:28 PM CDT Height 149.9 cm (4' 11) 02/02/2025 12:28 PM CDT Body Mass Index 35.75 02/02/2025 12:28 PM CDT Plan of Treatment Upcoming Encounters Date Type Department Care Team (Late st Contact Info) Description 05/11/2025 3:00 PM CDT Office Visit [facility] [address] [facility] 1 [place], [place] [id number] Butch Leahy MD [address] [facility] 1 [place] [address] Health Maintenance Due Date Last Done Comments Diabetic Foot Exam 1965 Ophthalmology Exam 1965 Pneumococcal PPSV23/PCV13 65 + Years / High and Highest Risk (2 of 5 - PCV) 06/01/2015 06/01/2014 COVID-19 Vaccine (2023-2 5 season) 2024 06/25/2024, 07/04/2021, 12/10/2020, Additional history exists Influenza Vaccine Completed 07/02/2024, , 06/22/2019, Additional history exists Procedures Procedure Name Priority Date/Time Associated Diagnosis Comments SPECIMEN STATUS REPORT Routine 01/27/2025 10:50 AM CDT SAMARA STAINING PATTERNS Routine 01/27/2025 10:50 AM CDT ANTINUCLEAR ANTIBODIES (UMBERTO), IFA Routine 01/27/2025 10:50 AM CDT PTH, INTACT Routine 01/27/2025 10:50 AM CDT COMPLEMENT C3 + C4 Routine 01/27/2025 10 :50 AM CDT LITHOLINK CKD PROGRAM Routine 01/27/2025 10:50 AM CDT ALBUMIN / CREATININE RATIO, RANDOM, URINE Routine 01/27/2025 10:50 AM CDT CBC (INCLUDES PLATELETS / NO DIFFERENTIAL) Routine 01/27/2025 10:50 AM CDT RENAL FUNCTION PANEL (RFP) Routine 01/27/2025 10:50 AM CDT URINE CULTURE, ROUTINE Routine 01/27/2025 10:50 AM CDT MICROSCOPIC EXAMINATION Routine 01/27/2025 10:50 AM CDT UA COMPLETE W/MICRO W/RFLX CULTURE, ROUTINE Routine 01/27/2025 10:50 AM CDT from Last 3 Months Results * (ABNORMAL) Urinalysis Complete w/Micro w/Rflx Urine Culture, Routine (01/27/2025 10:50 AM CDT) Specific gravity of Urine 1.015 1.005 - 1.030 [facility] 1 pH of Urine 6.5 5.0 - 7.5 [facility] 1 Color of Urine Yellow Yellow [facility] 1 Appearance of Urine Clear Clear [facility] 1 Leukocyte esterase, Urine Trace(A) Negative [facility] 1 Protein, Urine Trace Negative/Tra ce [facility] 1 Glucose, Urine Negative Negative [facility] 1 Ketones, Urine Negative Negative [facility] 1 Hemoglobin, Urine Negative Negative [facility] 1 Bilirubin, total, Urine Negative Negative [facility] 1 Urobilinogen, Urine 0.2 0.2 - 1.0 mg/dL [facility] 1 Nitrite, Urine Negative Negative [facility] 1 Microscopic Examination See below: [facility] 1 Comment:Microscopic was ranjan cated and was performed. Urinalysis Reflex Comment [facility] 1 Comment:This specimen has re flexed to a Urine Culture. 01/27/2025 10:5 0 AM CDT 01/26/2025 11:00 PM CDT Narrative [facility] - 01/31/2025 10:10 AM CDT Performed at: [address] [place] [id number] Senior Medical Writer: Conor Gibson PhD, Phone: [phone] Specimen Comment: A courtesy copy of this report has been sent to [phone] Butch Leahy MD LAB URINE ORDERABLES Final Resul t Performing Organization Address City/[facility] Co de Phone Number [facility] 1 * PTH, Intact (01/27/2025 10:50 AM CDT) PTH, Intact, Serum/Plasma 27 15 - 65 pg/mL [facility] 1 01/27/2025 10:5 0 AM CDT 01/26/2025 11:00 PM CDT Narrative [facility] - 01/31/2025 10:10 AM CDT Performed at: [address] [place] [id number] Senior Medical Writer: Conor Gibson PhD, Phone: [phone] Butch Leahy MD LAB BLOOD ORDERABLES Final Resul t Performing Organization Address [facility] de Phone Number [facility] 1 * URINE CULTURE, ROUTINE (01/27/2025 10:50 AM CDT) Culture, Urine, Routine Final report [facility] 1 Reference lab test results Comment [facility] 1 Comment: Mixed urogenital octavio 25,000-50,000 colony forming units per mL 01/27/2025 10:5 0 AM CDT 01/26/2025 11:00 PM CDT Narrative [facility] - 01/31/2025 10:10 AM CDT Performed at: [address] [place] [id number] Senior Medical Writer: Conor Gibson PhD, Phone: [phone] Butch Leahy MD LAB URINE ORDERABLES Final Resul t Performing Organization Address [facility] Co de Phone Number [facility] 1 * Specimen Status Report (01/27/2025 10:50 AM CDT) Specimen Status Report Comment [facility] 1 Comment: Varun Handy RP10 Default Varun Handy RP10 Default A hand-written panel/profile was received from your office. In accordance with the [facility] Ambiguous Test Code Policy dated March 2003, we have completed your order by using the closest currently or formerly recognized AMA panel. We have assigned Renal Panel (10), Test Code #631234 to this request. If this is not the testing you wished to receive on this specimen, please contact the [facility] Client Inquiry/Technical Services Department to clarify the test order. We appreciate your business. 01/27/2025 10:5 0 AM CDT 01/26/2025 11:00 PM CDT Narrative [facility] - 01/31/2025 10:10 AM CDT Performed at: [address] [place] [id number] Senior Medical Writer: Conor Gibson PhD, Phone: [phone] us Butch Leahy MD LAB BLOOD ORDERABLES Final Resul t [facility] 1 * (ABNORMAL) CBC (includes Platelets / NO Differential) (01/27/2025 10:50 AM CDT) Leukocytes, Blood 5.4 3.4 - 10.8 x10E3/uL [facility] 1 Erythrocytes (RBC) 3.64(L) 3.77 - 5.28 x10E6/uL [facility] 1 Hemoglobin (HGB) 11.4 11.1 - 15.9 g/dL [facility] 1 Hematocrit (HCT) 35.6 34.0 - 46.6 % [facility] 1 MCV 98(H) 79 - 97 fL [facility] 1 MCH 31.3 26.6 - 33.0 pg [facility] 1 MCHC 32.0 31.5 - 35.7 g/dL [facility] 1 Erythrocyte Distribution Width (RDW) 12.6 11.7 - 15.4 % [facility] 1 Platelets, Blood 143(L) 150 - 450 x10E3/uL [facility] 1 01/27/2025 10:5 0 AM CDT 01/26/2025 11:00 PM CDT Narrative [facility] - 01/31/2025 10:10 AM CDT Performed at: 01 - [address] [id number] Senior Medical Writer: Conor Gibson PhD, Phone: [phone] us Butch Leahy MD LAB BLOOD ORDERABLES Final Resul t [facility] 1 * (ABNORMAL) Samara Staining Patterns (01/27/2025 10:50 AM CDT) Homogenous UMBERTO Pattern, Serum 1:160(H) [facility] 1 Comment:ICAP nomenclature: A C-1 Note Comment [facility] 1 Comment: Pattern Potential Disease Association Homogeneous Systemic Lupus Erythematosus, Drug Induced Systemic Lupus Erythematosus, Chronic Autoimmune hepatitis, Juvenile Idiopathic Arthritis Speckled Sjogren Syndrome, Systemic Lupus Erythematosus, Subacute Cutaneous Lupus, Lupus, Congenital Heart Block, Mixed Connective Tissue Disease, Scleroderma-diffuse, Scleroderma-Autoimmune Myositis Overlap Syndrome, Systemic Lupus Bmbdhkeoufatl-Litabxefuld-Fsarggignd Myositis Overlap Syndrome, Systemic Autoimmune Rheumatic Disease, Undifferentiated Connective Tissue Disease Nucleolar Systemic Sclerosis, Scleroderma-Autoimmune Myositis Overlap Syndrome, Sjogren Syndrome, Raynaud phenomenon, Pulmonary Arterial Hypertension, Systemic Autoimmune Rheumatic Disease, Cancer Centromere Scleroderma-CREST, Limited Cutaneous SSc, Raynaud's Phenomenon, Primary Biliary Cholangitis Nuclear Dot Primary Biliary Cholangitis Nuclear Primary Biliary Cholangitis, Autoimmune Membrane Hepatitis/Liver disease, Systemic Autoimmune Rheumatic Disease, Autoimmune Cytopenias, Linear Scleroderma, Antiphospholipid Syndrome 01/27/2025 10:5 0 AM CDT 01/26/2025 11:00 PM CDT Narrative [facility] - 01/31/2025 10:10 AM CDT Performed at: [address] [place] [id number] Senior Medical Writer: Conor Gibson PhD, Phone: [phone] us Butch Leahy MD LAB BLOOD ORDERABLES Final Resul t [facility] 1 * (ABNORMAL) Antinuclear Antibodies (UMBERTO), IFA (01/27/2025 10:50 AM CDT) Pathologist [facility] UMBERTO, Serum Positive(A ) [facility] 1 Comment: Negative <1:80 Borderline 1:80 Positive >1:80 01/27/2025 10:5 0 AM CDT 01/26/2025 11:00 PM CDT Narrative [facility] - 01/31/2025 10:10 AM CDT Performed at: [address] [place] [id number] Senior Medical Writer: Conor Gibson PhD, Phone: [phone] Butch Leahy MD LAB BLOOD ORDERABLES Final Resul t Performing Organization Address [facility] de Phone Number [facility] 1 * Albumin/Creatinine Ratio, Random, Urine (01/27/2025 10:50 AM CDT) Creatinine, Urine 95.8 Not Estab. mg/dL [facility] 1 Microalbumin, Urine 14.4 Not Estab. ug/mL [facility] 1 Albumin/Creatini ne, Urine 15 0 - 29 mg/g creat [facility] 1 Comment: Normal: 0 - 29 Moderately increased: 30 - 300 Severely increased: >300 01/27/2025 10:5 0 AM CDT 01/26/2025 11:00 PM CDT Narrative [facility] - 01/31/2025 10:10 AM CDT Performed at: [address] [id number] Senior Medical Writer: Conor Gibson PhD, Phone: [phone] Butch Leahy MD LAB URINE ORDERABLES Final Resul t Performing Organization Address [facility] de Phone Number [facility] 1 * LithoLink CKD Program (01/27/2025 10:50 AM CDT) Interpretation Note [facility] 2 Comment: Senior Asp Net Developer's Note: Varun Handy RP10 Default: A hand-written panel/profile was received from your office. In accordance with the [facility] Ambiguous Test Code Policy dated March 2003, we have completed your order by using the closest currently or formerly recognized AMA panel. We have assigned Renal Panel (10), Test Code #[id number] to this request. If this is not the testing you wished to receive on this specimen, please contact the [facility] Client Inquiry/Technical Services Department to clarify the test order. We appreciate your business. Supplemental report is available. PDF Image . [facility] 2 01/27/2025 10:5 0 AM CDT 01/26/2025 11:00 PM CDT Narrative [facility] - 01/31/2025 10:10 AM CDT Performed at: [facility] Clinical / Digital [address] [place] [id number] Senior Medical Writer: Eliz Germain MD, Phone: [phone] Butch Leahy MD LAB BLOOD ORDERABLES Final Resul t Performing Organization Address [facility] de Phone Number [facility] 2 * Microsopic Examination (01/27/2025 10:50 AM CDT) Leukocytes, Urine sediment 0-5 0 - 5 /hpf [facility] 1 Erythrocytes, Urine sediment 0-2 0 - 2 /hpf [facility] 1 Epithelial cells, Urine sediment 0-10 0 - 10 /hpf [facility] 1 Casts, Urine sediment None seen None seen /lpf [facility] 1 Bacteria, Urine sediment None seen None seen/Few [facility] 1 01/27/2025 10:5 0 AM CDT 01/26/2025 11:00 PM CDT Narrative [facility] - 01/31/2025 10:10 AM CDT Performed at: [address] [place] [id number] Senior Medical Writer: Conor Gibson PhD, Phone: [phone] us Butch Leahy MD LAB BLOOD ORDERABLES Final Resul t Performing Organization Address [facility] de Phone Number [facility] 1 * (ABNORMAL) Renal Function Panel (RFP) (01/27/2025 10:50 AM CDT) Glucose, Serum/Plasma 79 70 - 99 mg/dL [facility] 1 Urea nitrogen, Serum/Plasma (BUN) 11 8 - 27 mg/dL [facility] 1 Creatinine, Serum/Plasma 0.93 0.57 - 1.00 mg/dL [facility] 1 Estimated Glomerular Filtration Rate (eGFR) 66 >59 mL/min/1.7 3 [facility] 1 Urea nitrogen/Creati nine, Serum/Plasma 12 12 - 28 [facility] 1 Sodium, Serum/Plasma 145(H) 134 - 144 mmol/L [facility] 1 Potassium, Serum/Plasma 4.0 3.5 - 5.2 mmol/L [facility] 1 Chloride, Serum/Plasma 105 96 - 106 mmol/L [facility] 1 Carbon dioxide CO2), total, Serum/Plasma 27 20 - 29 mmol/L [facility] 1 Calcium, Serum/Plasma 8.9 8.7 - 10.3 mg/dL [facility] 1 Phosphate, Serum/Plasma 3.4 3.0 - 4.3 mg/dL [facility] 1 Albumin, Serum/Plasma 4.0 3.8 - 4.8 g/dL [facility] 1 01/27/2025 10:5 0 AM CDT 01/26/2025 11:00 PM CDT Narrative [facility] - 01/31/2025 10:10 AM CDT Performed at: [address] [place] [id number] Senior Medical Writer: Conor Gibson PhD, Phone: [phone] us Butch Leahy MD LAB BLOOD ORDERABLES Final Resul t [facility] 1 * Complement C3 + C4 (01/27/2025 10:50 AM CDT) Pathologist [facility] Complement C3, Serum/Plasma 145 82 - 167 mg/dL [facility] 1 Complement C4, Serum/Plasma 27 12 - 38 mg/dL [facility] 1 01/27/2025 10:5 0 AM CDT 01/26/2025 11:00 PM CDT Narrative [facility] - 01/31/2025 10:10 AM CDT Performed at: [address] [place] [id number] Senior Medical Writer: Conor Gibson PhD, Phone: [phone] us Butch Leahy MD LAB BLOOD ORDERABLES Final Resul t [facility] 1 from Last 3 Months Insurance [place], [place] [id number] [employer] MEDICARE
--- OUTSIDE RECORDS SUMMARY | 2025-03-08 16:02 | XMS_ITS | Encounter Summary ---
Author Organization [facility] Address [facility] [place] [address] Care Team Providers Care Occupational Therapy Co Director Name Role Phone Luís Burciaga MD Primary Care Provider [phone] Rishi Miller MD Unavailable Nicolette Nunez MD Unavailable Mark García DO Primary Care Provider [phone] Amado Cutler MD Primary Care Provider [phone] Encounter Details Date Type Department Care Team (Late st Contact Info) Description 12/17/2016 Abstract [facility] AT [address] [address] Gisell Bah MA Social History Tobacco Use Types Packs/Day Years Used Date Smoking Tobacco: Never Smokeless Tobacco: Never Alcohol Use Standard Drinks/Week Comments Yes 0 (1 standard drink = 0.6 oz pur e alcohol) Occasionally Comments Unknown Sex and Gender Information Value Date Recorded Sex Assigned at Female 11/19/2024 1:20 PM BRUSH HOLDER INSPECTOR Legal Sex Female 9:43 PM CDT Gender Identity Female 11/19/2024 1:20 PM BRUSH HOLDER INSPECTOR Sexual Orientation Not on file 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 [address] [place] [address] 09/05/2025 2:20 PM BRUSH HOLDER INSPECTOR Office Visit [facility] [place] [address] [facility] [address] [place] [address] Amado Cutler MD [address] [facility] [address] [place] [address] documented as of this encounter Procedures Procedure [...] Onset Date Last Indicated Resolved Time Respiratory Rule Out 01/07/2025 01/07/2025 025 11:20 AM CDT documented as of this encounter Care Teams Occupational Therapy Co Director Relationship Specialty Start Date End Date Luís Burciaga MD PCP - General INTERNAL MEDICINE 02/21/16 03/21/19 Mark García DO [address] [facility] [address] [place] [address] PCP - General INTERNAL MEDICINE 03/22/19 05/19/22 Amado Cutler MD [address] [facility] [address] [place] [address] PCP - General INTERNAL MEDICINE 05/20/22 Rishi Miller MD [address] [facility] [address] [place] [address] [place] Order Dispatcher Chief CARDIOVASCULAR DISEASE 02/21/16 Nicolette Nunez MD [address] [facility] [address] [place], [place] [address] Order Dispatcher Chief CARDIOVASCULAR DISEASE 01/21/17 documented as of this encounter
--- OUTSIDE RECORDS SUMMARY | 2025-03-08 16:02 | XMS_ITS | Encounter Summary ---
Author Organization [facility] - [facility] Address [facility] [place] [address] Care Team Providers Care Health Facilities Surveyor Name Role Phone Rishi Miller MD Unavailable Nicolette Nunez MD Unavailable Amado Cutler MD Primary Care Provider [phone] Encounter Details Date Type Department Care Team (Late st Contact Info) Description 09/02/2022 [employer] Message Enc [facility] Medical Group Multispecialty Care - [address] [place] [address] [employer], [facility] Provider medication Social History Tobacco Use Types [...] Sex Assigned at Female 11/19/2024 1:20 PM DRIVER MANAGER Legal Sex Female 9:43 PM CDT Gender Identity Female 11/19/2024 1:20 PM DRIVER MANAGER Sexual Orientation Not on file 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 No / Unsure 08/09/2022 8:58 AM DRIVER MANAGER documented as of this encounter Plan of Treatment Upcoming Encounters Date Type Department Care Team (Late st Contact Info) Description 06/07/2025 1:45 PM CDT Office Visit [facility] THREE [facility] [place] [place] [address] Rishi Miller MD [address] [place] [address] 09/05/2025 2:20 PM DRIVER MANAGER Office Visit [facility] Medical Group Multispecialty Care - [place] [address] [place] [address] [address] [place] [address] Amado Cutler MD [address] [facility] [address] [place] [address] documented as of this encounter Visit Diagnoses Not on filedocumented in this encounter Additional Health Concerns Infection Onset Date Last Indicated Resolved Time Respiratory Rule Out 01/07/2025 01/07/2025 025 11:20 AM CDT documented as of this encounter Care Teams Health Facilities Surveyor Relationship Specialty Start Date End Date Amado Cutler MD [address] [facility] [address] [place] [address] PCP - General INTERNAL MEDICINE 05/20/22 Rishi Miller MD [address] [place] [address] [place] Maintenance Shop Technician CARDIOVASCULAR DISEASE 02/21/16 Nicolette Nunez MD [address] [place] [address] EP Maintenance Shop Technician CARDIOVASCULAR DISEASE 01/21/17 documented as of this encounter
--- OUTSIDE RECORDS SUMMARY | 2025-03-08 16:02 | XMS_ITS | Clinical Summary ---
Author Organization [facility] Address [facility] [place] [address] Care Team Providers Care Senior Safety Support Manager Name Role Phone Rishi Miller MD Unavailable Nicolette Nunez MD Unavailable Amado Cutler MD Primary Care Provider [phone] Allergies Active Allergy Reactions Criticality Noted Date [...] vitamin E 400 UNIT capsule daily. Active nitroglycerin (NITROSTAT) 0.[address] 1 tablet (0.4 mg total) under the tongue every 5 (five) minutes as needed for Chest Pain. Maximum of 3 tabs, then call 911 25 tablet 1 11/30/19 25 Active hydroCHLOROthia zide (MICROZIDE) 12.5 MG capsule Take 1 capsule (12.5 mg total) by mouth every morning. Active methylPREDNISol one, DANNY, (MEDROL DOSEPAK) 4 MG tabletIndicatio ns:Acute non-recurrent maxillary sinusitis 6 TABLETS ON DAY ONE, 5 TABLETS DAY TWO, 4 TABLETS DAY THREE, 3 TABLETS DAY FOUR, 2 TABLETS DAY FIVE, AND 1 TABLET DAY SIX 1 each 02/29/20 25 Active albuterol sulfate HFA 108 (90 Base) MCG/ACT inhalerIndicati ons:Environment al allergies Inhale 2 puffs into the lungs every 6 (six) hours as needed. 18 g 5 02/29/20 25 Active azelastine (ASTELIN) 0.1 % nasal sprayIndication s:Environmental allergies 1 spray by Nasal route 2 (two) times daily. Use in each nostril as directed 30 mL 11 02/29/20 25 Active ezetimibe (ZETIA) 10 MG tabletIndicatio ns:Dyslipidemia Take 1 tablet (10 mg total) by mouth daily. 90 tablet 3 02/29/20 25 Active fluticasone-tiny meterol (ADVAIR DISKUS) 500-50 MCG/ACT inhalerIndicati ons:Mild intermittent asthma without complication (HHS/HCC) Inhale 1 puff into the lungs 2 (two) times daily. 60 each 5 02/29/20 25 Active gabapentin (NEURONTIN) 600 MG tabletIndicatio ns:Chronic neck pain,Chronic midline low back pain without sciatica TAKE ONE-HALF TABLET BY MOUTH IN THE MORNING ONE-HALF TABLET BY MOUTH IN THE AFTERNOON AND 1 TABLET BY MOUTH AT BEDTIME 200 tablet 2 02/29/20 25 Active metoprolol succinate ER (TOPROL-XL) 100 MG 24 hr tabletIndicatio ns:Essential hypertension Take 1 tablet (100 mg total) by mouth daily. 100 tablet 1 02/29/20 25 Active montelukast (SINGULAIR) 10 MG tabletIndicatio ns:Environmenta l allergies Take 1 tablet (10 mg total) by mouth daily. 90 tablet 1 02/29/20 25 Active pantoprazole EC (PROTONIX) 40 MG tabletIndicatio ns:Gastroesopha geal reflux disease without esophagitis Take 1 tablet (40 mg total) by mouth daily. 100 tablet 1 02/29/20 25 Active rosuvastatin (CRESTOR) 20 MG tabletIndicatio ns:Dyslipidemia Take 1 tablet (20 mg total) by mouth daily. 100 tablet 1 02/29/20 25 Active sertraline (ZOLOFT) 50 MG tabletIndicatio ns:DAISY (generalized anxiety disorder) Take 1 tablet (50 mg total) by mouth daily. 90 tablet 1 02/29/20 25 Active traZODone (DESYREL) 150 MG tabletIndicatio ns:Primary insomnia Take 1 tablet (150 mg total) by mouth nightly at bedtime. at bedtime 90 tablet 1 02/29/20 25 Active fluticasone-tiny meterol (ADVAIR DISKUS) 500-50 MCG/ACT inhalerIndicati ons:Mild intermittent asthma without complication (HHS/HCC) Inhale 1 puff into the lungs 2 (two) times daily. 60 each 5 11/25/19 25 025 Discontin ued(Reord er) traZODone (DESYREL) 150 MG tabletIndicatio ns:Primary insomnia Take 1 tablet (150 mg total) by mouth nightly at bedtime. at bedtime 90 tablet 1 11/25/19 25 025 Discontin ued(Reord er) rosuvastatin (CRESTOR) 20 MG tabletIndicatio ns:Dyslipidemia Take 1 tablet (20 mg total) by mouth daily. 100 tablet 1 11/25/19 25 025 Discontin ued(Reord er) sertraline (ZOLOFT) 50 MG tabletIndicatio ns:DAISY (generalized anxiety disorder) Take 1 tablet (50 mg total) by mouth daily. 90 tablet 1 11/25/19 25 025 Discontin ued(Reord er) pantoprazole EC (PROTONIX) 40 MG tabletIndicatio ns:Gastroesopha geal reflux disease without esophagitis Take 1 tablet (40 mg total) by mouth daily. 100 tablet 1 11/25/19 25 025 Discontin ued(Reord er) montelukast (SINGULAIR) 10 MG tabletIndicatio ns:Environmenta l allergies Take 1 tablet (10 mg total) by mouth daily. 90 tablet 1 11/25/19 25 025 Discontin ued(Reord er) gabapentin (NEURONTIN) 600 MG tabletIndicatio ns:Chronic neck pain,Chronic midline low back pain without sciatica TAKE ONE-HALF TABLET BY MOUTH IN THE MORNING ONE-HALF TABLET BY MOUTH IN THE AFTERNOON AND 1 TABLET BY MOUTH AT BEDTIME 200 tablet 2 11/25/19 25 025 Discontin ued(Reord er) ezetimibe (ZETIA) 10 MG tabletIndicatio ns:Dyslipidemia Take 1 tablet (10 mg total) by mouth daily. 90 tablet 3 11/25/19 25 025 Discontin ued(Reord er) azelastine (ASTELIN) 0.1 % nasal sprayIndication s:Environmental allergies 1 spray by Nasal route 2 (two) times daily. Use in each nostril as directed 30 mL 11 11/25/19 25 025 Discontin ued(Reord er) albuterol sulfate HFA 108 (90 Base) MCG/ACT inhalerIndicati ons:Environment al allergies Inhale 2 puffs into the lungs every 6 (six) hours as needed. 18 g 5 11/25/19 25 025 Discontin ued(Reord er) methylPREDNISol one, DANNY, (MEDROL DOSEPAK) 4 MG tabletIndicatio ns:Upper respiratory tract infection, unspecified type 6 TABLETS ON DAY ONE, 5 TABLETS DAY TWO, 4 TABLETS DAY THREE, 3 TABLETS DAY FOUR, 2 TABLETS DAY FIVE, AND 1 TABLET DAY SIX 1 each 01/08/20 25 025 Discontin ued(Thera py completed ) hydroCHLOROthia zide (HYDRODIURIL) 25 MG tabletIndicatio ns:Drug therapy TAKE 1 TABLET BY MOUTH EVERY MORNING 100 tablet 02/02/20 25 025 Discontin ued(Thera py completed ) metoprolol succinate ER (TOPROL-XL) 100 MG 24 hr tabletIndicatio ns:Essential hypertension TAKE 1 TABLET BY MOUTH DAILY 100 tablet 02/02/20 25 025 Discontin ued(Reord er) lisinopril (PRINIVIL) 10 MG tabletIndicatio ns:Essential hypertension TAKE 1 TABLET BY MOUTH DAILY 100 tablet 02/02/20 025 Discontin ued(Gita py completed ) Active Problems Problem Noted Date Diagnosed [...] mg daily which was prescribed by her trap operator. She reports she has upcoming appointments with [...] time. Assessment & Plan (11/22/2024 1:05 PM LOCKSTITCH LINING SETTER): Patient's weight has decreased 3 pounds over the weekend almost back to perceived baseline. Counseled patient to discontinue daily Lasix at this time and can take as needed. I would like her to discuss this with her PCP and her agriculturist. I suspect fluid is related to diastolic dysfunction. Assessment & Plan (11/19/2024 2:40 PM LOCKSTITCH LINING SETTER): Leg swelling could be related to initiation [...] 95 Assessment & Plan (11/19/2024 2:35 PM LOCKSTITCH LINING SETTER): Suspect anemia of chronic disease such as [...] 01/23/2023 Assessment & Plan (11/19/2024 2:33 PM LOCKSTITCH LINING SETTER): Blood pressure is elevated in office today. [...] major depressive disor evy 01/04/2023 Sjogren's syndrome ([facility]/HCC) 11/04/2022 Gastro-esophageal reflux disease without esophag itis 10/04/2022 Hypertrophy of nasal turbinates 10/04/2022 Uncomplicated severe persistent asthma ([facility]/HCC HHS/HCC) 10/04/2022 Osteopenia of neck of femur 08/25/2022 Elevated antinuclear antibody (UMBERTO) level 2021 Low back pain at multiple sites 07/02/2022 Polyarthralgia 07/02/2022 Sjogren's syndrome ([facility]) 07/02/2022 PVC (premature ventricular contraction) 07/16/20 21 Dyspnea on exertion 05/02/2020 Palpitation 12/16/2016 Dyslipidemia Resolved Problems Problem Noted Date Diagnosed Date Resolved Date CAD (coronary artery disease) 11/25/2016 Pure hypercholesterolemia Chest pain, unspecified 02/2017 Chest pain, unspecified 11/21 Encounters Date Type Department Care Team Description 02/28/2025 2:20 PM CDT [facility] [address] [place] [address] Amado Cutler MD Follow Up; Depression; Anxiety; Back Pain; Neck Pain; Hypertension; Hyperlipidemia; GERD; Vitamin D Deficiency; B12 Deficient ; Irritable Bowel Syndrome; Insomnia NOS; Asthma; Chronic Kidney Disease; Physical 02/28/2025 Travel 02/02/2025 [employer] SRVCS Scanned, [facility] 01/19/2025 MyChart [facility] [place] [address] [place] [address] Amado Cutler MD Bone density results 01/12/2025 Scan [employer] HE[facility] INFO SRVCS Scanned, [facility] Bone Density Report (SCAN) 01/10/2025 Scan [facility] [employer] Scanned, [facility] Ultrasound (SCAN) 01/10/2025 Telephone [place] [address] [address] [place] [address] Amado Cutler MD Medication 01/10/[address] [place] [address] [address] [place] [address] Amado Cutler MD Medication Problem 01/07/2025 10:00 AM CDT Office Visit [place] [address] [address] [place] [address] Amado Cutler MD Sore Throat; Fatigue; Cough (Symptoms started Friday ); Congestion; Decreased Appetite 01/07/2025 Results Follow-Up [place] [address] [address] [place] [address] Amado Cutler MD CORONAVIRUS (COVID-19) INFLUENZA A & B ANTIGEN IA PANEL, STREP A RAPID, CULTURE STREP A 01/07/2025 Travel 12/29/2024 Scan [facility] [employer] SRVCS Scanned, Doc [facility] from Last 3 Months Immunizations Immunization Administration [...] 03/21/2017,06/19/2013 Tetanus Toxoid Inj 06/19/2013,06/19/2013 Zoster (Zostavax) 38529 Unt/0.65Ml 02/21/2014 Family History Medical History Relation Comments Heart Disease Brother Liver cirrhosis CABG Father Heart Disease Father Stroke Maternal Grandmother Heart Disease Mother Alzheimer s Relation Status Comments Brother Father (Age 89) Maternal Grandmother Mother Social History Tobacco Use Types Packs/Day Years Used Date Smoking Tobacco: Never Smokeless Tobacco: Never Tobacco Cessation:Counseling Given: No Comments:counseled by Dr Cutler Alcohol Use Standard Drinks/Week Comments Not Currently 0 (1 standard drink = 0.6 oz pur e alcohol) Occasionally PHQ-2 Answer Date Recorded Patient Health Questionnaire-2 Score 0 02/28/2025 Comments No Sex and Gender Information Value Date Recorded Sex Assigned at Female 11/19/2024 1:20 PM LOCKSTITCH LINING SETTER Legal Sex Female 9:43 PM CDT Gender Identity Female 11/19/2024 1:20 PM LOCKSTITCH LINING SETTER Sexual Orientation Not on file 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 Not on file Not on file Last Filed Vital Signs Vital Sign Reading Time Taken Comments Blood Pressure 136/68 02/28/2025 2:29 PM CDT Pulse 62 02/28/2025 2:18 PM CDT Temperature 36.6 C (97.9 F) 02/28/2025 2:18 PM CDT Respiratory Rate 18 02/28/2025 2:18 PM CDT Oxygen Saturation 98% 02/28/2025 2:18 PM CDT Inhaled Oxygen Concentration - - Weight 78.7 kg (173 lb 9.6 oz) 02/28/2025 2:18 P M CDT Height 149.9 cm (4' 11) 02/28/2025 2:18 PM CDT Body Mass Index 35.06 02/28/2025 2:18 PM CDT Plan of Treatment Upcoming Encounters Date Type Department Care Team (Late st Contact Info) Description 06/07/2025 1:45 PM CDT [facility] [address] Rishi Miller MD [address] [place] [address] [place] [address] 09/05/2025 2:20 PM LOCKSTITCH LINING SETTER Office Visit [facility] Medical Group Multispecialty Care - [place] [address] [facility] [address] [place] [address] Amado Cutler MD [address] [facility] [address] [place] [address] Health Maintenance Due Date Last Done Comments Zoster Vaccines (1 of 2) 04/18/2014 02/21/2014 COVID-19 Vaccine ( season) 2024 06/25/2024, 05/31/2022, 07/04/2021, Additional history exists Annual Medicare Wellness Visit 08/19/2025 Postponed from 2018 (Future Appointment) Mammogram Screening 01/25/2026 01/26/2024, 01/12/2024, 11/12/2022, Additional history exists DTaP, Tdap and Td Vaccines (3 - Td or Tdap) 03/21/2027 03/21/2017, 06/19/2013, 06/19/2013, Additional history exists Colorectal Cancer Screening Colonoscopy (10 Years) 08/19/2033 08/19/2023, 05/21/2017 Hepatitis C Completed 05/20/2022 Pneumococcal Vaccine: 50+ Years Completed 06/17/2022 RSV Immunization or 60+ Years Completed 06/25/2024 Dexa Scan (General) Completed 01/12/2025, 08/20/2022, 08/20/2022 PHQ-2 (Physician [place]) Completed 02/28/2025 Meningococcal B Vaccine Aged Out No l onger eligible based on patient's age to complete this topic Meningococcal Vaccine Aged Out No ceasar carmita eligible based on patient's age to complete this topic RSV Immunizations Under 20 Months Aged Out No longer eligible based on patient's age to complete this topic Procedures Procedure Name Priority Date/Time Associated Diagnosis Comments BONE DENSITY GENERIC (SCAN ORDER) 01/12/2025 ULTRASOUND GENERIC (SCAN ORDER) 01/10/2025 CULTURE STREP A Routine 01/07/2025 11:42 AM CDT Upper respiratory tract infection, unspecified type STREP A RAPID Routine 01/07/2025 Upper respiratory tract infection, unspecified type CORONAVIRUS (COVID-19) INFLUENZA A & B ANTIGEN IA PANEL Routine 01/07/2025 Upper respiratory tract infection, unspecified type MG DIAGNOSTIC RT DIGI Routine 01/26/2024 12:00 AM CDT Abnormal mammogram of right breast COLONOSCOPY/EGD GENERIC (SCAN ORDER) 08/19/2023 HEPATITIS C ANTIBODY Routine 05/20/2022 2:57 PM CDT Annual physical exam Encounter for medical examination to establish care General medical exam Encounter for hepatitis C screening test for low risk patient from Last 3 Months or Most Recently Relevant to Health Maintenance Results * BONE DENSITY GENERIC (SCAN ORDER) (01/12/2025) Anatomical Region Laterality Modality Other 01/12/2025 [facility] Scanned SCANNING Final Resu lt * ULTRASOUND GENERIC (SCAN ORDER) (01/10/2025) Anatomical Region Laterality Modality Other 01/10/2025 [facility] Scanned SCANNING Final Resu lt * CULTURE STREP A (01/07/2025 11:42 AM CDT) THROAT CULTURE STREP A ONLY Negative for Group A Streptococci Negative for Group A Streptococci 01/08/2025 7:28 PM CDT [facility] [place] STRUCTURE OF ANTERIOR PORTION OF NECK / Unknown 01/07/2025 11:42 AM CDT Amado Cutler MD MICROBIOLOGY - GENERAL ORDERABLE S Final Result [facility] [place] [address] [place] [address], [place] [phone] * CORONAVIRUS (COVID-19) INFLUENZA A & B ANTIGEN IA PANEL (01/07/2025) CORONAVIRUS ANTIGEN IA NEGATIVE NEGATIVE [address], [place] INFLUENZA A NEGATIVE NEGATIVE [address], [place] INFLUENZA B NEGATIVE NEGATIVE [address], [place] Internal Control: VALID VALID [address], [place] NASAL STRUCTURE / Unknown 01/07/2025 Amado Cutler MD MICROBIOLOGY - GENERAL ORDERABLE S Final Result [address], [place] [address] [place] [address], * STREP A RAPID (01/07/2025) RAPID STREP TEST NEGATIVE NEGATIVE [address], [place] Internal Control: VALID VALID [address], [place] STRUCTURE OF ANTERIOR PORTION OF NECK / Unknown 01/07/2025 Amado Cutler MD MICROBIOLOGY - GENERAL ORDERABLE S Final Result [address], [place] [address] [facility] [address] [place] [address], [place] [phone] * MG DIAGNOSTIC RT DIGI (01/26/2024 12:00 AM CDT) Anatomical Region Laterality Modality Breast Right Mammography 01/26/2024 us Amado Cutler MD MAMMO Final Result * COLONOSCOPY/EGD GENERIC (SCAN ORDER) (08/19/2023) 08/19/2023 us [facility] Scanned SCANNING Final Resu lt * HEPATITIS C ANTIBODY (05/20/2022 2:57 PM CDT) HEPATITIS C AB NON-REACTI VE NON-REACT PETRA 05/20/2022 9:43 PM CDT [facility] Comment: ANTIBODIES TO HCV NOT DETECTED. DOES NOT EXCLUDE THE POSSIBILITY OF EXPOSURE TO HCV. 05/20/2022 2:57 PM CDT Amado Cutler MD LABORATORY Final Result [facility] [address] [place] [address], [id number] from Last 3 Months or Most Recently Relevant to Health Maintenance Insurance [address] [place] [address] Care Teams Senior Safety Support Manager Relationship Specialty Start Date End Date Amado Cutler MD [address] [facility] [address] [place] [address] PCP - General INTERNAL MEDICINE 05/20/22 Rishi Miller MD [address] [place] [address] [place] Hotel Reservation Agent CARDIOVASCULAR DISEASE 02/21/16 Nicolette Nunez MD [address] [place] [address] Hotel Reservation Agent CARDIOVASCULAR DISEASE 01/21/17
--- OUTSIDE RECORDS SUMMARY | 2025-03-08 16:02 | XMS_ITS | Continuity of Care Document ---
Author Organization [facility] Address [address] [address] Phone Care Team Providers Care Explosives Worker Name Role Phone Juan Lerner MD Unavailable Unavailable Advance Directives Directive Yes / No Effective Date File Name No Information Encounters Encounter Description Practice Location Reason(s) For Visit Diagnoses Date Provider Providers Copied on Encounter [email or web address], [id number], , [id number], tel:[phone] [facility] ALLERGIC RHINITIS NECINTRINSIC ASTHMA NOSESOPHAGEAL REFLUX [address], [id number] , [place]. tel:[phone] Family History Family Member Type Diagnosis Age At Onset No Information Payers Payer name Insurance type Covered democrat ID Authoriza tion(s) No Information Social History Type Description Quantity Date Captured Comments Sex Female Smoking Status No Information Chief Complaint And Reason For Visit No Information Reason For Referral Reason For Referral No Information History Of Present Illness Encounter Date Complaint History Of Prese nt Illness No Information Functional Status Date Functional Assessmen t No Information Instructions Date Instruction Additional Infor mation No Information Assessments Type Assessment Date No Information Patient Care Teams Name Effective Dates (start - stop) Status Members No Information
--- OUTSIDE RECORDS SUMMARY | 2025-03-08 16:02 | XMS_ITS | Clinical Summary ---
Author Organization [facility] Address [address] [place] [address] Phone Care Team Providers Care Railroad Car Truck Builder Name Role Phone Luís Burciaga MD Primary Care Provider [phone] Allergies Active Allergy Reactions Criticality Noted Date [...] on file Legal Sex Female 10:43 AM ONCOLOGY REP SPECIALIST Gender Identity Not on file Sexual Orientation Not on file Last Filed Vital Signs Vital Sign Reading Time Taken Comments Blood Pressure 140/90 11/10/2018 3:08 PM ONCOLOGY REP SPECIALIST Pulse 98 11/10/2018 3:08 PM ONCOLOGY REP SPECIALIST Temperature 36.9 C (98.4 F) 11/05/2018 3:14 PM ONCOLOGY REP SPECIALIST Respiratory Rate 20 11/10/2018 3:08 PM ONCOLOGY REP SPECIALIST Oxygen Saturation 96% 11/10/2018 3:08 PM ONCOLOGY REP SPECIALIST Inhaled Oxygen Concentration - - Weight 94.8 kg (209 lb) 10/17/2018 12:15 PM ONCOLOGY REP SPECIALIST Height 147.3 cm (4' 10) 10/17/2018 12:15 PM ONCOLOGY REP SPECIALIST Body Mass Index 43.68 10/17/2018 12:15 PM ONCOLOGY REP SPECIALIST Plan of Treatment Not on file Advance Directives * Full Code (Latest Code Status on File) Date Activated Date Inactivated Comments 10/22/2018 1:49 PM Care Teams Railroad Car Truck Builder Relationship Specialty Start Date End Date Luís Burciaga MD PCP - General Internal Medicine 10/14/18
--- OUTSIDE RECORDS SUMMARY | 2025-03-08 16:02 | XMS_ITS | Patient Health Record ---
Author Organization Formerly [facility] ([address]) Address [address] [address] Care Team Providers Care Head Nurse Name Role Phone Amado Cutler Primary Care Provider Sandra Mallory Unavailable [phone] James Aguilera Unavailable [phone] Allergies Allergen (clinical drug ingredient) Drug/Non Drug [...] review and pick correct strength-formula tion from [employer] options. If intended option is not shown, [...] W/U Status Risk Notes Problem Essential hypertension (08613345) Essential (primary) hypertension (I10) Active confirmed Problem Allergic rhinitis caused by animal hair and dander (713961455398541) Allergic rhinitis due to animal (cat) (dog) hair and dander (J30.81) Active confirmed Problem Uncomplicated moderate persistent asthma (890034287) Moderate persistent asthma, uncomplicated (J45.40) Active confirmed Problem Uncomplicated severe persistent asthma (209768352) Severe persistent asthma, uncomplicated (J45.50) Active confirmed Problem Asthma (578586497) Other asthma (J45.998) Active confirmed Problem Gastro-esophageal reflux disease without esophagitis (898514939) Gastro-esophageal reflux disease without esophagitis (K21.9) Active confirmed Problem Non-steroidal anti-inflammatory drug adverse reaction (510207999) Adverse effect of other nonsteroidal anti-inflammatory drugs [NSAID], initial encounter (T39.395A) Active confirmed Problem Wheezing (R06.2) Active confirmed Vital Signs Respiratory Rate 17 /min 06/17/2024 Oximetry 97 % 10/07/2024 Blood pressure diastolic 60 mm Hg 10/07/2024 Height 59.5 in 10/07/2024 Blood pressure systolic 102 mm Hg 10/07/2024 Weight 186 lbs 06/17/2024 BMI 36.93 kg/m2 06/17/2024 Encounters Encounter Location Date Provider Diagnosis [facility] [address] [place] [address] 04/15/2024 James Aguilera Severe persistent asthma, uncomplicated J45.50 [facility] [address] [place] [address] 05/13/2024 James Willy Severe persistent asthma, uncomplicated J45.50 [facility] [address] [place] [address] 06/17/2024 Sandra Hendrix Severe persistent asthma, uncomplicated J45.50 ; Allergic rhinitis due to animal (cat) (dog) hair and dander J30.81 ; Wheezing R06.2 ; Adverse effect of other nonsteroidal anti-inflammatory drugs [NSAID], subsequent encounter T39.395D and Essential (primary) hypertension I10 [facility] [address] [place] [address] 07/15/2024 James Willy Severe persistent asthma, uncomplicated J45.50 [facility] [address] [place] [address] 08/26/2024 James Aguilera Severe persistent asthma, uncomplicated J45.50 [facility] [address] [place] [address] 10/07/2024 James Aguilera Severe persistent asthma, uncomplicated J45.50 [facility] [address] [place] [address] 06/17/2024 Sandra Simeon [facility] [address] [facility] [address] [place] [address] 11/17/2024 Sandra Hendrix Assessments Encounter Date Diagnosis (ICD Code) Assessment Notes Treatment Notes Treatment Clinical Notes Section Notes 04/15/2024 Severe persistent asthma, uncomplicated (ICD-10 - [...] was done. - Continue Singulair QD - FwF=892 and QBU=985. - Received Xolair dose today and doing well. No adverse effects noted. Patient states despite recent increased symptoms she feels her asthma has improved since starting Xolair - Follow-up in 4 weeks for XOLAIR, E&M, repeat spirometry 07/15/2024 Severe persistent asthma, uncomplicated (ICD-10 - J45.50) 08/26/2024 Severe persistent asthma, uncomplicated (ICD-10 - J45.50) 10/07/2024 Severe persistent asthma, uncomplicated (ICD-10 - J45.50) 06/17/2024 Allergic rhinitis due to animal (cat) [...] is interested in checking an allergy panel 06/17/2024 Wheezing (ICD-10 - R06.2) - See plan above. Continues albuterol per AAP with spacer 06/17/2024 Adverse effect of other nonsteroidal anti-inflammatory drugs [NSAID], subsequent encounter (ICD-10 - T39.395D) Prior reaction to NSAIDs, watch for recurrence. No work-up necessary. Class effect and not IgE-mediated. 06/17/2024 Essential (primary) hypertension (ICD-10 - I10) BP normal today in office, she reports her PCP has been changing her hypertension medication regimen due to episodes of dizziness. - Continue serial checks - f/u with PCP -slated to see Cardiology for leg swelling 04/15/2024 Other 05/13/2024 Other 07/15/2024 Other 08/26/2024 Other 10/07/2024 Other Plan Of Treatment Pending Test Test Name Order Date Spirometry 06/17/2024 -Respiratory Allergens w/Total IgE Area 8 11/06/2023 Insurance Providers Payer Name Payer Address Payer Phone Subscriber Number Group Number Insured Name Patient Relationship to Insured Coverage Start Date Coverage End Date [facility] Medicare [address] [address] [place] [address] [phone] [id number] Edna Linton Self - patient is the insured Medical (General) History Medical History History ICD Code Cough, unspecified R05.9 Gastro-esophageal reflux disease without esophagitis K21.9 Essential (primary) hypertension I10 Spinal stenosis, lumbar region without n eurogenic claudication M48.061 Surgical History Surgery Date(Month/Year) sinus surgery 1979 lumbar fusion neck fusion cholecystectomy hysterectomy carpal tunnel
--- OUTSIDE RECORDS SUMMARY | 2025-03-08 16:02 | XMS_ITS ---
Author Organization [facility] Address [address] [place] [address] [address] [place] [address] Care Team Providers Care Driving Instructor Name Role Phone Nawaf HANDY, Wilbert Unavailable Unavailable Johanny Snyder Unavailable [phone] Allergies Allergen (clinical drug ingredient) Drug/Non Drug [...] e Results Component Value Reference Range Notes Get Satisfaction [facility] Profil e Reviewed date:02/17/2025 02:45:20 PM Interpretation: Performing Lab:[facility] (CLIA#: [id number]), [address] [place] [address], Director - Nola Zaldivar Notes/Report: Analyzed at [facility] (CLIA#: [id number]) - [address] [place] [address] - Grade Foreman: Nola Grady Certifying Golf Club Maker: [employer] (Remote [id number]) These tests were developed and their performance characteristics determined by [facility]. They have not been cleared or approved by the US Food and Drug Administration. Baclofen Ur CMP 33121 >=500 ng/mL COMPLIANT: T est result is [...] Cfm >=500 >=500 ng/mL POSITIVE Baclofen Ur-mCnc 79990 >=500 ng/mL POSITIVE Hydroxyzine Ur Ql Cfm [...] Ql Cfm <1 >=1 ng/mL NONE DETECTED DIRECTOR OF RECRUITMENT AND ADMISSIONS Not Otherwise Specified Ur Ql Cfm <1 >=1 ng/mL NONE DETECTED Synthetic Cannabinoids Ur Ql Cfm <1 >=1 ng/m L NONE DETECTED Hallucinogens/Dissociatives Ur Ql Cfm <1 >=1 ng/mL NONE DETECTED Film Historian Benzodiazepines Ur Ql Cfm <1 >=1 ng/mL NONE DETECTED Film Historian Opioids Ur Ql Cfm <1 >=1 ng/mL N ONE DETECTED THC Ur Ql Scn <20 >=20 ng/mL NONE DETECTED REASON FOR VISIT MEDS uds needed Medications Medication SIG (Take, Route, Frequency, Duration) Notes Start Date End Date Status Sodium Fluoride 5000 PPM 1.1 % Dental for 24 Days Active Metoprolol Succinate 100 MG 1 capsule Or ally Once a day for 30 day(s) 05/03/2024 Active Narcan 4 MG/0.1ML as directed Nasally for 1 days 08/11/2024 Active Sertraline HCl 50 MG Oral for 90 Days Active Lisinopril 20 MG Oral for 100 Days Active Ezetimibe 10 MG Oral for 100 Days Active Azelastine HCl 137 MCG/SPRAY Nasal for 100 Days Active Albuterol Sulfate HFA 108 (90 Base) MCG/ACT Inhalation for 100 Days Active Furosemide 40 MG Oral for 100 Days Active Gabapentin 600 MG Oral for 100 Days Active Hydroxychloroquine Sulfate 200 MG Oral for 100 Days Active Montelukast Sodium 10 MG Oral for 100 Days Active Trelegy Ellipta 200-62.5-25 MCG/ACT Inhalation for 90 Days Active Pantoprazole Sodium 40 MG Oral for 100 Days Active Rosuvastatin Calcium 20 MG Oral for 100 Days Active Baclofen 10 MG 1 tablet as needed Oral three times a day for 30 days Active oxyCODONE HCl 5 MG 1 tablet Oral every 6 hrs for 30 days Do not fill 01/24/25 01/19/2025 Active hydrOXYzine HCl 10 MG 1 tablet as needed Orally Once a day for 30 day(s) 02/15/2025 Active Imiquimod 5 % External for 56 Days Active traZODone HCl 150 MG Oral for 90 Days Active Vital Signs Blood pressure systolic 149 mm Hg 02/16/20 25 Blood pressure diastolic 75 mm Hg 025 Heart Rate 63 /min 02/15/2025 Height 4ft 11in in 02/15/2025 Weight 187 lbs 02/15/2025 BMI 37.77 kg/m2 02/15/2025 Height-cm 149.86 cm 02/15/2025 Weight-kg 84.82 kg 02/15/2025 Encounters Encounter Location Date Provider Diagnosis [facility] [address] [place] [address] [address] [place] [address] 02/15/2025 Johanny Snyder Sacroiliitis, not elsewhere classified M46.1 ; Lumbar pain M54.50 ; Left shoulder pain M25.512 ; Post laminectomy syndrome M96.1 ; Other meterman (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 Z79.899 ; Spondylosis without [...] and Primary osteoarthritis of left hip M16.12 Assessments Encounter Date Diagnosis (ICD Code) Assessment Notes Treatment Notes Treatment Clinical Notes Section Notes 02/15/2025 Sacroiliitis, not elsewhere classified (ICD-10 - M46.1) 02/15/2025 Lumbar pain (ICD-10 - M54.50) 02/15/2025 Left shoulder pain (ICD-10 - M25.512) 02/15/2025 Post laminectomy syndrome (ICD-10 - M96.1) 02/15/2025 Other meterman (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 (ICD-10 - Z79.899) 02/15/2025 Spondylosis without myelopathy or radiculopathy, lumbar region (ICD-10 - M47.816) 02/15/2025 Thoracic spondylosis (ICD-10 - M47.814) 02/15/2025 Lumbar spondylosis (ICD-10 - M47.816) 02/15/2025 Cervicalgia (ICD-10 - M54.2) 02/15/2025 Cervical spondylosis (ICD-10 - M47.812) 02/15/2025 Cervical radiculopathy (ICD-10 - M54.12) 02/15/2025 COPD (chronic obstructive pulmonary disease) (ICD-10 - J44.9) 02/15/2025 Hypertension (ICD-10 - I10) 02/15/2025 Sacroiliac joint dysfunction of right side (ICD-10 - M53.3) 02/15/2025 Sacroiliac joint dysfunction of both sides (ICD-10 - M53.3) 02/15/2025 Sacroiliitis (ICD-10 - M46.1) 02/15/2025 Primary osteoarthritis of left hip (ICD-10 - M16.12) 02/15/2025 Other High Blood Pressure: Care Instructions material was published, Body Mass Index: Care Instructions material was published Plan Of Treatment Treatment Notes Assessment Notes Other High Blood Pressure: Care Instructions material was published, Body Mass Index: Care Instructions material was published Pending Test Test Name Order Date EtS (Alcohol Metabolite) - Urine 025 QMP Plus D/L - Urine 02/15/2025 Synthetic Stimulants 02/15/2025 Film Historian Benzodiazepines 02/15/2025 Synthetic Cannabinoids 02/15/2025 Film Historian Opioids 02/15/2025 Hallucinogens/Dissociatives 02/15/2025 DIRECTOR OF RECRUITMENT AND ADMISSIONS Other 02/15/2025 Marijuana - Urine 02/15/2025 PainComp Medication Compliance - Urine 0 02/15/2025 [facility] Required Information 02/15/2025 Next Appt Details Provider Name:Johanny de león, 03/15/2025 11:00:00 AM, [id number] [place] [address], [address], [place], [address], Progress Notes * Edna LINTON MDOB: [birth year] (70 yo F)Acc No.[id number]:02/15/2025 Progress Notes Patient: Edna JETER Appointment Provider: Jerri Snyder NP :1955 A ge:69 Y S ex:Female Date:02/15/2025 Address:[address] [place] [address] [facility] Subjective: * Chief Complaints: * 1 . MEDS uds needed. * HPI: * Established Patient: Established Patient [...] Level today? (1-10, Scroll and select one) 3 7 . Where is your pain located? M id Back,Low Back 8 . After your last visit, what Percentage of improvement did you experience? 6 0 9 . Are you doing Physical Therapy, Chiropractic, or Massage Therapy? N o 1 0. Are you doing an at home Exercise Program? Y es 1 1. What activities or positions increase your Pain? (Scroll to select one or multiple) S tanding,Chores 1 2. What activities or positions decrease your Pain? (Scroll to select one or multiple) S itting 1 3. How would you describe your Pain? (Scroll to select one or multiple) A atiya 1 4. Are you having difficulty sleeping? Y es 1 5. When was the last time you had your blood drawn? (Please enter your best estimate) M ay 1 6. When was your last Mammogram? (Please put N/A if you are male, for Females please put the best Estimate or Never.) S martina 1 7. When was your last Colonoscopy? (Please put the best Estimate or Never.) 3 Years 1 8. Do you need any refills on your medications today? Y es 1 9. Please list ALL changes to Medications or Allergies? H ctz 12.5 resumed 2 0. Are you Diabetic? N o [...] risk per testing today. * Medications: T sharondag Imiquimod 5 % Cream External , Taking [...] HCl 50 MG Tablet Oral , Taking Baclofen 10 MG Tablet 1 tablet as needed Oral three times a day , Taking oxyCODONE HCl 5 MG Tablet 1 tablet Oral every 6 hrs , Notes to Pharmacist: Do not fill 01/24/25, Taking hydrOXYzine HCl 10 MG Tablet 1 tablet as needed Orally Once a day , Medication List reviewed and reconciled with the patient * Allergies: D ilaudid: hives, Carafate: Swelling, Morphine: hives, Vancomycin: hives, Nipride RTU: rash, Lodine: anaphylaxis. Objective: * Vitals: H t: 4ft 11in, Wt:187lbs, BP:149/75mm Hg, Pain scale:31-10, HR:63/min, BMI:37.77Index, Ht-cm: 149.86 cm, Wt-k.82 kg, Body Surface Area: 1.88. Assessment: * Assessment: 1. S acroiliitis, not elsewhere classified - M46.1 (Primary) 2 . L umbar pain - M54.50 3 . L eft shoulder pain - M25.512 4 . P ost laminectomy syndrome - M96.1 5 . O ther meterman (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 - Z79.899 6. S [...] 1 6. S acroiliitis - M46.1 ? 1 7. P rimary osteoarthritis of left hip - M16.12 Plan: * Treatment: 2. S pondylosis without myelopathy or radiculopathy, lumbar region L AB: EtS (Alcohol Metabolite) - Urine (Collection Date & Time - 02/15/2025 01:14 PM) L AB: QMP Plus D/L - Urine (Collection Date & Time - 02/15/2025 01:14 PM) L AB: Synthetic Stimulants (Collection Date & Time - 02/15/2025 01:14 PM) L AB: Film Historian Benzodiazepines (Collection Date & Time - 02/15/2025 01:14 PM) L AB: Synthetic Cannabinoids (Collection Date & Time - 02/15/2025 01:14 PM) L AB: Film Historian Opioids (Collection Date & Time - 02/15/2025 01:14 PM) L AB: Hallucinogens/Dissociatives (Collection Date & Time - 02/15/2025 01:14 PM) L AB: DIRECTOR OF RECRUITMENT AND ADMISSIONS Other (Collection Date & Time - 02/15/2025 01:14 PM) L AB: Marijuana - Urine (Collection Date & Time - 02/15/2025 01:14 PM) L AB: PainComp Medication Compliance - Urine (Collection Date & Time - 02/15/2025 01:14 PM) L AB: [facility] Required Information (Collection Date & Time - 02/15/2025 01:14 PM) 3. O thers Notes: High Blood Pressure: Care Instructions material was published, Body Mass Index: Care Instructions material was published * Labs: * L ab: Get Satisfaction Healthcare Profile (Collection Date & Time - 02/15/2025 01:14 PM) Value Reference Range G abapentin Ur CMP >500 >=5 - mcg/mL * T razodone Ur CMP 634 >=100 - ng/mL * O xycodone Ur CMP >4610 >=100 - ng/mL * B ioDetect EXPECTED - * 6 LIEN Ur Ql Cfm <10 >=10 - ng/mL * A lcohol Metabolites Ur Ql Cfm <200 >=200 - ng/ mL * E thyl sulfate Ur Cfm-mCnc <200 >=200 - ng/mL * A mphetamines Ur Ql Cfm <100 >=100 - ng/mL * B enzodiaz Ur Ql Cfm <50 >=50 - ng/mL * B uprenorphine Ur Ql Cfm <1 >=1 - ng/mL * B ZE Ur Ql Cfm <50 >=50 - ng/mL * F entanyl+Norfentanyl Ur Ql Cfm <5 >=5 - ng/m L * G abapentin Ur Ql >=5 >=5 - mcg/mL * C arisoprodol+Meprob Ur Ql Scn <200 >=200 - ng/ mL * M ethadone Ur Ql Cfm <200 >=200 - ng/mL * M eperidine Ur Ql Cfm <100 >=100 - ng/mL * O piates Ur Ql Cfm >=100 >=100 - ng/mL * O xycodone Ur Cfm-mCnc 818 >=100 - ng/mL * T ramadol Ur Ql Cfm <100 >=100 - ng/mL * C reat Ur-mCnc 166.8 20 - 370 - mg/dL * p H Ur 6.38 4.5 - 9.0 - * T razodone Ur Ql >=100 >=100 - ng/mL * m -CPP Ur Cfm-mCnc 513 >=100 - ng/mL * T razodone Ur-mCnc 121 >=100 - ng/mL * N PS Not Otherwise Specified <1 >=1 - ng/mL * G abapentin Ur Cfm-mCnc >500 >=5 - mcg/mL * P regabalin(Lyrica) Ur Ql Cfm <5 >=5 - mcg/mL * H allucinogens/Dissociatives Ur Ql Cfm <1 >=1 - ng/mL * D esigner Benzodiazepines Ur Ql Cfm <1 >=1 - ng/mL * D esigner Opioids Ur Ql Cfm <1 >=1 - ng/mL * T HC Ur Ql Scn <20 >=20 - ng/mL * S ynthetic Stimulants Ur Ql Cfm <1 >=1 - ng/m L * S ynthetic Cannabinoids Ur Ql Cfm <1 >=1 - ng /mL * O xymorphone Ur Cfm-mCnc 792 >=100 - ng/mL * N oroxycodone Ur Cfm-mCnc >3000 >=100 - ng/mL * S SRI Profile Ur Ql Cfm >=50 >=50 - ng/mL * S ertraline Ur CMP 565 >=50 - ng/mL * H ydroxyzine Ur CMP <2 >=2 - ng/mL * H ydroxyzine Ur Ql Cfm <2 >=2 - ng/mL * B aclofen Ur CMP 37323 >=500 - ng/mL * B aclofen Ur Ql Cfm >=500 >=500 - ng/mL * B aclofen Ur-mCnc 50819 >=500 - ng/mL * S ertraline Ur-mCnc 284 >=50 - ng/mL * N orsertraline Ur-mCnc 281 >=50 - ng/mL * [employer]works, support 01/21 12:00:23 : This order was created by the Interface. * Billing Information: * Visit Code: * Procedure Codes: * Electronic signature of Viet Snyder DNP/LIGIA on 03/08/2025 at 04:01 PM CDT Sign off status: Pending * Appointment Provider: Jerri Snyder NP Date: 02/15/2025 Generated for Printing/Faxing/eTransmitting on: 03/08/2025 04:01 PM CDT History and Physical Notes * [...] Level today? (1-10, Scroll and select one): 3 7. Where is your pain located?: Mid Back ,Low Back 8. After your last visit, wh at Percentage of improvement did you experience?: 60 9. Are you doing Physical Th erapy, Chiropractic, or Massage Therapy?: No 10. Are you doing an at home Exercise Pr ogram?: Yes 11. What activities or posit ions increase your Pain? (Scroll to select one or multiple): Standing,Chores 12. What activities or posit ions decrease your Pain? (Scroll to select one or multiple): Sitting 13. How would you describe y our Pain? (Scroll to select one or multiple): Aching 14. Are you having difficulty sleeping?: Yes 15. When was the last time y ou had your blood drawn? (Please enter your best estimate): January 16. When was your last Mammo gram? (Please put N/A if you are male, for Females please put the best Estimate or Never.): Schedule 17. When was your last Colon oscopy? (Please put the best Estimate or Never.): 3 Years 18. Do you need any refills on your medi cations today?: Yes 19. Please list ALL changes to Medicatio ns or Allergies?: Hctz 12.5 resumed 20. Are you Diabetic?: No 21. Do you suffer from Constipation?: Ye s
--- OUTSIDE RECORDS SUMMARY | 2025-03-08 16:02 | XMS_ITS ---
Author Organization [facility] [place] ([address]) Address [address] [place] [address] Care Team Providers Care Art Dealer Name Role Phone Amado Cutler Primary Care Provider Sandra Mallory Unavailable [phone] James Aguilera [phone] REASON FOR VISIT XOLAIR Encounters Encounter Location Date Provider Diagnosis [facility] [address] [place] [address] 11/11/2024 James Aguilera Plan Of Treatment No Information Progress Notes * Edna ROSSDOB: [birth year] (70 yo F)Acc No.[id number]:11/11/2024 Xolair Only Patient: Edna JETER Provider: Nacho Aguilera MD :1955 A ge:69 Y S ex:Female Date:11/11/2024 [facility] [address] [facility] Pcp:Amado Cutler Subjective: * Chief Complaints: * 1 . XOLAIR. * Medical History: Objective: * Vitals: Assessment: Plan: * Treatment: * Billing Information: * Visit Code: * Procedure Codes: * Electronic signature of Renae Aguilera MD, FAAAAI on 03/08/2025 at 04:02 PM CDT Sign off status: Pending * Provider: Nacho Aguilera MD Date: 0 11/11/2024 Generated for Sage carlos/Andrez/Curly on: 0 03/08/2025 04:02 PM LACEY
--- OUTSIDE RECORDS SUMMARY | 2025-03-08 16:02 | XMS_ITS | Encounter Summary ---
Author Organization [facility] Address [address] [place] [address] Phone Care Team Providers Care Sack Sewer Machine Name Role Phone Unavailable Primary Care Provider Unavailabl e Reason for Visit * Reason Comments Med Refill Encounter Details Date Type Department Care Team ([facility] Contact Info) Description 02/27/2023 Refill [facility] [address], [facility] [address] [place], [place] [id number] Butch Leahy MD [address] [phone] Social History Tobacco Use Types Packs/Day Years [...] Department Care Team (Late Contact Info) Description 05/11/2025 3:00 PM CDT Office Visit [facility] [address] [facility] [address] [place] [address] Butch Leahy MD [address] [address] documented as of this encounter Visit Diagnoses Not on filedocumented in this encounter
--- OUTSIDE RECORDS SUMMARY | 2025-03-08 16:02 | XMS_ITS | Patient Health Record ---
Author Organization [facility] roberto Address [address] [place], [place] [id number] Care Team Providers Care Preschool Program Director Name Role Phone Amado Cutler Primary Care Provider UnavailPadmini Helm Unavailable [phone] OLAYINKA GABRIEL MD Unavailable Unavailable Nola Barclay Unavailable [phone] ALLERGIES Allergen (clinical drug ingredient) Drug/Non Drug Allergy documented on EMR Reaction Allergy Type Onset Date Status morphine morphine Unknown Drug Allergy Active phenytoin Dilantin Unknown Drug Allergy Active RESULTS Component Value Reference Range Notes Complement C4, Serum Reviewed date:05/28/2024 11:08:37 AM Interpretation: Performing Lab:[facility] [place], [address] [facility], Phone - [phone], Director - [facility] Notes/Report: Complement C4, Serum 33 12-38 mg/dL CBC With Differential/Platel et Reviewed date:05/28/2024 11:08:37 AM Interpretation: Performing Lab:[facility], [address] [facility], Phone - [phone], Director - PhDRicchiuti Notes/Report: WBC 7.4 3.4-10.8 [...] Serum Reviewed date:05/28/2024 11:08:37 AM Interpretation: Performing Lab:[facility] [place], [address] [facility], Phone - [phone], Director - [facility] Notes/Report: Complement C3, Serum 169 82-167 mg/dL SPEPW/Interpretation w/refle x Reviewed date:05/28/2024 11:08:37 AM Interpretation: Performing Lab:[facility] [place], [address] [facility], Phone - [phone], Director [facility] Notes/Report: Protein, Total 6.6 6.0-8.5 g/dL Albumin 3.6 2.9-4.4 g/dL Ejiin-5-Rogputgp 0.2 0.0-0.4 g/dL Zumtv-9-Prvrkidy 0.9 0.4-1.0 g/dL Beta Globulin 1.0 0.7-1.3 g/dL Gamma Globulin 0.9 0.4-1.8 g/dL M-Herminio Not Observed Not Observed g/dL Globulin, Total 3.0 2.2-3.9 g/dL A/G Ratio 1.2 0.7-1.7 Please note: Protein electrophoresis scan will follow via computer, mail, or speech language pathologist prn delivery. Interpretation(See Below) The SPE pattern appears unremarkable. Evidence of monoclonal protein is not apparent. PDF . PDF Report Reviewed date:05/28/2024 11:08:37 AM Interpretation: Performing Lab:[facility] [place], [address] [facility], [place], Phone - [phone], Director - Baldo Notes/Report: PDF Report1 LCLS [...] 1 tab(s) orally once a day Active hydroxychloroquine 200 mg 1 tab(s) orall y 2 times a day for 90 days Active oxyCODONE 5 mg 1 tab(s) orally ever y 6 hours Active baclofen 10 mg 1 tab(s) orally 3 times a day Active lidocaine patches Ac tive melatonin 5 mg 1 cap(s) orally once a day (at bedtime) Active gabapentin 600 mg 1 tab(s) orally 3 times a day Active Vitamin D3 Active azelastine nasal Act jeff Vitamin B12 1000 mcg 1 tab(s) orally [...] 1 tab(s) orally once a day Active PROBLEMS Problem Type ICD Code Onset Dates Problem Status W/U Status Risk SNOMED Code Notes Problem UMBERTO positive (R76.8) Active confirmed 871709212 Problem Polyarthralgia (M25.50) Active confirmed 98781747 Problem Low back pain at multiple sites (M54.50) Active confirmed 300739465 Problem Sjogren's syndrome, with unspecified organ involvement (M35.00) Active confirmed [id number] VITAL SIGNS Heart Rate 68 /min 12/28/2024 Blood pressure diastolic 58 mm Hg 12/28/2024 Height 59 in 12/28/2024 Blood pressure systolic 107 mm Hg 12/28/2024 Weight 179 lbs 12/28/2024 BMI 36.15 kg/m2 12/28/2024 Encounters Encounter Location Date Provider Diagnosis [facility], [address], [address] [place], [place] [id number] 05/26/2024 Nola Barclay Sjogren's syndrome, with unspecified organ involvement M35.00 and Other terminal operations manager (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 Z79.899 [facility] [address], [address] [place], [place] [id number] 12/28/2024 Nola Barclay Sjogren's syndrome, with unspecified organ involvement M35.00 ASSESSMENTS Encounter Date Diagnosis Assessment Notes Treatment Notes Treatment Clinical Notes Section Notes 05/26/2024 Other care home (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 (ICD-10 - Z79.899) Sjogren's syndrome-fair ly stable with HCQ. Continue current therapy and eye exams.Seeing Pulm. No evidence for ILD. Following renal for anemia and CKD. On diuretics. Check labs today. Continue OTC remedies for dryness. Continue OTC remedies for dryness. Low back pain-seeing pain mgmt. On Narcotics. F/u scheduled 05/26/2024 Sjogren's syndrome, with unspecified organ involvement (ICD-10 - M35.00) Sjogren's syndrome-fair ly stable with HCQ. Continue current therapy and eye exams.Seeing Pulm. No evidence for ILD. Following renal for anemia and CKD. On diuretics. Check labs today. Continue OTC remedies for dryness. Continue OTC remedies for dryness. Low back pain-seeing pain mgmt. On Narcotics. F/u scheduled 12/28/2024 Sjogren's syndrome, with unspecified organ involvement (ICD-10 - M35.00) Sjogren's disease-manag ing well with HCQ. Continue current therapy and eye exams.Seeing Pulm. No evidence for ILD. Following renal for anemia and CKD. On diuretics. Have labs to be done faxed over. Continue OTC remedies for dryness. Low back pain-seeing pain mgmt. On Narcotics. F/u scheduled PLAN OF TREATMENT Pending Test Test Name Order Date Pulmonary Function Test (PFT) w/DLCO 12/2022 X ray : Hand left- outside order 022 X ray : Hand right- outside order 2021 X ray : SI joints- outside order Eye exam - Plaquenil 05/28/2022 X ray : Foot Left- outside order X ray : Foot Right- outside order 2021 X ray : Chest, PA Lateral- outside order 06/25/2023 Next Appt Details Provider Name:Nola Polo [place] , 11/22/2025 11:40:00 AM, [address], [address], [place], [place], [id number], Insurance Providers Payer Name Payer Address Payer Phone Subscriber Number Group Number Insured Name Patient Relationship to Insured Coverage Start Date Coverage End Date [facility] Medicare Advantage PPO [address] [address] [place] [address] [id number] Edna Linton Self - patient is the insured 4 MEDICARE [address] [address] [place] [address] [id number] Edna Linton Self - patient is the insured 3 MEDICAL (GENERAL) HISTORY Medical History History ICD Code cataracts loss of hearing hayfever hoarseness depression Ringing in ears sinus problems difficulty breathing anxiety Surgical History Surgery Date(Month/Year) hysterectomy laparoscopy cervical fusion lumber disc removed fusion
--- OUTSIDE RECORDS SUMMARY | 2025-03-08 16:03 | XMS_ITS | Encounter Summary ---
Author Organization [facility] Address [address] [place] [address] Care Team Providers Care Laboratory Asst Name Role Phone Rishi Miller MD Unavailable Nicolette Nunez MD Unavailable Amado Cutler MD Primary Care Provider [phone] Encounter Details Date Type Department Care Team (Late st Contact Info) Description 11/17/2022 Visionary Mobilet Message Enc [facility] - [address] [address] [address] [place], [place] [phone] Amado Cutler MD [address] [place] [address] [address] [place] [address] mammogram Social History Tobacco Use [...] Sex Assigned at Female 11/19/2024 1:20 PM ACID WASH OPERATOR Legal Sex Female 9:43 PM CDT Gender Identity Female 11/19/2024 1:20 PM ACID WASH OPERATOR Sexual Orientation Not on file 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 No / Unsure 11/04/2022 11:17 AM ACID WASH OPERATOR documented as of this encounter Plan of Treatment Upcoming Encounters Date Type Department Care Team (Late st Contact Info) Description 06/07/2025 1:45 PM CDT Office Visit [facility], [address] [place] [address] Rishi Miller MD [facility]. [address] [place], [place] [id number] 09/05/2025 2:20 PM ACID WASH OPERATOR Office Visit [facility] - [address] [address] [address] [place] [address] Amado Cutler MD [address] [place] [address] [address] [place] [address] documented as of this encounter Visit Diagnoses Not on filedocumented in this encounter Additional Health Concerns Infection Onset Date Last Indicated Resolved Time Respiratory Rule Out 01/07/2025 01/07/2025 11:20 AM CDT documented as of this encounter Care Teams Laboratory Asst Relationship Specialty Start Date End Date Amado Cutler MD [address] [place] [address] [address] [place] [address] PCP - General INTERNAL MEDICINE 05/20/22 Rishi Miller MD [facility]. [address] [place] [address] [employer] [employer] CARDIOVASCULAR DISEASE 02/21/16 Nicolette Nunez MD [facility]. [address] [place], [place] [address] EP Refinery Operator [employer] CARDIOVASCULAR DISEASE 01/21/17 documented as of this encounter
== END 2025-03-08 15:00 | disposition home or self-care (01) ==
PROVIDERS: PCP Internal Medicine; Visit Provider Internal Medicine
DX: Z12.31 Encounter for screening mammogram for malignant neoplasm of breast (principal)
CPT/HCPCS: 77063; 77067

== ENCOUNTER 2025-06-16 10:41 | Outpatient (CLI) | payer MEDICARE, SELFPAY ==
--- NOTE | ~2025-06-16 | CT_ITS ---
EXAMINATION: CT thoracic lumbar wo con DATE: 06/16/2025 11:24 INDICATION: Back pain. Left leg numbness. TECHNIQUE: Computed tomography (CT) of the thoracic and lumbar spine was performed without intravenous contrast. Automated exposure control and iterative reconstruction technique were employed. The dose-length product was 1699.37 mGy-cm. COMPARISON: CT lumbar spine 07/31/2022 FINDINGS: CT THORACIC SPINE: There is kyphosis of thoracic spine. There is 9 degrees dextrocurvature of thoracic spine. There are changes of anterior fusion procedure at C5-C6 with healed interbody bone graft and anterior plate and screws. There is mild chronic anterior wedging of T4-T8 vertebral bodies and T11 and T12 vertebral bodies. There is decreased disc height at most levels, severe from T4-T5 through T7-T8 and T9-T10 through T12-L1. There is multilevel severe facet joint osteoarthritis. There is mild neural foraminal stenosis at multiple levels on either side. On the right, there is moderate neural frontal stenosis at T1-T2, T2-T3, and T4-T5. On the left, there is moderate neural foraminal stenosis at T3-T4, T4-T5, T5-T6, and T6-T7. There is mild central canal stenosis at the disc levels from T4-T5 through T12-L1. CT LUMBAR SPINE: There is 14 degrees levoscoliosis of thoracolumbar spine. There is mild chronic anterior wedging of L1 and L2 vertebral bodies. There are changes of posterior fusion procedure from L2 to S1 and the iliac bones with pedicle screws. There are changes of anterior fusion procedure L5-S1 with interbody device. There is severely decreased disc height at L1-L2. There is severely decreased disc height at L2-L3 with interbody fusion. There is moderately decreased disc height at L3-L4 and L4-L5. The following disc levels are specifically discussed: L1-L2: The disc is bulging. There is severe bilateral facet joint osteoarthritis. There is mild bilateral neural foraminal stenosis. There is mild central canal stenosis. L2-L3: There is mild bilateral facet joint hypertrophy. There is mild bilateral neural foraminal stenosis. There is mild central canal stenosis. There is posterior decompression. L3-L4: The disc is bulging. There is mild bilateral facet joint hypertrophy. There is moderate bilateral neural foraminal stenosis. There is mild central canal stenosis. There is posterior decompression. L4-L5: The disc is bulging. There is moderate bilateral facet joint hypertrophy. There is mild right and moderate left neural foraminal stenosis. There is mild central canal stenosis. There is posterior decompression. L5-S1: There is moderate bilateral facet joint hypertrophy. There is mild bilateral neural foraminal stenosis. There is no central canal stenosis. IMPRESSION: 1. Severe thoracic and lumbar spondylosis. 2. Thoracolumbar levoscoliosis. Thoracic kyphosis. 3. Posterior fusion procedure from L2 to S1 and the iliac bones. 4. Anterior fusion procedure at L5-S1. Reviewed, dictated and finalized at location E.
== END 2025-06-16 10:42 | disposition home or self-care (01) ==
LOC: MICIMG 10:43
PROVIDERS: PCP Internal Medicine
DX: M47.24 Other spondylosis with radiculopathy, thoracic region (principal); M47.26 Other spondylosis with radiculopathy, lumbar region; Z98.1 Arthrodesis status
CPT/HCPCS: 72128; 72131